=== PATIENT | female | born 1955 | race Caucasian/White ===

== ENCOUNTER → 2016-07-05 | Outpatient (CLI) | payer MEDICARE, OTHER ==
[2016-06-16 11:13] VITALS: BP 133/72
[~2016-07-05] MED LIST: AMOX1TAB11 PO; BUPR100T8 PO; CIPR7.5D RIGHT EAR; CRESTOR10 MG PO; CYCL10TA2 PO; DICY20TA3 PO; FLUC150T2 PO; FLUO10CA7 PO; FLUT16SP NS; FLUT1DIS5 IH; FURO40TA4 PO; GABA300C8 PO; HYDR-2672 PO; LEVALBUTER1.25 MG/0. IH; LEVO50TA5 PO; LORA10TA3 PO; LORA2TAB PO; MELO-150 PO; METO25TA9 PO; MOME17SP NS; OXYC10TA PO; OXYC30TA PO; PROAIR HFA8.5 GM IH; PROC10TA2 PO; TRAZ100T12 PO
--- NOTE | 2016-07-05 14:11 | RAD ---
PROCEDURE MRI right shoulder without contrast dated 07/05/2016. HISTORY Pain for 2 weeks. Limited range of motion. TECHNIQUE Routine multiplanar multisequence MR imaging right shoulder performed. COMPARISON None. FINDINGS Study is limited due to motion artifact and poor signal. There is intermediate T2 signal throughout the supraspinatus and infraspinous portions of the rotator cuff. Evaluation for tear is limited based on technique. No definite T2 fluid bright defect. No cuff retraction. Mild hypertrophic change of the acromioclavicular joint. Trace amount of subacromial/subdeltoid bursal fluid. Acromion type 3 morphology. Long head biceps tendon is not well evaluated proximally. Suspected mild increased signal in the tendon substance based on the axial images. The extra-articular biceps tendon extends within the bicipital groove. Glenoid labrum not well evaluated. No gross evidence of labral tear or paralabral cyst. Mild degenerative change of the glenohumeral joint. Node joint effusion or loose body. IMPRESSION - Limited exam due to motion artifact and poor signal. - Rotator cuff tendinopathy with no definite full-thickness tear. - Suspect mild proximal biceps tendinosis. - Mild degenerative change of the AC joint and glenohumeral joint. Electronically signed by: Dominic Steel (Jul 05, 2016 14:09:22)
== END | disposition home or self-care (01) ==
LOC: MRI 12:52
PROVIDERS: ATTEND Internal Medicine
DX: M75.21 Bicipital tendinitis, right shoulder (principal); M19.011 Primary osteoarthritis, right shoulder; M25.411 Effusion, right shoulder
CPT/HCPCS: 73221

== ENCOUNTER → 2016-10-06 | Outpatient (CLI) | payer MEDICARE, OTHER ==
[2016-06-16 11:13] VITALS: BP 133/72
--- NOTE | 2016-10-06 12:17 | RAD ---
Indication lymphoma. Follow-up. PET/CT was performed from the skull through the proximal thigh. CT was performed primarily for localization and attenuation purposes as opposed to primary diagnostic purposes. Note is made of a previous examination 04/09/2015. 13 mCi of FDG was administered. The blood sugar during the examination was monitored 5. On CT no definite abnormality is seen in the head or neck. No dominant soft tissue mass is seen in either lung. There are scattered areas of pleural-parenchymal scarring. The spleen is absent. No definite adrenal or renal pathology is seen and the pancreas appears unremarkable. Definite significant central or retroperitoneal adenopathy is not seen. Acute finding in the abdomen or pelvis is not apparent. Right hip prosthesis and degenerative changes in the visualized spinal column are noted. On PET increased activity is seen in the right masseter muscle. This was noted on the previous exam but is less conspicuous on today's study. Increased activity in the muscles of the lower neck and upper back is likely claim service representative of brown fat. Some increased activity is seen in the right shoulder likely degenerative. No FDG avid axillary or mediastinal lymph nodes are noted and a significant finding in the chest is not apparent. The FDG is physiologically distributed in the abdomen and pelvis. Note is made of increased FDG activity in a lower right rib at the site of a fracture which does not appear pathologic. IMPRESSION: No definite evidence of recurrent disease. Increased FDG activity in the right masseter muscle of uncertain clinical significance or etiology. The intensity of the uptake is less than on the previous exam Recent or acute benign-appearing fracture right lower rib
== END | disposition home or self-care (01) ==
LOC: PETSC 10:06
PROVIDERS: ATTEND Internal Medicine Hematology & Oncology
DX: C82.90 Follicular lymphoma, unspecified, unspecified site (principal)
CPT/HCPCS: 78815; A9552

== ENCOUNTER 2017-06-20 05:46 | Inpatient (IN) | payer MEDICARE, OTHER ==
[2017-06-20] MEDS ORDERED: NON FORMULARY ITEM (Albuterol Sulfate (Proair Hfa Inhaler) 2 PUFF) IH (08:00)
[2017-06-20] MEDS ORDERED: ALBUTEROL SULFATE 2.5 MG/3 ML NEBU. NEB (08:30)
[2017-06-20] MEDS: TERBINAFINE 250 MG TABLET. PO (08:37)
[2017-06-20] MEDS: LEVOTHYROXINE 50 MCG TABLET PO (08:38)
[2017-06-20] MEDS: DICYCLOMINE HCL 10 MG CAPSULE PO ×3 (08:38→21:15)
[2017-06-20] MEDS: buPROPion SR 100 MG TABLET.SA. PO ×2 (08:39→21:35)
[2017-06-20] MEDS: HYDROcodone/APAP 10/325 1 TAB TABLET PO ×4 (08:39→21:16)
[2017-06-20] MEDS: METOPROLOL SUCC 24HR ER 25 MG TAB.ER.24H. PO ×2 (08:39→21:16)
[2017-06-20] MEDS: GABAPENTIN 100 MG CAPSULE. PO ×3 (08:40→21:17)
[2017-06-20] MEDS: FLUoxetine HCL 20 MG CAPSULE PO (08:40)
[2017-06-20] MEDS: MELOXICAM 7.5 MG TABLET PO (08:40)
[2017-06-20] MEDS ORDERED: FLUCONAZOLE 150 MG PO (09:00)
[2017-06-20] MEDS ORDERED: CETIRIZINE HCL 10 MG TABLET. PO (09:00)
[2017-06-20] MEDS ORDERED: cefTRIAXone IV Push 1 GM VIAL. IVP (11:00)
[2017-06-20] MEDS: cefTRIAXone IV Push 1 GM VIAL. IVP ×2 (11:08→21:19)
[2017-06-20] MEDS: FLUTICASONE 50MCG/NASAL SPRAY 16GM BOTTLE. NS (14:57)
[2017-06-20] MEDS: ATORVASTATIN CALCIUM 40 MG TABLET. PO (21:15)
[2017-06-20] MEDS: LACTOBACILLUS RHAMNOSUS GG 1 CAPSULE. PO (21:17)
[2017-06-20] MEDS: traZODone 100 MG TABLET. PO (21:17)
[2017-06-21] MEDS: HYDROcodone/APAP 10/325 1 TAB TABLET PO ×3 (01:17→14:22)
[2017-06-21 04:19] LABS: ADD MAN DIFF? NO
[2017-06-21 05:00] LABS: BASO # 0.1 x10^3/uL (0.0-0.2); BASO % 1 % (0-3); EOS # 0.3 x10^3/uL (0.0-0.7); EOS % 3 % (0-3); HEMATOCRIT 35.4 % (36.0-47.0); HEMOGLOBIN 11.7 g/dL (12.0-15.5); LYMPH # 2.3 x10^3/uL (1.0-4.8); LYMPH % 23 % (24-48); MEAN CORPUSCULAR HEMOGLOBIN 32 pg (25-35); MEAN CORPUSCULAR HGB CONC 33 g/dL (31-37); MEAN CORPUSCULAR VOLUME 96 fL (79-100); MONO % 11 % (0-9); NEUT % 62 % (31-73); PLATELET COUNT 347 x10^3/uL (140-400); RED BLOOD COUNT 3.68 x10^6/uL (3.50-5.40); RED CELL DISTRIBUTION WIDTH 14.8 % (11.5-14.5); WHITE BLOOD COUNT 9.7 x10^3/uL (4.0-11.0)
[2017-06-21 05:18] LABS: ALBUMIN/GLOBULIN RATIO 1.3 (1.0-1.7); ALK PHOS 82 U/L (46-116); ALT (SGPT) 25 U/L (14-59); ANION GAP 8 (6-14); AST (SGOT) 21 U/L (15-37); BLOOD UREA NITROGEN 10 mg/dL (7-20); BUN/CREATININE RATIO 17 (6-20); CARBON DIOXIDE 31 mmol/L (21-32); CHLORIDE 104 mmol/L (98-107); CREATININE 0.6 mg/dL (0.6-1.0); GFR 101.6; GLUCOSE 118 mg/dL (70-99); POTASSIUM 3.6 mmol/L (3.5-5.1); SODIUM 143 mmol/L (136-145); TOTAL BILIRUBIN 0.4 mg/dL (0.2-1.0); TOTAL PROTEIN 5.4 g/dL (6.4-8.2)
[2017-06-21] MEDS: LEVOTHYROXINE 50 MCG TABLET PO (05:26)
[2017-06-21] MEDS: CYCLOBENZAPRINE 10 MG TABLET. PO ×2 (10:33→14:22)
[2017-06-21] MEDS: FLUTICASONE 50MCG/NASAL SPRAY 16GM BOTTLE. NS (10:33)
[2017-06-21] MEDS: buPROPion SR 100 MG TABLET.SA. PO (10:33)
[2017-06-21] MEDS: FLUoxetine HCL 20 MG CAPSULE PO (10:34)
[2017-06-21] MEDS: LACTOBACILLUS RHAMNOSUS GG 1 CAPSULE. PO (10:34)
[2017-06-21] MEDS: oxyCODONE ER 15 MG TAB.ER.12H PO (10:34)
[2017-06-21] MEDS: TERBINAFINE 250 MG TABLET. PO (10:34)
[2017-06-21] MEDS: GABAPENTIN 100 MG CAPSULE. PO ×2 (10:35→14:22)
[2017-06-21] MEDS: DICYCLOMINE HCL 10 MG CAPSULE PO ×2 (10:35→14:23)
[2017-06-21] MEDS: MELOXICAM 7.5 MG TABLET PO (10:35)
[2017-06-21] MEDS: METOPROLOL SUCC 24HR ER 25 MG TAB.ER.24H. PO (10:35)
[2017-06-21] MEDS: cefTRIAXone IV Push 1 GM VIAL. IVP (10:36)
== END 2017-06-21 14:42 | DRG 206 ==
LOC: 2 NORTH 05:46 → 6 SOUTH 17:05
DX: S22.31XA Fracture of one rib, right side, initial encounter for closed fracture (principal); G62.9 Polyneuropathy, unspecified; R62.7 Adult failure to thrive; F32.9 Major depressive disorder, single episode, unspecified; J44.9 Chronic obstructive pulmonary disease, unspecified; F41.9 Anxiety disorder, unspecified; G89.29 Other chronic pain; M19.90 Unspecified osteoarthritis, unspecified site; E03.9 Hypothyroidism, unspecified; E78.5 Hyperlipidemia, unspecified; F17.210 Nicotine dependence, cigarettes, uncomplicated; W19.XXXA Unspecified fall, initial encounter; Y93.89 Activity, other specified; Y99.8 Other external cause status; Y92.009 Unspecified place in unspecified non-institutional (private) residence as the place of occurrence of the external cause; Z82.49 Family history of ischemic heart disease and other diseases of the circulatory system; Z91.19 Patient's noncompliance with other medical treatment and regimen
CPT/HCPCS: 36415; 71045; 78582; 80053; 85025; 94760; 96374; 97161-GP; 97165-GO; A9540; A9558; J0696

== ENCOUNTER 2018-01-08 23:04 | Emergency (ER) | payer MEDICARE | END 2018-01-09 02:55 | disposition home or self-care (01) | LOC: ER 01-09 02:55 | DX: F41.9 Anxiety disorder, unspecified (principal); J44.9 Chronic obstructive pulmonary disease, unspecified; Z91.041 Radiographic dye allergy status; Z88.8 Allergy status to other drugs, medicaments and biological substances; Z91.018 Allergy to other foods | CPT/HCPCS: 96372; 99284-25; J2060 ==

== ENCOUNTER 2018-06-05 19:36 | Emergency (ER) | payer MEDICARE, OTHER ==
[~2018-06-05] VITALS: Ht 175.3 cm; Wt 66.7 kg
[~2018-06-05 19:36] MED LIST changes: +ATOR40TA59 PO; +BUSP10TA PO; +DICY10CA3 PO; +GABA300C18 PO; -GABA300C8 PO; -HYDR-2672 PO; +HYDR-2769 PO; +LORA-434 PO; -MELO-150 PO; +MELO15TA23 PO; +MELO7.5T29 PO; +METO-239 PO; -METO25TA9 PO; +MORP15TA3 PO; +OXYC10TA46 PO; -OXYC30TA PO; +OXYC30TA3 PO; +TERB250T11 PO; +TRAZ-86 PO; -TRAZ100T12 PO
[2018-06-05] MEDS ORDERED: ORPHENADRINE CITRATE 60 MG/2 ML VIAL. IM ONE (20:30)
[2018-06-05] MEDS ORDERED: HYDROcodone/APAP 10/325 1 TAB TABLET PO ONE (20:45)
[2018-06-05] MEDS ORDERED: DEXAMETHASONE 4 MG TABLET PO ONE (20:45)
--- NOTE | 2018-06-05 20:46 | PHYS DOC ---
Past Medical History Past Medical History: Cancer, COPD Additional Past Medical Histor: follicular lymphoma w chemo and radiation, Crohn Past Surgical History: Splenectomy Additional Past Surgical Histo: port o cath r ant chest,r hip Alcohol Use: None Drug Use: None Social History Father - Crohn, Alcoholism Sister - alcoholism Adult General Chief Complaint Chief Complaint: MECHANICAL FALL HPI HPI Patient is a 62 year old with hx of R hip replacement and chronic back pain who presents with mechanical fall. Pt reports having a fall from a 3-step ladder this morning (06/05/2018) and landed on her R. buttock as she was decorating her room in the intermediate. Pt experience sharp pain that radiates from her lower back down to her ankle on the right side. She rates her pain as 10/10 (10 = worst). Around 10 am today, She took some [place] and oxycodone which alleviates some of the pain. She denies hitting her head or shoulder nor LOC as she fell. Denies any dizziness that causes the fall. Review of Systems Review of Systems Constitutional: Denies fever or chills [] Eyes: Denies change in visual acuity, redness, or eye pain [] HENT: Denies nasal congestion or sore throat [] Respiratory: Denies cough or shortness of breath [] Cardiovascular: No additional information not addressed in HPI [] GI: Denies abdominal pain, nausea, vomiting, bloody stools or diarrhea [] : Denies dysuria or hematuria [] Musculoskeletal: Endorses back pain and muscle weakness [] Integument: Denies rash or skin lesions [] Neurologic: Denies headache, focal weakness or sensory changes [] Complete systems were reviewed and found to be within normal limits, except as documented in this note. Current Medications Current Medications Current Medications Medications (Trade) Dose Ordered Sig/Aysha Start Time Stop Time Status Last Admin Dose Admin Acetaminophen/ Hydrocodone Bitart (Lortab 10/325) 1 tab 1X ONCE 06/05/18 20:45 06/05/18 20:46 DC 06/05/18 20:51 1 TAB Dexamethasone (Decadron) 10 mg 1X ONCE 06/05/18 20:45 06/05/18 20:46 DC 06/05/18 20:51 10 MG Orphenadrine Citrate (Norflex) 60 mg 1X ONCE 06/05/18 20:30 06/05/18 20:31 DC 06/05/18 20:51 60 MG Allergies Allergies Allergies Coded Allergies Type Severity Reaction Last Updated Verified Iodinated Contrast- Oral and IV Dye Allergy Severe Anaphylaxis 07/17/14 Yes coconut oil Allergy Severe Anaphylaxis 07/17/14 Yes iron Allergy Severe Anaphylaxis 07/17/14 Yes Physical Exam Physical Exam Constitutional: Well developed, well nourished, no acute distress, non-toxic appearance. [] HENT: Normocephalic, atraumatic, bilateral external ears normal, oropharynx moist, no oral exudates, nose normal. [] Eyes: PERRL, EOMI, conjunctiva normal, no discharge. [] Neck: Normal range of motion, no tenderness, supple, no stridor. [] Cardiovascular:Heart rate regular rhythm, no murmur [] Lungs & Thorax: Bilateral breath sounds clear to auscultation [] Abdomen: Bowel sounds normal, soft, no tenderness[] Skin: Warm, dry, no erythema, no rash. [] Back: Paraspinal spasm and tenderness on the R. lower back, no midline focal tenderness, no CVA tenderness. Negative Straight leg test at 65 degree. [] Extremities: mild tenderness on the posterior R thigh, no cyanosis, no clubbing , ROM intact, no edema. [] Neurologic: Alert and oriented X 3, normal motor function, normal sensory function, no focal deficits noted. [] Psychologic: Affect normal, judgement normal, mood normal. [] Current Patient Data Vital Signs Vital Signs Date Time Temp Pulse Resp B/P (MAP) Pulse Ox O2 Delivery O2 Flow Rate FiO2 06/05/18 20:01 98.5 91 20 122/73 (89) 90 Room Air 98.5 EKG EKG [] Radiology/Procedures Radiology/Procedures XR right hip and pelvis: NO acute fracture/dislocation with R bipolar hip ( preliminary interpretation by ED physician) XR sacrum/coccyx: NO acute fracture, limited view on AP due to bowel gas ( preliminary interpretation by ED physician) Course & Med Decision Making Course & Med Decision Making Pertinent Labs and Imaging studies reviewed. (See chart for details) [] Dragon Disclaimer Dragon Disclaimer This electronic medical record was generated, in whole or in part, using a voice recognition dictation system. Departure Departure Impression: Primary Impression: Fall Additional Impressions: Low back pain Contusion of right hip, initial encounter Disposition: TRANSFER SNF (back to intermediate) Condition: STABLE Referrals: MILAN MCCRAY (PCP) Patient Instructions: Contusion, [id number], Fall Prevention in Hospitals, Low Back Strain with Rehab-Sports[facility] Additional Instructions: Continue previous prescribed muscle relaxer and chronic pain medications. Problem Qualifiers Primary Impression: Fall Encounter type: initial encounter Qualified Codes: W19.XXXA - Unspecified fall, initial encounter Additional Impressions: Low back pain Chronicity: acute Back pain laterality: right Sciatica presence: with sciatica Sciatica laterality: sciatica of right side Qualified Codes: M54.41 - Lumbago with sciatica, right side PRICILLA MAHMOOD DO Jun 05, 2018 20:46
--- NOTE | 2018-06-05 21:52 | RAD ---
Examination: SACRUM COCCYX 3V, HIP RIGHT 2V WITH PELVIS History: pain s/p fall Comparison/Correlation: None Findings: Frontal view of the pelvis, frog-leg lateral view of the right hip, lateral view of the sacrum and coccyx, and frontal views of the sacrum and coccyx were provided. Right hip joint prosthesis is intact with no evidence of loosening. Osteopenia is notable. No acute fracture or bony destructive finding. Mild L5 compression deformity is evident but may be chronic. Moderate quantity of stool in the colon is present. Impression: No sacral or coccygeal fracture identified. Osteopenia is notable however. Consider further evaluation if occult fracture is a persistent concern. L5 compression deformity is present but of indeterminate age. Electronically signed by: Ross Rob MD (06/05/2018 9:48 PM) [facility]
[2018-06-05 22:00] VITALS: BP 154/67
== END 2018-06-05 23:03 ==
LOC: ER 19:36
DX: S70.01XA Contusion of right hip, initial encounter (principal); M54.41 Lumbago with sciatica, right side; G89.29 Other chronic pain; J44.9 Chronic obstructive pulmonary disease, unspecified; Z91.041 Radiographic dye allergy status; Z88.8 Allergy status to other drugs, medicaments and biological substances; Z91.048 Other nonmedicinal substance allergy status; W10.8XXA Fall (on) (from) other stairs and steps, initial encounter; Y93.89 Activity, other specified; Y92.89 Other specified places as the place of occurrence of the external cause; Y99.8 Other external cause status
CPT/HCPCS: 72220; 73502; 96372; 99284; J2360; J8540

== ENCOUNTER 2019-04-17 13:10 | Inpatient (IN) | payer MEDICARE, MEDICAID ==
[~2019-04-17] VITALS: Ht 167.6 cm; Wt 70.3 kg
[~2019-04-17 13:10] MED LIST changes: +ALBU2.5V8 IH; +MORP-15 PO; -MORP15TA3 PO; -PROAIR HFA8.5 GM IH
[2019-04-17] MEDS ORDERED: ONDANSETRON PF 4 MG/2 ML VIAL. IVP ONE (13:45)
[2019-04-17] MEDS ORDERED: FAMOTIDINE 20 MG/2 ML VIAL IVP ONE (13:45)
[2019-04-17] MEDS ORDERED: fentaNYL PF VIAL 100 MCG/2 ML VIAL IVP ONE (13:45)
[2019-04-17 14:10] LABS: BASO # 0.1 x10^3/uL (0.0-0.2); BASO % 1 % (0-3); EOS % 0 % (0-3); HEMATOCRIT 49.1 % (36.0-47.0); HEMOGLOBIN 16.2 g/dL (12.0-15.5); LYMPH # 2.7 x10^3/uL (1.0-4.8); LYMPH % 22 % (24-48); MEAN CORPUSCULAR HEMOGLOBIN 31 pg (25-35); MEAN CORPUSCULAR HGB CONC 33 g/dL (31-37); MEAN CORPUSCULAR VOLUME 95 fL (79-100); MONO # 1.2 x10^3/uL (0.0-1.1); MONO % 10 % (0-9); NEUT # 8.2 x10^3/uL (1.8-7.7); NEUT % 67 % (31-73); PLATELET COUNT 311 x10^3/uL (140-400); WHITE BLOOD COUNT 12.2 x10^3/uL (4.0-11.0)
[2019-04-17 14:23] LABS: ALBUMIN 3.9 g/dL (3.4-5.0); CALCIUM 9.3 mg/dL (8.5-10.1); CREATININE 0.8 mg/dL (0.6-1.0); GFR 72.4; TOTAL BILIRUBIN 0.5 mg/dL (0.2-1.0); TOTAL PROTEIN 7.9 g/dL (6.4-8.2)
[2019-04-17 14:30] LABS: POTASSIUM 2.3 mmol/L (3.5-5.1)
[2019-04-17 14:38] LABS: ACANTHOCYTES FEW; PLT ESTIMATE ADEQUATE (ADEQUATE); SCHISTOCYTES OCC; SPHEROCYTES FEW
[2019-04-17] MEDS ORDERED: POTASSIUM CITRATE 10 MEQ TABLET.ER PO STA (14:38)
[2019-04-17] MEDS ORDERED: POTASSIUM CHLORIDE 20 MEQ TABLET.ER. PO ONE (15:00)
[2019-04-17] MEDS: POTASSIUM CHLORIDE 10MEQ 100 ML IV SCH ×2 (15:15→16:07)
--- NOTE | 2019-04-17 15:15 | PDOC1 ---
History and Physical Date of Admission Date of Admission DATE: 04/17/19 TIME: 15:14 Identification/Chief Complaint Chief Complaint seen in er , very hypokalemic 63 year old female with history of lymphoma, COPD, who presents to the ED today complaining of vomiting coffee ground emesis for one week. Patient is also complaining of 10 out of 10 sharp intermittent generalized abdominal pain one week. Denies any diarrhea. She states she had a normal bowel movement yesterday. Denies any chest pain, shortness of breath. Denies being on any chemotherapy drugs Past Medical History Past Medical History Past Medical History Cardiovascular: HTN, Hyperlipidemia Pulmonary: Asthma, COPD CENTRAL NERVOUS SYSTEM: Seizure GI: GERD, Irritable bowel disease, Other Heme/Onc: Anemia NOS, Cancer Hepatobiliary: No pertinent hx Psych: Anxiety, Bipolar, Depression Rheumatologic: Fibromyalgia Infectious disease: No pertinent hx Renal/: Urinary Incontinence, Other Endocrine: Hypothyroidism Past Surgical History Past Surgical History: Total hip replacement, Other Family History Family History: Coronary Artery Disease Social History ALCOHOL: none Drugs: None Cardiovascular: HTN, Hyperlipidemia Pulmonary: Asthma, COPD CENTRAL NERVOUS SYSTEM: Seizure GI: GERD, Irritable bowel disease, Other Heme/Onc: Anemia NOS, Cancer Hepatobiliary: No pertinent hx Psych: Anxiety, Bipolar, Depression Rheumatologic: Fibromyalgia Infectious disease: No pertinent hx Renal/: Urinary Incontinence, Other Endocrine: Hypothyroidism Past Surgical History Past Surgical History: Total hip replacement, Other Family History Family History: Coronary Artery Disease, Hypertension Social History Smoke: Quit ALCOHOL: none Drugs: None Current Medications Current Medications Current Medications Famotidine (Pepcid Vial) 20 mg 1X ONCE IVP Last administered on 04/17/19at 14:08; Start 04/17/19 at 13:45; Stop 04/17/19 at 13:46; Status DC Ondansetron HCl (Zofran) 4 mg 1X ONCE IVP Last administered on 04/17/19at 14:08; Start 04/17/19 at 13:45; Stop 04/17/19 at 13:46; Status DC Fentanyl Citrate (Fentanyl 2ml Vial) 50 mcg 1X ONCE IVP Last administered on 04/17/19at 14:09; Start 04/17/19 at 13:45; Stop 04/17/19 at 13:46; Status DC Potassium Citrate (Urocit-K) 40 meq 1X STAT PO ; Start 04/17/19 at 14:38; Stop 04/17/19 at 14:39; Status Cancel Potassium Chloride/Water 100 ml @ 100 mls/hr Q1H IV ; Start 04/17/19 at 15:00; Stop 04/17/19 at 16:59 Potassium Chloride (Klor-Con) 40 meq 1X ONCE PO Last administered on 04/17/19at 15:00; Start 04/17/19 at 15:00; Stop 04/17/19 at 15:01; Status DC Active Scripts Active Reported Metoprolol Succinate ( Xl ) (Metoprolol Succinate) 25 Mg Tab.er.24h 1 Tab PO DAILY Buspirone Hcl 10 Mg Tablet 10 Mg PO TID Loratadine 10 Mg Tablet 1 Tab PO PRN DAILY PRN Terbinafine Hcl 250 Mg Tablet 1 Tab PO DAILY Gabapentin 300 Mg Capsule 300 Mg PO TID Fluticasone Propionate Nasal [place] (Fluticasone Propionate) 16 Gm [place].susp 1 Spr NS DAILY Bupropion Hcl Sr (Bupropion Hcl) 100 Mg Tablet.er 100 Mg PO BID Fluoxetine Hcl 10 Mg Capsule 2 Cap PO DAILY Proair Hfa Inhaler (Albuterol Sulfate) 8.5 Gm Hfa.aer.ad 2 Puff IH PRN Q4-6HRS Dicyclomine Hcl 20 Mg Tablet 1 Tab PO TID Levothyroxine Sodium 50 Mcg Tablet 1 Tab PO DAILY Allergies Allergies: Coded Allergies: Iodinated Contrast Media (Verified Allergy, Severe, Anaphylaxis, 07/17/14) coconut oil (Verified Allergy, Severe, Anaphylaxis, 07/17/14) coconuts iron (Verified Allergy, Severe, Anaphylaxis, 07/17/14) ROS Review of System Review of Systems Review of Systems Constitutional: Denies fever or chills [] Eyes: Denies change in visual acuity, redness, or eye pain [] HENT: Denies nasal congestion or sore throat [] Respiratory: Denies cough or shortness of breath [] Cardiovascular: No additional information not addressed in HPI [] GI: Reports abdominal pain, coffee-ground emesis denies bloody stools or diarrhea [] : Denies dysuria or hematuria [] Musculoskeletal: Denies back pain or joint pain [] Integument: Denies rash or skin lesions [] Neurologic: Denies headache, focal weakness or sensory changes [] 14 pt systems were reviewed and found to be within normal limits, except as documented General: YES: Fatigue PSYCHOLOGICAL ROS: YES: Anxiety Gastrointestinal: Yes Nausea, Yes Vomiting Vitals Vitals Vital Signs Date Time Temp Pulse Resp B/P (MAP) Pulse Ox O2 Delivery O2 Flow Rate FiO2 04/17/19 14:09 16 95 Room Air 04/17/19 13:10 97.9 107 134/73 (93) 97.9 Labs Labs Laboratory Tests Test 04/17/19 13:55 White Blood Count 12.2 x10^3/uL (4.0-11.0) Red Blood Count 5.20 x10^6/uL (3.50-5.40) Hemoglobin 16.2 g/dL (12.0-15.5) Hematocrit 49.1 % (36.0-47.0) Mean Corpuscular Volume 95 fL (79-100) Mean Corpuscular Hemoglobin 31 pg (25-35) Mean Corpuscular Hemoglobin Concent 33 g/dL (31-37) Red Cell Distribution Width 14.0 % (11.5-14.5) Platelet Count 311 x10^3/uL (140-400) Neutrophils (%) (Auto) 67 % (31-73) Lymphocytes (%) (Auto) 22 % (24-48) Monocytes (%) (Auto) 10 % (0-9) Eosinophils (%) (Auto) 0 % (0-3) Basophils (%) (Auto) 1 % (0-3) Neutrophils # (Auto) 8.2 x10^3/uL (1.8-7.7) Lymphocytes # (Auto) 2.7 x10^3/uL (1.0-4.8) Monocytes # (Auto) 1.2 x10^3/uL (0.0-1.1) Eosinophils # (Auto) 0.0 x10^3/uL (0.0-0.7) Basophils # (Auto) 0.1 x10^3/uL (0.0-0.2) Platelet Estimate Adequate (ADEQUATE) Large Platelets Few Giant Platelets Occ Spherocytes Few Acanthocytes Few Schistocytes Occ Sodium Level 141 mmol/L (136-145) Potassium Level 2.3 mmol/L (3.5-5.1) Chloride Level 96 mmol/L (98-107) Carbon Dioxide Level 31 mmol/L (21-32) Anion Gap 14 (6-14) Blood Urea Nitrogen 21 mg/dL (7-20) Creatinine 0.8 mg/dL (0.6-1.0) Estimated GFR (Cockcroft-Gault) 72.4 BUN/Creatinine Ratio 26 (6-20) Glucose Level 127 mg/dL (70-99) Calcium Level 9.3 mg/dL (8.5-10.1) Total Bilirubin 0.5 mg/dL (0.2-1.0) Aspartate Amino Transf (AST/SGOT) 20 U/L (15-37) Alanine Aminotransferase (ALT/SGPT) 15 U/L (14-59) Alkaline Phosphatase 109 U/L (46-116) Total Protein 7.9 g/dL (6.4-8.2) Albumin 3.9 g/dL (3.4-5.0) Albumin/Globulin Ratio 1.0 (1.0-1.7) Lipase 82 U/L (73-393) Ethyl Alcohol Level < 10 mg/dL (0-10) Laboratory Tests Test 04/17/19 13:55 White Blood Count 12.2 x10^3/uL (4.0-11.0) Red Blood Count 5.20 x10^6/uL (3.50-5.40) Hemoglobin 16.2 g/dL (12.0-15.5) Hematocrit 49.1 % (36.0-47.0) Mean Corpuscular Volume 95 fL (79-100) Mean Corpuscular Hemoglobin 31 pg (25-35) Mean Corpuscular Hemoglobin Concent 33 g/dL (31-37) Red Cell Distribution Width 14.0 % (11.5-14.5) Platelet Count 311 x10^3/uL (140-400) Neutrophils (%) (Auto) 67 % (31-73) Lymphocytes (%) (Auto) 22 % (24-48) Monocytes (%) (Auto) 10 % (0-9) Eosinophils (%) (Auto) 0 % (0-3) Basophils (%) (Auto) 1 % (0-3) Neutrophils # (Auto) 8.2 x10^3/uL (1.8-7.7) Lymphocytes # (Auto) 2.7 x10^3/uL (1.0-4.8) Monocytes # (Auto) 1.2 x10^3/uL (0.0-1.1) Eosinophils # (Auto) 0.0 x10^3/uL (0.0-0.7) Basophils # (Auto) 0.1 x10^3/uL (0.0-0.2) Platelet Estimate Adequate (ADEQUATE) Large Platelets Few Giant Platelets Occ Spherocytes Few Acanthocytes Few Schistocytes Occ Sodium Level 141 mmol/L (136-145) Potassium Level 2.3 mmol/L (3.5-5.1) Chloride Level 96 mmol/L (98-107) Carbon Dioxide Level 31 mmol/L (21-32) Anion Gap 14 (6-14) Blood Urea Nitrogen 21 mg/dL (7-20) Creatinine 0.8 mg/dL (0.6-1.0) Estimated GFR (Cockcroft-Gault) 72.4 BUN/Creatinine Ratio 26 (6-20) Glucose Level 127 mg/dL (70-99) Calcium Level 9.3 mg/dL (8.5-10.1) Total Bilirubin 0.5 mg/dL (0.2-1.0) Aspartate Amino Transf (AST/SGOT) 20 U/L (15-37) Alanine Aminotransferase (ALT/SGPT) 15 U/L (14-59) Alkaline Phosphatase 109 U/L (46-116) Total Protein 7.9 g/dL (6.4-8.2) Albumin 3.9 g/dL (3.4-5.0) Albumin/Globulin Ratio 1.0 (1.0-1.7) Lipase 82 U/L (73-393) Ethyl Alcohol Level < 10 mg/dL (0-10) Images Images Exam: CT abdomen and pelvis without INDICATION: Abdominal pain TECHNIQUE: Sequential axial images through the abdomen and pelvis obtained without IV contrast. Sagittal and coronal reformatted images were reconstructed from the axial data and reviewed. Comparisons: None FINDINGS: Heart size is normal. No pericardial effusion Likely opacity noted at the left lung base. No pleural effusion. Evaluation of the solid organs is limited secondary to noncontrast technique. Liver, gallbladder, pancreas and adrenals are unremarkable. Spleen is absent. No perinephric inflammation or hydronephrosis. No renal or ureteral calculi. Evaluation pelvis is limited secondary to metallic streak artifact from hip arthroplasty. Bladder is distended without apparent wall thickening. Uterus is not enlarged. No abnormal adnexal mass. There is wall thickening at the sigmoid colon and rectum with adjacent inflammatory changes. Remainder of the large and small bowel are unremarkable. No obstruction. No free intra-abdominal air or fluid. Abdominal aorta has a normal course and caliber. No enlarged intra-abdominal lymph nodes are identified. Right hip arthroplasty is noted. There is diffuse osteopenia. There is mild compression deformity involving the L5 and T12 vertebral bodies without significant retropulsion. No suspicious osseous lesions. IMPRESSION: 1. Wall thickening of the sigmoid colon and rectum, favored represent focal colitis, may be infectious or inflammatory in etiology. 2. Compression deformities involving the L5 and T12 vertebral bodies with between 25 percent and 50 percent height loss. These are age indeterminant. Correlate with point tenderness. Exposure: One or more of the following in the visualized dose reduction techniques were utilized for this examination: 1. Automated exposure control 2. Adjustment of the MA and/or KV according to patient size 3. Use of iterative of reconstructive technique Electronically signed by: Yvonne Ghosh MD (04/17/2019 3:12 PM) [facility] VTE Prophylaxis Ordered VTE Prophylaxis Devices: No VTE Pharmacological Prophylaxi: Yes Assessment/Plan Assessment/Plan IMPRESSION: 1. Wall thickening of the sigmoid colon and rectum, favored represent focal colitis, may be infectious or inflammatory in etiology. 2. Compression deformities involving the L5 and T12 vertebral bodies with between 25 percent and 50 percent height loss. These are age indeterminant 3. intractable vomiting 4. UGI BLEED, Gastritis vs PUD, ON FREQ NSAIDS 5. SEVERE HYPOKALEMIA 6. HX ASTHMA plan admit gi consult npo iv fluid support iv zofran 4 mg q 4 hrs prn replete k IV PROTONIX SERIAL H/H NO NSAIDS [facility] HOME MEDS 73 MIN PT EXAM, CHART REVIEW, > 50% OF TIME SPENT WITH EXAM, CHART REVIEW, PT CARE COORDINATION APARNA ALDRICH MD Apr 17, 2019 15:15
--- NOTE | 2019-04-17 15:23 | EKG ---
[facility] [address] [place] [address] Test Date: 2019-04-17 Test Time: 15:14:02 Pat Name: JASWINDER NAVAS Department: Room: Gender: F Oncology Radiation Physician: : [id number] Requested By: RUBA MOON Order Number: [id number] Reading MD: Measurements Intervals [place] Rate: 105 P: 15 TN: 128 QRS: -19 QRSD: 94 T: 77 QT: 348 QTc: 464 Interpretive Statements SINUS TACHYCARDIA LEFTWARD AXIS LVH WITH REPOLARIZATION ABNORMALITY QRS(T) CONTOUR ABNORMALITY CONSIDER ANTEROSEPTAL MYOCARDIAL DAMAGE ABNORMAL ECG RI6.01 No previous ECG available for comparison
--- NOTE | 2019-04-17 16:20 | PHYS DOC ---
Past Medical History Past Medical History: Cancer, COPD Additional Past Medical Histor: follicular lymphoma w chemo and radiation, Crohn Past Surgical History: Splenectomy Additional Past Surgical Histo: port o cath r ant chest,r hip Alcohol Use: None Drug Use: Opiates Adult General Chief Complaint Chief Complaint: ABDOMINAL PAIN HPI HPI Patient is a 63 year old female with history of lymphoma, COPD, who presents to the ED today complaining of vomiting coffee ground emesis for one week. Patient is also complaining of 10 out of 10 sharp intermittent generalized abdominal pain one week. Denies any diarrhea. She states she had a normal bowel movement yesterday. Denies any chest pain, shortness of breath. Denies being on any chemotherapy drugs considering her lymphoma. Review of Systems Review of Systems Constitutional: Denies fever or chills [] Eyes: Denies change in visual acuity, redness, or eye pain [] HENT: Denies nasal congestion or sore throat [] Respiratory: Denies cough or shortness of breath [] Cardiovascular: No additional information not addressed in HPI [] GI: Reports abdominal pain, coffee-ground emesis denies bloody stools or diarrhea [] : Denies dysuria or hematuria [] Musculoskeletal: Denies back pain or joint pain [] Integument: Denies rash or skin lesions [] Neurologic: Denies headache, focal weakness or sensory changes [] All other systems were reviewed and found to be within normal limits, except as documented in this note. Current Medications Current Medications Current Medications Medications (Trade) Dose Ordered Sig/Aysha Start Time Stop Time Status Last Admin Dose Admin Famotidine (Pepcid Vial) 20 mg 1X ONCE 04/17/19 13:45 04/17/19 13:46 DC 04/17/19 14:08 20 MG Fentanyl Citrate (Fentanyl 2ml Vial) 50 mcg 1X ONCE 04/17/19 13:45 04/17/19 13:46 DC 04/17/19 14:09 50 MCG Ondansetron HCl (Zofran) 4 mg 1X ONCE 04/17/19 13:45 04/17/19 13:46 DC 04/17/19 14:08 4 MG Potassium Chloride/Water 100 ml @ 100 mls/hr Q1H 04/17/19 15:00 04/17/19 16:59 04/17/19 16:07 100 MLS/HR Potassium Chloride (Klor-Con) 40 meq 1X ONCE 04/17/19 15:00 04/17/19 15:01 DC 04/17/19 15:00 40 MEQ Potassium Citrate (Urocit-K) 40 meq 1X STAT 04/17/19 14:38 04/17/19 14:39 Cancel Allergies Allergies Allergies Coded Allergies Type Severity Reaction Last Updated Verified Iodinated Contrast- Oral and IV Dye Allergy Severe Anaphylaxis 07/17/14 Yes coconut oil Allergy Severe Anaphylaxis 07/17/14 Yes iron Allergy Severe Anaphylaxis 07/17/14 Yes Physical Exam Physical Exam Constitutional: Well developed, well nourished, no acute distress, non-toxic appearance. [] HENT: Normocephalic, atraumatic, bilateral external ears normal, oropharynx moist, no oral exudates, nose normal. [] Eyes: PERRLA, EOMI, conjunctiva normal, no discharge. [] Neck: Normal range of motion, no tenderness, supple, no stridor. [] Cardiovascular:Heart rate regular rhythm, no murmur [] Lungs & Thorax: Bilateral breath sounds clear to auscultation [] Abdomen: Rounded abdomen, old healed surgical incision noted midline abdomen. Bowel sounds normal, soft, diffuse tenderness throughout the abdomen, no masses, no pulsatile masses. [] Skin: Warm, dry, no erythema, no rash. [] Back: No tenderness, no CVA tenderness. [] Extremities: No tenderness, no cyanosis, no clubbing, ROM intact, no edema. [] Neurologic: Alert and oriented X 3, normal motor function, normal sensory function, no focal deficits noted. [] Psychologic: Affect normal, judgement normal, mood normal. [] Current Patient Data Vital Signs Vital Signs Date Time Temp Pulse Resp B/P (MAP) Pulse Ox O2 Delivery O2 Flow Rate FiO2 04/17/19 14:30 100 18 128/66 (86) 95 Room Air 04/17/19 13:10 97.9 97.9 Lab Values Laboratory Tests Test 04/17/19 13:55 White Blood Count 12.2 x10^3/uL (4.0-11.0) H Red Blood Count 5.20 x10^6/uL (3.50-5.40) Hemoglobin 16.2 g/dL (12.0-15.5) H Hematocrit 49.1 % (36.0-47.0) H Mean Corpuscular Volume 95 fL (79-100) Mean Corpuscular Hemoglobin 31 pg (25-35) Mean Corpuscular Hemoglobin Concent 33 g/dL (31-37) Red Cell Distribution Width 14.0 % (11.5-14.5) Platelet Count 311 x10^3/uL (140-400) Neutrophils (%) (Auto) 67 % (31-73) Lymphocytes (%) (Auto) 22 % (24-48) L Monocytes (%) (Auto) 10 % (0-9) H Eosinophils (%) (Auto) 0 % (0-3) Basophils (%) (Auto) 1 % (0-3) Neutrophils # (Auto) 8.2 x10^3/uL (1.8-7.7) H Lymphocytes # (Auto) 2.7 x10^3/uL (1.0-4.8) Monocytes # (Auto) 1.2 x10^3/uL (0.0-1.1) H Eosinophils # (Auto) 0.0 x10^3/uL (0.0-0.7) Basophils # (Auto) 0.1 x10^3/uL (0.0-0.2) Platelet Estimate Adequate (ADEQUATE) Large Platelets Few Giant Platelets Occ Spherocytes Few Acanthocytes (Spur Cells) Few Schistocytes Occ Sodium Level 141 mmol/L (136-145) Potassium Level 2.3 mmol/L (3.5-5.1) *L Chloride Level 96 mmol/L (98-107) L Carbon Dioxide Level 31 mmol/L (21-32) Anion Gap 14 (6-14) Blood Urea Nitrogen 21 mg/dL (7-20) H Creatinine 0.8 mg/dL (0.6-1.0) Estimated GFR (Cockcroft-Gault) 72.4 BUN/Creatinine Ratio 26 (6-20) H Glucose Level 127 mg/dL (70-99) H Calcium Level 9.3 mg/dL (8.5-10.1) Total Bilirubin 0.5 mg/dL (0.2-1.0) Aspartate Amino Transferase (AST) 20 U/L (15-37) Alanine Aminotransferase (ALT) 15 U/L (14-59) Alkaline Phosphatase 109 U/L (46-116) Total Protein 7.9 g/dL (6.4-8.2) Albumin 3.9 g/dL (3.4-5.0) Albumin/Globulin Ratio 1.0 (1.0-1.7) Lipase 82 U/L (73-393) Ethyl Alcohol Level < 10 mg/dL (0-10) Laboratory Tests 04/17/19 13:55 Laboratory Tests 04/17/19 13:55 EKG EKG [] Radiology/Procedures Radiology/Procedures []PROCEDURE: CT ABDOMEN PELVIS WO CONTRAST Exam: CT abdomen and pelvis without INDICATION: Abdominal pain TECHNIQUE: Sequential axial images through the abdomen and pelvis obtained without IV contrast. Sagittal and coronal reformatted images were reconstructed from the axial data and reviewed. Comparisons: None FINDINGS: Heart size is normal. No pericardial effusion Likely opacity noted at the left lung base. No pleural effusion. Evaluation of the solid organs is limited secondary to noncontrast technique. Liver, gallbladder, pancreas and adrenals are unremarkable. Spleen is absent. No perinephric inflammation or hydronephrosis. No renal or ureteral calculi. Evaluation pelvis is limited secondary to metallic streak artifact from hip arthroplasty. Bladder is distended without apparent wall thickening. Uterus is not enlarged. No abnormal adnexal mass. There is wall thickening at the sigmoid colon and rectum with adjacent inflammatory changes. Remainder of the large and small bowel are unremarkable. No obstruction. No free intra-abdominal air or fluid. Abdominal aorta has a normal course and caliber. No enlarged intra-abdominal lymph nodes are identified. Right hip arthroplasty is noted. There is diffuse osteopenia. There is mild compression deformity involving the L5 and T12 vertebral bodies without significant retropulsion. No suspicious osseous lesions. IMPRESSION: 1. Wall thickening of the sigmoid colon and rectum, favored represent focal colitis, may be infectious or inflammatory in etiology. 2. Compression deformities involving the L5 and T12 vertebral bodies with between 25 percent and 50 percent height loss. These are age indeterminant. Correlate with point tenderness. Exposure: One or more of the following in the visualized dose reduction techniques were utilized for this examination: 1. Automated exposure control 2. Adjustment of the MA and/or KV according to patient size 3. Use of iterative of reconstructive technique Electronically signed by: Yvonne Da Silva MD (04/17/2019 3:12 PM) [facility] DICTATED and SIGNED BY: YVONNE DA SILVA MD DATE: 04/17/19 1512 Course & Med Decision Making Course & Med Decision Making Pertinent Labs and Imaging studies reviewed. (See chart for details) This is a 63-year-old female patient who presents to the ED today complaining of coffee-ground emesis for one week as well as generalized abdominal pain. CBC with WBC of 12.2 hgb 16.2, HCT 49.1, CMP with K of 2.3, patient was given 40 meq of K PO and started on IV 10mg K. Spoke with Dr. Hernandez who accepted patient for admission. Routine consult placed for GI CT of the abdomen and pelvis-pending at admission Dragon Disclaimer Dragon Disclaimer This electronic medical record was generated, in whole or in part, using a voice recognition dictation system. Departure Departure Impression: Primary Impression: Hypokalemia Additional Impression: Abdominal pain Disposition: 09 ADMITTED INPATIENT Condition: STABLE Referrals: MILAN MCCRAY (PCP) Problem Qualifiers Additional Impression: Abdominal pain Abdominal location: generalized Qualified Codes: R10.84 - Generalized abdominal pain [facility] [employer] [facility] Apr 17, 2019 16:20
[2019-04-17] MEDS ORDERED: MORPHINE SULFATE 4 MG/ML VIAL. IV PRN (16:30)
[2019-04-17 17:58] VITALS: BP 129/74
[2019-04-17 19:25] VITALS: BP 134/63
[2019-04-17] MEDS ORDERED: LORazepam 0.5 MG TABLET PO PRN (20:30)
[2019-04-17] MEDS ORDERED: MAG HYDROX/ALUMINUM HYD/SIMETH 30 ML ORAL.SUSP PO PRN (20:30)
[2019-04-17] MEDS ORDERED: ACETAMINOPHEN 325 MG TABLET. PO PRN (20:30)
[2019-04-17] MEDS ORDERED: guaiFENesin ORAL 200 MG/10 ML LIQUID. PO PRN (20:30)
[2019-04-17] MEDS ORDERED: ALBUTEROL SULFATE 2.5 MG/3 ML NEBU. NEB PRN (20:30)
[2019-04-17] MEDS ORDERED: DOCUSATE SODIUM 100 MG CAPSULE. PO PRN (20:30)
[2019-04-17] MEDS ORDERED: 0.9 % SODIUM CHLORIDE 10 ML DISP.SYRIN. IV PRN (20:30)
[2019-04-17] MEDS ORDERED: ONDANSETRON PF 4 MG/2 ML VIAL. IV PRN (20:30)
[2019-04-17] MEDS ORDERED: cloNIDine HCL 0.1 MG TABLET PO PRN (20:30)
[2019-04-17] MEDS ORDERED: NYST15PO9 TP (20:59)
[2019-04-17] MEDS ORDERED: NITR100C62 PO (20:59)
[2019-04-17] MEDS ORDERED: FLUT9.9S NS (20:59)
[2019-04-17] MEDS ORDERED: FURO-68 PO (20:59)
[2019-04-17] MEDS ORDERED: METO25TA4 PO (20:59)
[2019-04-17] MEDS ORDERED: MELO15TA23 PO (20:59)
[2019-04-17] MEDS ORDERED: LORA0.5T96 PO (20:59)
[2019-04-17] MEDS ORDERED: HYDR-2769 PO (20:59)
[2019-04-17] MEDS ORDERED: CYCL10TA2 PO (20:59)
[2019-04-17] MEDS ORDERED: ALBU1.25 NEB ×2 (20:59)
[2019-04-17] MEDS ORDERED: CRESTOR10 MG PO (20:59)
[2019-04-17] MEDS ORDERED: ATOR20TA PO (20:59)
[2019-04-17] MEDS ORDERED: TRAZ-86 PO (20:59)
[2019-04-17] MEDS ORDERED: FLUT1DIS5 IH (20:59)
[2019-04-17] MEDS ORDERED: PROC5TAB14 PO (20:59)
[2019-04-17] MEDS: CYCLOBENZAPRINE 10 MG TABLET. PO SCH (21:00)
[2019-04-17] MEDS: LORazepam 0.5 MG TABLET PO SCH (21:00)
[2019-04-17] MEDS ORDERED: METOPROLOL TART IMMED RELEASE 25 MG TABLET. PO SCH (21:00)
[2019-04-17] MEDS ORDERED: NON FORMULARY ITEM (Albuterol Sulfate (Albuterol Sulfate Neb Soln) 1 VIAL) NEB SCH (21:00)
[2019-04-17] MEDS ORDERED: PROCHLORPERAZINE 5 MG TABLET. PO PRN (21:00)
[2019-04-17] MEDS ORDERED: ATORVASTATIN CALCIUM 20 MG TABLET PO SCH (21:00)
[2019-04-17] MEDS ORDERED: BUDE0.5A NEB (21:16)
[2019-04-17] MEDS ORDERED: DICYCLOMINE HCL 10 MG CAPSULE PO SCH (21:30)
[2019-04-17] MEDS ORDERED: ALBUTEROL SULFATE 2.5 MG/3 ML NEBU. NEB SCH (21:30)
[2019-04-17 22:28] VITALS: BP 135/72
[2019-04-17] MEDS: DICYCLOMINE HCL 10 MG CAPSULE PO SCH (22:32)
[2019-04-17] MEDS: ATORVASTATIN CALCIUM 40 MG TABLET. PO SCH (22:32)
[2019-04-17] MEDS: buPROPion SR 100 MG TABLET.SA. PO SCH (22:32)
[2019-04-17] MEDS: METOPROLOL TART IMMED RELEASE 25 MG TABLET. PO SCH (22:33)
[2019-04-17] MEDS: traZODone 100 MG TABLET. PO SCH (22:33)
[2019-04-17] MEDS: NYSTATIN TOPICAL POWDER 15GM BOTTLE. TP SCH (22:36)
[2019-04-17] MEDS: IV NORMAL SALINE 1000ML BAG 1,000 ML IV SCH (22:42)
[2019-04-17] MEDS: ONDANSETRON PF 4 MG/2 ML VIAL. IV PRN (22:42)
[2019-04-18 02:08] VITALS: BP 108/52
[2019-04-18] MEDS: LEVOTHYROXINE 50 MCG TABLET PO SCH (06:13)
[2019-04-18 07:00] VITALS: BP 110/59
[2019-04-18 07:09] LABS: BASO # 0.1 x10^3/uL (0.0-0.2); BASO % 1 % (0-3); EOS # 0.2 x10^3/uL (0.0-0.7); EOS % 2 % (0-3); HEMATOCRIT 41.5 % (36.0-47.0); HEMOGLOBIN 13.9 g/dL (12.0-15.5); LYMPH # 2.8 x10^3/uL (1.0-4.8); LYMPH % 26 % (24-48); MEAN CORPUSCULAR HEMOGLOBIN 31 pg (25-35); MEAN CORPUSCULAR HGB CONC 34 g/dL (31-37); MEAN CORPUSCULAR VOLUME 93 fL (79-100); MONO # 1.2 x10^3/uL (0.0-1.1); MONO % 11 % (0-9); NEUT # 6.5 x10^3/uL (1.8-7.7); NEUT % 60 % (31-73); PLATELET COUNT 278 x10^3/uL (140-400); RED BLOOD COUNT 4.45 x10^6/uL (3.50-5.40); RED CELL DISTRIBUTION WIDTH 13.6 % (11.5-14.5); WHITE BLOOD COUNT 10.9 x10^3/uL (4.0-11.0)
[2019-04-18 07:39] LABS: ALBUMIN 3.2 g/dL (3.4-5.0); ALBUMIN/GLOBULIN RATIO 0.9 (1.0-1.7); CALCIUM 8.8 mg/dL (8.5-10.1); CREATININE 0.8 mg/dL (0.6-1.0); GFR 72.4; TOTAL BILIRUBIN 0.5 mg/dL (0.2-1.0); TOTAL PROTEIN 6.7 g/dL (6.4-8.2)
[2019-04-18 07:42] LABS: POTASSIUM 2.8 mmol/L (3.5-5.1)
[2019-04-18] MEDS ORDERED: POTASSIUM CHLORIDE 20 MEQ TABLET.ER. PO ONE (07:45)
--- NOTE | 2019-04-18 07:54 | PDOC ---
PROGRESS NOTES Chief Complaint Chief Complaint Colitis, may be infectious or inflammatory in etiology. Likely with gastroenteritis Compression deformities involving the L5 and T12 vertebral bodies with between 25 percent and 50 percent height loss. These are age indeterminant Intractable vomiting UGI BLEED, Gastritis vs PUD, ON FREQ NSAIDS SEVERE HYPOKALEMIA HTN HLD COPD hypothyroidism Follicular lymphoma (s/p chemotherapy, radiation therapies, splenectomy) Seizures Anxiety with depression Bipolar disorder GERD Plan: Clear liquid diet Consult GI Replace K, check mag 34 minutes time History of Present Illness History of Present Illness 62yo F w/ PMHx depression with HTN, HLD, COPD, hypothyroidism, Follicular lymphoma (s/p chemotherapy, radiation therapies, splenectomy), Seizures, Anxiety with depression, bipolar disorder, GERD, hypothyroidism who presents to the ED complaining of vomiting coffee ground emesis for one week. Patient is also complaining of 10 out of 10 sharp intermittent generalized abdominal pain one week. Denies any diarrhea. She states she had a normal bowel movement yesterday. Denies any chest pain, shortness of breath. Denies being on any chemotherapy drugs CT abdomen shows concern for colitis of sigmoid colon and rectum and L5 and T12 vertebral height loss. K was 2.3, admitted for further treatment. She is feeling better, but K still 2.8, mag level pending. She is tolerating clear liquid diet ok. Vitals Vitals Vital Signs Date Time Temp Pulse Resp B/P (MAP) Pulse Ox O2 Delivery O2 Flow Rate FiO2 04/18/19 02:08 98.5 93 18 108/52 (70) 91 Room Air 98.5 Physical Exam General: Alert, Oriented X3, Cooperative Heart: Regular rate, Normal S1, Normal S2 Lungs: Clear, Other Abdomen: Normal bowel sounds, Soft Extremities: No clubbing, No cyanosis Skin: No rashes, No breakdown Labs LABS Laboratory Tests Test 04/17/19 13:55 04/18/19 06:25 White Blood Count 12.2 x10^3/uL (4.0-11.0) 10.9 x10^3/uL (4.0-11.0) Red Blood Count 5.20 x10^6/uL (3.50-5.40) 4.45 x10^6/uL (3.50-5.40) Hemoglobin 16.2 g/dL (12.0-15.5) 13.9 g/dL (12.0-15.5) Hematocrit 49.1 % (36.0-47.0) 41.5 % (36.0-47.0) Mean Corpuscular Volume 95 fL (79-100) 93 fL (79-100) Mean Corpuscular Hemoglobin 31 pg (25-35) 31 pg (25-35) Mean Corpuscular Hemoglobin Concent 33 g/dL (31-37) 34 g/dL (31-37) Red Cell Distribution Width 14.0 % (11.5-14.5) 13.6 % (11.5-14.5) Platelet Count 311 x10^3/uL (140-400) 278 x10^3/uL (140-400) Neutrophils (%) (Auto) 67 % (31-73) 60 % (31-73) Lymphocytes (%) (Auto) 22 % (24-48) 26 % (24-48) Monocytes (%) (Auto) 10 % (0-9) 11 % (0-9) Eosinophils (%) (Auto) 0 % (0-3) 2 % (0-3) Basophils (%) (Auto) 1 % (0-3) 1 % (0-3) Neutrophils # (Auto) 8.2 x10^3/uL (1.8-7.7) 6.5 x10^3/uL (1.8-7.7) Lymphocytes # (Auto) 2.7 x10^3/uL (1.0-4.8) 2.8 x10^3/uL (1.0-4.8) Monocytes # (Auto) 1.2 x10^3/uL (0.0-1.1) 1.2 x10^3/uL (0.0-1.1) Eosinophils # (Auto) 0.0 x10^3/uL (0.0-0.7) 0.2 x10^3/uL (0.0-0.7) Basophils # (Auto) 0.1 x10^3/uL (0.0-0.2) 0.1 x10^3/uL (0.0-0.2) Platelet Estimate Adequate (ADEQUATE) Large Platelets Few Giant Platelets Occ Spherocytes Few Acanthocytes Few Schistocytes Occ Sodium Level 141 mmol/L (136-145) 143 mmol/L (136-145) Potassium Level 2.3 mmol/L (3.5-5.1) 2.8 mmol/L (3.5-5.1) Chloride Level 96 mmol/L (98-107) 102 mmol/L (98-107) Carbon Dioxide Level 31 mmol/L (21-32) 31 mmol/L (21-32) Anion Gap 14 (6-14) 10 (6-14) Blood Urea Nitrogen 21 mg/dL (7-20) 22 mg/dL (7-20) Creatinine 0.8 mg/dL (0.6-1.0) 0.8 mg/dL (0.6-1.0) Estimated GFR (Cockcroft-Gault) 72.4 72.4 BUN/Creatinine Ratio 26 (6-20) 28 (6-20) Glucose Level 127 mg/dL (70-99) 108 mg/dL (70-99) Calcium Level 9.3 mg/dL (8.5-10.1) 8.8 mg/dL (8.5-10.1) Total Bilirubin 0.5 mg/dL (0.2-1.0) 0.5 mg/dL (0.2-1.0) Aspartate Amino Transf (AST/SGOT) 20 U/L (15-37) 17 U/L (15-37) Alanine Aminotransferase (ALT/SGPT) 15 U/L (14-59) 14 U/L (14-59) Alkaline Phosphatase 109 U/L (46-116) 89 U/L (46-116) Total Protein 7.9 g/dL (6.4-8.2) 6.7 g/dL (6.4-8.2) Albumin 3.9 g/dL (3.4-5.0) 3.2 g/dL (3.4-5.0) Albumin/Globulin Ratio 1.0 (1.0-1.7) 0.9 (1.0-1.7) Lipase 82 U/L (73-393) Ethyl Alcohol Level < 10 mg/dL (0-10) Assessment and Plan Assessmemt and Plan Problems Medical Problems: (1) Abdominal pain Status: Acute (2) Asthma Status: Chronic (3) Hypokalemia Status: Acute (4) UGI bleed Status: Chronic Comment Review of Relevant I have reviewed the following items lottie (where applicable) has been applied. Labs Laboratory Tests Test 04/17/19 13:55 04/18/19 06:25 White Blood Count 12.2 x10^3/uL (4.0-11.0) 10.9 x10^3/uL (4.0-11.0) Red Blood Count 5.20 x10^6/uL (3.50-5.40) 4.45 x10^6/uL (3.50-5.40) Hemoglobin 16.2 g/dL (12.0-15.5) 13.9 g/dL (12.0-15.5) Hematocrit 49.1 % (36.0-47.0) 41.5 % (36.0-47.0) Mean Corpuscular Volume 95 fL (79-100) 93 fL (79-100) Mean Corpuscular Hemoglobin 31 pg (25-35) 31 pg (25-35) Mean Corpuscular Hemoglobin Concent 33 g/dL (31-37) 34 g/dL (31-37) Red Cell Distribution Width 14.0 % (11.5-14.5) 13.6 % (11.5-14.5) Platelet Count 311 x10^3/uL (140-400) 278 x10^3/uL (140-400) Neutrophils (%) (Auto) 67 % (31-73) 60 % (31-73) Lymphocytes (%) (Auto) 22 % (24-48) 26 % (24-48) Monocytes (%) (Auto) 10 % (0-9) 11 % (0-9) Eosinophils (%) (Auto) 0 % (0-3) 2 % (0-3) Basophils (%) (Auto) 1 % (0-3) 1 % (0-3) Neutrophils # (Auto) 8.2 x10^3/uL (1.8-7.7) 6.5 x10^3/uL (1.8-7.7) Lymphocytes # (Auto) 2.7 x10^3/uL (1.0-4.8) 2.8 x10^3/uL (1.0-4.8) Monocytes # (Auto) 1.2 x10^3/uL (0.0-1.1) 1.2 x10^3/uL (0.0-1.1) Eosinophils # (Auto) 0.0 x10^3/uL (0.0-0.7) 0.2 x10^3/uL (0.0-0.7) Basophils # (Auto) 0.1 x10^3/uL (0.0-0.2) 0.1 x10^3/uL (0.0-0.2) Platelet Estimate Adequate (ADEQUATE) Large Platelets Few Giant Platelets Occ Spherocytes Few Acanthocytes Few Schistocytes Occ Sodium Level 141 mmol/L (136-145) 143 mmol/L (136-145) Potassium Level 2.3 mmol/L (3.5-5.1) 2.8 mmol/L (3.5-5.1) Chloride Level 96 mmol/L (98-107) 102 mmol/L (98-107) Carbon Dioxide Level 31 mmol/L (21-32) 31 mmol/L (21-32) Anion Gap 14 (6-14) 10 (6-14) Blood Urea Nitrogen 21 mg/dL (7-20) 22 mg/dL (7-20) Creatinine 0.8 mg/dL (0.6-1.0) 0.8 mg/dL (0.6-1.0) Estimated GFR (Cockcroft-Gault) 72.4 72.4 BUN/Creatinine Ratio 26 (6-20) 28 (6-20) Glucose Level 127 mg/dL (70-99) 108 mg/dL (70-99) Calcium Level 9.3 mg/dL (8.5-10.1) 8.8 mg/dL (8.5-10.1) Total Bilirubin 0.5 mg/dL (0.2-1.0) 0.5 mg/dL (0.2-1.0) Aspartate Amino Transf (AST/SGOT) 20 U/L (15-37) 17 U/L (15-37) Alanine Aminotransferase (ALT/SGPT) 15 U/L (14-59) 14 U/L (14-59) Alkaline Phosphatase 109 U/L (46-116) 89 U/L (46-116) Total Protein 7.9 g/dL (6.4-8.2) 6.7 g/dL (6.4-8.2) Albumin 3.9 g/dL (3.4-5.0) 3.2 g/dL (3.4-5.0) Albumin/Globulin Ratio 1.0 (1.0-1.7) 0.9 (1.0-1.7) Lipase 82 U/L (73-393) Ethyl Alcohol Level < 10 mg/dL (0-10) Laboratory Tests Test 04/17/19 13:55 04/18/19 06:25 White Blood Count 12.2 x10^3/uL (4.0-11.0) 10.9 x10^3/uL (4.0-11.0) Red Blood Count 5.20 x10^6/uL (3.50-5.40) 4.45 x10^6/uL (3.50-5.40) Hemoglobin 16.2 g/dL (12.0-15.5) 13.9 g/dL (12.0-15.5) Hematocrit 49.1 % (36.0-47.0) 41.5 % (36.0-47.0) Mean Corpuscular Volume 95 fL (79-100) 93 fL (79-100) Mean Corpuscular Hemoglobin 31 pg (25-35) 31 pg (25-35) Mean Corpuscular Hemoglobin Concent 33 g/dL (31-37) 34 g/dL (31-37) Red Cell Distribution Width 14.0 % (11.5-14.5) 13.6 % (11.5-14.5) Platelet Count 311 x10^3/uL (140-400) 278 x10^3/uL (140-400) Neutrophils (%) (Auto) 67 % (31-73) 60 % (31-73) Lymphocytes (%) (Auto) 22 % (24-48) 26 % (24-48) Monocytes (%) (Auto) 10 % (0-9) 11 % (0-9) Eosinophils (%) (Auto) 0 % (0-3) 2 % (0-3) Basophils (%) (Auto) 1 % (0-3) 1 % (0-3) Neutrophils # (Auto) 8.2 x10^3/uL (1.8-7.7) 6.5 x10^3/uL (1.8-7.7) Lymphocytes # (Auto) 2.7 x10^3/uL (1.0-4.8) 2.8 x10^3/uL (1.0-4.8) Monocytes # (Auto) 1.2 x10^3/uL (0.0-1.1) 1.2 x10^3/uL (0.0-1.1) Eosinophils # (Auto) 0.0 x10^3/uL (0.0-0.7) 0.2 x10^3/uL (0.0-0.7) Basophils # (Auto) 0.1 x10^3/uL (0.0-0.2) 0.1 x10^3/uL (0.0-0.2) Platelet Estimate Adequate (ADEQUATE) Large Platelets Few Giant Platelets Occ Spherocytes Few Acanthocytes Few Schistocytes Occ Sodium Level 141 mmol/L (136-145) 143 mmol/L (136-145) Potassium Level 2.3 mmol/L (3.5-5.1) 2.8 mmol/L (3.5-5.1) Chloride Level 96 mmol/L (98-107) 102 mmol/L (98-107) Carbon Dioxide Level 31 mmol/L (21-32) 31 mmol/L (21-32) Anion Gap 14 (6-14) 10 (6-14) Blood Urea Nitrogen 21 mg/dL (7-20) 22 mg/dL (7-20) Creatinine 0.8 mg/dL (0.6-1.0) 0.8 mg/dL (0.6-1.0) Estimated GFR (Cockcroft-Gault) 72.4 72.4 BUN/Creatinine Ratio 26 (6-20) 28 (6-20) Glucose Level 127 mg/dL (70-99) 108 mg/dL (70-99) Calcium Level 9.3 mg/dL (8.5-10.1) 8.8 mg/dL (8.5-10.1) Total Bilirubin 0.5 mg/dL (0.2-1.0) 0.5 mg/dL (0.2-1.0) Aspartate Amino Transf (AST/SGOT) 20 U/L (15-37) 17 U/L (15-37) Alanine Aminotransferase (ALT/SGPT) 15 U/L (14-59) 14 U/L (14-59) Alkaline Phosphatase 109 U/L (46-116) 89 U/L (46-116) Total Protein 7.9 g/dL (6.4-8.2) 6.7 g/dL (6.4-8.2) Albumin 3.9 g/dL (3.4-5.0) 3.2 g/dL (3.4-5.0) Albumin/Globulin Ratio 1.0 (1.0-1.7) 0.9 (1.0-1.7) Lipase 82 U/L (73-393) Ethyl Alcohol Level < 10 mg/dL (0-10) Medications Current Medications Famotidine (Pepcid Vial) 20 mg 1X ONCE IVP Last administered on 04/17/19at 14:08; Start 04/17/19 at 13:45; Stop 04/17/19 at 13:46; Status DC Ondansetron HCl (Zofran) 4 mg 1X ONCE IVP Last administered on 04/17/19at 14:08; Start 04/17/19 at 13:45; Stop 04/17/19 at 13:46; Status DC Fentanyl Citrate (Fentanyl 2ml Vial) 50 mcg 1X ONCE IVP Last administered on 04/17/19at 14:09; Start 04/17/19 at 13:45; Stop 04/17/19 at 13:46; Status DC Potassium Citrate (Urocit-K) 40 meq 1X STAT PO ; Start 04/17/19 at 14:38; Stop 04/17/19 at 14:39; Status Cancel Potassium Chloride/Water 100 ml @ 100 mls/hr Q1H IV Last administered on 04/17/19at 16:07; Start 04/17/19 at 15:00; Stop 04/17/19 at 16:59; Status DC Potassium Chloride (Klor-Con) 40 meq 1X ONCE PO Last administered on 04/17/19at 15:00; Start 04/17/19 at 15:00; Stop 04/17/19 at 15:01; Status DC Ondansetron HCl (Zofran) 4 mg PRN Q8HRS PRN IV NAUSEA/VOMITING Last administered on 10/30/19at 22:42; Start 04/17/19 at 16:30; Stop 04/18/19 at 16:29 Morphine Sulfate (Morphine Sulfate) 4 mg PRN Q2HR PRN IV PAIN; Start 04/17/19 at 16:30; Stop 04/18/19 at 16:29 Pantoprazole Sodium (PROTONIX VIAL for IV PUSH) 40 mg DAILYAC IVP ; Start 04/18 at 07:30 Sodium Chloride (Normal Saline Flush) 3 ml QSHIFT PRN IV AFTER MEDS AND BLOOD DRAWS; Start 04/17/19 at 20:30 Sodium Chloride 1,000 ml @ 100 mls/hr Q10H IV Last administered on 04/17/19at 22:42; Start 04/17/19 at 20:19 Ondansetron HCl (Zofran) 4 mg PRN Q4HRS PRN IV NAUSEA/VOMITING; Start 04/17/19 at 20:30 Acetaminophen (Tylenol) 650 mg PRN Q4HRS PRN PO TEMP OVER 100.4F OR MILD PAIN; Start 04/17/19 at 20:30 Al Hydroxide/Mg Hydroxide (Mylanta Plus Xs) 30 ml PRN DAILY PRN PO HEARTBURN / GAS; Start 04/17/19 at 20:30 Clonidine HCl (Catapres) 0.1 mg PRN Q6HRS PRN PO SBP>160 OR DBP>90; Start 04/17/19 at 20:30 Docusate Sodium (Colace) 100 mg PRN BID PRN PO CONSTIPATION; Start 04/17/19 at 20:30 Albuterol Sulfate (Ventolin Neb Soln) 2.5 mg PRN Q4HRS PRN NEB SHORTNESS OF BREATH; Start 04/17/19 at 20:30 Guaifenesin (Robitussin) 200 mg PRN Q4HRS PRN PO COUGH; Start 04/17/19 at 20:30 Lorazepam (Ativan) 0.5 mg PRN Q4HRS PRN PO ANXIETY / AGITATION; Start 04/17/19 at 20:30 Atorvastatin Calcium (Lipitor) 20 mg HS PO ; Start 04/17/19 at 21:00; Stop 04/17/19 at 21:17; Status DC Bupropion HCl (Wellbutrin Sr) 100 mg BID PO Last administered on 04/17/19at 22:32; Start 04/17/19 at 21:00 Cyclobenzaprine HCl (Flexeril) 10 mg TID PO ; Start 04/17/19 at 21:00 Fluoxetine HCl (PROzac) 20 mg DAILY PO ; Start 04/18/19 at 09:00 Fluticasone Propionate (Flonase) 1 spray DAILY NS ; Start 04/18/19 at 09:00 Furosemide (Lasix) 40 mg DAILY PO ; Start 04/18/19 at 09:00; Stop 04/18/19 at 03:09; Status DC Acetaminophen/ Hydrocodone Bitart (Lortab 10/325) 1 tab PRN Q6HRS PRN PO PAIN; Start 04/17/19 at 21:00 Levothyroxine Sodium (Synthroid) 50 mcg DAILY06 PO Last administered on 04/18/19at 06:13; Start 04/18/19 at 06:00 Lorazepam (Ativan) 0.5 mg TID PO ; Start 04/17/19 at 21:00 Metoprolol Tartrate (Lopressor) 25 mg BID PO ; Start 04/17/19 at 21:00; Stop 04/17/19 at 21:28; Status DC Nystatin (Nystop) 1 ludin BID TP Last administered on 04/17/19at 22:36; Start 04/17/19 at 21:00 Prochlorperazine Maleate (Compazine) 10 mg PRN Q4HRS PRN PO NAUSEA/VOMITING; Start 04/17/19 at 21:00 Trazodone HCl (Desyrel) 100 mg HS PO Last administered on 04/17/19at 22:33; Start 04/17/19 at 21:00 Albuterol Sulfate (Ventolin Neb Soln) 2.5 mg Q4HRS NEB ; Start 04/17/19 at 21:30; Stop 04/18/19 at 05:32; Status DC Non-Formulary Medication (Albuterol Sulfate (Albuterol Sulfate Neb Soln)) 1 vial TID NEB ; Start 04/17/19 at 21:00; Stop 04/17/19 at 21:20; Status DC Dicyclomine HCl (Bentyl) 10 mg TID PO ; Start 04/17/19 at 21:30; Stop 04/17/19 at 21:19; Status DC Non-Formulary Medication (Fluticasone Propionate (Flonase Allergy Relief)) 1 sprays DAILY NS ; Start 04/18/19 at 09:00; Stop 04/17/19 at 21:20; Status DC Budesonide (Pulmicort) 0.5 mg RTBID NEB ; Start 04/18/19 at 08:00 Atorvastatin Calcium (Lipitor) 40 mg QHS PO Last administered on 04/17/19at 22:32; Start 04/17/19 at 21:30 Dicyclomine HCl (Bentyl) 20 mg TID PO Last administered on 04/17/19at 22:32; Start 04/17/19 at 21:30 Metoprolol Tartrate (Lopressor) 12.5 mg BID PO Last administered on 04/17/19at 22:33; Start 04/17/19 at 21:30 Influenza Virus Vaccine Quadrival (Afluria Quad 2019-20 (3yr Up) Syringe) 0.5 ml ONCE ONCE VAX IM ; Start 04/18/19 at 09:00; Stop 04/18/19 at 09:01 Albuterol Sulfate (Ventolin Neb Soln) 2.5 mg RTQID NEB ; Start 04/18/19 at 08:00 Active Scripts Active Reported Budesonide 0.5 Mg/2 Ml Ampul.neb 1 Vial NEB BID Albuterol Sulfate Neb Soln (Albuterol Sulfate) 1.25 Mg/3 Ml Vial.neb 1 Vial NEB PRN Q4HRS PRN Albuterol Sulfate Neb Soln (Albuterol Sulfate) 1.25 Mg/3 Ml Vial.neb 1 Vial NEB QID Prochlorperazine Maleate 10 Mg Tablet 10 Mg PO PRN Q4HRS PRN Flonase Allergy Relief (Fluticasone Propionate) 9.9 Ml [place].susp 1 Sprays NS DAILY Crestor (Rosuvastatin Calcium) 10 Mg Tablet 10 Mg PO HS Ativan (Lorazepam) 0.5 Mg Tablet 0.5 Mg PO TID Metoprolol Tartrate 25 Mg Tablet 25 Mg PO BID 1/2 tab bid Hydrocodone-Apap 10-325 (Hydrocodone Bit/Acetaminophen) 1 Tab Tablet 1 Tab PO PRN Q6HRS PRN Nystatin 15 Gm Powder 1 Ludin TP BID 7 Days apply to affected area(s) Cyclobenzaprine Hcl 10 Mg Tablet 10 Mg PO TID Trazodone Hcl 100 Mg Tablet 100 Mg PO HS trazodone 100mg 2tabs at bedtime Advair 500-50 Diskus (Fluticasone/Salmeterol) 1 Each Disk.w.dev 1 Inh IH BID Lipitor (Atorvastatin Calcium) 20 Mg Tablet 20 Mg PO HS Bupropion Hcl Sr (Bupropion Hcl) 100 Mg Tablet.er 100 Mg PO BID Fluoxetine Hcl 10 Mg Capsule 2 Cap PO DAILY Proair Hfa Inhaler (Albuterol Sulfate) 8.5 Gm Hfa.aer.ad 2 Puff IH PRN Q4-6HRS Dicyclomine Hcl 20 Mg Tablet 1 Tab PO TID Levothyroxine Sodium 50 Mcg Tablet 1 Tab PO DAILY Vitals/I & O Vital Sign - Last 24 Hours 04/17/19 04/17/19 04/17/19 04/17/19 13:10 13:30 14:09 14:30 Temp 97.9 97.9 Pulse 107 104 100 Resp 18 18 16 18 B/P (MAP) 134/73 (93) 134/73 (93) 128/66 (86) Pulse Ox 94 96 95 95 O2 Delivery Room Air Room Air Room Air Room Air 04/17/19 04/17/19 04/17/19 04/17/19 15:30 16:30 17:30 17:58 Temp 98.6 98.6 Pulse 104 106 108 107 Resp 18 18 18 20 B/P (MAP) 149/83 (105) 139/72 (94) 136/73 (94) 129/74 (92) Pulse Ox 94 94 95 94 O2 Delivery Room Air Room Air Room Air Room Air 04/17/19 04/17/19 04/17/19 04/17/19 19:25 20:05 22:28 22:33 Temp 98.8 98.2 98.8 98.2 Pulse 113 115 115 Resp 16 18 B/P (MAP) 134/63 (86) 135/72 (93) 135/72 Pulse Ox 94 92 O2 Delivery Room Air Room Air Room Air 04/18/19 02:08 Temp 98.5 98.5 Pulse 93 Resp 18 B/P (MAP) 108/52 (70) Pulse Ox 91 O2 Delivery Room Air Intake and Output 04/17/19 04/17/19 04/18/19 15:00 23:00 07:00 Intake Total 230 ml 100 ml Balance 230 ml [address] abdomen - 1. Wall thickening of the sigmoid colon and rectum, favored represent focal colitis, may be infectious or inflammatory in etiology. 2. Compression deformities involving the L5 and T12 vertebral bodies with between 25 percent and 50 percent height loss. These are age indeterminant. Correlate with point tenderness. SANDRA ALLEN MD Apr 18, 2019 07:54
[2019-04-18] MEDS: ALBUTEROL SULFATE 2.5 MG/3 ML NEBU. NEB SCH ×4 (08:00→20:11)
[2019-04-18] MEDS: BUDESONIDE 0.5 MG/2 ML NEBU. NEB SCH ×2 (08:20→20:11)
[2019-04-18] MEDS ORDERED: FLU VAX QS 2019-20 (36MOS+)/PF 0.5 ML SYRINGE. VAX IM ONE (09:00)
[2019-04-18] MEDS ORDERED: FUROSEMIDE 40 MG TABLET. PO SCH (09:00)
[2019-04-18] MEDS ORDERED: [UNRECOGNIZED DRUG - REMARK] NS SCH (09:00)
[2019-04-18] MEDS: ONDANSETRON PF 4 MG/2 ML VIAL. IV PRN (09:13)
[2019-04-18] MEDS: FLUTICASONE 50MCG/NASAL SPRAY 16GM BOTTLE. NS SCH (09:14)
[2019-04-18] MEDS: PANTOPRAZOLE IV PUSH 40 MG VIAL. IVP SCH (09:14)
[2019-04-18] MEDS: POTASSIUM CHLORIDE 10MEQ 100 ML IV SCH ×4 (09:14→12:01)
[2019-04-18] MEDS: LORazepam 0.5 MG TABLET PO SCH ×3 (09:15→21:00)
[2019-04-18] MEDS: DICYCLOMINE HCL 10 MG CAPSULE PO SCH ×3 (09:15→20:48)
[2019-04-18] MEDS: METOPROLOL TART IMMED RELEASE 25 MG TABLET. PO SCH ×2 (09:16→20:53)
[2019-04-18] MEDS: CYCLOBENZAPRINE 10 MG TABLET. PO SCH ×3 (09:16→21:00)
[2019-04-18] MEDS: NYSTATIN TOPICAL POWDER 15GM BOTTLE. TP SCH ×2 (09:16→21:03)
[2019-04-18] MEDS: buPROPion SR 100 MG TABLET.SA. PO SCH ×2 (09:16→20:48)
[2019-04-18] MEDS: FLUoxetine HCL 20 MG CAPSULE PO SCH (09:16)
--- NOTE | 2019-04-18 09:32 | PDOC2 ---
GI CONSULT Reason For Consult: N/v HPI: HPI: 63 y/o female admitted through ER. Reports a lifelong h/o n/v ("since I was 7") - apparently worse x 3-4 weeks. Says hasn't been able to sleep well for a few weeks. Eats (mostly soft foods due to poor dentition and dentures "make me sick"), then vomits awhile later. Reports "coffee-ground emesis" multiple times daily for weeks w/ diffuse abdominal pain. Also reports hard stools "the size of a marie ball or bigger with black and red" and "my hemorrhoids are going crazy." H/o GERD on sucralfate TID, previously pantoprazole. No dysphagia. 80 pound weight loss in 5 months. No diarrhea. Chronic pain on Flexeril, hydrocodone, and two Aleve daily. Thinks had an EGD and colonoscopy @ [facility] years ago - describes that a "code blue" was called during EGD and "I had the beginni ngs of ulcers." Re: colonoscopy, she says "I have a contrast allergy" and "that stuff really plugs me up" - not sure that she actually did a prep and had a colonoscopy? but describes that "it was torn up," also thinks family members had IBD. Denies GB, liver, and pancreas history. Wants to know how long she'll be here. PMH: PMH: HTN, HLD, COPD, follicular lymphoma, anxiety, OA, seizures, bipolar right knee scope, port placement, splenectomy, right hips replacement, rad/chemo FH: Family History: Cancer (pancreatic - says multiple relatives), CVA, DM, Other (?IBD) Social History: Smoke: Quit ALCOHOL: none Drugs: None ROS: GEN: Denies fevers, chills, sweats HEENT: Denies blurred vision, sore throat CV: Denies chest pain RESP: Denies shortness of air, cough GI: Per HPI : Denies hematuria, dysuria ENDO: +weight loss NEURO: Denies confusion, dizziness MSK: Denies weakness, joint pain/swelling SKIN: Denies jaundice, pruritus Vitals: Vitals: Vital Signs Date Time Temp Pulse Resp B/P (MAP) Pulse Ox O2 Delivery O2 Flow Rate FiO2 04/18/19 09:16 92 110/59 04/18/19 08:24 92 Room Air 04/18/19 07:00 98.9 16 98.9 Labs: Labs: Laboratory Tests Test 04/17/19 13:55 04/18/19 06:25 White Blood Count 12.2 x10^3/uL (4.0-11.0) 10.9 x10^3/uL (4.0-11.0) Red Blood Count 5.20 x10^6/uL (3.50-5.40) 4.45 x10^6/uL (3.50-5.40) Hemoglobin 16.2 g/dL (12.0-15.5) 13.9 g/dL (12.0-15.5) Hematocrit 49.1 % (36.0-47.0) 41.5 % (36.0-47.0) Mean Corpuscular Volume 95 fL (79-100) 93 fL (79-100) Mean Corpuscular Hemoglobin 31 pg (25-35) 31 pg (25-35) Mean Corpuscular Hemoglobin Concent 33 g/dL (31-37) 34 g/dL (31-37) Red Cell Distribution Width 14.0 % (11.5-14.5) 13.6 % (11.5-14.5) Platelet Count 311 x10^3/uL (140-400) 278 x10^3/uL (140-400) Neutrophils (%) (Auto) 67 % (31-73) 60 % (31-73) Lymphocytes (%) (Auto) 22 % (24-48) 26 % (24-48) Monocytes (%) (Auto) 10 % (0-9) 11 % (0-9) Eosinophils (%) (Auto) 0 % (0-3) 2 % (0-3) Basophils (%) (Auto) 1 % (0-3) 1 % (0-3) Neutrophils # (Auto) 8.2 x10^3/uL (1.8-7.7) 6.5 x10^3/uL (1.8-7.7) Lymphocytes # (Auto) 2.7 x10^3/uL (1.0-4.8) 2.8 x10^3/uL (1.0-4.8) Monocytes # (Auto) 1.2 x10^3/uL (0.0-1.1) 1.2 x10^3/uL (0.0-1.1) Eosinophils # (Auto) 0.0 x10^3/uL (0.0-0.7) 0.2 x10^3/uL (0.0-0.7) Basophils # (Auto) 0.1 x10^3/uL (0.0-0.2) 0.1 x10^3/uL (0.0-0.2) Platelet Estimate Adequate (ADEQUATE) Large Platelets Few Giant Platelets Occ Spherocytes Few Acanthocytes Few Schistocytes Occ Sodium Level 141 mmol/L (136-145) 143 mmol/L (136-145) Potassium Level 2.3 mmol/L (3.5-5.1) 2.8 mmol/L (3.5-5.1) Chloride Level 96 mmol/L (98-107) 102 mmol/L (98-107) Carbon Dioxide Level 31 mmol/L (21-32) 31 mmol/L (21-32) Anion Gap 14 (6-14) 10 (6-14) Blood Urea Nitrogen 21 mg/dL (7-20) 22 mg/dL (7-20) Creatinine 0.8 mg/dL (0.6-1.0) 0.8 mg/dL (0.6-1.0) Estimated GFR (Cockcroft-Gault) 72.4 72.4 BUN/Creatinine Ratio 26 (6-20) 28 (6-20) Glucose Level 127 mg/dL (70-99) 108 mg/dL (70-99) Calcium Level 9.3 mg/dL (8.5-10.1) 8.8 mg/dL (8.5-10.1) Total Bilirubin 0.5 mg/dL (0.2-1.0) 0.5 mg/dL (0.2-1.0) Aspartate Amino Transf (AST/SGOT) 20 U/L (15-37) 17 U/L (15-37) Alanine Aminotransferase (ALT/SGPT) 15 U/L (14-59) 14 U/L (14-59) Alkaline Phosphatase 109 U/L (46-116) 89 U/L (46-116) Total Protein 7.9 g/dL (6.4-8.2) 6.7 g/dL (6.4-8.2) Albumin 3.9 g/dL (3.4-5.0) 3.2 g/dL (3.4-5.0) Albumin/Globulin Ratio 1.0 (1.0-1.7) 0.9 (1.0-1.7) Lipase 82 U/L (73-393) Ethyl Alcohol Level < 10 mg/dL (0-10) Magnesium Level 1.9 mg/dL (1.8-2.4) Allergies: Coded Allergies: Iodinated Contrast Media (Verified Allergy, Severe, Anaphylaxis, 07/17/14) coconut oil (Verified Allergy, Severe, Anaphylaxis, 07/17/14) coconuts iron (Verified Allergy, Severe, Anaphylaxis, 07/17/14) Medications: Current Medications Medications (Trade) Dose Ordered Sig/Aysha Route PRN Reason Start Time Stop Time Status Last Admin Dose Admin Famotidine (Pepcid Vial) 20 mg 1X ONCE IVP 04/17/19 13:45 04/17/19 13:46 DC 04/17/19 14:08 Ondansetron HCl (Zofran) 4 mg 1X ONCE IVP 04/17/19 13:45 04/17/19 13:46 DC 04/17/19 14:08 Fentanyl Citrate (Fentanyl 2ml Vial) 50 mcg 1X ONCE IVP 04/17/19 13:45 04/17/19 13:46 DC 04/17/19 14:09 Potassium Chloride/Water 100 ml @ 100 mls/hr Q1H IV 04/17/19 15:00 04/17/19 16:59 DC 04/17/19 16:07 Potassium Chloride (Klor-Con) 40 meq 1X ONCE PO 04/17/19 15:00 04/17/19 15:01 DC 04/17/19 15:00 Ondansetron HCl (Zofran) 4 mg PRN Q8HRS PRN IV NAUSEA/VOMITING 04/17/19 16:30 04/18/19 16:29 04/18/19 09:13 Pantoprazole Sodium (PROTONIX VIAL for IV PUSH) 40 mg DAILYAC IVP 04/18/19 07:30 04/18/19 09:14 Sodium Chloride 1,000 ml @ 100 mls/hr Q10H IV 04/17/19 20:19 04/17/19 22:42 Bupropion HCl (Wellbutrin Sr) 100 mg BID PO 04/17/19 21:00 04/18/19 09:16 Cyclobenzaprine HCl (Flexeril) 10 mg TID PO 04/17/19 21:00 04/18/19 09:16 Fluoxetine HCl (PROzac) 20 mg DAILY PO 04/18/19 09:00 04/18/19 09:16 Fluticasone Propionate (Flonase) 1 spray DAILY NS 04/18/19 09:00 04/18/19 09:14 Levothyroxine Sodium (Synthroid) 50 mcg DAILY06 PO 04/18/19 06:00 04/18/19 06:13 Lorazepam (Ativan) 0.5 mg TID PO 04/17/19 21:00 04/18/19 09:15 Nystatin (Nystop) 1 amck BID TP 04/17/19 21:00 04/18/19 09:16 Trazodone HCl (Desyrel) 100 mg HS PO 04/17/19 21:00 04/17/19 22:33 Budesonide (Pulmicort) 0.5 mg RTBID NEB 04/18/19 08:00 04/18/19 08:20 Atorvastatin Calcium (Lipitor) 40 mg QHS PO 04/17/19 21:30 04/17/19 22:32 Dicyclomine HCl (Bentyl) 20 mg TID PO 04/17/19 21:30 04/18/19 09:15 Metoprolol Tartrate (Lopressor) 12.5 mg BID PO 04/17/19 21:30 04/18/19 09:16 Potassium Chloride/Water 100 ml @ 100 mls/hr Q1H IV 04/18/19 08:00 04/18/19 11:59 04/18/19 09:14 Potassium Chloride (Klor-Con) 20 meq 1X ONCE PO 04/18/19 07:45 04/18/19 07:50 DC 04/18/19 09:14 Imaging: Imaging: CT A/P FINDINGS: Heart size is normal. No pericardial effusion Likely opacity noted at the left lung base. No pleural effusion. Evaluation of the solid organs is limited secondary to noncontrast technique. Liver, gallbladder, pancreas and adrenals are unremarkable. Spleen is absent. No perinephric inflammation or hydronephrosis. No renal or ureteral calculi. Evaluation pelvis is limited secondary to metallic streak artifact from hip arthroplasty. Bladder is distended without apparent wall thickening. Uterus is not enlarged. No abnormal adnexal mass. There is wall thickening at the sigmoid colon and rectum with adjacent inflammatory changes. Remainder of the large and small bowel are unremarkable. No obstruction. No free intra-abdominal air or fluid. Abdominal aorta has a normal course and caliber. No enlarged intra-abdominal lymph nodes are identified. Right hip arthroplasty is noted. There is diffuse osteopenia. There is mild compression deformity involving the L5 and T12 vertebral bodies without significant retropulsion. No suspicious osseous lesions. IMPRESSION: 1. Wall thickening of the sigmoid colon and rectum, favored represent focal colitis, may be infectious or inflammatory in etiology. 2. Compression deformities involving the L5 and T12 vertebral bodies with between 25 percent and 50 percent height loss. These are age indeterminant. Cor relate with point tenderness. PE: GEN: NAD HEENT: Atraumatic, PERRL LUNGS: room air HEART: mildly tachycardic ABD: NABS, S/ND, mildly tender mostly to right abdomen EXTREMITY: No edema SKIN: No rashes, no jaundice NEURO/PSYCH: A & O 3 A/P: A/P: N/v, abd pain, weight loss - "coffee-ground emesis" Hypokalemia Abnormal CT - wall thickening of sigmoid and rectum - GERD CRC screen - unclear S/p splenectomy ?FH IBD -- Somewhat challenging history. Discussed possibility of EGD - she declines saying she'll "never have scopes again" and "when you get to be 63, you get sick of all this." Normal Hgb w/ slightly elevated BUN. Re: CT findings, she actually describes constipation. D/w nurse - try clears. Continue PPI - can change to PO if tolerates diet. Other per Dr. Valero. ?ERVIN PENNINGTON-LILIBETH DAWSON Apr 18, 2019 09:32
[2019-04-18 11:14] VITALS: BP 123/70
--- NOTE | 2019-04-18 11:59 | NUR ---
SS following for discharge planning. SS reviewed pt chart. Pt is from home and is currently on room air. PT/OT ordered. SS will continue to follow for discharge planning.
[2019-04-18] MEDS: IV NORMAL SALINE 1000ML BAG 1,000 ML IV SCH ×2 (12:02→16:19)
[2019-04-18] MEDS ORDERED: MAGNESIUM SULFATE 1GM 100 ML IV ONE (14:45)
[2019-04-18 15:00] VITALS: BP 86/54
[2019-04-18 19:00] VITALS: BP 111/55
[2019-04-18] MEDS: ATORVASTATIN CALCIUM 40 MG TABLET. PO SCH (20:49)
[2019-04-18] MEDS: traZODone 100 MG TABLET. PO SCH (20:53)
[2019-04-18 23:00] VITALS: BP 100/53
--- NOTE | 2019-04-19 00:29 | CONS ---
DATE OF CONSULTATION: 04/18/2019 MEDICAL ONCOLOGY CONSULTATION REQUESTING PHYSICIAN: Dr. Venkat Simons. REASON FOR CONSULTATION: History of low-grade non-Hodgkin's lymphoma, now admitted with coffee-ground emesis. HISTORY OF PRESENT ILLNESS: The patient is a 63-year-old female who was diagnosed with marginal zone lymphoma when she had a left groin lymph node biopsy on 09/25/2012. She also had massive splenomegaly and she was recommended to have a splenectomy on 10/29/2012. Pathology revealed low-grade follicular lymphoma. She received 4 cycles of rituximab because of her debilitated condition. Dr. Joy was her oncologist at that time. She was then followed by Dr. Thompson since 02/25/2013. She had worsening lymphadenopathy and she received rituximab every week for 4 doses between 05/13/2013 and 06/03/2013. She was then placed on maintenance rituximab from 06/04/2014. She tolerated the infusions very well. She completed maintenance rituximab in 03/2016. Her last PET scan was performed on 10/05/2017, which did not show any evidence of recurrent lymphoma. She was last seen at my office on 04/03/2018 and she did not return for followup since then. She presented to [facility] with complaints of coffee-ground emesis of 1-week duration on 04/17/2019. She was evaluated by Gastroenterology. She does have a history of chronic nausea and vomiting. She reports 80-pound weight loss in [address] scan of the abdomen and pelvis on 04/17/2019 that revealed wall thickening of the sigmoid colon and rectum, likely focal colitis. Compression deformities involving L5 and T12 vertebral bodies. I was asked to see the patient for followup of lymphoma. PAST MEDICAL HISTORY: Hypertension, hyperlipidemia, COPD, marginal zone lymphoma, anxiety, osteoarthritis, seizures, bipolar disorder, splenectomy. FAMILY HISTORY: Positive for diabetes, cerebrovascular accident, and pancreatic cancer. SOCIAL HISTORY: She has quit smoking. REVIEW OF SYSTEMS: A 12-point review of system was performed. Pertinent positives are mentioned in the history of present illness. Rest of the system review is negative. PHYSICAL EXAMINATION: GENERAL APPEARANCE: The patient is a 63-year-old female who is in no acute cardiorespiratory distress. VITAL SIGNS: Blood pressure 123/70, temperature 98.1. HEAD: Atraumatic, normocephalic. EYES: No icterus. NECK: Supple. CHEST: Bilaterally symmetrical. HEART: S1, S2 normal. ABDOMEN: Soft, nontender. CENTRAL NERVOUS SYSTEM: No focal deficits. LYMPHATICS: No lymphadenopathy. SKIN: No rashes. PSYCHOLOGIC: Mood and affect are appropriate. LABORATORY DATA: WBC 10.9, hemoglobin 13.9, platelet count 278. Creatinine 0.8. IMPRESSION AND PLAN: 1. Marginal zone lymphoma diagnosed in 2012, status post splenectomy and rituximab treatments, which were all completed in 2015. No clinical evidence of recurrence. CT scan of the abdomen and pelvis performed on 04/17/2019 does not reveal any evidence of recurrent lymphoma. I would continue routine surveillance. 2. Nausea, vomiting, and coffee-ground emesis. Appreciate GI consultation and management. ILDA BRITO MD DR: YOLETTE/arpita JOB#: [id number] / [id number] ANGELA
--- NOTE | 2019-04-19 01:43 | NUR ---
pt scheduled ativan and flexeril held d/t pt oxygen saturation less than 90,s at times, prn oxygen 2l applied. will cont to monitor pt status and safety. pmrn
[2019-04-19 03:00] VITALS: BP 99/54
[2019-04-19 04:33] LABS: BASO # 0.1 x10^3/uL (0.0-0.2); BASO % 1 % (0-3); EOS # 0.5 x10^3/uL (0.0-0.7); EOS % 5 % (0-3); HEMATOCRIT 38.4 % (36.0-47.0); HEMOGLOBIN 12.5 g/dL (12.0-15.5); LYMPH # 2.2 x10^3/uL (1.0-4.8); LYMPH % 22 % (24-48); MEAN CORPUSCULAR HEMOGLOBIN 31 pg (25-35); MEAN CORPUSCULAR HGB CONC 33 g/dL (31-37); MEAN CORPUSCULAR VOLUME 95 fL (79-100); MONO # 1.1 x10^3/uL (0.0-1.1); MONO % 11 % (0-9); NEUT % 60 % (31-73); PLATELET COUNT 243 x10^3/uL (140-400); RED BLOOD COUNT 4.04 x10^6/uL (3.50-5.40); RED CELL DISTRIBUTION WIDTH 14.2 % (11.5-14.5); WHITE BLOOD COUNT 9.9 x10^3/uL (4.0-11.0)
[2019-04-19] MEDS: IV NORMAL SALINE 1000ML BAG 1,000 ML IV SCH ×3 (04:33→22:12)
[2019-04-19 04:47] LABS: CALCIUM 8.2 mg/dL (8.5-10.1); CREATININE 0.6 mg/dL (0.6-1.0); POTASSIUM 3.3 mmol/L (3.5-5.1)
[2019-04-19] MEDS: LEVOTHYROXINE 50 MCG TABLET PO SCH (06:17)
[2019-04-19] MEDS: PANTOPRAZOLE IV PUSH 40 MG VIAL. IVP SCH (06:18)
--- NOTE | 2019-04-19 06:23 | NUR ---
Pt bladder scanned this am d/t no void this shift, scan showed 225cc, no distention noted. pt verbalized no need to void as this time will inform MD and am RN. Will cont to monitor pt status and safety. pmrn
[2019-04-19] MEDS: ALBUTEROL SULFATE 2.5 MG/3 ML NEBU. NEB SCH ×6 (07:36→20:17)
[2019-04-19 07:37] VITALS: BP 111/58
[2019-04-19] MEDS: BUDESONIDE 0.5 MG/2 ML NEBU. NEB SCH ×2 (07:37→20:17)
[2019-04-19] MEDS: LORazepam 0.5 MG TABLET PO SCH ×3 (08:24→21:00)
[2019-04-19] MEDS: buPROPion SR 100 MG TABLET.SA. PO SCH ×2 (08:24→22:10)
[2019-04-19] MEDS: DICYCLOMINE HCL 10 MG CAPSULE PO SCH ×3 (08:24→22:13)
[2019-04-19] MEDS: CYCLOBENZAPRINE 10 MG TABLET. PO SCH ×3 (08:24→22:11)
[2019-04-19] MEDS: FLUoxetine HCL 20 MG CAPSULE PO SCH (08:24)
[2019-04-19] MEDS: METOPROLOL TART IMMED RELEASE 25 MG TABLET. PO SCH ×2 (08:24→22:16)
[2019-04-19] MEDS: NYSTATIN TOPICAL POWDER 15GM BOTTLE. TP SCH ×2 (08:25→22:11)
--- NOTE | 2019-04-19 08:26 | PDOC ---
PROGRESS NOTES Chief Complaint Chief Complaint Colitis, may be infectious or inflammatory in etiology. Likely with gastroenteritis. 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 These are age indeterminant Intractable vomiting UGI BLEED, Gastritis vs PUD, ON FREQ NSAIDS SEVERE HYPOKALEMIA HTN HLD COPD hypothyroidism Follicular lymphoma (s/p chemotherapy, radiation therapies, splenectomy) Seizures Anxiety with depression Bipolar disorder GERD Plan: Clear liquid diet Consult GI Replace K, check mag 34 minutes time History of Present Illness History of Present Illness Ms Kahn is a 62yo F w/ PMHx depression with HTN, HLD, COPD, hypothyroidism, Follicular lymphoma (s/p chemotherapy, radiation therapies, splenectomy), Seizures, Anxiety with depression, bipolar disorder, GERD, hypothyroidism who presents to the ED complaining of vomiting coffee ground emesis for one week. Patient is also complaining of 10 out of 10 sharp intermittent generalized abdominal pain one week. Denies any diarrhea. She states she had a normal bowel movement yesterday. Denies any chest pain, shortness of breath. Denies being on any chemotherapy drugs CT abdomen shows concern for colitis of sigmoid colon and rectum and L5 and T12 vertebral height loss. K was 2.3, admitted for further treatment. 04/17: She is feeling better, but K still 2.8, mag level pending. She is tolerating clear liquid diet ok. K is 3.3 today. Still having abdominal pain and jelly stools. Worried about h aving bowel surgery like her family members Vitals Vitals Vital Signs Date Time Temp Pulse Resp B/P (MAP) Pulse Ox O2 Delivery O2 Flow Rate FiO2 04/19/19 07:37 97.9 85 20 111/58 (75) 99 Room Air 97.9 04/19/19 07:37 2.0 Physical Exam General: Alert, Oriented X3, Cooperative Heart: Regular rate, Normal S1, Normal S2 Lungs: Clear, Other Abdomen: Normal bowel sounds, Soft Extremities: No clubbing, No cyanosis Skin: No rashes, No breakdown Labs LABS Laboratory Tests Test 04/19/19 04:15 White Blood Count 9.9 x10^3/uL (4.0-11.0) Red Blood Count 4.04 x10^6/uL (3.50-5.40) Hemoglobin 12.5 g/dL (12.0-15.5) Hematocrit 38.4 % (36.0-47.0) Mean Corpuscular Volume 95 fL (79-100) Mean Corpuscular Hemoglobin 31 pg (25-35) Mean Corpuscular Hemoglobin Concent 33 g/dL (31-37) Red Cell Distribution Width 14.2 % (11.5-14.5) Platelet Count 243 x10^3/uL (140-400) Neutrophils (%) (Auto) 60 % (31-73) Lymphocytes (%) (Auto) 22 % (24-48) Monocytes (%) (Auto) 11 % (0-9) Eosinophils (%) (Auto) 5 % (0-3) Basophils (%) (Auto) 1 % (0-3) Neutrophils # (Auto) 6.0 x10^3/uL (1.8-7.7) Lymphocytes # (Auto) 2.2 x10^3/uL (1.0-4.8) Monocytes # (Auto) 1.1 x10^3/uL (0.0-1.1) Eosinophils # (Auto) 0.5 x10^3/uL (0.0-0.7) Basophils # (Auto) 0.1 x10^3/uL (0.0-0.2) Sodium Level 144 mmol/L (136-145) Potassium Level 3.3 mmol/L (3.5-5.1) Chloride Level 109 mmol/L (98-107) Carbon Dioxide Level 26 mmol/L (21-32) Anion Gap 9 (6-14) Blood Urea Nitrogen 16 mg/dL (7-20) Creatinine 0.6 mg/dL (0.6-1.0) Estimated GFR (Cockcroft-Gault) 101.0 Glucose Level 90 mg/dL (70-99) Calcium Level 8.2 mg/dL (8.5-10.1) Assessment and Plan Assessmemt and Plan Problems Medical Problems: (1) Abdominal pain Status: Acute (2) Asthma Status: Chronic (3) Coffee ground emesis Status: Acute (4) Colon wall thickening Status: Chronic (5) Compression deformity of vertebra Status: Chronic (6) Hypokalemia Status: Acute (7) UGI bleed Status: Chronic (8) Vomiting Status: Acute Comment Review of Relevant I have reviewed the following items lottie (where applicable) has been applied. Labs Laboratory Tests Test 04/17/19 13:55 04/18/19 06:25 04/19/19 04:15 White Blood Count 12.2 x10^3/uL (4.0-11.0) 10.9 x10^3/uL (4.0-11.0) 9.9 x10^3/uL (4.0-11.0) Red Blood Count 5.20 x10^6/uL (3.50-5.40) 4.45 x10^6/uL (3.50-5.40) 4.04 x10^6/uL (3.50-5.40) Hemoglobin 16.2 g/dL (12.0-15.5) 13.9 g/dL (12.0-15.5) 12.5 g/dL (12.0-15.5) Hematocrit 49.1 % (36.0-47.0) 41.5 % (36.0-47.0) 38.4 % (36.0-47.0) Mean Corpuscular Volume 95 fL (79-100) 93 fL (79-100) 95 fL (79-100) Mean Corpuscular Hemoglobin 31 pg (25-35) 31 pg (25-35) 31 pg (25-35) Mean Corpuscular Hemoglobin Concent 33 g/dL (31-37) 34 g/dL (31-37) 33 g/dL (31-37) Red Cell Distribution Width 14.0 % (11.5-14.5) 13.6 % (11.5-14.5) 14.2 % (11.5-14.5) Platelet Count 311 x10^3/uL (140-400) 278 x10^3/uL (140-400) 243 x10^3/uL (140-400) Neutrophils (%) (Auto) 67 % (31-73) 60 % (31-73) 60 % (31-73) Lymphocytes (%) (Auto) 22 % (24-48) 26 % (24-48) 22 % (24-48) Monocytes (%) (Auto) 10 % (0-9) 11 % (0-9) 11 % (0-9) Eosinophils (%) (Auto) 0 % (0-3) 2 % (0-3) 5 % (0-3) Basophils (%) (Auto) 1 % (0-3) 1 % (0-3) 1 % (0-3) Neutrophils # (Auto) 8.2 x10^3/uL (1.8-7.7) 6.5 x10^3/uL (1.8-7.7) 6.0 x10^3/uL (1.8-7.7) Lymphocytes # (Auto) 2.7 x10^3/uL (1.0-4.8) 2.8 x10^3/uL (1.0-4.8) 2.2 x10^3/uL (1.0-4.8) Monocytes # (Auto) 1.2 x10^3/uL (0.0-1.1) 1.2 x10^3/uL (0.0-1.1) 1.1 x10^3/uL (0.0-1.1) Eosinophils # (Auto) 0.0 x10^3/uL (0.0-0.7) 0.2 x10^3/uL (0.0-0.7) 0.5 x10^3/uL (0.0-0.7) Basophils # (Auto) 0.1 x10^3/uL (0.0-0.2) 0.1 x10^3/uL (0.0-0.2) 0.1 x10^3/uL (0.0-0.2) Platelet Estimate Adequate (ADEQUATE) Large Platelets Few Giant Platelets Occ Spherocytes Few Acanthocytes Few Schistocytes Occ Sodium Level 141 mmol/L (136-145) 143 mmol/L (136-145) 144 mmol/L (136-145) Potassium Level 2.3 mmol/L (3.5-5.1) 2.8 mmol/L (3.5-5.1) 3.3 mmol/L (3.5-5.1) Chloride Level 96 mmol/L (98-107) 102 mmol/L (98-107) 109 mmol/L (98-107) Carbon Dioxide Level 31 mmol/L (21-32) 31 mmol/L (21-32) 26 mmol/L (21-32) Anion Gap 14 (6-14) 10 (6-14) 9 (6-14) Blood Urea Nitrogen 21 mg/dL (7-20) 22 mg/dL (7-20) 16 mg/dL (7-20) Creatinine 0.8 mg/dL (0.6-1.0) 0.8 mg/dL (0.6-1.0) 0.6 mg/dL (0.6-1.0) Estimated GFR (Cockcroft-Gault) 72.4 72.4 101.0 BUN/Creatinine Ratio 26 (6-20) 28 (6-20) Glucose Level 127 mg/dL (70-99) 108 mg/dL (70-99) 90 mg/dL (70-99) Calcium Level 9.3 mg/dL (8.5-10.1) 8.8 mg/dL (8.5-10.1) 8.2 mg/dL (8.5-10.1) Total Bilirubin 0.5 mg/dL (0.2-1.0) 0.5 mg/dL (0.2-1.0) Aspartate Amino Transf (AST/SGOT) 20 U/L (15-37) 17 U/L (15-37) Alanine Aminotransferase (ALT/SGPT) 15 U/L (14-59) 14 U/L (14-59) Alkaline Phosphatase 109 U/L (46-116) 89 U/L (46-116) Total Protein 7.9 g/dL (6.4-8.2) 6.7 g/dL (6.4-8.2) Albumin 3.9 g/dL (3.4-5.0) 3.2 g/dL (3.4-5.0) Albumin/Globulin Ratio 1.0 (1.0-1.7) 0.9 (1.0-1.7) Lipase 82 U/L (73-393) Ethyl Alcohol Level < 10 mg/dL (0-10) Magnesium Level 1.9 mg/dL (1.8-2.4) Laboratory Tests Test 04/19/19 04:15 White Blood Count 9.9 x10^3/uL (4.0-11.0) Red Blood Count 4.04 x10^6/uL (3.50-5.40) Hemoglobin 12.5 g/dL (12.0-15.5) Hematocrit 38.4 % (36.0-47.0) Mean Corpuscular Volume 95 fL (79-100) Mean Corpuscular Hemoglobin 31 pg (25-35) Mean Corpuscular Hemoglobin Concent 33 g/dL (31-37) Red Cell Distribution Width 14.2 % (11.5-14.5) Platelet Count 243 x10^3/uL (140-400) Neutrophils (%) (Auto) 60 % (31-73) Lymphocytes (%) (Auto) 22 % (24-48) Monocytes (%) (Auto) 11 % (0-9) Eosinophils (%) (Auto) 5 % (0-3) Basophils (%) (Auto) 1 % (0-3) Neutrophils # (Auto) 6.0 x10^3/uL (1.8-7.7) Lymphocytes # (Auto) 2.2 x10^3/uL (1.0-4.8) Monocytes # (Auto) 1.1 x10^3/uL (0.0-1.1) Eosinophils # (Auto) 0.5 x10^3/uL (0.0-0.7) Basophils # (Auto) 0.1 x10^3/uL (0.0-0.2) Sodium Level 144 mmol/L (136-145) Potassium Level 3.3 mmol/L (3.5-5.1) Chloride Level 109 mmol/L (98-107) Carbon Dioxide Level 26 mmol/L (21-32) Anion Gap 9 (6-14) Blood Urea Nitrogen 16 mg/dL (7-20) Creatinine 0.6 mg/dL (0.6-1.0) Estimated GFR (Cockcroft-Gault) 101.0 Glucose Level 90 mg/dL (70-99) Calcium Level 8.2 mg/dL (8.5-10.1) Medications Current Medications Famotidine (Pepcid Vial) 20 mg 1X ONCE IVP Last administered on 04/17/19at 14:08; Start 04/17/19 at 13:45; Stop 04/17/19 at 13:46; Status DC Ondansetron HCl (Zofran) 4 mg 1X ONCE IVP Last administered on 04/17/19at 14:08; Start 10/30/19 at 13:45; Stop 04/17/19 at 13:46; Status DC Fentanyl Citrate (Fentanyl 2ml Vial) 50 mcg 1X ONCE IVP Last administered on 04/17/19at 14:09; Start 04/17/19 at 13:45; Stop 04/17/19 at 13:46; Status DC Potassium Citrate (Urocit-K) 40 meq 1X STAT PO ; Start 04/17/19 at 14:38; Stop 04/17/19 at 14:39; Status Cancel Potassium Chloride/Water 100 ml @ 100 mls/hr Q1H IV Last administered on 04/17/19at 16:07; Start 04/17/19 at 15:00; Stop 04/17/19 at 16:59; Status DC Potassium Chloride (Klor-Con) 40 meq 1X ONCE PO Last administered on 04/17/19at 15:00; Start 04/17/19 at 15:00; Stop 04/17/19 at 15:01; Status DC Ondansetron HCl (Zofran) 4 mg PRN Q8HRS PRN IV NAUSEA/VOMITING Last administered on 04/18/19at 09:13; Start 04/17/19 at 16:30; Stop 04/18/19 at 16:29; Status DC Morphine Sulfate (Morphine Sulfate) 4 mg PRN Q2HR PRN IV PAIN; Start 04/17/19 at 16:30; Stop 04/18/19 at 16:29; Status DC Pantoprazole Sodium (PROTONIX VIAL for IV PUSH) 40 mg DAILYAC IVP Last administered on 04/19/19at 06:18; Start 04/18/19 at 07:30 Sodium Chloride (Normal Saline Flush) 3 ml QSHIFT PRN IV AFTER MEDS AND BLOOD DRAWS; Start 04/17/19 at 20:30 Sodium Chloride 1,000 ml @ 100 mls/hr Q10H IV Last administered on 04/19/19at 04:33; Start 04/17/19 at 20:19 Ondansetron HCl (Zofran) 4 mg PRN Q4HRS PRN IV NAUSEA/VOMITING Last administered on 04/18/19at 21:00; Start 04/17/19 at 20:30 Acetaminophen (Tylenol) 650 mg PRN Q4HRS PRN PO TEMP OVER 100.4F OR MILD PAIN; Start 04/17/19 at 20:30 Al Hydroxide/Mg Hydroxide (Mylanta Plus Xs) 30 ml PRN DAILY PRN PO HEARTBURN / GAS; Start 04/17/19 at 20:30 Clonidine HCl (Catapres) 0.1 mg PRN Q6HRS PRN PO SBP>160 OR DBP>90; Start 04/17/19 at 20:30 Docusate Sodium (Colace) 100 mg PRN BID PRN PO CONSTIPATION; Start 04/17/19 at 20:30 Albuterol Sulfate (Ventolin Neb Soln) 2.5 mg PRN Q4HRS PRN NEB SHORTNESS OF BREATH; Start 04/17/19 at 20:30 Guaifenesin (Robitussin) 200 mg PRN Q4HRS PRN PO COUGH; Start 04/17/19 at 20:30 Lorazepam (Ativan) 0.5 mg PRN Q4HRS PRN PO ANXIETY / AGITATION; Start 04/17/19 at 20:30 Atorvastatin Calcium (Lipitor) 20 mg HS PO ; Start 04/17/19 at 21:00; Stop 04/17/19 at 21:17; Status DC Bupropion HCl (Wellbutrin Sr) 100 mg BID PO Last administered on 04/18/19at 20:48; Start 04/17/19 at 21:00 Cyclobenzaprine HCl (Flexeril) 10 mg TID PO Last administered on 04/18/19at 14:09; Start 04/17/19 at 21:00 Fluoxetine HCl (PROzac) 20 mg DAILY PO Last administered on 04/18/19at 09:16; Start 04/18/19 at 09:00 Fluticasone Propionate (Flonase) 1 spray DAILY NS Last administered on 04/18/19at 09:14; Start 04/18/19 at 09:00 Furosemide (Lasix) 40 mg DAILY PO ; Start 04/18/19 at 09:00; Stop 04/18/19 at 03:09; Status DC Acetaminophen/ Hydrocodone Bitart (Lortab 10/325) 1 tab PRN Q6HRS PRN PO PAIN; Start 04/17/19 at 21:00 Levothyroxine Sodium (Synthroid) 50 mcg DAILY06 PO Last administered on 04/19/19at 06:17; Start 04/18/19 at 06:00 Lorazepam (Ativan) 0.5 mg TID PO Last administered on 04/18/19at 14:09; Start 04/17/19 at 21:00 Metoprolol Tartrate (Lopressor) 25 mg BID PO ; Start 04/17/19 at 21:00; Stop 04/17/19 at 21:28; Status DC Nystatin (Nystop) 1 ludin BID TP Last administered on 04/18/19at 21:03; Start 04/17/19 at 21:00 Prochlorperazine Maleate (Compazine) 10 mg PRN Q4HRS PRN PO NAUSEA/VOMITING; Start 04/17/19 at 21:00 Trazodone HCl (Desyrel) 100 mg HS PO Last administered on 04/18/19at 20:53; Start 04/17/19 at 21:00 Albuterol Sulfate (Ventolin Neb Soln) 2.5 mg Q4HRS NEB ; Start 04/17/19 at 21:30; Stop 04/18/19 at 05:32; Status DC Non-Formulary Medication (Albuterol Sulfate (Albuterol Sulfate Neb Soln)) 1 vial TID NEB ; Start 04/17/19 at 21:00; Stop 04/17/19 at 21:20; Status DC Dicyclomine HCl (Bentyl) 10 mg TID PO ; Start 04/17/19 at 21:30; Stop 04/17/19 at 21:19; Status DC Non-Formulary Medication (Fluticasone Propionate (Flonase Allergy Relief)) 1 sprays DAILY NS ; Start 04/18/19 at 09:00; Stop 04/17/19 at 21:20; Status DC Budesonide (Pulmicort) 0.5 mg RTBID NEB Last administered on 04/19/19at 07:37; Start 04/18/19 at 08:00 Atorvastatin Calcium (Lipitor) 40 mg QHS PO Last administered on 04/18/19at 20:49; Start 04/17/19 at 21:30 Dicyclomine HCl (Bentyl) 20 mg TID PO Last administered on 04/18/19at 20:48; Start 04/17/19 at 21:30 Metoprolol Tartrate (Lopressor) 12.5 mg BID PO Last administered on 04/18/19at 20:53; Start 04/17/19 at 21:30 Influenza Virus Vaccine Quadrival (Afluria Quad 2019-20 (3yr Up) Syringe) 0.5 ml ONCE ONCE VAX IM Last administered on 04/18/19at 10:33; Start 04/18/19 at 09:00; Stop 04/18/19 at 09:01; Status DC Albuterol Sulfate (Ventolin Neb Soln) 2.5 mg RTQID NEB Last administered on 04/19/19at 07:36; Start 04/18/19 at 08:00 Potassium Chloride/Water 100 ml @ 100 mls/hr Q1H IV Last administered on 04/18/19at 12:01; Start 04/18/19 at 08:00; Stop 04/18/19 at 11:59; Status DC Potassium Chloride (Klor-Con) 20 meq 1X ONCE PO Last administered on 04/18/19at 09:14; Start 04/18/19 at 07:45; Stop 04/18/19 at 07:50; Status DC Magnesium Sulfate/ Dextrose 100 ml @ 100 mls/hr 1X ONCE IV Last administered on 04/18/19at 17:16; Start 04/18/19 at 14:45; Stop 04/18/19 at 15:44; Status DC Active Scripts Active Reported Budesonide 0.5 Mg/2 Ml Ampul.neb 1 Vial NEB BID Albuterol Sulfate Neb Soln (Albuterol Sulfate) 1.25 Mg/3 Ml Vial.neb 1 Vial NEB PRN Q4HRS PRN Albuterol Sulfate Neb Soln (Albuterol Sulfate) 1.25 Mg/3 Ml Vial.neb 1 Vial NEB QID Prochlorperazine Maleate 10 Mg Tablet 10 Mg PO PRN Q4HRS PRN Flonase Allergy Relief (Fluticasone Propionate) 9.9 Ml [place].susp 1 Sprays NS DAILY Crestor (Rosuvastatin Calcium) 10 Mg Tablet 10 Mg PO HS Ativan (Lorazepam) 0.5 Mg Tablet 0.5 Mg PO TID Metoprolol Tartrate 25 Mg Tablet 25 Mg PO BID 1/2 tab bid Hydrocodone-Apap 10-325 (Hydrocodone Bit/Acetaminophen) 1 Tab Tablet 1 Tab PO PRN Q6HRS PRN Nystatin 15 Gm Powder 1 Lud[place] TP BID 7 Days apply to affected area(s) Cyclobenzaprine Hcl 10 Mg Tablet 10 Mg PO TID Trazodone Hcl 100 Mg Tablet 100 Mg PO HS trazodone 100mg 2tabs at bedtime Advair 500-50 Diskus (Fluticasone/Salmeterol) 1 Each Disk.w.dev 1 Inh IH BID Lipitor (Atorvastatin Calcium) 20 Mg Tablet 20 Mg PO HS Bupropion Hcl Sr (Bupropion Hcl) 100 Mg Tablet.er 100 Mg PO BID Fluoxetine Hcl 10 Mg Capsule 2 Cap PO DAILY Proair Hfa Inhaler (Albuterol Sulfate) 8.5 Gm Hfa.aer.ad 2 Puff IH PRN Q4-6HRS Dicyclomine Hcl 20 Mg Tablet 1 Tab PO TID Levothyroxine Sodium 50 Mcg Tablet 1 Tab PO DAILY Vitals/I & O Vital Sign - Last 24 Hours 04/18/19 04/18/19 04/18/19 04/18/19 09:16 11:14 12:19 15:00 Temp 98.1 98.9 98.1 98.9 Pulse 92 76 81 Resp 18 18 B/P (MAP) 110/59 123/70 (87) 86/54 (65) Pulse Ox 91 92 O2 Delivery Room Air Room Air Room Air 04/18/19 04/18/19 04/18/19 04/18/19 16:11 19:00 20:12 20:26 Temp 98.7 98.7 Pulse 87 Resp 12 B/P (MAP) 111/55 (73) Pulse Ox 96 94 O2 Delivery Room Air Room Air Room Air Room Air 04/18/19 04/18/19 04/19/19 04/19/19 20:53 23:00 03:00 07:37 Temp 98.5 99.0 98.5 99.0 Pulse 84 77 80 Resp 20 20 B/P (MAP) 111/55 100/53 (69) 99/54 (69) Pulse Ox 77 93 99 O2 Delivery Room Air Room Air Nasal Cannula O2 Flow Rate 2.0 04/19/19 07:37 Temp 97.9 97.9 Pulse 85 Resp 20 B/P (MAP) 111/58 (75) Pulse Ox 99 O2 Delivery Room Air Intake and Output 04/18/19 04/18/19 04/19/19 15:00 23:00 07:00 Intake Total 410 ml 420 ml 0 ml Output Total 0 ml Balance 410 ml 420 ml 0 ml SANDRA ALLEN MD Apr 19, 2019 08:26
[2019-04-19] MEDS ORDERED: POTASSIUM CHLORIDE 20 MEQ TABLET.ER. PO ONE (09:00)
[2019-04-19] MEDS: FLUTICASONE 50MCG/NASAL SPRAY 16GM BOTTLE. NS SCH (09:00)
[2019-04-19] MEDS: POTASSIUM CHLORIDE 10MEQ 100 ML IV SCH ×2 (09:13→10:00)
[2019-04-19 10:18] VITALS: BP 98/57
[2019-04-19] MEDS ORDERED: MESALAMINE 400 MG CAP.DRTAB. PO SCH (11:00)
[2019-04-19] MEDS ORDERED: methylPREDNISolone SOD SUCC PF 125 MG/2 ML VIAL. IV ONE (11:15)
--- NOTE | 2019-04-19 11:56 | PDOC ---
G I PROGRESS NOTE Reason for Follow-up Diarrhea/Crohns disease Subjective Feeling better Physical Exam Lungs decreased BS CV S1 S2 ABD +BS, soft, mild tenderness throughout Review of Relevant I have reviewed the following items lottie (where applicable) has been applied. Labs Laboratory Tests Test 04/17/19 13:55 04/18/19 06:25 04/19/19 04:15 White Blood Count 12.2 x10^3/uL (4.0-11.0) 10.9 x10^3/uL (4.0-11.0) 9.9 x10^3/uL (4.0-11.0) Red Blood Count 5.20 x10^6/uL (3.50-5.40) 4.45 x10^6/uL (3.50-5.40) 4.04 x10^6/uL (3.50-5.40) Hemoglobin 16.2 g/dL (12.0-15.5) 13.9 g/dL (12.0-15.5) 12.5 g/dL (12.0-15.5) Hematocrit 49.1 % (36.0-47.0) 41.5 % (36.0-47.0) 38.4 % (36.0-47.0) Mean Corpuscular Volume 95 fL (79-100) 93 fL (79-100) 95 fL (79-100) Mean Corpuscular Hemoglobin 31 pg (25-35) 31 pg (25-35) 31 pg (25-35) Mean Corpuscular Hemoglobin Concent 33 g/dL (31-37) 34 g/dL (31-37) 33 g/dL (31-37) Red Cell Distribution Width 14.0 % (11.5-14.5) 13.6 % (11.5-14.5) 14.2 % (11.5-14.5) Platelet Count 311 x10^3/uL (140-400) 278 x10^3/uL (140-400) 243 x10^3/uL (140-400) Neutrophils (%) (Auto) 67 % (31-73) 60 % (31-73) 60 % (31-73) Lymphocytes (%) (Auto) 22 % (24-48) 26 % (24-48) 22 % (24-48) Monocytes (%) (Auto) 10 % (0-9) 11 % (0-9) 11 % (0-9) Eosinophils (%) (Auto) 0 % (0-3) 2 % (0-3) 5 % (0-3) Basophils (%) (Auto) 1 % (0-3) 1 % (0-3) 1 % (0-3) Neutrophils # (Auto) 8.2 x10^3/uL (1.8-7.7) 6.5 x10^3/uL (1.8-7.7) 6.0 x10^3/uL (1.8-7.7) Lymphocytes # (Auto) 2.7 x10^3/uL (1.0-4.8) 2.8 x10^3/uL (1.0-4.8) 2.2 x10^3/uL (1.0-4.8) Monocytes # (Auto) 1.2 x10^3/uL (0.0-1.1) 1.2 x10^3/uL (0.0-1.1) 1.1 x10^3/uL (0.0-1.1) Eosinophils # (Auto) 0.0 x10^3/uL (0.0-0.7) 0.2 x10^3/uL (0.0-0.7) 0.5 x10^3/uL (0.0-0.7) Basophils # (Auto) 0.1 x10^3/uL (0.0-0.2) 0.1 x10^3/uL (0.0-0.2) 0.1 x10^3/uL (0.0-0.2) Platelet Estimate Adequate (ADEQUATE) Large Platelets Few Giant Platelets Occ Spherocytes Few Acanthocytes Few Schistocytes Occ Sodium Level 141 mmol/L (136-145) 143 mmol/L (136-145) 144 mmol/L (136-145) Potassium Level 2.3 mmol/L (3.5-5.1) 2.8 mmol/L (3.5-5.1) 3.3 mmol/L (3.5-5.1) Chloride Level 96 mmol/L (98-107) 102 mmol/L (98-107) 109 mmol/L (98-107) Carbon Dioxide Level 31 mmol/L (21-32) 31 mmol/L (21-32) 26 mmol/L (21-32) Anion Gap 14 (6-14) 10 (6-14) 9 (6-14) Blood Urea Nitrogen 21 mg/dL (7-20) 22 mg/dL (7-20) 16 mg/dL (7-20) Creatinine 0.8 mg/dL (0.6-1.0) 0.8 mg/dL (0.6-1.0) 0.6 mg/dL (0.6-1.0) Estimated GFR (Cockcroft-Gault) 72.4 72.4 101.0 BUN/Creatinine Ratio 26 (6-20) 28 (6-20) Glucose Level 127 mg/dL (70-99) 108 mg/dL (70-99) 90 mg/dL (70-99) Calcium Level 9.3 mg/dL (8.5-10.1) 8.8 mg/dL (8.5-10.1) 8.2 mg/dL (8.5-10.1) Total Bilirubin 0.5 mg/dL (0.2-1.0) 0.5 mg/dL (0.2-1.0) Aspartate Amino Transf (AST/SGOT) 20 U/L (15-37) 17 U/L (15-37) Alanine Aminotransferase (ALT/SGPT) 15 U/L (14-59) 14 U/L (14-59) Alkaline Phosphatase 109 U/L (46-116) 89 U/L (46-116) Total Protein 7.9 g/dL (6.4-8.2) 6.7 g/dL (6.4-8.2) Albumin 3.9 g/dL (3.4-5.0) 3.2 g/dL (3.4-5.0) Albumin/Globulin Ratio 1.0 (1.0-1.7) 0.9 (1.0-1.7) Lipase 82 U/L (73-393) Ethyl Alcohol Level < 10 mg/dL (0-10) Magnesium Level 1.9 mg/dL (1.8-2.4) Laboratory Tests Test 04/19/19 04:15 White Blood Count 9.9 x10^3/uL (4.0-11.0) Red Blood Count 4.04 x10^6/uL (3.50-5.40) Hemoglobin 12.5 g/dL (12.0-15.5) Hematocrit 38.4 % (36.0-47.0) Mean Corpuscular Volume 95 fL (79-100) Mean Corpuscular Hemoglobin 31 pg (25-35) Mean Corpuscular Hemoglobin Concent 33 g/dL (31-37) Red Cell Distribution Width 14.2 % (11.5-14.5) Platelet Count 243 x10^3/uL (140-400) Neutrophils (%) (Auto) 60 % (31-73) Lymphocytes (%) (Auto) 22 % (24-48) Monocytes (%) (Auto) 11 % (0-9) Eosinophils (%) (Auto) 5 % (0-3) Basophils (%) (Auto) 1 % (0-3) Neutrophils # (Auto) 6.0 x10^3/uL (1.8-7.7) Lymphocytes # (Auto) 2.2 x10^3/uL (1.0-4.8) Monocytes # (Auto) 1.1 x10^3/uL (0.0-1.1) Eosinophils # (Auto) 0.5 x10^3/uL (0.0-0.7) Basophils # (Auto) 0.1 x10^3/uL (0.0-0.2) Sodium Level 144 mmol/L (136-145) Potassium Level 3.3 mmol/L (3.5-5.1) Chloride Level 109 mmol/L (98-107) Carbon Dioxide Level 26 mmol/L (21-32) Anion Gap 9 (6-14) Blood Urea Nitrogen 16 mg/dL (7-20) Creatinine 0.6 mg/dL (0.6-1.0) Estimated GFR (Cockcroft-Gault) 101.0 Glucose Level 90 mg/dL (70-99) Calcium Level 8.2 mg/dL (8.5-10.1) Medications Current Medications Famotidine (Pepcid Vial) 20 mg 1X ONCE IVP Last administered on 04/17/19at 14:08; Start 04/17/19 at 13:45; Stop 04/17/19 at 13:46; Status DC Ondansetron HCl (Zofran) 4 mg 1X ONCE IVP Last administered on 04/17/19at 14:08; Start 04/17/19 at 13:45; Stop 04/17/19 at 13:46; Status DC Fentanyl Citrate (Fentanyl 2ml Vial) 50 mcg 1X ONCE IVP Last administered on 04/17/19at 14:09; Start 04/17/19 at 13:45; Stop 04/17/19 at 13:46; Status DC Potassium Citrate (Urocit-K) 40 meq 1X STAT PO ; Start 04/17/19 at 14:38; Stop 04/17/19 at 14:39; Status Cancel Potassium Chloride/Water 100 ml @ 100 mls/hr Q1H IV Last administered on 04/17/19at 16:07; Start 04/17/19 at 15:00; Stop 04/17/19 at 16:59; Status DC Potassium Chloride (Klor-Con) 40 meq 1X ONCE PO Last administered on 04/17/19at 15:00; Start 04/17/19 at 15:00; Stop 04/17/19 at 15:01; Status DC Ondansetron HCl (Zofran) 4 mg PRN Q8HRS PRN IV NAUSEA/VOMITING Last administered on 04/18/19at 09:13; Start 04/17/19 at 16:30; Stop 04/18/19 at 16:29; Status DC Morphine Sulfate (Morphine Sulfate) 4 mg PRN Q2HR PRN IV PAIN; Start 04/17/19 at 16:30; Stop 04/18/19 at 16:29; Status DC Pantoprazole Sodium (PROTONIX VIAL for IV PUSH) 40 mg DAILYAC IVP Last administered on 04/19/19at 06:18; Start 04/18/19 at 07:30 Sodium Chloride (Normal Saline Flush) 3 ml QSHIFT PRN IV AFTER MEDS AND BLOOD DRAWS; Start 04/17/19 at 20:30 Sodium Chloride 1,000 ml @ 100 mls/hr Q10H IV Last administered on 04/19/19at 04:33; Start 04/17/19 at 20:19 Ondansetron HCl (Zofran) 4 mg PRN Q4HRS PRN IV NAUSEA/VOMITING Last administered on 04/18/19at 21:00; Start 04/17/19 at 20:30 Acetaminophen (Tylenol) 650 mg PRN Q4HRS PRN PO TEMP OVER 100.4F OR MILD PAIN; Start 04/17/19 at 20:30 Al Hydroxide/Mg Hydroxide (Mylanta Plus Xs) 30 ml PRN DAILY PRN PO HEARTBURN / GAS; Start 04/17/19 at 20:30 Clonidine HCl (Catapres) 0.1 mg PRN Q6HRS PRN PO SBP>160 OR DBP>90; Start 04/17/19 at 20:30 Docusate Sodium (Colace) 100 mg PRN BID PRN PO CONSTIPATION; Start 04/17/19 at 20:30 Albuterol Sulfate (Ventolin Neb Soln) 2.5 mg PRN Q4HRS PRN NEB SHORTNESS OF BREATH; Start 04/17/19 at 20:30 Guaifenesin (Robitussin) 200 mg PRN Q4HRS PRN PO COUGH; Start 04/17/19 at 20:30 Lorazepam (Ativan) 0.5 mg PRN Q4HRS PRN PO ANXIETY / AGITATION; Start 04/17/19 at 20:30 Atorvastatin Calcium (Lipitor) 20 mg HS PO ; Start 04/17/19 at 21:00; Stop 04/17/19 at 21:17; Status DC Bupropion HCl (Wellbutrin Sr) 100 mg BID PO Last administered on 04/19/19at 08:24; Start 04/17/19 at 21:00 Cyclobenzaprine HCl (Flexeril) 10 mg TID PO Last administered on 04/19/19at 08:24; Start 04/17/19 at 21:00 Fluoxetine HCl (PROzac) 20 mg DAILY PO Last administered on 04/19/19at 08:24; Start 04/18/19 at 09:00 Fluticasone Propionate (Flonase) 1 spray DAILY NS Last administered on 04/19/19at 09:00; Start 04/18/19 at 09:00 Furosemide (Lasix) 40 mg DAILY PO ; Start 04/18/19 at 09:00; Stop 04/18/19 at 03:09; Status DC Acetaminophen/ Hydrocodone Bitart (Lortab 10/325) 1 tab PRN Q6HRS PRN PO PAIN; Start 04/17/19 at 21:00 Levothyroxine Sodium (Synthroid) 50 mcg DAILY06 PO Last administered on 04/19/19at 06:17; Start 04/18/19 at 06:00 Lorazepam (Ativan) 0.5 mg TID PO Last administered on 04/19/19at 08:24; Start 04/17/19 at 21:00 Metoprolol Tartrate (Lopressor) 25 mg BID PO ; Start 04/17/19 at 21:00; Stop 04/17/19 at 21:28; Status DC Nystatin (Nystop) 1 ludin BID TP Last administered on 04/19/19at 08:25; Start 04/17/19 at 21:00 Prochlorperazine Maleate (Compazine) 10 mg PRN Q4HRS PRN PO NAUSEA/VOMITING; Start 04/17/19 at 21:00 Trazodone HCl (Desyrel) 100 mg HS PO Last administered on 04/18/19at 20:53; Start 04/17/19 at 21:00 Albuterol Sulfate (Ventolin Neb Soln) 2.5 mg Q4HRS NEB ; Start 04/17/19 at 21:30; Stop 04/18/19 at 05:32; Status DC Non-Formulary Medication (Albuterol Sulfate (Albuterol Sulfate Neb Soln)) 1 vial TID NEB ; Start 04/17/19 at 21:00; Stop 04/17/19 at 21:20; Status DC Dicyclomine HCl (Bentyl) 10 mg TID PO ; Start 04/17/19 at 21:30; Stop 04/17/19 at 21:19; Status DC Non-Formulary Medication (Fluticasone Propionate (Flonase Allergy Relief)) 1 sprays DAILY NS ; Start 04/18/19 at 09:00; Stop 04/17/19 at 21:20; Status DC Budesonide (Pulmicort) 0.5 mg RTBID NEB Last administered on 04/19/19at 07:37; Start 04/18/19 at 08:00 Atorvastatin Calcium (Lipitor) 40 mg QHS PO Last administered on 04/18/19at 20:49; Start 04/17/19 at 21:30 Dicyclomine HCl (Bentyl) 20 mg TID PO Last administered on 04/19/19at 08:24; Start 04/17/19 at 21:30 Metoprolol Tartrate (Lopressor) 12.5 mg BID PO Last administered on 04/19/19at 08:24; Start 04/17/19 at 21:30 Influenza Virus Vaccine Quadrival (Afluria Quad 2019-20 (3yr Up) Syringe) 0.5 ml ONCE ONCE VAX IM Last administered on 04/18/19at 10:33; Start 04/18/19 at 09:00; Stop 04/18/19 at 09:01; Status DC Albuterol Sulfate (Ventolin Neb Soln) 2.5 mg RTQID NEB Last administered on 04/19/19at 07:36; Start 04/18/19 at 08:00 Potassium Chloride/Water 100 ml @ 100 mls/hr Q1H IV Last administered on 04/18/19at 12:01; Start 04/18/19 at 08:00; Stop 04/18/19 at 11:59; Status DC Potassium Chloride (Klor-Con) 20 meq 1X ONCE PO Last administered on 04/18/19at 09:14; Start 04/18/19 at 07:45; Stop 04/18/19 at 07:50; Status DC Magnesium Sulfate/ Dextrose 100 ml @ 100 mls/hr 1X ONCE IV Last administered on 04/18/19at 17:16; Start 04/18/19 at 14:45; Stop 04/18/19 at 15:44; Status DC Potassium Chloride/Water 100 ml @ 100 mls/hr Q1H IV Last administered on 04/19/19at 10:00; Start 04/19/19 at 09:00; Stop 04/19/19 at 10:59; Status DC Potassium Chloride (Klor-Con) 40 meq 1X ONCE PO Last administered on 04/19/19at 09:12; Start 04/19/19 at 09:00; Stop 04/19/19 at 09:01; Status DC Mesalamine (Delzicol) 400 mg [id number] PO Last administered on 04/19/19at 11:13; Start 04/19/19 at 11:00 Methylprednisolone Sodium Succinate (SOLU-Medrol 125MG VIAL) 125 mg 1X ONCE IV Last administered on 04/19/19at 11:13; Start 04/19/19 at 11:15; Stop 04/19/19 at 11:16; Status DC Active Scripts Active Reported Budesonide 0.5 Mg/2 Ml Ampul.neb 1 Vial NEB BID Albuterol Sulfate Neb Soln (Albuterol Sulfate) 1.25 Mg/3 Ml Vial.neb 1 Vial NEB PRN Q4HRS PRN Albuterol Sulfate Neb Soln (Albuterol Sulfate) 1.25 Mg/3 Ml Vial.neb 1 Vial NEB QID Prochlorperazine Maleate 10 Mg Tablet 10 Mg PO PRN Q4HRS PRN Flonase Allergy Relief (Fluticasone Propionate) 9.9 Ml [place].susp 1 Sprays NS DAILY Crestor (Rosuvastatin Calcium) 10 Mg Tablet 10 Mg PO HS Ativan (Lorazepam) 0.5 Mg Tablet 0.5 Mg PO TID Metoprolol Tartrate 25 Mg Tablet 25 Mg PO BID 1/2 tab bid Hydrocodone-Apap 10-325 (Hydrocodone Bit/Acetaminophen) 1 Tab Tablet 1 Tab PO PRN Q6HRS PRN Nystatin 15 Gm Powder 1 Ludin TP BID 7 Days apply to affected area(s) Cyclobenzaprine Hcl 10 Mg Tablet 10 Mg PO TID Trazodone Hcl 100 Mg Tablet 100 Mg PO HS trazodone 100mg 2tabs at bedtime Advair 500-50 Diskus (Fluticasone/Salmeterol) 1 Each Disk.w.dev 1 Inh IH BID Lipitor (Atorvastatin Calcium) 20 Mg Tablet 20 Mg PO HS Bupropion Hcl Sr (Bupropion Hcl) 100 Mg Tablet.er 100 Mg PO BID Fluoxetine Hcl 10 Mg Capsule 2 Cap PO DAILY Proair Hfa Inhaler (Albuterol Sulfate) 8.5 Gm Hfa.aer.ad 2 Puff IH PRN Q4-6HRS Dicyclomine Hcl 20 Mg Tablet 1 Tab PO TID Levothyroxine Sodium 50 Mcg Tablet 1 Tab PO DAILY Vitals/I & O Vital Sign - Last 24 Hours 04/18/19 04/18/19 04/18/19 04/18/19 12:19 15:00 16:11 19:00 Temp 98.9 98.7 98.9 98.7 Pulse 81 87 Resp 18 12 B/P (MAP) 86/54 (65) 111/55 (73) Pulse Ox 92 96 O2 Delivery Room Air Room Air Room Air Room Air 04/18/19 04/18/19 04/18/19 04/18/19 20:12 20:26 20:53 23:00 Temp 98.5 98.5 Pulse 84 77 Resp 20 B/P (MAP) 111/55 100/53 (69) Pulse Ox 94 77 O2 Delivery Room Air Room Air Room Air 04/19/19 04/19/19 04/19/19 04/19/19 03:00 07:37 07:37 08:00 Temp 99.0 97.9 99.0 97.9 Pulse 80 85 Resp 20 20 B/P (MAP) 99/54 (69) 111/58 (75) Pulse Ox 93 99 99 O2 Delivery Room Air Nasal Cannula Room Air Nasal Cannula O2 Flow Rate 2.0 2.0 04/19/19 04/19/19 08:24 10:18 Temp 98.2 98.2 Pulse 85 82 Resp 20 B/P (MAP) 111/58 98/57 (71) Pulse Ox 96 O2 Delivery Room Air Intake and Output 04/18/19 04/18/19 04/19/19 14:59 22:59 06:59 Intake Total 410 ml 420 ml 0 ml Output Total 0 ml Balance 410 ml 420 ml 0 ml Problem List Problems Medical Problems: (1) Abdominal pain Status: Acute (2) Asthma Status: Chronic (3) Coffee ground emesis Status: Acute (4) Colon wall thickening Status: Chronic (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 Sb series patient to consider JAELYN WALTER MD Apr 19, 2019 11:56
[2019-04-19] MEDS: MESALAMINE ER 250 MG CAPSULE.ER PO SCH ×3 (13:25→22:11)
--- NOTE | 2019-04-19 13:55 | NUR ---
SS following up with discharge planning. Pt has 24 hour caregiver at home. Pt's RN reported that caregivers came by and are requesting home healthcare at discharge. Pt's RN reported that she gave pt's caregiver SS contact information. SS will continue to follow for discharge planning.
--- NOTE | 2019-04-19 14:15 | PDOC ---
PROGRESS NOTES Subjective Subjective HPI - f/u of Marginal zone lymphoma ROS - no abd pain Objective Objective Vital Signs Date Time Temp Pulse Resp B/P (MAP) Pulse Ox O2 Delivery O2 Flow Rate FiO2 04/19/19 12:00 99 Nasal Cannula 2.0 04/19/19 10:18 98.2 82 20 98/57 (71) 98.2 Intake and Output 04/19/19 07:00 Intake Total 830 ml Output Total 0 ml Balance 830 ml Intake Oral 830 ml Output Urine Total 0 ml # Voids 1 # Bowel Movements 2 Physical Exam Heart: Normal S1, Normal S2 General: Alert, Oriented X3 Lungs: Clear to auscultation Neuro: Normal speech Psych/Mental Status: Mental status NL Assessment Assessment Problems Medical Problems: (1) Abdominal pain Status: Acute (2) Asthma Status: Chronic (3) Coffee ground emesis Status: Acute (4) Colon wall thickening Status: Chronic (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 Marginal zone lymphoma diagnosed in 2012, status post splenectomy and rituximab treatments, which were all completed in 2015. No clinical evidence of recurrence. CT scan of the abdomen and pelvis performed on 04/17/2019 does not reveal any evidence of recurrent lymphoma. I would continue routine surveillance. 2. Nausea, vomiting, and coffee-ground emesis. Appreciate GI consultation and management. 3. Crohns disease - management per Dr Valero. Comment Review of Relevant I have reviewed the following items lottie (where applicable) has been applied. Labs Laboratory Tests Test 04/18/19 06:25 04/19/19 04:15 White Blood Count 10.9 x10^3/uL (4.0-11.0) 9.9 x10^3/uL (4.0-11.0) Red Blood Count 4.45 x10^6/uL (3.50-5.40) 4.04 x10^6/uL (3.50-5.40) Hemoglobin 13.9 g/dL (12.0-15.5) 12.5 g/dL (12.0-15.5) Hematocrit 41.5 % (36.0-47.0) 38.4 % (36.0-47.0) Mean Corpuscular Volume 93 fL (79-100) 95 fL (79-100) Mean Corpuscular Hemoglobin 31 pg (25-35) 31 pg (25-35) Mean Corpuscular Hemoglobin Concent 34 g/dL (31-37) 33 g/dL (31-37) Red Cell Distribution Width 13.6 % (11.5-14.5) 14.2 % (11.5-14.5) Platelet Count 278 x10^3/uL (140-400) 243 x10^3/uL (140-400) Neutrophils (%) (Auto) 60 % (31-73) 60 % (31-73) Lymphocytes (%) (Auto) 26 % (24-48) 22 % (24-48) Monocytes (%) (Auto) 11 % (0-9) 11 % (0-9) Eosinophils (%) (Auto) 2 % (0-3) 5 % (0-3) Basophils (%) (Auto) 1 % (0-3) 1 % (0-3) Neutrophils # (Auto) 6.5 x10^3/uL (1.8-7.7) 6.0 x10^3/uL (1.8-7.7) Lymphocytes # (Auto) 2.8 x10^3/uL (1.0-4.8) 2.2 x10^3/uL (1.0-4.8) Monocytes # (Auto) 1.2 x10^3/uL (0.0-1.1) 1.1 x10^3/uL (0.0-1.1) Eosinophils # (Auto) 0.2 x10^3/uL (0.0-0.7) 0.5 x10^3/uL (0.0-0.7) Basophils # (Auto) 0.1 x10^3/uL (0.0-0.2) 0.1 x10^3/uL (0.0-0.2) Sodium Level 143 mmol/L (136-145) 144 mmol/L (136-145) Potassium Level 2.8 mmol/L (3.5-5.1) 3.3 mmol/L (3.5-5.1) Chloride Level 102 mmol/L (98-107) 109 mmol/L (98-107) Carbon Dioxide Level 31 mmol/L (21-32) 26 mmol/L (21-32) Anion Gap 10 (6-14) 9 (6-14) Blood Urea Nitrogen 22 mg/dL (7-20) 16 mg/dL (7-20) Creatinine 0.8 mg/dL (0.6-1.0) 0.6 mg/dL (0.6-1.0) Estimated GFR (Cockcroft-Gault) 72.4 101.0 BUN/Creatinine Ratio 28 (6-20) Glucose Level 108 mg/dL (70-99) 90 mg/dL (70-99) Calcium Level 8.8 mg/dL (8.5-10.1) 8.2 mg/dL (8.5-10.1) Magnesium Level 1.9 mg/dL (1.8-2.4) Total Bilirubin 0.5 mg/dL (0.2-1.0) Aspartate Amino Transf (AST/SGOT) 17 U/L (15-37) Alanine Aminotransferase (ALT/SGPT) 14 U/L (14-59) Alkaline Phosphatase 89 U/L (46-116) Total Protein 6.7 g/dL (6.4-8.2) Albumin 3.2 g/dL (3.4-5.0) Albumin/Globulin Ratio 0.9 (1.0-1.7) Laboratory Tests Test 04/19/19 04:15 White Blood Count 9.9 x10^3/uL (4.0-11.0) Red Blood Count 4.04 x10^6/uL (3.50-5.40) Hemoglobin 12.5 g/dL (12.0-15.5) Hematocrit 38.4 % (36.0-47.0) Mean Corpuscular Volume 95 fL (79-100) Mean Corpuscular Hemoglobin 31 pg (25-35) Mean Corpuscular Hemoglobin Concent 33 g/dL (31-37) Red Cell Distribution Width 14.2 % (11.5-14.5) Platelet Count 243 x10^3/uL (140-400) Neutrophils (%) (Auto) 60 % (31-73) Lymphocytes (%) (Auto) 22 % (24-48) Monocytes (%) (Auto) 11 % (0-9) Eosinophils (%) (Auto) 5 % (0-3) Basophils (%) (Auto) 1 % (0-3) Neutrophils # (Auto) 6.0 x10^3/uL (1.8-7.7) Lymphocytes # (Auto) 2.2 x10^3/uL (1.0-4.8) Monocytes # (Auto) 1.1 x10^3/uL (0.0-1.1) Eosinophils # (Auto) 0.5 x10^3/uL (0.0-0.7) Basophils # (Auto) 0.1 x10^3/uL (0.0-0.2) Sodium Level 144 mmol/L (136-145) Potassium Level 3.3 mmol/L (3.5-5.1) Chloride Level 109 mmol/L (98-107) Carbon Dioxide Level 26 mmol/L (21-32) Anion Gap 9 (6-14) Blood Urea Nitrogen 16 mg/dL (7-20) Creatinine 0.6 mg/dL (0.6-1.0) Estimated GFR (Cockcroft-Gault) 101.0 Glucose Level 90 mg/dL (70-99) Calcium Level 8.2 mg/dL (8.5-10.1) Medications Current Medications Famotidine (Pepcid Vial) 20 mg 1X ONCE IVP Last administered on 04/17/19at 14:08; Start 04/17/19 at 13:45; Stop 04/17/19 at 13:46; Status DC Ondansetron HCl (Zofran) 4 mg 1X ONCE IVP Last administered on 04/17/19at 14:08; Start 04/17/19 at 13:45; Stop 04/17/19 at 13:46; Status DC Fentanyl Citrate (Fentanyl 2ml Vial) 50 mcg 1X ONCE IVP Last administered on 04/17/19at 14:09; Start 04/17/19 at 13:45; Stop 04/17/19 at 13:46; Status DC Potassium Citrate (Urocit-K) 40 meq 1X STAT PO ; Start 04/17/19 at 14:38; Stop 04/17/19 at 14:39; Status Cancel Potassium Chloride/Water 100 ml @ 100 mls/hr Q1H IV Last administered on 04/17/19at 16:07; Start 04/17/19 at 15:00; Stop 04/17/19 at 16:59; Status DC Potassium Chloride (Klor-Con) 40 meq 1X ONCE PO Last administered on 04/17/19at 15:00; Start 04/17/19 at 15:00; Stop 04/17/19 at 15:01; Status DC Ondansetron HCl (Zofran) 4 mg PRN Q8HRS PRN IV NAUSEA/VOMITING Last adm inistered on 04/18/19at 09:13; Start 04/17/19 at 16:30; Stop 04/18/19 at 16:29; Status DC Morphine Sulfate (Morphine Sulfate) 4 mg PRN Q2HR PRN IV PAIN; Start 04/17/19 at 16:30; Stop 04/18/19 at 16:29; Status DC Pantoprazole Sodium (PROTONIX VIAL for IV PUSH) 40 mg DAILYAC IVP Last administered on 04/19/19at 06:18; Start 04/18/19 at 07:30 Sodium Chloride (Normal Saline Flush) 3 ml QSHIFT PRN IV AFTER MEDS AND BLOOD DRAWS; Start 04/17/19 at 20:30 Sodium Chloride 1,000 ml @ 100 mls/hr Q10H IV Last administered on 04/19/19at 12:19; Start 04/17/19 at 20:19 Ondansetron HCl (Zofran) 4 mg PRN Q4HRS PRN IV NAUSEA/VOMITING Last administered on 04/18/19at 21:00; Start 04/17/19 at 20:30 Acetaminophen (Tylenol) 650 mg PRN Q4HRS PRN PO TEMP OVER 100.4F OR MILD PAIN; Start 04/17/19 at 20:30 Al Hydroxide/Mg Hydroxide (Mylanta Plus Xs) 30 ml PRN DAILY PRN PO HEARTBURN / GAS; Start 04/17/19 at 20:30 Clonidine HCl (Catapres) 0.1 mg PRN Q6HRS PRN PO SBP>160 OR DBP>90; Start 04/17/19 at 20:30 Docusate Sodium (Colace) 100 mg PRN BID PRN PO CONSTIPATION; Start 04/17/19 at 20:30 Albuterol Sulfate (Ventolin Neb Soln) 2.5 mg PRN Q4HRS PRN NEB SHORTNESS OF BREATH; Start 04/17/19 at 20:30 Guaifenesin (Robitussin) 200 mg PRN Q4HRS PRN PO COUGH; Start 04/17/19 at 20:30 Lorazepam (Ativan) 0.5 mg PRN Q4HRS PRN PO ANXIETY / AGITATION; Start 04/17/19 at 20:30 Atorvastatin Calcium (Lipitor) 20 mg HS PO ; Start 04/17/19 at 21:00; Stop 04/17/19 at 21:17; Status DC Bupropion HCl (Wellbutrin Sr) 100 mg BID PO Last administered on 04/19/19 08:24; Start 04/17/19 at 21:00 Cyclobenzaprine HCl (Flexeril) 10 mg TID PO Last administered on 04/19/19 13:25; Start 04/17/19 at 21:00 Fluoxetine HCl (PROzac) 20 mg DAILY PO Last administered on 04/19/19at 08:24; Start 04/18/19 at 09:00 Fluticasone Propionate (Flonase) 1 spray DAILY NS Last administered on 04/19/19at 09:00; Start 04/18/19 at 09:00 Furosemide (Lasix) 40 mg DAILY PO ; Start 04/18/19 at 09:00; Stop 04/18/19 at 03:09; Status DC Acetaminophen/ Hydrocodone Bitart (Lortab 10/325) 1 tab PRN Q6HRS PRN PO PAIN; Start 04/17/19 at 21:00 Levothyroxine Sodium (Synthroid) 50 mcg DAILY06 PO Last administered on 04/19/19at 06:17; Start 04/18/19 at 06:00 Lorazepam (Ativan) 0.5 mg TID PO Last administered on 04/19/19at 08:24; Start 04/17/19 at 21:00 Metoprolol Tartrate (Lopressor) 25 mg BID PO ; Start 04/17/19 at 21:00; Stop 04/17/19 at 21:28; Status DC Nystatin (Nystop) 1 ludin BID TP Last administered on 04/19/19at 08:25; Start 04/17/19 at 21:00 Prochlorperazine Maleate (Compazine) 10 mg PRN Q4HRS PRN PO NAUSEA/VOMITING; Start 04/17/19 at 21:00 Trazodone HCl (Desyrel) 100 mg HS PO Last administered on 04/18/19at 20:53; Start 04/17/19 at 21:00 Albuterol Sulfate (Ventolin Neb Soln) 2.5 mg Q4HRS NEB ; Start 04/17/19 at 21:30; Stop 04/18/19 at 05:32; Status DC Non-Formulary Medication (Albuterol Sulfate (Albuterol Sulfate Neb Soln)) 1 vial TID NEB ; Start 04/17/19 at 21:00; Stop 04/17/19 at 21:20; Status DC Dicyclomine HCl (Bentyl) 10 mg TID PO ; Start 04/17/19 at 21:30; Stop 04/17/19 at 21:19; Status DC Non-Formulary Medication (Fluticasone Propionate (Flonase Allergy Relief)) 1 sprays DAILY NS ; Start 04/18/19 at 09:00; Stop 04/17/19 at 21:20; Status DC Budesonide (Pulmicort) 0.5 mg RTBID NEB Last administered on 04/19/19at 07:37; Start 04/18/19 at 08:00 Atorvastatin Calcium (Lipitor) 40 mg QHS PO Last administered on 04/18/19at 20: 49; Start 04/17/19 at 21:30 Dicyclomine HCl (Bentyl) 20 mg TID PO Last administered on 04/19/19at 13:25; Start 04/17/19 at 21:30 Metoprolol Tartrate (Lopressor) 12.5 mg BID PO Last administered on 04/19/19at 08:24; Start 04/17/19 at 21:30 Influenza Virus Vaccine Quadrival (Afluria Quad 2019-20 (3yr Up) Syringe) 0.5 ml ONCE ONCE VAX IM Last administered on 04/18/19at 10:33; Start 04/18/19 at 09:00; Stop 04/18/19 at 09:01; Status DC Albuterol Sulfate (Ventolin Neb Soln) 2.5 mg RTQID NEB Last administered on 04/19/19at 12:00; Start 04/18/19 at 08:00 Potassium Chloride/Water 100 ml @ 100 mls/hr Q1H IV Last administered on 10/3 1/19at 12:01; Start 04/18/19 at 08:00; Stop 04/18/19 at 11:59; Status DC Potassium Chloride (Klor-Con) 20 meq 1X ONCE PO Last administered on 04/18/19at 09:14; Start 04/18/19 at 07:45; Stop 04/18/19 at 07:50; Status DC Magnesium Sulfate/ Dextrose 100 ml @ 100 mls/hr 1X ONCE IV Last administered on 04/18/19at 17:16; Start 04/18/19 at 14:45; Stop 04/18/19 at 15:44; Status DC Potassium Chloride/Water 100 ml @ 100 mls/hr Q1H IV Last administered on 04/19/19at 10:00; Start 04/19/19 at 09:00; Stop 04/19/19 at 10:59; Status DC Potassium Chloride (Klor-Con) 40 meq 1X ONCE PO Last administered on 04/19/19at 09:12; Start 04/19/19 at 09:00; Stop 04/19/19 at 09:01; Status DC Mesalamine (Delzicol) 400 mg [id number] PO Last administered on 04/19/19at 11:13; Start 04/19/19 at 11:00; Stop 04/19/19 at 12:01; Status DC Methylprednisolone Sodium Succinate (SOLU-Medrol 125MG VIAL) 125 mg 1X ONCE IV Last administered on 04/19/19at 11:13; Start 04/19/19 at 11:15; Stop 04/19/19 at 11:16; Status DC Mesalamine (Pentasa) 500 mg [id number] PO Last administered on 04/19/19at 13:25; Start 04/19/19 at 13:00 Active Scripts Active Reported Budesonide 0.5 Mg/2 Ml Ampul.neb 1 Vial NEB BID Albuterol Sulfate Neb Soln (Albuterol Sulfate) 1.25 Mg/3 Ml Vial.neb 1 Vial NEB PRN Q4HRS PRN Albuterol Sulfate Neb Soln (Albuterol Sulfate) 1.25 Mg/3 Ml Vial.neb 1 Vial NEB QID Prochlorperazine Maleate 10 Mg Tablet 10 Mg PO PRN Q4HRS PRN Flonase Allergy Relief (Fluticasone Propionate) 9.9 Ml Clark.susp 1 Sprays NS DAILY Crestor (Rosuvastatin Calcium) 10 Mg Tablet 10 Mg PO HS Ativan (Lorazepam) 0.5 Mg Tablet 0.5 Mg PO TID Metoprolol Tartrate 25 Mg Tablet 25 Mg PO BID 1/2 tab bid Hydrocodone-Apap 10-325 (Hydrocodone Bit/Acetaminophen) 1 Tab Tablet 1 Tab P O PRN Q6HRS PRN Nystatin 15 Gm Powder 1 Ludin TP BID 7 Days apply to affected area(s) Cyclobenzaprine Hcl 10 Mg Tablet 10 Mg PO TID Trazodone Hcl 100 Mg Tablet 100 Mg PO HS trazodone 100mg 2tabs at bedtime Advair 500-50 Diskus (Fluticasone/Salmeterol) 1 Each Disk.w.dev 1 Inh IH BID Lipitor (Atorvastatin Calcium) 20 Mg Tablet 20 Mg PO HS Bupropion Hcl Sr (Bupropion Hcl) 100 Mg Tablet.er 100 Mg PO BID Fluoxetine Hcl 10 Mg Capsule 2 Cap PO DAILY Proair Hfa Inhaler (Albuterol Sulfate) 8.5 Gm Hfa.aer.ad 2 Puff IH PRN Q4-6HRS Dicyclomine Hcl 20 Mg Tablet 1 Tab PO TID Levothyroxine Sodium 50 Mcg Tablet 1 Tab PO DAILY Vitals/I & O Vital Sign - Last 24 Hours 04/18/19 04/18/19 04/18/19 04/18/19 15:00 16:11 19:00 20:12 Temp 98.9 98.7 98.9 98.7 Pulse 81 87 Resp 18 12 B/P (MAP) 86/54 (65) 111/55 (73) Pulse Ox 92 96 94 O2 Delivery Room Air Room Air Room Air Room Air 04/18/19 04/18/19 04/18/19 04/19/19 20:26 20:53 23:00 03:00 Temp 98.5 99.0 98.5 99.0 Pulse 84 77 80 Resp 20 20 B/P (MAP) 111/55 100/53 (69) 99/54 (69) Pulse Ox 77 93 O2 Delivery Room Air Room Air Room Air 04/19/19 04/19/19 04/19/19 04/19/19 07:37 07:37 08:00 08:24 Temp 97.9 97.9 Pulse 85 85 Resp 20 B/P (MAP) 111/58 (75) 111/58 Pulse Ox 99 99 O2 Delivery Nasal Cannula Room Air Nasal Cannula O2 Flow Rate 2.0 2.0 04/19/19 04/19/19 10:18 12:00 Temp 98.2 98.2 Pulse 82 Resp 20 B/P (MAP) 98/57 (71) Pulse Ox 96 99 O2 Delivery Room Air Nasal Cannula O2 Flow Rate 2.0 Intake and Output 04/18/19 04/18/19 04/19/19 15:00 23:00 07:00 Intake Total 410 ml 420 ml 0 ml Output Total 0 ml Balance 410 ml 420 ml 0 ml ILDA BRITO MD Apr 19, 2019 14:15
[2019-04-19 14:32] VITALS: BP 106/58
[2019-04-19 19:00] VITALS: BP 121/58
[2019-04-19] MEDS: traZODone 100 MG TABLET. PO SCH (21:00)
[2019-04-19] MEDS: ATORVASTATIN CALCIUM 40 MG TABLET. PO SCH (22:11)
[2019-04-19 23:00] VITALS: BP 124/61
[2019-04-20 03:00] VITALS: BP 116/63
[2019-04-20] MEDS: PANTOPRAZOLE IV PUSH 40 MG VIAL. IVP SCH ×2 (06:12→08:45)
[2019-04-20] MEDS: LEVOTHYROXINE 50 MCG TABLET PO SCH (06:12)
[2019-04-20 07:23] VITALS: BP 112/57
[2019-04-20] MEDS: IV NORMAL SALINE 1000ML BAG 1,000 ML IV SCH (07:53)
[2019-04-20] MEDS: ALBUTEROL SULFATE 2.5 MG/3 ML NEBU. NEB SCH ×4 (08:00→19:26)
[2019-04-20] MEDS: BUDESONIDE 0.5 MG/2 ML NEBU. NEB SCH ×2 (08:00→19:26)
[2019-04-20] MEDS: MESALAMINE ER 250 MG CAPSULE.ER PO SCH ×4 (08:44→20:09)
[2019-04-20] MEDS: FLUTICASONE 50MCG/NASAL SPRAY 16GM BOTTLE. NS SCH (08:44)
[2019-04-20] MEDS: CYCLOBENZAPRINE 10 MG TABLET. PO SCH ×3 (08:45→20:08)
[2019-04-20] MEDS: DICYCLOMINE HCL 10 MG CAPSULE PO SCH ×3 (08:45→20:09)
[2019-04-20] MEDS: FLUoxetine HCL 20 MG CAPSULE PO SCH (08:45)
[2019-04-20] MEDS: LORazepam 0.5 MG TABLET PO SCH ×3 (08:45→20:08)
[2019-04-20] MEDS: buPROPion SR 100 MG TABLET.SA. PO SCH ×2 (08:45→20:08)
[2019-04-20] MEDS: NYSTATIN TOPICAL POWDER 15GM BOTTLE. TP SCH ×2 (08:46→20:08)
[2019-04-20] MEDS: METOPROLOL TART IMMED RELEASE 25 MG TABLET. PO SCH ×2 (08:46→20:09)
--- NOTE | 2019-04-20 10:01 | PDOC ---
PROGRESS NOTES Subjective Subjective HPI- f/u of Marginal zone lymphoma ROS - no n/v Objective Objective Vital Signs Date Time Temp Pulse Resp B/P (MAP) Pulse Ox O2 Delivery O2 Flow Rate FiO2 04/20/19 08:46 63 112/57 04/20/19 07:23 98.3 12 94 Room Air 98.3 04/19/19 12:00 2.0 Intake and Output 04/20/19 07:00 Intake Total 980 ml Output Total 150 ml Balance 830 ml Intake Oral 980 ml Output Urine Total 150 ml # Voids 4 # Bowel Movements 2 Physical Exam Heart: Normal S1, Normal S2 General: Alert, Oriented X3 Lungs: Clear to auscultation Neuro: Normal speech Psych/Mental Status: Mental status NL Assessment Assessment Problems Medical Problems: (1) Abdominal pain Status: Acute (2) Asthma Status: Chronic (3) Coffee ground emesis Status: Acute (4) Colon wall thickening Status: Chronic (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 Marginal zone lymphoma diagnosed in 2012, status post splenectomy and rituximab treatments, which were all completed in 2015. No clinical evidence of recurrence. CT scan of the abdomen and pelvis performed on 04/17/2019 does not reveal any evidence of recurrent lymphoma. I would continue routine surveillance. 2. Nausea, vomiting, and coffee-ground emesis. Appreciate GI consultation and management. 3. Crohns disease - management per Dr Valero. She feels better. Comment Review of Relevant I have reviewed the following items lottie (where applicable) has been applied. Labs Laboratory Tests Test 04/19/19 04:15 White Blood Count 9.9 x10^3/uL (4.0-11.0) Red Blood Count 4.04 x10^6/uL (3.50-5.40) Hemoglobin 12.5 g/dL (12.0-15.5) Hematocrit 38.4 % (36.0-47.0) Mean Corpuscular Volume 95 fL (79-100) Mean Corpuscular Hemoglobin 31 pg (25-35) Mean Corpuscular Hemoglobin Concent 33 g/dL (31-37) Red Cell Distribution Width 14.2 % (11.5-14.5) Platelet Count 243 x10^3/uL (140-400) Neutrophils (%) (Auto) 60 % (31-73) Lymphocytes (%) (Auto) 22 % (24-48) Monocytes (%) (Auto) 11 % (0-9) Eosinophils (%) (Auto) 5 % (0-3) Basophils (%) (Auto) 1 % (0-3) Neutrophils # (Auto) 6.0 x10^3/uL (1.8-7.7) Lymphocytes # (Auto) 2.2 x10^3/uL (1.0-4.8) Monocytes # (Auto) 1.1 x10^3/uL (0.0-1.1) Eosinophils # (Auto) 0.5 x10^3/uL (0.0-0.7) Basophils # (Auto) 0.1 x10^3/uL (0.0-0.2) Sodium Level 144 mmol/L (136-145) Potassium Level 3.3 mmol/L (3.5-5.1) Chloride Level 109 mmol/L (98-107) Carbon Dioxide Level 26 mmol/L (21-32) Anion Gap 9 (6-14) Blood Urea Nitrogen 16 mg/dL (7-20) Creatinine 0.6 mg/dL (0.6-1.0) Estimated GFR (Cockcroft-Gault) 101.0 Glucose Level 90 mg/dL (70-99) Calcium Level 8.2 mg/dL (8.5-10.1) Medications Current Medications Famotidine (Pepcid Vial) 20 mg 1X ONCE IVP Last administered on 04/17/19at 14:08; Start 04/17/19 at 13:45; Stop 04/17/19 at 13:46; Status DC Ondansetron HCl (Zofran) 4 mg 1X ONCE IVP Last administered on 04/17/19at 14:08; Start 04/17/19 at 13:45; Stop 04/17/19 at 13:46; Status DC Fentanyl Citrate (Fentanyl 2ml Vial) 50 mcg 1X ONCE IVP Last administered on 04/17/19at 14:09; Start 04/17/19 at 13:45; Stop 04/17/19 at 13:46; Status DC Potassium Citrate (Urocit-K) 40 meq 1X STAT PO ; Start 04/17/19 at 14:38; Stop 04/17/19 at 14:39; Status Cancel Potassium Chloride/Water 100 ml @ 100 mls/hr Q1H IV Last administered on 04/17/19at 16:07; Start 04/17/19 at 15:00; Stop 04/17/19 at 16:59; Status DC Potassium Chloride (Klor-Con) 40 meq 1X ONCE PO Last administered on 04/17/19at 15:00; Start 04/17/19 at 15:00; Stop 04/17/19 at 15:01; Status DC Ondansetron HCl (Zofran) 4 mg PRN Q8HRS PRN IV NAUSEA/VOMITING Last administered on 04/18/19at 09:13; Start 04/17/19 at 16:30; Stop 04/18/19 at 16:29; Status DC Morphine Sulfate (Morphine Sulfate) 4 mg PRN Q2HR PRN IV PAIN; Start 04/17/19 at 16:30; Stop 04/18/19 at 16:29; Status DC Pantoprazole Sodium (PROTONIX VIAL for IV PUSH) 40 mg DAILYAC IVP Last administered on 04/20/19at 08:45; Start 04/18/19 at 07:30 Sodium Chloride (Normal Saline Flush) 3 ml QSHIFT PRN IV AFTER MEDS AND BLOOD DRAWS; Start 04/17/19 at 20:30 Sodium Chloride 1,000 ml @ 100 mls/hr Q10H IV Last administered on 04/20/19at 07:53; Start 04/17/19 at 20:19 Ondansetron HCl (Zofran) 4 mg PRN Q4HRS PRN IV NAUSEA/VOMITING Last administered on 04/18/19at 21:00; Start 04/17/19 at 20:30 Acetaminophen (Tylenol) 650 mg PRN Q4HRS PRN PO TEMP OVER 100.4F OR MILD PAIN; Start 04/17/19 at 20:30 Al Hydroxide/Mg Hydroxide (Mylanta Plus Xs) 30 ml PRN DAILY PRN PO HEARTBURN / GAS; Start 04/17/19 at 20:30 Clonidine HCl (Catapres) 0.1 mg PRN Q6HRS PRN PO SBP>160 OR DBP>90; Start 04/17/19 at 20:30 Docusate Sodium (Colace) 100 mg PRN BID PRN PO CONSTIPATION; Start 04/17/19 at 20:30 Albuterol Sulfate (Ventolin Neb Soln) 2.5 mg PRN Q4HRS PRN NEB SHORTNESS OF BREATH; Start 04/17/19 at 20:30 Guaifenesin (Robitussin) 200 mg PRN Q4HRS PRN PO COUGH; Start 04/17/19 at 20:30 Lorazepam (Ativan) 0.5 mg PRN Q4HRS PRN PO ANXIETY / AGITATION Last administered on 04/20/19at 03:46; Start 04/17/19 at 20:30 Atorvastatin Calcium (Lipitor) 20 mg HS PO ; Start 04/17/19 at 21:00; Stop 04/17/19 at 21:17; Status DC Bupropion HCl (Wellbutrin Sr) 100 mg BID PO Last administered on 04/20/19at 0 8:45; Start 04/17/19 at 21:00 Cyclobenzaprine HCl (Flexeril) 10 mg TID PO Last administered on 04/20/19at 08:45; Start 04/17/19 at 21:00 Fluoxetine HCl (PROzac) 20 mg DAILY PO Last administered on 04/20/19at 08:45; Start 04/18/19 at 09:00 Fluticasone Propionate (Flonase) 1 spray DAILY NS Last administered on 04/20/19at 08:44; Start 04/18/19 at 09:00 Furosemide (Lasix) 40 mg DAILY PO ; Start 04/18/19 at 09:00; Stop 04/18/19 at 03:09; Status DC Acetaminophen/ Hydrocodone Bitart (Lortab 10/325) 1 tab PRN Q6HRS PRN PO PAIN; Start 04/17/19 at 21:00 Levothyroxine Sodium (Synthroid) 50 mcg DAILY06 PO Last administered on 04/20/19at 06:12; Start 04/18/19 at 06:00 Lorazepam (Ativan) 0.5 mg TID PO Last administered on 04/20/19at 08:45; Start 04/17/19 at 21:00 Metoprolol Tartrate (Lopressor) 25 mg BID PO ; Start 04/17/19 at 21:00; Stop 04/17/19 at 21:28; Status DC Nystatin (Nystop) 1 ludin BID TP Last administered on 04/20/19 08:46; Start 04/17/19 at 21:00 Prochlorperazine Maleate (Compazine) 10 mg PRN Q4HRS PRN PO NAUSEA/VOMITING; Start 04/17/19 at 21:00 Trazodone HCl (Desyrel) 100 mg HS PO Last administered on 04/18/19at 20:53; Start 04/17/19 at 21:00 Albuterol Sulfate (Ventolin Neb Soln) 2.5 mg Q4HRS NEB ; Start 04/17/19 at 21:30; Stop 04/18/19 at 05:32; Status DC Non-Formulary Medication (Albuterol Sulfate (Albuterol Sulfate Neb Soln)) 1 vial TID NEB ; Start 04/17/19 at 21:00; Stop 04/17/19 at 21:20; Status DC Dicyclomine HCl (Bentyl) 10 mg TID PO ; Start 04/17/19 at 21:30; Stop 04/17/19 at 21:19; Status DC Non-Formulary Medication (Fluticasone Propionate (Flonase Allergy Relief)) 1 sprays DAILY NS ; Start 04/18/19 at 09:00; Stop 04/17/19 at 21:20; Status DC Budesonide (Pulmicort) 0.5 mg RTBID NEB Last administered on 04/19/19at 20:17; Start 04/18/19 at 08:00 Atorvastatin Calcium (Lipitor) 40 mg QHS PO Last administered on 04/19/19at 22:11; Start 04/17/19 at 21:30 Dicyclomine HCl (Bentyl) 20 mg TID PO Last administered on 04/20/19at 08:45; Start 04/17/19 at 21:30 Metoprolol Tartrate (Lopressor) 12.5 mg BID PO Last administered on 04/20/19at 08:46; Start 04/17/19 at 21:30 Influenza Virus Vaccine Quadrival (Afluria Quad 2019-20 (3yr Up) Syringe) 0.5 ml ONCE ONCE VAX IM Last administered on 04/18/19at 10:33; Start 04/18/19 at 09:00; Stop 04/18/19 at 09:01; Status DC Albuterol Sulfate (Ventolin Neb Soln) 2.5 mg RTQID NEB Last administered on 04/19/19at 20:17; Start 04/18/19 at 08:00 Potassium Chloride/Water 100 ml @ 100 mls/hr Q1H IV Last administered on 04/18/19at 12:01; Start 04/18/19 at 08:00; Stop 04/18/19 at 11:59; Status DC Potassium Chloride (Klor-Con) 20 meq 1X ONCE PO Last administered on 9at 09:14; Start 04/18/19 at 07:45; Stop 04/18/19 at 07:50; Status DC Magnesium Sulfate/ Dextrose 100 ml @ 100 mls/hr 1X ONCE IV Last administered on 04/18/19at 17:16; Start 04/18/19 at 14:45; Stop 04/18/19 at 15:44; Status DC Potassium Chloride/Water 100 ml @ 100 mls/hr Q1H IV Last administered on 04/19/19at 10:00; Start 04/19/19 at 09:00; Stop 04/19/19 at 10:59; Status DC Potassium Chloride (Klor-Con) 40 meq 1X ONCE PO Last administered on 04/19/19at 09:12; Start 04/19/19 at 09:00; Stop 04/19/19 at 09:01; Status DC Mesalamine (Delzicol) 400 mg [id number] PO Last administered on 04/19/19at 11:13; Start 04/19/19 at 11:00; Stop 04/19/19 at 12:01; Status DC Methylprednisolone Sodium Succinate (SOLU-Medrol 125MG VIAL) 125 mg 1X ONCE IV Last administered on 04/19/19at 11:13; Start 04/19/19 at 11:15; Stop 04/19/19 at 11:16; Status DC Mesalamine (Pentasa) 500 mg [id number] PO Last administered on 04/20/19at 08:44; Start 04/19/19 at 13:00 Active Scripts Active Reported Budesonide 0.5 Mg/2 Ml Ampul.neb 1 Vial NEB BID Albuterol Sulfate Neb Soln (Albuterol Sulfate) 1.25 Mg/3 Ml Vial.neb 1 Vial NEB PRN Q4HRS PRN Albuterol Sulfate Neb Soln (Albuterol Sulfate) 1.25 Mg/3 Ml Vial.neb 1 Vial NEB QID Prochlorperazine Maleate 10 Mg Tablet 10 Mg PO PRN Q4HRS PRN Flonase Allergy Relief (Fluticasone Propionate) 9.9 Ml [place].susp 1 Sprays NS DAILY Crestor (Rosuvastatin Calcium) 10 Mg Tablet 10 Mg PO HS Ativan (Lorazepam) 0.5 Mg Tablet 0.5 Mg PO TID Metoprolol Tartrate 25 Mg Tablet 25 Mg PO BID 1/2 tab bid Hydrocodone-Apap 10-325 (Hydrocodone Bit/Acetaminophen) 1 Tab Tablet 1 Tab PO PRN Q6HRS PRN Nystatin 15 Gm Powder 1 [place] TP BID 7 Days apply to affected area(s) Cyclobenzaprine Hcl 10 Mg Tablet 10 Mg PO TID Trazodone Hcl 100 Mg Tablet 100 Mg PO HS trazodone 100mg 2tabs at bedtime Advair 500-50 Diskus (Fluticasone/Salmeterol) 1 Each Disk.w.dev 1 Inh IH BID Lipitor (Atorvastatin Calcium) 20 Mg Tablet 20 Mg PO HS Bupropion Hcl Sr (Bupropion Hcl) 100 Mg Tablet.er 100 Mg PO BID Fluoxetine Hcl 10 Mg Capsule 2 Cap PO DAILY Proair Hfa Inhaler (Albuterol Sulfate) 8.5 Gm Hfa.aer.ad 2 Puff IH PRN Q4-6HRS Dicyclomine Hcl 20 Mg Tablet 1 Tab PO TID Levothyroxine Sodium 50 Mcg Tablet 1 Tab PO DAILY Vitals/I & O Vital Sign - Last 24 Hours 04/19/19 04/19/19 04/19/19 04/19/19 10:18 12:00 14:32 16:38 Temp 98.2 98.3 98.2 98.3 Pulse 82 89 Resp 20 20 B/P (MAP) 98/57 (71) 106/58 (74) Pulse Ox 96 99 94 O2 Delivery Room Air Nasal Cannula Room Air Room Air O2 Flow Rate 2.0 04/19/19 04/19/19 04/19/19 04/19/19 19:00 20:19 22:16 23:00 Temp 97.8 98.0 97.8 98.0 Pulse 73 81 66 Resp 16 12 B/P (MAP) 121/58 (79) 119/71 124/61 (82) Pulse Ox 95 96 96 O2 Delivery Room Air Room Air Room Air 04/20/19 04/20/19 04/20/19 03:00 07:23 08:46 Temp 98.0 98.3 98.0 98.3 Pulse 65 63 63 Resp 12 12 B/P (MAP) 116/63 (80) 112/57 (75) 112/57 Pulse Ox 96 94 O2 Delivery Room Air Room Air Intake and Output 04/19/19 04/19/19 04/20/19 15:00 23:00 07:00 Intake Total 980 ml 0 ml Output Total 150 ml Balance 830 ml 0 ml Nutrition Consultation Dietary Evaluation: Recommendations by RD: Dietary education by RD, Increase Calorie Intake, Protein supplementation Comments: Increase diet as tolerated, goal diet regular/soft foods REC Ensure clear lunch and dinner REC Ensure (strawberry) w/lunch and dinner when diet advanced past clear liquids Expected Outcomes/Goals: diet advancement Interpretation of weight loss: >10% in 6 months Malnutrition Findings: Food and Nutrition Intake (Sev: <50% est energy req 5days Weight Status: Appropriate ILDA BRITO MD Apr 20, 2019 10:01
[2019-04-20 10:45] VITALS: BP 98/57
[2019-04-20] MEDS: POTASSIUM CHLORIDE 10MEQ 100 ML IV SCH ×4 (11:48→14:34)
[2019-04-20 14:34] VITALS: BP 115/69
--- NOTE | 2019-04-20 14:36 | PDOC ---
PROGRESS NOTES Chief Complaint Chief Complaint A/P: Colitis, may be infectious or inflammatory in etiology. Likely with gastroenteritis. 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 These are age indeterminant Intractable vomiting UGI BLEED, Gastritis vs PUD, ON FREQ NSAIDS SEVERE HYPOKALEMIA HTN HLD COPD hypothyroidism Follicular lymphoma (s/p chemotherapy, radiation therapies, splenectomy) Seizures Anxiety with depression Bipolar disorder GERD Plan: Clear liquid diet Consult GI Replace K, check mag 34 minutes time History of Present Illness History of Present Illness Ms Kahn is a 62yo F w/ PMHx depression with HTN, HLD, COPD, hypothyroidism, Follicular lymphoma (s/p chemotherapy, radiation therapies, splenectomy), Seizures, Anxiety with depression, bipolar disorder, GERD, hypothyroidism who presents to the ED complaining of vomiting coffee ground emesis for one week. Patient is also complaining of 10 out of 10 sharp intermittent generalized abdominal pain one week. Denies any diarrhea. She states she had a normal bowel movement yesterday. Denies any chest pain, shortness of breath. Denies being on any chemotherapy drugs CT abdomen shows concern for colitis of sigmoid colon and rectum and L5 and T12 vertebral height loss. K was 2.3, admitted for further treatment. 04/17: She is feeling better, but K still 2.8, mag level pending. She is tolerating clear liquid diet ok. K is 3.3 today. Still having abdominal pain and jelly stools. Worried about having bowel surgery like her family members. She is feeling a bit stronger after starting treatment for crohns. Vitals Vitals Vital Signs Date Time Temp Pulse Resp B/P (MAP) Pulse Ox O2 Delivery O2 Flow Rate FiO2 04/20/19 10:45 98.0 69 12 98/57 (71) 94 Room Air 98.0 04/20/19 08:00 2.0 Physical Exam General: Alert, Oriented X3 Heart: Normal S1, Normal S2 Lungs: Clear, Other Abdomen: Normal bowel sounds, Soft Extremities: No clubbing, No cyanosis Skin: No rashes, No breakdown Assessment and Plan Assessmemt and Plan Problems Medical Problems: (1) Abdominal pain Status: Acute (2) Asthma Status: Chronic (3) Coffee ground emesis Status: Acute (4) Colon wall thickening Status: Chronic (5) Compression deformity of vertebra Status: Chronic (6) Hypokalemia Status: Acute (7) UGI bleed Status: Chronic (8) Vomiting Status: Acute Comment Review of Relevant I have reviewed the following items lottie (where applicable) has been applied. Labs Laboratory Tests Test 04/19/19 04:15 White Blood Count 9.9 x10^3/uL (4.0-11.0) Red Blood Count 4.04 x10^6/uL (3.50-5.40) Hemoglobin 12.5 g/dL (12.0-15.5) Hematocrit 38.4 % (36.0-47.0) Mean Corpuscular Volume 95 fL (79-100) Mean Corpuscular Hemoglobin 31 pg (25-35) Mean Corpuscular Hemoglobin Concent 33 g/dL (31-37) Red Cell Distribution Width 14.2 % (11.5-14.5) Platelet Count 243 x10^3/uL (140-400) Neutrophils (%) (Auto) 60 % (31-73) Lymphocytes (%) (Auto) 22 % (24-48) Monocytes (%) (Auto) 11 % (0-9) Eosinophils (%) (Auto) 5 % (0-3) Basophils (%) (Auto) 1 % (0-3) Neutrophils # (Auto) 6.0 x10^3/uL (1.8-7.7) Lymphocytes # (Auto) 2.2 x10^3/uL (1.0-4.8) Monocytes # (Auto) 1.1 x10^3/uL (0.0-1.1) Eosinophils # (Auto) 0.5 x10^3/uL (0.0-0.7) Basophils # (Auto) 0.1 x10^3/uL (0.0-0.2) Sodium Level 144 mmol/L (136-145) Potassium Level 3.3 mmol/L (3.5-5.1) Chloride Level 109 mmol/L (98-107) Carbon Dioxide Level 26 mmol/L (21-32) Anion Gap 9 (6-14) Blood Urea Nitrogen 16 mg/dL (7-20) Creatinine 0.6 mg/dL (0.6-1.0) Estimated GFR (Cockcroft-Gault) 101.0 Glucose Level 90 mg/dL (70-99) Calcium Level 8.2 mg/dL (8.5-10.1) Medications Current Medications Famotidine (Pepcid Vial) 20 mg 1X ONCE IVP Last administered on 04/17/19at 14:08; Start 04/17/19 at 13:45; Stop 04/17/19 at 13:46; Status DC Ondansetron HCl (Zofran) 4 mg 1X ONCE IVP Last administered on 04/17/19at 14:08; Start 04/17/19 at 13:45; Stop 04/17/19 at 13:46; Status DC Fentanyl Citrate (Fentanyl 2ml Vial) 50 mcg 1X ONCE IVP Last administered on 04/17/19at 14:09; Start 04/17/19 at 13:45; Stop 04/17/19 at 13:46; Status DC Potassium Citrate (Urocit-K) 40 meq 1X STAT PO ; Start 04/17/19 at 14:38; S top 04/17/19 at 14:39; Status Cancel Potassium Chloride/Water 100 ml @ 100 mls/hr Q1H IV Last administered on 04/17/19at 16:07; Start 04/17/19 at 15:00; Stop 04/17/19 at 16:59; Status DC Potassium Chloride (Klor-Con) 40 meq 1X ONCE PO Last administered on 04/17/19at 15:00; Start 04/17/19 at 15:00; Stop 04/17/19 at 15:01; Status DC Ondansetron HCl (Zofran) 4 mg PRN Q8HRS PRN IV NAUSEA/VOMITING Last administered on 04/18/19at 09:13; Start 04/17/19 at 16:30; Stop 04/18/19 at 16:29; Status DC Morphine Sulfate (Morphine Sulfate) 4 mg PRN Q2HR PRN IV PAIN; Start 04/17/19 at 16:30; Stop 04/18/19 at 16:29; Status DC Pantoprazole Sodium (PROTONIX VIAL for IV PUSH) 40 mg DAILYAC IVP Last administered on 04/20/19at 08:45; Start 04/18/19 at 07:30 Sodium Chloride (Normal Saline Flush) 3 ml QSHIFT PRN IV AFTER MEDS AND BLOOD DRAWS; Start 04/17/19 at 20:30 Sodium Chloride 1,000 ml @ 100 mls/hr Q10H IV Last administered on 04/20/19 07:53; Start 04/17/19 at 20:19 Ondansetron HCl (Zofran) 4 mg PRN Q4HRS PRN IV NAUSEA/VOMITING Last administered on 04/18/19at 21:00; Start 04/17/19 at 20:30 Acetaminophen (Tylenol) 650 mg PRN Q4HRS PRN PO TEMP OVER 100.4F OR MILD PAIN; Start 04/17/19 at 20:30 Al Hydroxide/Mg Hydroxide (Mylanta Plus Xs) 30 ml PRN DAILY PRN PO HEARTBURN / GAS; Start 04/17/19 at 20:30 Clonidine HCl (Catapres) 0.1 mg PRN Q6HRS PRN PO SBP>160 OR DBP>90; Start at 20:30 Docusate Sodium (Colace) 100 mg PRN BID PRN PO CONSTIPATION Last administered on 04/20/19at 13:54; Start 04/17/19 at 20:30 Albuterol Sulfate (Ventolin Neb Soln) 2.5 mg PRN Q4HRS PRN NEB SHORTNESS OF BREATH; Start 04/17/19 at 20:30 Guaifenesin (Robitussin) 200 mg PRN Q4HRS PRN PO COUGH; Start 04/17/19 at 20:30 Lorazepam (Ativan) 0.5 mg PRN Q4HRS PRN PO ANXIETY / AGITATION Last administered on 04/20/19at 03:46; Start 04/17/19 at 20:30 Atorvastatin Calcium (Lipitor) 20 mg HS PO ; Start 04/17/19 at 21:00; Stop 04/17/19 at 21:17; Status DC Bupropion HCl (Wellbutrin Sr) 100 mg BID PO Last administered on 04/20/19at 08:45; Start 04/17/19 at 21:00 Cyclobenzaprine HCl (Flexeril) 10 mg TID PO Last administered on 04/20/19 13:54; Start 04/17/19 at 21:00 Fluoxetine HCl (PROzac) 20 mg DAILY PO Last administered on 04/20/19at 08:45; Start 04/18/19 at 09:00 Fluticasone Propionate (Flonase) 1 spray DAILY NS Last administered on 04/20/19at 08:44; Start 04/18/19 at 09:00 Furosemide (Lasix) 40 mg DAILY PO ; Start 04/18/19 at 09:00; Stop 04/18/19 at 03:09; Status DC Acetaminophen/ Hydrocodone Bitart (Lortab 10/325) 1 tab PRN Q6HRS PRN PO PAIN; Start 04/17/19 at 21:00 Levothyroxine Sodium (Synthroid) 50 mcg DAILY06 PO Last administered on at 06:12; Start 04/18/19 at 06:00 Lorazepam (Ativan) 0.5 mg TID PO Last administered on 04/20/19at 13:54; Start 04/17/19 at 21:00 Metoprolol Tartrate (Lopressor) 25 mg BID PO ; Start 04/17/19 at 21:00; Stop 04/17/19 at 21:28; Status DC Nystatin (Nystop) 1 ludin BID TP Last administered on 04/20/19at 08:46; Start 04/17/19 at 21:00 Prochlorperazine Maleate (Compazine) 10 mg PRN Q4HRS PRN PO NAUSEA/VOMITING; Start 04/17/19 at 21:00 Trazodone HCl (Desyrel) 100 mg HS PO Last administered on 04/18/19at 20:53; Start 04/17/19 at 21:00 Albuterol Sulfate (Ventolin Neb Soln) 2.5 mg Q4HRS NEB ; Start 04/17/19 at 21:30; Stop 04/18/19 at 05:32; Status DC Non-Formulary Medication (Albuterol Sulfate (Albuterol Sulfate Neb Soln)) 1 vial TID NEB ; Start 04/17/19 at 21:00; Stop 04/17/19 at 21:20; Status DC Dicyclomine HCl (Bentyl) 10 mg TID PO ; Start 04/17/19 at 21:30; Stop 04/17/19 at 21:19; Status DC Non-Formulary Medication (Fluticasone Propionate (Flonase Allergy Relief)) 1 sprays DAILY NS ; Start 04/18/19 at 09:00; Stop 04/17/19 at 21:20; Status DC Budesonide (Pulmicort) 0.5 mg RTBID NEB Last administered on 04/19/19at 20:17; Start 04/18/19 at 08:00 Atorvastatin Calcium (Lipitor) 40 mg QHS PO Last administered on 04/19/19at 22:11; Start 04/17/19 at 21:30 Dicyclomine HCl (Bentyl) 20 mg TID PO Last administered on 04/20/19at 13:54; Start 04/17/19 at 21:30 Metoprolol Tartrate (Lopressor) 12.5 mg BID PO Last administered on 04/20/19 08:46; Start 04/17/19 at 21:30 Influenza Virus Vaccine Quadrival (Afluria Quad 2019-20 (3yr Up) Syringe) 0.5 ml ONCE ONCE VAX IM Last administered on 04/18/19at 10:33; Start 04/18/19 at 09:00; Stop 04/18/19 at 09:01; Status DC Albuterol Sulfate (Ventolin Neb Soln) 2.5 mg RTQID NEB Last administered on 04/19/19at 20:17; Start 04/18/19 at 08:00 Potassium Chloride/Water 100 ml @ 100 mls/hr Q1H IV Last administered on 04/18/19at 12:01; Start 04/18/19 at 08:00; Stop 04/18/19 at 11:59; Status DC Potassium Chloride (Klor-Con) 20 meq 1X ONCE PO Last administered on 03/21 07/07at 09:14; Start 04/18/19 at 07:45; Stop 04/18/19 at 07:50; Status DC Magnesium Sulfate/ Dextrose 100 ml @ 100 mls/hr 1X ONCE IV Last administered on 04/18/19at 17:16; Start 04/18/19 at 14:45; Stop 04/18/19 at 15:44; Status DC Potassium Chloride/Water 100 ml @ 100 mls/hr Q1H IV Last administered on 04/19/19at 10:00; Start 04/19/19 at 09:00; Stop 04/19/19 at 10:59; Status DC Potassium Chloride (Klor-Con) 40 meq 1X ONCE PO Last administered on 04/19/19at 09:12; Start 04/19/19 at 09:00; Stop 04/19/19 at 09:01; Status DC Mesalamine (Delzicol) 400 mg [id number] PO Last administered on 04/19/19at 11:13; Start 04/19/19 at 11:00; Stop 04/19/19 at 12:01; Status DC Methylprednisolone Sodium Succinate (SOLU-Medrol 125MG VIAL) 125 mg 1X ONCE IV Last administered on 04/19/19at 11:13; Start 04/19/19 at 11:15; Stop 04/19/19 at 11:16; Status DC Mesalamine (Pentasa) 500 mg [id number] PO Last administered on 04/20/19at 13:54; Start 04/19/19 at 13:00 Potassium Chloride/Water 100 ml @ 100 mls/hr Q1H IV Last administered on 04/20/19at 13:54; Start 04/20/19 at 12:00; Stop 04/20/19 at 15:59 Active Scripts Active Reported Budesonide 0.5 Mg/2 Ml Ampul.neb 1 Vial NEB BID Albuterol Sulfate Neb Soln (Albuterol Sulfate) 1.25 Mg/3 Ml Vial.neb 1 Vial NEB PRN Q4HRS PRN Albuterol Sulfate Neb Soln (Albuterol Sulfate) 1.25 Mg/3 Ml Vial.neb 1 Vial NEB QID Prochlorperazine Maleate 10 Mg Tablet 10 Mg PO PRN Q4HRS PRN Flonase Allergy Relief (Fluticasone Propionate) 9.9 Ml [place].susp 1 Sprays NS DAILY Crestor (Rosuvastatin Calcium) 10 Mg Tablet 10 Mg PO HS Ativan (Lorazepam) 0.5 Mg Tablet 0.5 Mg PO TID Metoprolol Tartrate 25 Mg Tablet 25 Mg PO BID 1/2 tab bid Hydrocodone-Apap 10-325 (Hydrocodone Bit/Acetaminophen) 1 Tab Tablet 1 Tab PO PRN Q6HRS PRN Nystatin 15 Gm Powder 1 [place] TP BID 7 Days apply to affected area(s) Cyclobenzaprine Hcl 10 Mg Tablet 10 Mg PO TID Trazodone Hcl 100 Mg Tablet 100 Mg PO HS trazodone 100mg 2tabs at bedtime Advair 500-50 Diskus (Fluticasone/Salmeterol) 1 Each Disk.w.dev 1 Inh IH BID Lipitor (Atorvastatin Calcium) 20 Mg Tablet 20 Mg PO HS Bupropion Hcl Sr (Bupropion Hcl) 100 Mg Tablet.er 100 Mg PO BID Fluoxetine Hcl 10 Mg Capsule 2 Cap PO DAILY Proair Hfa Inhaler (Albuterol Sulfate) 8.5 Gm Hfa.aer.ad 2 Puff IH PRN Q4-6HRS Dicyclomine Hcl 20 Mg Tablet 1 Tab PO TID Levothyroxine Sodium 50 Mcg Tablet 1 Tab PO DAILY Vitals/I & O Vital Sign - Last 24 Hours 04/19/19 04/19/19 04/19/19 04/19/19 16:38 19:00 20:19 22:16 Temp 97.8 97.8 Pulse 73 81 Resp 16 B/P (MAP) 121/58 (79) 119/71 Pulse Ox 95 96 O2 Delivery Room Air Room Air Room Air 04/19/19 04/20/19 04/20/19 04/20/19 23:00 03:00 07:23 08:00 Temp 98.0 98.0 98.3 98.0 98.0 98.3 Pulse 66 65 63 Resp 12 12 12 B/P (MAP) 124/61 (82) 116/63 (80) 112/57 (75) Pulse Ox 96 96 94 O2 Delivery Room Air Room Air Room Air Nasal Cannula O2 Flow Rate 2.0 04/20/19 04/20/19 08:46 10:45 Temp 98.0 98.0 Pulse 63 69 Resp 12 B/P (MAP) 112/57 98/57 (71) Pulse Ox 94 O2 Delivery Room Air Intake and Output 04/19/19 04/19/19 04/20/19 15:00 23:00 07:00 Intake Total 980 ml 0 ml Output Total 150 ml Balance 830 ml 0 ml Nutrition Consultation Dietary Evaluation: Recommendations by RD: Dietary education by RD, Increase Calorie Intake, Protein supplementation Comments: Increase diet as tolerated, goal diet regular/soft foods REC Ensure clear lunch and dinner REC Ensure (strawberry) w/lunch and dinner when diet advanced past clear liquids Expected Outcomes/Goals: diet advancement Interpretation of weight loss: >10% in 6 months Malnutrition Findings: Food and Nutrition Intake (Sev: <50% est energy req 5days Weight Status: Appropriate SANDRA ALLEN MD Apr 20, 2019 14:36
[2019-04-20] MEDS: HYDROcodone/APAP 10/325 1 TAB TABLET PO PRN (16:49)
[2019-04-20 19:32] VITALS: BP 104/53
[2019-04-20] MEDS: PSYLLIUM HUSK (SUGAR FREE) 1 PKT PACKET PO SCH (20:08)
[2019-04-20] MEDS: ATORVASTATIN CALCIUM 40 MG TABLET. PO SCH (20:08)
[2019-04-20] MEDS: traZODone 100 MG TABLET. PO SCH (20:09)
[2019-04-20 23:50] VITALS: BP 101/61
[2019-04-21 03:11] VITALS: BP 111/52
[2019-04-21 06:05] LABS: CALCIUM 7.8 mg/dL (8.5-10.1); CREATININE 0.6 mg/dL (0.6-1.0); MAGNESIUM 1.4 mg/dL (1.8-2.4); POTASSIUM 3.1 mmol/L (3.5-5.1)
[2019-04-21] MEDS: LEVOTHYROXINE 50 MCG TABLET PO SCH (06:08)
[2019-04-21 07:03] VITALS: BP 113/53
[2019-04-21] MEDS: BUDESONIDE 0.5 MG/2 ML NEBU. NEB SCH ×2 (08:00→20:00)
[2019-04-21] MEDS: ALBUTEROL SULFATE 2.5 MG/3 ML NEBU. NEB SCH ×4 (08:00→20:00)
[2019-04-21] MEDS: FLUTICASONE 50MCG/NASAL SPRAY 16GM BOTTLE. NS SCH (08:37)
[2019-04-21] MEDS: MESALAMINE ER 250 MG CAPSULE.ER PO SCH ×4 (08:38→21:15)
[2019-04-21] MEDS: CYCLOBENZAPRINE 10 MG TABLET. PO SCH ×3 (08:38→21:15)
[2019-04-21] MEDS: PANTOPRAZOLE IV PUSH 40 MG VIAL. IVP SCH (08:38)
[2019-04-21] MEDS: buPROPion SR 100 MG TABLET.SA. PO SCH ×2 (08:38→21:15)
[2019-04-21] MEDS: LORazepam 0.5 MG TABLET PO SCH ×3 (08:38→21:15)
[2019-04-21] MEDS: METOPROLOL TART IMMED RELEASE 25 MG TABLET. PO SCH ×2 (08:38→21:17)
[2019-04-21] MEDS: DICYCLOMINE HCL 10 MG CAPSULE PO SCH ×3 (08:38→21:15)
[2019-04-21] MEDS: FLUoxetine HCL 20 MG CAPSULE PO SCH (08:38)
[2019-04-21] MEDS: NYSTATIN TOPICAL POWDER 15GM BOTTLE. TP SCH ×2 (08:39→21:17)
[2019-04-21 10:16] VITALS: BP 112/55
--- NOTE | 2019-04-21 10:40 | PDOC ---
PROGRESS NOTES Chief Complaint Chief Complaint A/P: Colitis, may be infectious or inflammatory in etiology. Likely with gastroenteritis. 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 These are age indeterminant Intractable vomiting UGI BLEED, Gastritis vs PUD, ON FREQ NSAIDS SEVERE HYPOKALEMIA HTN HLD COPD hypothyroidism Follicular lymphoma (s/p chemotherapy, radiation therapies, splenectomy) Seizures Anxiety with depression Bipolar disorder GERD Plan: Clear liquid diet Consult GI Replace K, check mag 34 minutes time History of Present Illness History of Present Illness Ms Kahn is a 62yo F w/ PMHx depression with HTN, HLD, COPD, hypothyroidism, Follicular lymphoma (s/p chemotherapy, radiation therapies, splenectomy), Seizures, Anxiety with depression, bipolar disorder, GERD, hypothyroidism who presents to the ED complaining of vomiting coffee ground emesis for one week. Patient is also complaining of 10 out of 10 sharp intermittent generalized abdominal pain one week. Denies any diarrhea. She states she had a normal bowel movement yesterday. Denies any chest pain, shortness of breath. Denies being on any chemotherapy drugs CT abdomen shows concern for colitis of sigmoid colon and rectum and L5 and T12 vertebral height loss. K was 2.3, admitted for further treatment. 04/17: She is feeling better, but K still 2.8, mag level pending. She is tolerating clear liquid diet ok. 04/20: K is 3.3 today. Still having abdominal pain and jelly stools. Worried about having bowel surgery like her family members. She is feeling a bit stronger after starting treatment for crohns. K is 3.1 today despite replacement. Mag low at 1.4. She is requesting port access as it has not been accessed or flushed in 8 months. Bowel movements still hard Vitals Vitals Vital Signs Date Time Temp Pulse Resp B/P (MAP) Pulse Ox O2 Delivery O2 Flow Rate FiO2 04/21/19 10:16 98.5 84 14 112/55 (74) 95 Room Air 98.5 04/20/19 20:00 2.0 Physical Exam General: Alert, Oriented X3 Heart: Normal S1, Normal S2 Lungs: Clear, Other Abdomen: Normal bowel sounds, Soft Extremities: No clubbing, No cyanosis Skin: No rashes, No breakdown Labs LABS Laboratory Tests Test 04/21/19 04:45 Sodium Level 145 mmol/L (136-145) Potassium Level 3.1 mmol/L (3.5-5.1) Chloride Level 111 mmol/L (98-107) Carbon Dioxide Level 24 mmol/L (21-32) Anion Gap 10 (6-14) Blood Urea Nitrogen 3 mg/dL (7-20) Creatinine 0.6 mg/dL (0.6-1.0) Estimated GFR (Cockcroft-Gault) 101.0 Glucose Level 79 mg/dL (70-99) Calcium Level 7.8 mg/dL (8.5-10.1) Magnesium Level 1.4 mg/dL (1.8-2.4) Assessment and Plan Assessmemt and Plan Problems Medical Problems: (1) Abdominal pain Status: Acute (2) Asthma Status: Chronic (3) Coffee ground emesis Status: Acute (4) Colon wall thickening Status: Chronic (5) Compression deformity of vertebra Status: Chronic (6) Hypokalemia Status: Acute (7) UGI bleed Status: Chronic (8) Vomiting Status: Acute Comment Review of Relevant I have reviewed the following items lottie (where applicable) has been applied. Labs Laboratory Tests Test 04/21/19 04:45 Sodium Level 145 mmol/L (136-145) Potassium Level 3.1 mmol/L (3.5-5.1) Chloride Level 111 mmol/L (98-107) Carbon Dioxide Level 24 mmol/L (21-32) Anion Gap 10 (6-14) Blood Urea Nitrogen 3 mg/dL (7-20) Creatinine 0.6 mg/dL (0.6-1.0) Estimated GFR (Cockcroft-Gault) 101.0 Glucose Level 79 mg/dL (70-99) Calcium Level 7.8 mg/dL (8.5-10.1) Magnesium Level 1.4 mg/dL (1.8-2.4) Laboratory Tests Test 04/21/19 04:45 Sodium Level 145 mmol/L (136-145) Potassium Level 3.1 mmol/L (3.5-5.1) Chloride Level 111 mmol/L (98-107) Carbon Dioxide Level 24 mmol/L (21-32) Anion Gap 10 (6-14) Blood Urea Nitrogen 3 mg/dL (7-20) Creatinine 0.6 mg/dL (0.6-1.0) Estimated GFR (Cockcroft-Gault) 101.0 Glucose Level 79 mg/dL (70-99) Calcium Level 7.8 mg/dL (8.5-10.1) Magnesium Level 1.4 mg/dL (1.8-2.4) Medications Current Medications Famotidine (Pepcid Vial) 20 mg 1X ONCE IVP Last administered on 04/17/19at 14:08; Start 04/17/19 at 13:45; Stop 04/17/19 at 13:46; Status DC Ondansetron HCl (Zofran) 4 mg 1X ONCE IVP Last administered on 04/17/19at 14:08; Start 04/17/19 at 13:45; Stop 04/17/19 at 13:46; Status DC Fentanyl Citrate (Fentanyl 2ml Vial) 50 mcg 1X ONCE IVP Last administered on 04/17/19at 14:09; Start 04/17/19 at 13:45; Stop 04/17/19 at 13:46; Status DC Potassium Citrate (Urocit-K) 40 meq 1X STAT PO ; Start 04/17/19 at 14:38; Stop 04/17/19 at 14:39; Status Cancel Potassium Chloride/Water 100 ml @ 100 mls/hr Q1H IV Last administered on 04/17/19at 16:07; Start 04/17/19 at 15:00; Stop 04/17/19 at 16:59; Status DC Potassium Chloride (Klor-Con) 40 meq 1X ONCE PO Last administered on 04/17/19at 15:00; Start 04/17/19 at 15:00; Stop 04/17/19 at 15:01; Status DC Ondansetron HCl (Zofran) 4 mg PRN Q8HRS PRN IV NAUSEA/VOMITING Last administered on 04/18/19at 09:13; Start 04/17/19 at 16:30; Stop 04/18/19 at 16:29; Status DC Morphine Sulfate (Morphine Sulfate) 4 mg PRN Q2HR PRN IV PAIN; Start 04/17/19 at 16:30; Stop 04/18/19 at 16:29; Status DC Pantoprazole Sodium (PROTONIX VIAL for IV PUSH) 40 mg DAILYAC IVP Last administered on 04/21/19at 08:38; Start 04/18/19 at 07:30 Sodium Chloride (Normal Saline Flush) 3 ml QSHIFT PRN IV AFTER MEDS AND BLOOD DRAWS; Start 04/17/19 at 20:30 Sodium Chloride 1,000 ml @ 100 mls/hr Q10H IV Last administered on 04/20/19at 07:53; Start 04/17/19 at 20:19; Stop 04/20/19 at 15:53; Status DC Ondansetron HCl (Zofran) 4 mg PRN Q4HRS PRN IV NAUSEA/VOMITING Last administered on 04/18/19at 21:00; Start 04/17/19 at 20:30 Acetaminophen (Tylenol) 650 mg PRN Q4HRS PRN PO TEMP OVER 100.4F OR MILD PAIN; Start 04/17/19 at 20:30 Al Hydroxide/Mg Hydroxide (Mylanta Plus Xs) 30 ml PRN DAILY PRN PO HEARTBURN / GAS; Start 04/17/19 at 20:30 Clonidine HCl (Catapres) 0.1 mg PRN Q6HRS PRN PO SBP>160 OR DBP>90; Start 04/17/19 at 20:30 Docusate Sodium (Colace) 100 mg PRN BID PRN PO CONSTIPATION Last administered on 04/20/19at 13:54; Start 04/17/19 at 20:30 Albuterol Sulfate (Ventolin Neb Soln) 2.5 mg PRN Q4HRS PRN NEB SHORTNESS OF BREATH; Start 04/17/19 at 20:30 Guaifenesin (Robitussin) 200 mg PRN Q4HRS PRN PO COUGH; Start 04/17/19 at 20:30 Lorazepam (Ativan) 0.5 mg PRN Q4HRS PRN PO ANXIETY / AGITATION Last administered on 04/20/19at 03:46; Start 04/17/19 at 20:30 Atorvastatin Calcium (Lipitor) 20 mg HS PO ; Start 04/17/19 at 21:00; Stop 04/17/19 at 21:17; Status DC Bupropion HCl (Wellbutrin Sr) 100 mg BID PO Last administered on 04/21/19at 08:38; Start 04/17/19 at 21:00 Cyclobenzaprine HCl (Flexeril) 10 mg TID PO Last administered on 04/21/19 08:38; Start 04/17/19 at 21:00 Fluoxetine HCl (PROzac) 20 mg DAILY PO Last administered on 04/21/19 08:38; Start 04/18/19 at 09:00 Fluticasone Propionate (Flonase) 1 spray DAILY NS Last administered on 04/21/19 08:37; Start 04/18/19 at 09:00 Furosemide (Lasix) 40 mg DAILY PO ; Start 04/18/19 at 09:00; Stop 04/18/19 at 03:09; Status DC Acetaminophen/ Hydrocodone Bitart (Lortab 10/325) 1 tab PRN Q6HRS PRN PO MODERATE PAIN Last administered on 04/20/19 16:49; Start 04/17/19 at 21:00 Levothyroxine Sodium (Synthroid) 50 mcg DAILY06 PO Last administered on 04/21/19 06:08; Start 04/18/19 at 06:00 Lorazepam (Ativan) 0.5 mg TID PO Last administered on 04/21/19 08:38; Start 04/17/19 at 21:00 Metoprolol Tartrate (Lopressor) 25 mg BID PO ; Start 04/17/19 at 21:00; Stop 04/17/19 at 21:28; Status DC Nystatin (Nystop) 1 ludin BID TP Last administered on 04/21/19 08:39; Start 04/17/19 at 21:00 Prochlorperazine Maleate (Compazine) 10 mg PRN Q4HRS PRN PO NAUSEA/VOMITING; Start 04/17/19 at 21:00 Trazodone HCl (Desyrel) 100 mg HS PO Last administered on 04/20/19 20:09; Start 04/17/19 at 21:00 Albuterol Sulfate (Ventolin Neb Soln) 2.5 mg Q4HRS NEB ; Start 04/17/19 at 21:30; Stop 04/18/19 at 05:32; Status DC Non-Formulary Medication (Albuterol Sulfate (Albuterol Sulfate Neb Soln)) 1 vial TID NEB ; Start 04/17/19 at 21:00; Stop 04/17/19 at 21:20; Status DC Dicyclomine HCl (Bentyl) 10 mg TID PO ; Start 04/17/19 at 21:30; Stop 04/17/19 at 21:19; Status DC Non-Formulary Medication (Fluticasone Propionate (Flonase Allergy Relief)) 1 sprays DAILY NS ; Start 04/18/19 at 09:00; Stop 04/17/19 at 21:20; Status DC Budesonide (Pulmicort) 0.5 mg RTBID NEB Last administered on 04/21/19 08:00; Start 04/18/19 at 08:00 Atorvastatin Calcium (Lipitor) 40 mg QHS PO Last administered on 04/20/19 20:08; Start 04/17/19 at 21:30 Dicyclomine HCl (Bentyl) 20 mg TID PO Last administered on 04/21/19 08:38; Start 04/17/19 at 21:30 Metoprolol Tartrate (Lopressor) 12.5 mg BID PO Last administered on 04/21/19 08:38; Start 04/17/19 at 21:30 Influenza Virus Vaccine Quadrival (Afluria Quad 2019-20 (3yr Up) Syringe) 0.5 ml ONCE ONCE VAX IM Last administered on 04/18/19at 10:33; Start 04/18/19 at 09:00; Stop 04/18/19 at 09:01; Status DC Albuterol Sulfate (Ventolin Neb Soln) 2.5 mg RTQID NEB Last administered on 04/21/19at 08:00; Start 04/18/19 at 08:00 Potassium Chloride/Water 100 ml @ 100 mls/hr Q1H IV Last administered on 04/18/19at 12:01; Start 04/18/19 at 08:00; Stop 04/18/19 at 11:59; Status DC Potassium Chloride (Klor-Con) 20 meq 1X ONCE PO Last administered on 04/18/19at 09:14; Start 04/18/19 at 07:45; Stop 04/18/19 at 07:50; Status DC Magnesium Sulfate/ Dextrose 100 ml @ 100 mls/hr 1X ONCE IV Last administered on 04/18/19at 17:16; Start 04/18/19 at 14:45; Stop 04/18/19 at 15:44; Status DC Potassium Chloride/Water 100 ml @ 100 mls/hr Q1H IV Last administered on 04/19/19at 10:00; Start 04/19/19 at 09:00; Stop 04/19/19 at 10:59; Status DC Potassium Chloride (Klor-Con) 40 meq 1X ONCE PO Last administered on 04/19/19at 09:12; Start 04/19/19 at 09:00; Stop 04/19/19 at 09:01; Status DC Mesalamine (Delzicol) 400 mg [id number] PO Last administered on 04/19/19at 11:13; Start 04/19/19 at 11:00; Stop 04/19/19 at 12:01; Status DC Methylprednisolone Sodium Succinate (SOLU-Medrol 125MG VIAL) 125 mg 1X ONCE IV Last administered on 04/19/19at 11:13; Start 04/19/19 at 11:15; Stop 04/19/19 at 11:16; Status DC Mesalamine (Pentasa) 500 mg [id number] PO Last administered on 04/21/19at 08:38; Start 04/19/19 at 13:00 Potassium Chloride/Water 100 ml @ 100 mls/hr Q1H IV Last administered on 04/20/19at 14:34; Start 04/20/19 at 12:00; Stop 04/20/19 at 15:59; Status DC Psyllium Hydrophilic Mucilloid (Metamucil Fiber Packet) 1 pkt QHS PO Last administered on 04/20/19at 20:08; Start 04/20/19 at 21:00 Magnesium Sulfate 100 ml @ 25 mls/hr 1X ONCE IV ; Start 04/21/19 at 11:00; Stop 04/21/19 at 14:59 Alteplase, Recombinant (Cathflo For Central Catheter Clearance) 1 mg 1X ONCE INT CAT ; Start 04/21/19 at 10:45; Stop 04/21/19 at 10:46; Status UNV Active Scripts Active Reported Budesonide 0.5 Mg/2 Ml Ampul.neb 1 Vial NEB BID Albuterol Sulfate Neb Soln (Albuterol Sulfate) 1.25 Mg/3 Ml Vial.neb 1 Vial NEB PRN Q4HRS PRN Albuterol Sulfate Neb Soln (Albuterol Sulfate) 1.25 Mg/3 Ml Vial.neb 1 Vial NEB QID Prochlorperazine Maleate 10 Mg Tablet 10 Mg PO PRN Q4HRS PRN Flonase Allergy Relief (Fluticasone Propionate) 9.9 Ml [place].susp 1 Sprays NS DAILY Crestor (Rosuvastatin Calcium) 10 Mg Tablet 10 Mg PO HS Ativan (Lorazepam) 0.5 Mg Tablet 0.5 Mg PO TID Metoprolol Tartrate 25 Mg Tablet 25 Mg PO BID 1/2 tab bid Hydrocodone-Apap 10-325 (Hydrocodone Bit/Acetaminophen) 1 Tab Tablet 1 Tab PO PRN Q6HRS PRN Nystatin 15 Gm Powder 1 Ludin TP BID 7 Days apply to affected area(s) Cyclobenzaprine Hcl 10 Mg Tablet 10 Mg PO TID Trazodone Hcl 100 Mg Tablet 100 Mg PO HS trazodone 100mg 2tabs at bedtime Advair 500-50 Diskus (Fluticasone/Salmeterol) 1 Each Disk.w.dev 1 Inh IH BID Lipitor (Atorvastatin Calcium) 20 Mg Tablet 20 Mg PO HS Bupropion Hcl Sr (Bupropion Hcl) 100 Mg Tablet.er 100 Mg PO BID Fluoxetine Hcl 10 Mg Capsule 2 Cap PO DAILY Proair Hfa Inhaler (Albuterol Sulfate) 8.5 Gm Hfa.aer.ad 2 Puff IH PRN Q4-6HRS Dicyclomine Hcl 20 Mg Tablet 1 Tab PO TID Levothyroxine Sodium 50 Mcg Tablet 1 Tab PO DAILY Vitals/I & O Vital Sign - Last 24 Hours 04/20/19 04/20/19 04/20/19 04/20/19 10:45 14:34 19:32 20:00 Temp 98.0 98.1 98.2 98.0 98.1 98.2 Pulse 69 85 84 Resp 12 12 14 B/P (MAP) 98/57 (71) 115/69 (84) 104/53 (70) Pulse Ox 94 92 93 O2 Delivery Room Air Room Air Room Air Nasal Cannula O2 Flow Rate 2.0 04/20/19 04/20/19 04/21/19 04/21/19 20:09 23:50 03:11 07:03 Temp 98.0 97.7 98.4 98.0 97.7 98.4 Pulse 84 73 74 Resp 14 14 14 B/P (MAP) 104/53 101/61 (74) 111/52 (71) 113/53 (73) Pulse Ox 92 93 93 O2 Delivery Room Air Room Air Room Air 04/21/19 04/21/19 04/21/19 08:14 08:38 10:16 Temp 98.5 98.5 Pulse 74 84 Resp 14 B/P (MAP) 113/53 112/55 (74) Pulse Ox 96 95 O2 Delivery Room Air Room Air Intake and Output 04/20/19 04/20/19 04/21/19 15:00 23:00 07:00 Intake Total 500 ml Balance 500 ml Nutrition Consultation Dietary Evaluation: Recommendations by RD: Dietary education by RD, Increase Calorie Intake, Protein supplementation Comments: Increase diet as tolerated, goal diet regular/soft foods REC Ensure clear lunch and dinner REC Ensure (strawberry) w/lunch and dinner when diet advanced past clear liquids Expected Outcomes/Goals: diet advancement Interpretation of weight loss: >10% in 6 months Malnutrition Findings: Food and Nutrition Intake (Sev: <50% est energy req 5days Weight Status: Appropriate SANDRA ALLEN MD Apr 21, 2019 10:40
[2019-04-21] MEDS ORDERED: ALTEPLASE 1MG SYRINGE. INT CAT ONE (11:00)
[2019-04-21] MEDS ORDERED: MAGNESIUM SULFATE 4GM 100 ML IV ONE (11:00)
[2019-04-21] MEDS: HYDROcodone/APAP 10/325 1 TAB TABLET PO PRN (11:49)
[2019-04-21] MEDS ORDERED: POTASSIUM CHL 20MEQ PREMIX 50 ML IV SCH (13:00)
[2019-04-21] MEDS: POTASSIUM CHLORIDE 10MEQ 100 ML IV SCH ×4 (13:59→16:35)
[2019-04-21 14:23] VITALS: BP 88/61
--- NOTE | 2019-04-21 14:58 | RAD ---
AP chest x-ray COMPARISON: Chest x-ray May 13, 2018. HISTORY: Shortness of breath. FINDINGS: Right jugular portacatheter tip proximal right atrium. Heart size normal. Aortic arch calcified plaque. There is a probable small right pleural effusion along lateral diaphragm blunting the angle. There are mild reticulonodular densities at the lower lobes new from older x-rays represent mild edema. Bones unremarkable. IMPRESSION: Small right pleural effusion is new. Mild lower lobe reticulonodular densities may represent pulmonary edema is also new. Electronically signed by: Ld Reyes MD (04/21/2019 2:55 PM) [facility]
--- NOTE | 2019-04-21 15:26 | PDOC ---
PROGRESS NOTES Subjective Subjective HPI -f/u of Marginal zone lymphoma ROS -no n/v Objective Objective Vital Signs Date Time Temp Pulse Resp B/P (MAP) Pulse Ox O2 Delivery O2 Flow Rate FiO2 04/21/19 14:23 98.1 80 14 88/61 (70) 91 Room Air 98.1 04/20/19 20:00 2.0 Intake and Output 04/21/19 07:00 Intake Total 500 ml Balance 500 ml Intake Oral 500 ml # Voids 8 # Bowel Movements 1 Physical Exam Heart: Normal S1, Normal S2 General: Alert, Oriented X3 Lungs: Clear to auscultation Neuro: Normal speech Psych/Mental Status: Mental status NL Assessment Assessment Problems Medical Problems: (1) Abdominal pain Status: Acute (2) Asthma Status: Chronic (3) Coffee ground emesis Status: Acute (4) Colon wall thickening Status: Chronic (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 Marginal zone lymphoma diagnosed in 2012, status post splenectomy and rituximab treatments, which were all completed in 2015. No clinical evidence of recurrence. CT scan of the abdomen and pelvis performed on 04/17/2019 does not reveal any evidence of recurrent lymphoma. I would continue routine surveillance. 2. Nausea, vomiting, and coffee-ground emesis. Appreciate GI consultation and management. Feels much better now. 3. Crohns disease - management per Dr Valero. She feels better. Comment Review of Relevant I have reviewed the following items lottie (where applicable) has been applied. Labs Laboratory Tests Test 04/21/19 04:45 04/21/19 05:00 Sodium Level 145 mmol/L (136-145) Potassium Level 3.1 mmol/L (3.5-5.1) Chloride Level 111 mmol/L (98-107) Carbon Dioxide Level 24 mmol/L (21-32) Anion Gap 10 (6-14) Blood Urea Nitrogen 3 mg/dL (7-20) Creatinine 0.6 mg/dL (0.6-1.0) Estimated GFR (Cockcroft-Gault) 101.0 Glucose Level 79 mg/dL (70-99) Calcium Level 7.8 mg/dL (8.5-10.1) Magnesium Level 1.4 mg/dL (1.8-2.4) Phosphorus Level 2.9 mg/dL (2.6-4.7) Laboratory Tests Test 04/21/19 04:45 04/21/19 05:00 Sodium Level 145 mmol/L (136-145) Potassium Level 3.1 mmol/L (3.5-5.1) Chloride Level 111 mmol/L (98-107) Carbon Dioxide Level 24 mmol/L (21-32) Anion Gap 10 (6-14) Blood Urea Nitrogen 3 mg/dL (7-20) Creatinine 0.6 mg/dL (0.6-1.0) Estimated GFR (Cockcroft-Gault) 101.0 Glucose Level 79 mg/dL (70-99) Calcium Level 7.8 mg/dL (8.5-10.1) Magnesium Level 1.4 mg/dL (1.8-2.4) Phosphorus Level 2.9 mg/dL (2.6-4.7) Medications Current Medications Famotidine (Pepcid Vial) 20 mg 1X ONCE IVP Last administered on 04/17/19at 14:08; Start 04/17/19 at 13:45; Stop 04/17/19 at 13:46; Status DC Ondansetron HCl (Zofran) 4 mg 1X ONCE IVP Last administered on 04/17/19at 14:08; Start 04/17/19 at 13:45; Stop 04/17/19 at 13:46; Status DC Fentanyl Citrate (Fentanyl 2ml Vial) 50 mcg 1X ONCE IVP Last administered on 04/17/19at 14:09; Start 04/17/19 at 13:45; Stop 04/17/19 at 13:46; Status DC Potassium Citrate (Urocit-K) 40 meq 1X STAT PO ; Start 04/17/19 at 14:38; Stop 04/17/19 at 14:39; Status Cancel Potassium Chloride/Water 100 ml @ 100 mls/hr Q1H IV Last administered on 04/17/19at 16:07; Start 04/17/19 at 15:00; Stop 04/17/19 at 16:59; Status DC Potassium Chloride (Klor-Con) 40 meq 1X ONCE PO Last administered on 04/17/19at 15:00; Start 04/17/19 at 15:00; Stop 04/17/19 at 15:01; Status DC Ondansetron HCl (Zofran) 4 mg PRN Q8HRS PRN IV NAUSEA/VOMITING Last administered on 04/18/19at 09:13; Start 04/17/19 at 16:30; Stop 04/18/19 at 16:29; Status DC Morphine Sulfate (Morphine Sulfate) 4 mg PRN Q2HR PRN IV PAIN; Start 04/17/19 at 16:30; Stop 04/18/19 at 16:29; Status DC Pantoprazole Sodium (PROTONIX VIAL for IV PUSH) 40 mg DAILYAC IVP Last administered on 04/21/19at 08:38; Start 04/18/19 at 07:30 Sodium Chloride (Normal Saline Flush) 3 ml QSHIFT PRN IV AFTER MEDS AND BLOOD DRAWS; Start 04/17/19 at 20:30 Sodium Chloride 1,000 ml @ 100 mls/hr Q10H IV Last administered on 04/20/19at 07:53; Start 04/17/19 at 20:19; Stop 04/20/19 at 15:53; Status DC Ondansetron HCl (Zofran) 4 mg PRN Q4HRS PRN IV NAUSEA/VOMITING Last administered on 04/18/19at 21:00; Start 04/17/19 at 20:30 Acetaminophen (Tylenol) 650 mg PRN Q4HRS PRN PO TEMP OVER 100.4F OR MILD PAIN; Start 04/17/19 at 20:30 Al Hydroxide/Mg Hydroxide (Mylanta Plus Xs) 30 ml PRN DAILY PRN PO HEARTBURN / GAS; Start 04/17/19 at 20:30 Clonidine HCl (Catapres) 0.1 mg PRN Q6HRS PRN PO SBP>160 OR DBP>90; Start 04/17/19 at 20:30 Docusate Sodium (Colace) 100 mg PRN BID PRN PO CONSTIPATION Last administered on 04/20/19at 13:54; Start 04/17/19 at 20:30 Albuterol Sulfate (Ventolin Neb Soln) 2.5 mg PRN Q4HRS PRN NEB SHORTNESS OF BREATH; Start 04/17/19 at 20:30 Guaifenesin (Robitussin) 200 mg PRN Q4HRS PRN PO COUGH; Start 04/17/19 at 20:30 Lorazepam (Ativan) 0.5 mg PRN Q4HRS PRN PO ANXIETY / AGITATION Last a dministered on 04/20/19 03:46; Start 04/17/19 at 20:30 Atorvastatin Calcium (Lipitor) 20 mg HS PO ; Start 04/17/19 at 21:00; Stop 04/17/19 at 21:17; Status DC Bupropion HCl (Wellbutrin Sr) 100 mg BID PO Last administered on 04/21/19 08:38; Start 04/17/19 at 21:00 Cyclobenzaprine HCl (Flexeril) 10 mg TID PO Last administered on 04/21/19 13:31; Start 04/17/19 at 21:00 Fluoxetine HCl (PROzac) 20 mg DAILY PO Last administered on 04/21/19 08:38; Start 04/18/19 at 09:00 Fluticasone Propionate (Flonase) 1 spray DAILY NS Last administered on 04/21/19 08:37; Start 04/18/19 at 09:00 Furosemide (Lasix) 40 mg DAILY PO ; Start 04/18/19 at 09:00; Stop 04/18/19 at 03:09; Status DC Acetaminophen/ Hydrocodone Bitart (Lortab 10/325) 1 tab PRN Q6HRS PRN PO MODERATE PAIN Last administered on 04/21/19 11:49; Start 04/17/19 at 21:00 Levothyroxine Sodium (Synthroid) 50 mcg DAILY06 PO Last administered on 04/21/19 06:08; Start 04/18/19 at 06:00 Lorazepam (Ativan) 0.5 mg TID PO Last administered on 04/21/19 13:31; Start 04/17/19 at 21:00 Metoprolol Tartrate (Lopressor) 25 mg BID PO ; Start 04/17/19 at 21:00; Stop 04/17/19 at 21:28; Status DC Nystatin (Nystop) 1 ludin BID TP Last administered on 04/21/19 08:39; Start 04/17/19 at 21:00 Prochlorperazine Maleate (Compazine) 10 mg PRN Q4HRS PRN PO NAUSEA/VOMITING; Start 04/17/19 at 21:00 Trazodone HCl (Desyrel) 100 mg HS PO Last administered on 04/20/19 20:09; Start 04/17/19 at 21:00 Albuterol Sulfate (Ventolin Neb Soln) 2.5 mg Q4HRS NEB ; Start 04/17/19 at 21:30; Stop 04/18/19 at 05:32; Status DC Non-Formulary Medication (Albuterol Sulfate (Albuterol Sulfate Neb Soln)) 1 vial TID NEB ; Start 04/17/19 at 21:00; Stop 04/17/19 at 21:20; Status DC Dicyclomine HCl (Bentyl) 10 mg TID PO ; Start 04/17/19 at 21:30; Stop 04/17/19 at 21:19; Status DC Non-Formulary Medication (Fluticasone Propionate (Flonase Allergy Relief)) 1 spr ays DAILY NS ; Start 04/18/19 at 09:00; Stop 04/17/19 at 21:20; Status DC Budesonide (Pulmicort) 0.5 mg RTBID NEB Last administered on 04/21/19at 08:00; Start 04/18/19 at 08:00 Atorvastatin Calcium (Lipitor) 40 mg QHS PO Last administered on 04/20/19 20:08; Start 04/17/19 at 21:30 Dicyclomine HCl (Bentyl) 20 mg TID PO Last administered on 04/21/19at 13:31; Start 04/17/19 at 21:30 Metoprolol Tartrate (Lopressor) 12.5 mg BID PO Last administered on 04/21/19at 08:38; Start 04/17/19 at 21:30 Influenza Virus Vaccine Quadrival (Afluria Quad 2019-20 (3yr Up) Syringe) 0.5 ml ONCE ONCE VAX IM Last administered on 04/18/19at 10:33; Start 04/18/19 at 09:00; Stop 04/18/19 at 09:01; Status DC Albuterol Sulfate (Ventolin Neb Soln) 2.5 mg RTQID NEB Last administered on 04/21/19at 08:00; Start 04/18/19 at 08:00 Potassium Chloride/Water 100 ml @ 100 mls/hr Q1H IV Last administered on 04/18/19at 12:01; Start 04/18/19 at 08:00; Stop 04/18/19 at 11:59; Status DC Potassium Chloride (Klor-Con) 20 meq 1X ONCE PO Last administered on 04/18/19at 09:14; Start 04/18/19 at 07:45; Stop 04/18/19 at 07:50; Status DC Magnesium Sulfate/ Dextrose 100 ml @ 100 mls/hr 1X ONCE IV Last administered on 04/18/19at 17:16; Start 04/18/19 at 14:45; Stop 04/18/19 at 15:44; Status DC Potassium Chloride/Water 100 ml @ 100 mls/hr Q1H IV Last administered on 04/19/19at 10:00; Start 04/19/19 at 09:00; Stop 04/19/19 at 10:59; Status DC Potassium Chloride (Klor-Con) 40 meq 1X ONCE PO Last administered on 04/19/19at 09:12; Start 04/19/19 at 09:00; Stop 04/19/19 at 09:01; Status DC Mesalamine (Delzicol) 400 mg [id number] PO Last administered on 04/19/19at 11:13; Start 04/19/19 at 11:00; Stop 04/19/19 at 12:01; Status DC Methylprednisolone Sodium Succinate (SOLU-Medrol 125MG VIAL) 125 mg 1X ONCE IV Last administered on 04/19/19at 11:13; Start 04/19/19 at 11:15; Stop 04/19/19 at 11:16; Status DC Mesalamine (Pentasa) 500 mg [id number] PO Last administered on 04/21/19at 12:31; Start 04/19/19 at 13:00 Potassium Chloride/Water 100 ml @ 100 mls/hr Q1H IV Last administered on 04/20/19at 14:34; Start 04/20/19 at 12:00; Stop 04/20/19 at 15:59; Status DC Psyllium Hydrophilic Mucilloid (Metamucil Fiber Packet) 1 pkt QHS PO Last administered on 04/20/19at 20:08; Start 04/20/19 at 21:00 Magnesium Sulfate 100 ml @ 25 mls/hr 1X ONCE IV Last administered on 04/21/19at 12:31; Start 04/21/19 at 11:00; Stop 04/21/19 at 14:59; Status DC Alteplase, Recombinant (Cathflo For Central Catheter Clearance) 1 mg 1X ONCE INT CAT Last administered on 04/21/19at 11:49; Start 04/21/19 at 11:00; Stop 04/21/19 at 11:01; Status DC Potassium Chloride/Water 50 ml @ 50 mls/hr Q1H IV ; Start 04/21/19 at 13:00; Stop 04/21/19 at 14:59; Status UNV Potassium Chloride/Water 100 ml @ 100 mls/hr Q1H IV Last administered on 04/21/19at 14:32; Start 04/21/19 at 14:00; Stop 04/21/19 at 17:59 Active Scripts Active Reported Budesonide 0.5 Mg/2 Ml Ampul.neb 1 Vial NEB BID Albuterol Sulfate Neb Soln (Albuterol Sulfate) 1.25 Mg/3 Ml Vial.neb 1 Vial NEB PRN Q4HRS PRN Albuterol Sulfate Neb Soln (Albuterol Sulfate) 1.25 Mg/3 Ml Vial.neb 1 Vial NEB QID Prochlorperazine Maleate 10 Mg Tablet 10 Mg PO PRN Q4HRS PRN Flonase Allergy Relief (Fluticasone Propionate) 9.9 Ml Sagle.susp 1 Sprays NS DAILY Crestor (Rosuvastatin Calcium) 10 Mg Tablet 10 Mg PO HS Ativan (Lorazepam) 0.5 Mg Tablet 0.5 Mg PO TID Metoprolol Tartrate 25 Mg Tablet 25 Mg PO BID 1/2 tab bid Hydrocodone-Apap 10-325 (Hydrocodone Bit/Acetaminophen) 1 Tab Tablet 1 Tab PO PRN Q6HRS PRN Nystatin 15 Gm Powder 1 Ludin TP BID 7 Days apply to affected area(s) Cyclobenzaprine Hcl 10 Mg Tablet 10 Mg PO TID Trazodone Hcl 100 Mg Tablet 100 Mg PO HS trazodone 100mg 2tabs at bedtime Advair 500-50 Diskus (Fluticasone/Salmeterol) 1 Each Disk.w.dev 1 Inh IH BID Lipitor (Atorvastatin Calcium) 20 Mg Tablet 20 Mg PO HS Bupropion Hcl Sr (Bupropion Hcl) 100 Mg Tablet.er 100 Mg PO BID Fluoxetine Hcl 10 Mg Capsule 2 Cap PO DAILY Proair Hfa Inhaler (Albuterol Sulfate) 8.5 Gm Hfa.aer.ad 2 Puff IH PRN Q4-6HRS Dicyclomine Hcl 20 Mg Tablet 1 Tab PO TID Levothyroxine Sodium 50 Mcg Tablet 1 Tab PO DAILY Vitals/I & O Vital Sign - Last 24 Hours 04/20/19 04/20/19 04/20/19 04/20/19 19:32 20:00 20:09 23:50 Temp 98.2 98.0 98.2 98.0 Pulse 84 84 Resp 14 14 B/P (MAP) 104/53 (70) 104/53 101/61 (74) Pulse Ox 93 92 O2 Delivery Room Air Nasal Cannula Room Air O2 Flow Rate 2.0 04/21/19 04/21/19 04/21/19 04/21/19 03:11 07:03 08:00 08:14 Temp 97.7 98.4 97.7 98.4 Pulse 73 74 Resp 14 14 B/P (MAP) 111/52 (71) 113/53 (73) Pulse Ox 93 93 96 O2 Delivery Room Air Room Air Room Air Room Air 04/21/19 04/21/19 04/21/19 08:38 10:16 14:23 Temp 98.5 98.1 98.5 98.1 Pulse 74 84 80 Resp 14 14 B/P (MAP) 113/53 112/55 (74) 88/61 (70) Pulse Ox 95 91 O2 Delivery Room Air Room Air Intake and Output 04/20/19 04/20/19 04/21/19 15:00 23:00 07:00 Intake Total 500 ml Balance 500 ml Nutrition Consultation Dietary Evaluation: Recommendations by RD: Dietary education by RD, Increase Calorie Intake, Protein supplementation Comments: Increase diet as tolerated, goal diet regular/soft foods REC Ensure clear lunch and dinner REC Ensure (strawberry) w/lunch and dinner when diet advanced past clear liquids Expected Outcomes/Goals: diet advancement Interpretation of weight loss: >10% in 6 months Malnutrition Findings: Food and Nutrition Intake (Sev: <50% est energy req 5days Weight Status: Appropriate ILDA BRITO MD Apr 21, 2019 15:26
[2019-04-21 18:34] VITALS: BP 85/52
[2019-04-21] MEDS: PSYLLIUM HUSK (SUGAR FREE) 1 PKT PACKET PO SCH (21:00)
[2019-04-21] MEDS: traZODone 100 MG TABLET. PO SCH (21:15)
[2019-04-21] MEDS: ATORVASTATIN CALCIUM 40 MG TABLET. PO SCH (21:15)
[2019-04-21 22:29] VITALS: BP 89/50
[2019-04-22 02:20] VITALS: BP 117/56
[2019-04-22] MEDS: LEVOTHYROXINE 50 MCG TABLET PO SCH (05:41)
[2019-04-22 07:00] VITALS: BP 139/63
[2019-04-22 07:19] LABS: CALCIUM 7.8 mg/dL (8.5-10.1); CREATININE 0.7 mg/dL (0.6-1.0); GFR 84.5; MAGNESIUM 2.1 mg/dL (1.8-2.4); POTASSIUM 3.6 mmol/L (3.5-5.1)
[2019-04-22] MEDS: BUDESONIDE 0.5 MG/2 ML NEBU. NEB SCH (08:20)
[2019-04-22] MEDS: ALBUTEROL SULFATE 2.5 MG/3 ML NEBU. NEB SCH ×2 (08:20→11:33)
--- NOTE | 2019-04-22 08:29 | PDOC ---
PROGRESS NOTES Subjective Subjective HPI - f/u of Marginal zone lymphoma ROS - no n/v Objective Objective Vital Signs Date Time Temp Pulse Resp B/P (MAP) Pulse Ox O2 Delivery O2 Flow Rate FiO2 04/22/19 08:20 98 Room Air 04/22/19 07:00 98.2 70 18 139/63 (88) 98.2 04/21/19 19:42 2.0 Intake and Output 04/22/19 07:00 Intake Total 970 ml Output Total 1000 ml Balance -30 ml Intake Oral 670 ml Tube Feeding 300 ml Output Urine Total 1000 ml # Voids 4 # Bowel Movements 3 Physical Exam Heart: Normal S1, Normal S2 General: Alert, Oriented X3 Lungs: Clear to auscultation Neuro: Normal speech Psych/Mental Status: Mental status NL Assessment Assessment Problems Medical Problems: (1) Abdominal pain Status: Acute (2) Asthma Status: Chronic (3) Coffee ground emesis Status: Acute (4) Colon wall thickening Status: Chronic (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 Marginal zone lymphoma diagnosed in 2012, status post splenectomy and rituximab treatments, which were all completed in 2015. No clinical evidence of recurrence. CT scan of the abdomen and pelvis performed on 04/17/2019 does not reveal any evidence of recurrent lymphoma. I would continue routine surveillance. 2. Nausea, vomiting, and coffee-ground emesis. Appreciate GI consultation and management. Improved 3. Crohns disease - management per Dr Valero. She feels better. Comment Review of Relevant I have reviewed the following items lottie (where applicable) has been applied. Labs Laboratory Tests Test 04/21/19 04:45 04/21/19 05:00 04/22/19 06:35 Sodium Level 145 mmol/L (136-145) 147 mmol/L (136-145) Potassium Level 3.1 mmol/L (3.5-5.1) 3.6 mmol/L (3.5-5.1) Chloride Level 111 mmol/L (98-107) 111 mmol/L (98-107) Carbon Dioxide Level 24 mmol/L (21-32) 28 mmol/L (21-32) Anion Gap 10 (6-14) 8 (6-14) Blood Urea Nitrogen 3 mg/dL (7-20) 4 mg/dL (7-20) Creatinine 0.6 mg/dL (0.6-1.0) 0.7 mg/dL (0.6-1.0) Estimated GFR (Cockcroft-Gault) 101.0 84.5 Glucose Level 79 mg/dL (70-99) 87 mg/dL (70-99) Calcium Level 7.8 mg/dL (8.5-10.1) 7.8 mg/dL (8.5-10.1) Magnesium Level 1.4 mg/dL (1.8-2.4) 2.1 mg/dL (1.8-2.4) Phosphorus Level 2.9 mg/dL (2.6-4.7) Laboratory Tests Test 04/22/19 06:35 Sodium Level 147 mmol/L (136-145) Potassium Level 3.6 mmol/L (3.5-5.1) Chloride Level 111 mmol/L (98-107) Carbon Dioxide Level 28 mmol/L (21-32) Anion Gap 8 (6-14) Blood Urea Nitrogen 4 mg/dL (7-20) Creatinine 0.7 mg/dL (0.6-1.0) Estimated GFR (Cockcroft-Gault) 84.5 Glucose Level 87 mg/dL (70-99) Calcium Level 7.8 mg/dL (8.5-10.1) Magnesium Level 2.1 mg/dL (1.8-2.4) Medications Current Medications Famotidine (Pepcid Vial) 20 mg 1X ONCE IVP Last administered on 04/17/19at 14:08; Start 04/17/19 at 13:45; Stop 04/17/19 at 13:46; Status DC Ondansetron HCl (Zofran) 4 mg 1X ONCE IVP Last administered on 04/17/19at 14:08; Start 04/17/19 at 13:45; Stop 04/17/19 at 13:46; Status DC Fentanyl Citrate (Fentanyl 2ml Vial) 50 mcg 1X ONCE IVP Last administered on 04/17/19at 14:09; Start 04/17/19 at 13:45; Stop 04/17/19 at 13:46; Status DC Potassium Citrate (Urocit-K) 40 meq 1X STAT PO ; Start 04/17/19 at 14:38; Stop 04/17/19 at 14:39; Status Cancel Potassium Chloride/Water 100 ml @ 100 mls/hr Q1H IV Last administered on 04/17/19at 16:07; Start 04/17/19 at 15:00; Stop 04/17/19 at 16:59; Status DC Potassium Chloride (Klor-Con) 40 meq 1X ONCE PO Last administered on 04/17/19at 15:00; Start 04/17/19 at 15:00; Stop 04/17/19 at 15:01; Status DC Ondansetron HCl (Zofran) 4 mg PRN Q8HRS PRN IV NAUSEA/VOMITING Last administered on 04/18/19at 09:13; Start 04/17/19 at 16:30; Stop 04/18/19 at 16:29; Status DC Morphine Sulfate (Morphine Sulfate) 4 mg PRN Q2HR PRN IV PAIN; Start 04/17/19 at 16:30; Stop 04/18/19 at 16:29; Status DC Pantoprazole Sodium (PROTONIX VIAL for IV PUSH) 40 mg DAILYAC IVP Last administered on 04/21/19at 08:38; Start 04/18/19 at 07:30 Sodium Chloride (Normal Saline Flush) 3 ml QSHIFT PRN IV AFTER MEDS AND BLOOD DRAWS; Start 04/17/19 at 20:30 Sodium Chloride 1,000 ml @ 100 mls/hr Q10H IV Last administered on 04/20/19at 07:53; Start 04/17/19 at 20:19; Stop 04/20/19 at 15:53; Status DC Ondansetron HCl (Zofran) 4 mg PRN Q4HRS PRN IV NAUSEA/VOMITING Last administered on 04/18/19at 21:00; Start 04/17/19 at 20:30 Acetaminophen (Tylenol) 650 mg PRN Q4HRS PRN PO TEMP OVER 100.4F OR MILD PAIN; Start 04/17/19 at 20:30 Al Hydroxide/Mg Hydroxide (Mylanta Plus Xs) 30 ml PRN DAILY PRN PO HEARTBURN / GAS; Start 04/17/19 at 20:30 Clonidine HCl (Catapres) 0.1 mg PRN Q6HRS PRN PO SBP>160 OR DBP>90; Start 04/17/19 at 20:30 Docusate Sodium (Colace) 100 mg PRN BID PRN PO CONSTIPATION Last administered on 04/20/19 13:54; Start 04/17/19 at 20:30 Albuterol Sulfate (Ventolin Neb Soln) 2.5 mg PRN Q4HRS PRN NEB SHORTNESS OF BREATH; Start 04/17/19 at 20:30 Guaifenesin (Robitussin) 200 mg PRN Q4HRS PRN PO COUGH; Start 04/17/19 at 20:30 Lorazepam (Ativan) 0.5 mg PRN Q4HRS PRN PO ANXIETY / AGITATION Last administered on 04/20/19 03:46; Start 04/17/19 at 20:30 Atorvastatin Calcium (Lipitor) 20 mg HS PO ; Start 04/17/19 at 21:00; Stop 04/17/19 at 21:17; Status DC Bupropion HCl (Wellbutrin Sr) 100 mg BID PO Last administered on 04/21/19 21:15; Start 04/17/19 at 21:00 Cyclobenzaprine HCl (Flexeril) 10 mg TID PO Last administered on 04/21/19 21:15; Start 04/17/19 at 21:00 Fluoxetine HCl (PROzac) 20 mg DAILY PO Last administered on 04/21/19 08:38; Start 04/18/19 at 09:00 Fluticasone Propionate (Flonase) 1 spray DAILY NS Last administered on 04/21/19 08:37; Start 04/18/19 at 09:00 Furosemide (Lasix) 40 mg DAILY PO ; Start 04/18/19 at 09:00; Stop 04/18/19 at 03:09; Status DC Acetaminophen/ Hydrocodone Bitart (Lortab 10/325) 1 tab PRN Q6HRS PRN PO MODERATE PAIN Last administered on 04/21/19 11:49; Start 04/17/19 at 21:00 Levothyroxine Sodium (Synthroid) 50 mcg DAILY06 PO Last administered on 04/22/19 05:41; Start 04/18/19 at 06:00 Lorazepam (Ativan) 0.5 mg TID PO Last administered on 04/21/19 21:15; Start 04/17/19 at 21:00 Metoprolol Tartrate (Lopressor) 25 mg BID PO ; Start 04/17/19 at 21:00; Stop 04/17/19 at 21:28; Status DC Nystatin (Nystop) 1 ludin BID TP Last administered on 04/21/19at 21:17; Start 04/17/19 at 21:00 Prochlorperazine Maleate (Compazine) 10 mg PRN Q4HRS PRN PO NAUSEA/VOMITING; Start 04/17/19 at 21:00 Trazodone HCl (Desyrel) 100 mg HS PO Last administered on 04/21/19 21:15; Start 04/17/19 at 21:00 Albuterol Sulfate (Ventolin Neb Soln) 2.5 mg Q4HRS NEB ; Start 04/17/19 at 21:30; Stop 04/18/19 at 05:32; Status DC Non-Formulary Medication (Albuterol Sulfate (Albuterol Sulfate Neb Soln)) 1 vial TID NEB ; Start 04/17/19 at 21:00; Stop 04/17/19 at 21:20; Status DC Dicyclomine HCl (Bentyl) 10 mg TID PO ; Start 04/17/19 at 21:30; Stop 04/17/19 at 21:19; Status DC Non-Formulary Medication (Fluticasone Propionate (Flonase Allergy Relief)) 1 sprays DAILY NS ; Start 04/18/19 at 09:00; Stop 04/17/19 at 21:20; Status DC Budesonide (Pulmicort) 0.5 mg RTBID NEB Last administered on 04/22/19at 08:20; Start 04/18/19 at 08:00 Atorvastatin Calcium (Lipitor) 40 mg QHS PO Last administered on 04/21/19 21:15; Start 04/17/19 at 21:30 Dicyclomine HCl (Bentyl) 20 mg TID PO Last administered on 04/21/19 21:15; Start 04/17/19 at 21:30 Metoprolol Tartrate (Lopressor) 12.5 mg BID PO Last administered on 04/21/19 21:17; Start 04/17/19 at 21:30 Influenza Virus Vaccine Quadrival (Afluria Quad 2019-20 (3yr Up) Syringe) 0.5 ml ONCE ONCE VAX IM Last administered on 04/18/19at 10:33; Start 04/18/19 at 09:00; Stop 04/18/19 at 09:01; Status DC Albuterol Sulfate (Ventolin Neb Soln) 2.5 mg RTQID NEB Last administered on 04/22/19at 08:20; Start 04/18/19 at 08:00 Potassium Chloride/Water 100 ml @ 100 mls/hr Q1H IV Last administered on 04/18/19at 12:01; Start 04/18/19 at 08:00; Stop 04/18/19 at 11:59; Status DC Potassium Chloride (Klor-Con) 20 meq 1X ONCE PO Last administered on 04/18/19at 09:14; Start 04/18/19 at 07:45; Stop 04/18/19 at 07:50; Status DC Magnesium Sulfate/ Dextrose 100 ml @ 100 mls/hr 1X ONCE IV Last administered on 04/18/19at 17:16; Start 04/18/19 at 14:45; Stop 04/18/19 at 15:44; Status DC Potassium Chloride/Water 100 ml @ 100 mls/hr Q1H IV Last administered on 04/19/19at 10:00; Start 04/19/19 at 09:00; Stop 04/19/19 at 10:59; Status DC Potassium Chloride (Klor-Con) 40 meq 1X ONCE PO Last administered on 04/19/19at 09:12; Start 04/19/19 at 09:00; Stop 04/19/19 at 09:01; Status DC Mesalamine (Delzicol) 400 mg [id number] PO Last administered on 04/19/19at 11:13; Start 04/19/19 at 11:00; Stop 04/19/19 at 12:01; Status DC Methylprednisolone Sodium Succinate (SOLU-Medrol 125MG VIAL) 125 mg 1X ONCE IV Last administered on 04/19/19at 11:13; Start 04/19/19 at 11:15; Stop 04/19/19 at 11:16; Status DC Mesalamine (Pentasa) 500 mg [id number] PO Last administered on 04/21/19at 21:15; Start 04/19/19 at 13:00 Potassium Chloride/Water 100 ml @ 100 mls/hr Q1H IV Last administered on 04/20at 14:34; Start 04/20/19 at 12:00; Stop 04/20/19 at 15:59; Status DC Psyllium Hydrophilic Mucilloid (Metamucil Fiber Packet) 1 pkt QHS PO Last administered on 04/20/19at 20:08; Start 04/20/19 at 21:00 Magnesium Sulfate 100 ml @ 25 mls/hr 1X ONCE IV Last administered on 04/21/19at 12:31; Start 04/21/19 at 11:00; Stop 04/21/19 at 14:59; Status DC Alteplase, Recombinant (Cathflo For Central Catheter Clearance) 1 mg 1X ONCE INT CAT Last administered on 04/21/19at 11:49; Start 04/21/19 at 11:00; Stop at 11:01; Status DC Potassium Chloride/Water 50 ml @ 50 mls/hr Q1H IV ; Start 04/21/19 at 13:00; Stop 04/21/19 at 14:59; Status UNV Potassium Chloride/Water 100 ml @ 100 mls/hr Q1H IV Last administered on 04/21/19at 16:35; Start 04/21/19 at 14:00; Stop 04/21/19 at 17:59; Status DC Active Scripts Active Reported Budesonide 0.5 Mg/2 Ml Ampul.neb 1 Vial NEB BID Albuterol Sulfate Neb Soln (Albuterol Sulfate) 1.25 Mg/3 Ml Vial.neb 1 Vial NEB PRN Q4HRS PRN Albuterol Sulfate Neb Soln (Albuterol Sulfate) 1.25 Mg/3 Ml Vial.neb 1 Vial NEB QID Prochlorperazine Maleate 10 Mg Tablet 10 Mg PO PRN Q4HRS PRN Flonase Allergy Relief (Fluticasone Propionate) 9.9 Ml [place].susp 1 Sprays NS DAILY Crestor (Rosuvastatin Calcium) 10 Mg Tablet 10 Mg PO HS Ativan (Lorazepam) 0.5 Mg Tablet 0.5 Mg PO TID Metoprolol Tartrate 25 Mg Tablet 25 Mg PO BID 1/2 tab bid Hydrocodone-Apap 10-325 (Hydrocodone Bit/Acetaminophen) 1 Tab Tablet 1 Tab PO PRN Q6HRS PRN Nystatin 15 Gm Powder 1 Ludin TP BID 7 Days apply to affected area(s) Cyclobenzaprine Hcl 10 Mg Tablet 10 Mg PO TID Trazodone Hcl 100 Mg Tablet 100 Mg PO HS trazodone 100mg 2tabs at bedtime Advair 500-50 Diskus (Fluticasone/Salmeterol) 1 Each Disk.w.dev 1 Inh IH BID Lipitor (Atorvastatin Calcium) 20 Mg Tablet 20 Mg PO HS Bupropion Hcl Sr (Bupropion Hcl) 100 Mg Tablet.er 100 Mg PO BID Fluoxetine Hcl 10 Mg Capsule 2 Cap PO DAILY Proair Hfa Inhaler (Albuterol Sulfate) 8.5 Gm Hfa.aer.ad 2 Puff IH PRN Q4-6HRS Dicyclomine Hcl 20 Mg Tablet 1 Tab PO TID Levothyroxine Sodium 50 Mcg Tablet 1 Tab PO DAILY Vitals/I & O Vital Sign - Last 24 Hours 04/21/19 04/21/19 04/21/19 04/21/19 08:38 10:16 14:23 18:34 Temp 98.5 98.1 98.8 98.5 98.1 98.8 Pulse 74 84 80 81 Resp 14 14 14 B/P (MAP) 113/53 112/55 (74) 88/61 (70) 85/52 (63) Pulse Ox 95 91 94 O2 Delivery Room Air Room Air Room Air 04/21/19 04/21/19 04/21/19 04/22/19 19:42 21:17 22:29 02:20 Temp 98.1 97.8 98.1 97.8 Pulse 76 77 Resp 14 14 B/P (MAP) 97/52 89/50 (63) 117/56 (76) Pulse Ox 93 97 O2 Delivery Nasal Cannula Room Air Room Air O2 Flow Rate 2.0 04/22/19 04/22/19 07:00 08:20 Temp 98.2 98.2 Pulse 70 Resp 18 B/P (MAP) 139/63 (88) Pulse Ox 96 98 O2 Delivery Room Air Room Air Intake and Output 04/21/19 04/21/19 04/22/19 15:00 23:00 07:00 Intake Total 500 ml 350 ml 120 ml Output Total 350 ml 650 ml Balance 150 ml -300 ml 120 ml Nutrition Consultation Dietary Evaluation: Recommendations by RD: Dietary education by RD, Increase Calorie Intake, Protein supplementation Comments: Increase diet as tolerated, goal diet regular/soft foods REC Ensure clear lunch and dinner REC Ensure (strawberry) w/lunch and dinner when diet advanced past clear liquids Expected Outcomes/Goals: diet advancement Interpretation of weight loss: >10% in 6 months Malnutrition Findings: Food and Nutrition Intake (Sev: <50% est energy req 5days Weight Status: Appropriate ILDA BRITO MD Apr 22, 2019 08:29
[2019-04-22] MEDS: FLUTICASONE 50MCG/NASAL SPRAY 16GM BOTTLE. NS SCH (08:35)
[2019-04-22] MEDS: LORazepam 0.5 MG TABLET PO SCH ×2 (08:35→13:28)
[2019-04-22] MEDS: buPROPion SR 100 MG TABLET.SA. PO SCH (08:35)
[2019-04-22] MEDS: CYCLOBENZAPRINE 10 MG TABLET. PO SCH ×2 (08:36→13:27)
[2019-04-22] MEDS: DICYCLOMINE HCL 10 MG CAPSULE PO SCH ×2 (08:36→13:27)
[2019-04-22] MEDS: NYSTATIN TOPICAL POWDER 15GM BOTTLE. TP SCH (08:36)
[2019-04-22] MEDS: FLUoxetine HCL 20 MG CAPSULE PO SCH (08:36)
[2019-04-22] MEDS: MESALAMINE ER 250 MG CAPSULE.ER PO SCH ×2 (08:36→13:27)
[2019-04-22] MEDS: METOPROLOL TART IMMED RELEASE 25 MG TABLET. PO SCH (08:36)
[2019-04-22] MEDS: HYDROcodone/APAP 10/325 1 TAB TABLET PO PRN (08:39)
--- NOTE | 2019-04-22 08:59 | PDOC ---
PROGRESS NOTES Chief Complaint Chief Complaint A/P: Colitis, may be infectious or inflammatory in etiology. Likely with gastroenteritis. 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 These are age indeterminant Intractable vomiting UGI BLEED, Gastritis vs PUD, ON FREQ NSAIDS SEVERE HYPOKALEMIA HTN HLD COPD hypothyroidism Follicular lymphoma (s/p chemotherapy, radiation therapies, splenectomy) Seizures Anxiety with depression Bipolar disorder GERD Plan: Clear liquid diet Consult GI Replace K, check mag 34 minutes time History of Present Illness History of Present Illness Ms Kahn is a 62yo F w/ PMHx depression with HTN, HLD, COPD, hypothyroidism, Follicular lymphoma (s/p chemotherapy, radiation therapies, splenectomy), Seizures, Anxiety with depression, bipolar disorder, GERD, hypothyroidism who presents to the ED complaining of vomiting coffee ground emesis for one week. Patient is also complaining of 10 out of 10 sharp intermittent generalized abdominal pain one week. Denies any diarrhea. She states she had a normal bowel movement yesterday. Denies any chest pain, shortness of breath. Denies being on any chemotherapy drugs CT abdomen shows concern for colitis of sigmoid colon and rectum and L5 and T12 vertebral height loss. K was 2.3, admitted for further treatment. 04/17: She is feeling better, but K still 2.8, mag level pending. She is tolerating clear liquid diet ok. 04/20: K is 3.3 today. Still having abdominal pain and jelly stools. Worried about having bowel surgery like her family members. She is feeling a bit stronger after starting treatment for crohns. 04/21: K is 3.1 today despite replacement. Mag low at 1.4. She is requesting port access as it has not been accessed or flushed in 8 months. Bowel movements still hard Feeling much better today, electrolytes normalizing. She is anxious for d/c. Very deconditioned, needs home health. Vitals Vitals Vital Signs Date Time Temp Pulse Resp B/P (MAP) Pulse Ox O2 Delivery O2 Flow Rate FiO2 04/22/19 08:39 98 Room Air 04/22/19 08:36 70 139/63 04/22/19 07:00 98.2 18 98.2 04/21/19 19:42 2.0 Physical Exam General: Alert, Oriented X3 Heart: Normal S1, Normal S2 Lungs: Clear, Other Abdomen: Normal bowel sounds, Soft Extremities: No clubbing, No cyanosis Skin: No rashes, No breakdown Labs LABS Laboratory Tests Test 04/22/19 06:35 Sodium Level 147 mmol/L (136-145) Potassium Level 3.6 mmol/L (3.5-5.1) Chloride Level 111 mmol/L (98-107) Carbon Dioxide Level 28 mmol/L (21-32) Anion Gap 8 (6-14) Blood Urea Nitrogen 4 mg/dL (7-20) Creatinine 0.7 mg/dL (0.6-1.0) Estimated GFR (Cockcroft-Gault) 84.5 Glucose Level 87 mg/dL (70-99) Calcium Level 7.8 mg/dL (8.5-10.1) Magnesium Level 2.1 mg/dL (1.8-2.4) Assessment and Plan Assessmemt and Plan Problems Medical Problems: (1) Abdominal pain Status: Acute (2) Asthma Status: Chronic (3) Coffee ground emesis Status: Acute (4) Colon wall thickening Status: Chronic (5) Compression deformity of vertebra Status: Chronic (6) Hypokalemia Status: Acute (7) UGI bleed Status: Chronic (8) Vomiting Status: Acute Comment Review of Relevant I have reviewed the following items lottie (where applicable) has been applied. Labs Laboratory Tests Test 04/21/19 04:45 04/21/19 05:00 04/22/19 06:35 Sodium Level 145 mmol/L (136-145) 147 mmol/L (136-145) Potassium Level 3.1 mmol/L (3.5-5.1) 3.6 mmol/L (3.5-5.1) Chloride Level 111 mmol/L (98-107) 111 mmol/L (98-107) Carbon Dioxide Level 24 mmol/L (21-32) 28 mmol/L (21-32) Anion Gap 10 (6-14) 8 (6-14) Blood Urea Nitrogen 3 mg/dL (7-20) 4 mg/dL (7-20) Creatinine 0.6 mg/dL (0.6-1.0) 0.7 mg/dL (0.6-1.0) Estimated GFR (Cockcroft-Gault) 101.0 84.5 Glucose Level 79 mg/dL (70-99) 87 mg/dL (70-99) Calcium Level 7.8 mg/dL (8.5-10.1) 7.8 mg/dL (8.5-10.1) Magnesium Level 1.4 mg/dL (1.8-2.4) 2.1 mg/dL (1.8-2.4) Phosphorus Level 2.9 mg/dL (2.6-4.7) Laboratory Tests Test 04/22/19 06:35 Sodium Level 147 mmol/L (136-145) Potassium Level 3.6 mmol/L (3.5-5.1) Chloride Level 111 mmol/L (98-107) Carbon Dioxide Level 28 mmol/L (21-32) Anion Gap 8 (6-14) Blood Urea Nitrogen 4 mg/dL (7-20) Creatinine 0.7 mg/dL (0.6-1.0) Estimated GFR (Cockcroft-Gault) 84.5 Glucose Level 87 mg/dL (70-99) Calcium Level 7.8 mg/dL (8.5-10.1) Magnesium Level 2.1 mg/dL (1.8-2.4) Medications Current Medications Famotidine (Pepcid Vial) 20 mg 1X ONCE IVP Last administered on 04/17/19at 14:08; Start 04/17/19 at 13:45; Stop 04/17/19 at 13:46; Status DC Ondansetron HCl (Zofran) 4 mg 1X ONCE IVP Last administered on 04/17/19at 14:08; Start 04/17/19 at 13:45; Stop 04/17/19 at 13:46; Status DC Fentanyl Citrate (Fentanyl 2ml Vial) 50 mcg 1X ONCE IVP Last administered on 04/17/19at 14:09; Start 04/17/19 at 13:45; Stop 04/17/19 at 13:46; Status DC Potassium Citrate (Urocit-K) 40 meq 1X STAT PO ; Start 04/17/19 at 14:38; Stop 04/17/19 at 14:39; Status Cancel Potassium Chloride/Water 100 ml @ 100 mls/hr Q1H IV Last administered on 1 at 16:07; Start 04/17/19 at 15:00; Stop 04/17/19 at 16:59; Status DC Potassium Chloride (Klor-Con) 40 meq 1X ONCE PO Last administered on 04/17/19at 15:00; Start 04/17/19 at 15:00; Stop 04/17/19 at 15:01; Status DC Ondansetron HCl (Zofran) 4 mg PRN Q8HRS PRN IV NAUSEA/VOMITING Last administered on 04/18/19at 09:13; Start 04/17/19 at 16:30; Stop 04/18/19 at 16:29; Status DC Morphine Sulfate (Morphine Sulfate) 4 mg PRN Q2HR PRN IV PAIN; Start 04/17/19 at 16:30; Stop 04/18/19 at 16:29; Status DC Pantoprazole Sodium (PROTONIX VIAL for IV PUSH) 40 mg DAILYAC IVP Last administered on 04/21/19at 08:38; Start 04/18/19 at 07:30 Sodium Chloride (Normal Saline Flush) 3 ml QSHIFT PRN IV AFTER MEDS AND BLOOD DRAWS; Start 04/17/19 at 20:30 Sodium Chloride 1,000 ml @ 100 mls/hr Q10H IV Last administered on 04/20/19at 07:53; Start 04/17/19 at 20:19; Stop 04/20/19 at 15:53; Status DC Ondansetron HCl (Zofran) 4 mg PRN Q4HRS PRN IV NAUSEA/VOMITING Last administered on 04/18/19at 21:00; Start 04/17/19 at 20:30 Acetaminophen (Tylenol) 650 mg PRN Q4HRS PRN PO TEMP OVER 100.4F OR MILD PAIN; Start 04/17/19 at 20:30 Al Hydroxide/Mg Hydroxide (Mylanta Plus Xs) 30 ml PRN DAILY PRN PO HEARTBURN / GAS; Start 04/17/19 at 20:30 Clonidine HCl (Catapres) 0.1 mg PRN Q6HRS PRN PO SBP>160 OR DBP>90; Start 04/17/19 at 20:30 Docusate Sodium (Colace) 100 mg PRN BID PRN PO CONSTIPATION Last administered on 04/20/19at 13:54; Start 04/17/19 at 20:30 Albuterol Sulfate (Ventolin Neb Soln) 2.5 mg PRN Q4HRS PRN NEB SHORTNESS OF BREATH; Start 04/17/19 at 20:30 Guaifenesin (Robitussin) 200 mg PRN Q4HRS PRN PO COUGH; Start 04/17/19 at 20:30 Lorazepam (Ativan) 0.5 mg PRN Q4HRS PRN PO ANXIETY / AGITATION Last administered on 04/20/19 03:46; Start 04/17/19 at 20:30 Atorvastatin Calcium (Lipitor) 20 mg HS PO ; Start 04/17/19 at 21:00; Stop 04/17/19 at 21:17; Status DC Bupropion HCl (Wellbutrin Sr) 100 mg BID PO Last administered on 04/22/19 08:35; Start 04/17/19 at 21:00 Cyclobenzaprine HCl (Flexeril) 10 mg TID PO Last administered on 04/22/19 08:36; Start 04/17/19 at 21:00 Fluoxetine HCl (PROzac) 20 mg DAILY PO Last administered on 04/22/19 08:36; Start 04/18/19 at 09:00 Fluticasone Propionate (Flonase) 1 spray DAILY NS Last administered on 04/22/19 08:35; Start 04/18/19 at 09:00 Furosemide (Lasix) 40 mg DAILY PO ; Start 04/18/19 at 09:00; Stop 04/18/19 at 03:09; Status DC Acetaminophen/ Hydrocodone Bitart (Lortab 10/325) 1 tab PRN Q6HRS PRN PO MODERATE PAIN Last administered on 04/22/19 08:39; Start 04/17/19 at 21:00 Levothyroxine Sodium (Synthroid) 50 mcg DAILY06 PO Last administered on 04/22/19 05:41; Start 04/18/19 at 06:00 Lorazepam (Ativan) 0.5 mg TID PO Last administered on 04/22/19 08:35; Start 04/17/19 at 21:00 Metoprolol Tartrate (Lopressor) 25 mg BID PO ; Start 04/17/19 at 21:00; Stop 04/17/19 at 21:28; Status DC Nystatin (Nystop) 1 ludin BID TP Last administered on 11/4/19at 08:36; Start 04/17/19 at 21:00 Prochlorperazine Maleate (Compazine) 10 mg PRN Q4HRS PRN PO NAUSEA/VOMITING; Start 04/17/19 at 21:00 Trazodone HCl (Desyrel) 100 mg HS PO Last administered on 04/21/19at 21:15; Start 04/17/19 at 21:00 Albuterol Sulfate (Ventolin Neb Soln) 2.5 mg Q4HRS NEB ; Start 04/17/19 at 21:30; Stop 04/18/19 at 05:32; Status DC Non-Formulary Medication (Albuterol Sulfate (Albuterol Sulfate Neb Soln)) 1 vial TID NEB ; Start 04/17/19 at 21:00; Stop 04/17/19 at 21:20; Status DC Dicyclomine HCl (Bentyl) 10 mg TID PO ; Start 04/17/19 at 21:30; Stop 04/17/19 at 21:19; Status DC Non-Formulary Medication (Fluticasone Propionate (Flonase Allergy Relief)) 1 sprays DAILY NS ; Start 04/18/19 at 09:00; Stop 04/17/19 at 21:20; Status DC Budesonide (Pulmicort) 0.5 mg RTBID NEB Last administered on 04/22/19at 08:20; Start 04/18/19 at 08:00 Atorvastatin Calcium (Lipitor) 40 mg QHS PO Last administered on 04/21/19at 21:15; Start 04/17/19 at 21:30 Dicyclomine HCl (Bentyl) 20 mg TID PO Last administered on 04/22/19at 08:36; Start 04/17/19 at 21:30 Metoprolol Tartrate (Lopressor) 12.5 mg BID PO Last administered on 04/22/19 08:36; Start 04/17/19 at 21:30 Influenza Virus Vaccine Quadrival (Afluria Quad 2019-20 (3yr Up) Syringe) 0.5 ml ONCE ONCE VAX IM Last administered on 04/18/19at 10:33; Start 04/18/19 at 09:00; Stop 04/18/19 at 09:01; Status DC Albuterol Sulfate (Ventolin Neb Soln) 2.5 mg RTQID NEB Last administered on 04/22/19at 08:20; Start 04/18/19 at 08:00 Potassium Chloride/Water 100 ml @ 100 mls/hr Q1H IV Last administered on 04/18/19at 12:01; Start 04/18/19 at 08:00; Stop 04/18/19 at 11:59; Status DC Potassium Chloride (Klor-Con) 20 meq 1X ONCE PO Last administered on 04/18/19at 09:14; Start 04/18/19 at 07:45; Stop 04/18/19 at 07:50; Status DC Magnesium Sulfate/ Dextrose 100 ml @ 100 mls/hr 1X ONCE IV Last administered on 04/18/19at 17:16; Start 04/18/19 at 14:45; Stop 04/18/19 at 15:44; Status DC Potassium Chloride/Water 100 ml @ 100 mls/hr Q1H IV Last administered on 04/19/19at 10:00; Start 04/19/19 at 09:00; Stop 04/19/19 at 10:59; Status DC Potassium Chloride (Klor-Con) 40 meq 1X ONCE PO Last administered on 04/19/19at 09:12; Start 04/19/19 at 09:00; Stop 04/19/19 at 09:01; Status DC Mesalamine (Delzicol) 400 mg [id number] PO Last administered on 04/19/19at 11:13; Start 04/19/19 at 11:00; Stop 04/19/19 at 12:01; Status DC Methylprednisolone Sodium Succinate (SOLU-Medrol 125MG VIAL) 125 mg 1X ONCE IV Last administered on 04/19/19at 11:13; Start 04/19/19 at 11:15; Stop 04/19/19 at 11:16; Status DC Mesalamine (Pentasa) 500 mg [id number] PO Last administered on 04/22/19at 08:36; Start 04/19/19 at 13:00 Potassium Chloride/Water 100 ml @ 100 mls/hr Q1H IV Last administered on 04/20/19at 14:34; Start 04/20/19 at 12:00; Stop 04/20/19 at 15:59; Status DC Psyllium Hydrophilic Mucilloid (Metamucil Fiber Packet) 1 pkt QHS PO Last administered on 04/20/19at 20:08; Start 04/20/19 at 21:00 Magnesium Sulfate 100 ml @ 25 mls/hr 1X ONCE IV Last administered on 04/21/19at 12:31; Start 04/21/19 at 11:00; Stop 04/21/19 at 14:59; Status DC Alteplase, Recombinant (Cathflo For Central Catheter Clearance) 1 mg 1X ONCE INT CAT Last administered on 04/21/19at 11:49; Start 04/21/19 at 11:00; Stop 04/21/19 at 11:01; Status DC Potassium Chloride/Water 50 ml @ 50 mls/hr Q1H IV ; Start 04/21/19 at 13:00; Stop 04/21/19 at 14:59; Status UNV Potassium Chloride/Water 100 ml @ 100 mls/hr Q1H IV Last administered on 04/21/19at 16:35; Start 04/21/19 at 14:00; Stop 04/21/19 at 17:59; Status DC Active Scripts Active Reported Budesonide 0.5 Mg/2 Ml Ampul.neb 1 Vial NEB BID Albuterol Sulfate Neb Soln (Albuterol Sulfate) 1.25 Mg/3 Ml Vial.neb 1 Vial NEB PRN Q4HRS PRN Albuterol Sulfate Neb Soln (Albuterol Sulfate) 1.25 Mg/3 Ml Vial.neb 1 Vial NEB QID Prochlorperazine Maleate 10 Mg Tablet 10 Mg PO PRN Q4HRS PRN Flonase Allergy Relief (Fluticasone Propionate) 9.9 Ml [place].susp 1 Sprays NS DAILY Crestor (Rosuvastatin Calcium) 10 Mg Tablet 10 Mg PO HS Ativan (Lorazepam) 0.5 Mg Tablet 0.5 Mg PO TID Metoprolol Tartrate 25 Mg Tablet 25 Mg PO BID 1/2 tab bid Hydrocodone-Apap 10-325 (Hydrocodone Bit/Acetaminophen) 1 Tab Tablet 1 Tab PO PRN Q6HRS PRN Nystatin 15 Gm Powder 1 Lud[place] TP BID 7 Days apply to affected area(s) Cyclobenzaprine Hcl 10 Mg Tablet 10 Mg PO TID Trazodone Hcl 100 Mg Tablet 100 Mg PO HS trazodone 100mg 2tabs at bedtime Advair 500-50 Diskus (Fluticasone/Salmeterol) 1 Each Disk.w.dev 1 Inh IH BID Lipitor (Atorvastatin Calcium) 20 Mg Tablet 20 Mg PO HS Bupropion Hcl Sr (Bupropion Hcl) 100 Mg Tablet.er 100 Mg PO BID Fluoxetine Hcl 10 Mg Capsule 2 Cap PO DAILY Proair Hfa Inhaler (Albuterol Sulfate) 8.5 Gm Hfa.aer.ad 2 Puff IH PRN Q4-6HRS Dicyclomine Hcl 20 Mg Tablet 1 Tab PO TID Levothyroxine Sodium 50 Mcg Tablet 1 Tab PO DAILY Vitals/I & O Vital Sign - Last 24 Hours 04/21/19 04/21/19 04/21/19 04/21/19 10:16 14:23 18:34 19:42 Temp 98.5 98.1 98.8 98.5 98.1 98.8 Pulse 84 80 81 Resp 14 14 14 B/P (MAP) 112/55 (74) 88/61 (70) 85/52 (63) Pulse Ox 95 91 94 O2 Delivery Room Air Room Air Room Air Nasal Cannula O2 Flow Rate 2.0 04/21/19 04/21/19 04/22/19 04/22/19 21:17 22:29 02:20 07:00 Temp 98.1 97.8 98.2 98.1 97.8 98.2 Pulse 76 77 70 Resp 14 14 18 B/P (MAP) 97/52 89/50 (63) 117/56 (76) 139/63 (88) Pulse Ox 93 97 96 O2 Delivery Room Air Room Air Room Air 04/22/19 04/22/19 04/22/19 08:20 08:36 08:39 Pulse 70 B/P (MAP) 139/63 Pulse Ox 98 98 O2 Delivery Room Air Room Air Intake and Output 04/21/19 04/21/19 04/22/19 15:00 23:00 07:00 Intake Total 500 ml 350 ml 120 ml Output Total 350 ml 650 ml Balance 150 ml -300 ml 120 ml Nutrition Consultation Dietary Evaluation: Recommendations by RD: Dietary education by RD, Increase Calorie Intake, Protein supplementation Comments: Increase diet as tolerated, goal diet regular/soft foods REC Ensure clear lunch and dinner REC Ensure (strawberry) w/lunch and dinner when diet advanced past clear liquids Expected Outcomes/Goals: diet advancement Interpretation of weight loss: >10% in 6 months Malnutrition Findings: Food and Nutrition Intake (Sev: <50% est energy req 5days Weight Status: Appropriate SANDRA ALLEN MD Apr 22, 2019 08:59
[2019-04-22] MEDS ORDERED: POTASSIUM CHLORIDE 20 MEQ TABLET.ER. PO SCH (09:00)
[2019-04-22] MEDS ORDERED: POTASSIUM CHL 20MEQ PREMIX 50 ML IV ONE (10:00)
[2019-04-22 11:00] VITALS: BP 109/58
[2019-04-22] MEDS ORDERED: NALO25TA2 PO (12:42)
[2019-04-22] MEDS ORDERED: MESA250C PO (12:42)
[2019-04-22] MEDS ORDERED: PANT40TA77 PO (12:42)
--- NOTE | 2019-04-22 12:45 | SNU/HH DC ---
DISCHARGE WITH HOME HEALTH DISCHARGE INFORMATION: Discharge Date: Apr 22, 2019 Final Diagnosis: Problems Medical Problems: (1) Abdominal pain Status: Acute (2) Asthma Status: Chronic (3) Coffee ground emesis Status: Acute (4) Colon wall thickening Status: Chronic (5) Compression deformity of vertebra Status: Chronic (6) Hypokalemia Status: Acute (7) UGI bleed Status: Chronic (8) Vomiting Status: Acute Condition on Discharge: Stable CODE STATUS: Code Status: Full HOME HEALTH: Face to Face: I certify this patient is under my care and that I, or a nurse practitioner or physician's medical assistant internal medicine working with me, had a face to face encounter that meets the physician face to face encounter requirements with this patient on 04/22/19. Medical Complications: DJD, Falls Snf For: Assess/Skilled Observatio, Medication Management RN For Eval/Treatment: Yes Physical Therapy For: Evalulation/Treatment Occupational Therapy For: Evaluation/Treatment Pt Meets Homebound Status: Extreme weakness w/ amb., Frequent falls w/ injury POST DISCHARGE ORDERS: Activity Instructions for Disc: Activity as tolerated Weight Bearing Status after Di: As tolerated Bathing Instructions: Shower-keep dressing dry DIET AFTER DISCHARGE: Cardiac Wound/Incision Care: Ice to area for comfort CHECKS AFTER DISCHARGE: Checks after discharge: Check blood press - daily TREATMENT/EQUIPMENT ORDERS: Adaptive Equipment Issued: Wheelchair CERTIFICATION STATEMENT: Certification Statement: Certification Statement: Based on the above finding, I certify that this patient is confined to the home and needs intermittent prison care, physical therapy and/or speech therapy, or continues to need occupational therapy.~ This patient is under my care, and I have initiated the establishment of the plan of care.~ This patient will be followed by myself or a community physician who will periodically review the plan of care. Home Meds Active Scripts Naloxegol Oxalate (Movantik) 25 Mg Tablet, 25 MG PO PRN DAILY PRN for CONSTIPATION for 30 Days, #30 TAB 2 Refills Prov:SANDRA ALLEN MD 04/22/19 Pantoprazole Sodium (PROTONIX ) 40 Mg Tablet.dr, 40 MG PO DAILYAC for GERD for 30 Days, #30 TAB Prov:SANDRA ALLEN MD 04/22/19 Mesalamine (PENTASA) 250 Mg Capsule.er, 500 MG PO [id number] for Crohns for 30 Days, #120 CAP.SR Prov:SANDRA ALLEN MD 04/22/19 Reported Medications Budesonide (BUDESONIDE) 0.5 Mg/2 Ml Ampul.neb, 1 VIAL NEB BID for sob, #120 ML 3 Refills 04/17/19 Albuterol Sulfate (ALBUTEROL SULFATE NEB SOLN) 1.25 Mg/3 Ml Vial.neb, 1 VIAL NEB PRN Q4HRS PRN for SHORTNESS OF BREATH, #150 ML 04/17/19 Albuterol Sulfate (ALBUTEROL SULFATE NEB SOLN) 1.25 Mg/3 Ml Vial.neb, 1 VIAL NEB QID for inhalation, #150 ML 04/17/19 Prochlorperazine Maleate (PROCHLORPERAZINE MALEATE) 10 Mg Tablet, 10 MG PO PRN Q4HRS PRN for NAUSEA/VOMITING, TAB 04/17/19 Fluticasone Propionate (Flonase Allergy Relief) 9.9 Ml [place].susp, 1 SPRAYS NS DAILY for allergy, BOTTLE 04/17/19 Rosuvastatin Calcium (CRESTOR) 10 Mg Tablet, 10 MG PO HS for FOR CHOLESTEROL, #30 TAB 0 Refills 04/17/19 Lorazepam (ATIVAN) 0.5 Mg Tablet, 0.5 MG PO TID for anxiety, TAB 04/17/19 Metoprolol Tartrate (METOPROLOL TARTRATE) 25 Mg Tablet, 25 MG PO BID for FOR HYPERTENSION, #60 TAB 0 Refills 1/2 tab bid 04/17/19 Hydrocodone Bit/Acetaminophen (HYDROCODONE-APAP 10-325 ) 1 Tab Tablet, 1 TAB PO PRN Q6HRS PRN for PAIN, TAB 0 Refills 04/17/19 Nystatin (NYSTATIN) 15 Gm Powder, 1 ROSA TP BID for topical infections for 7 Days, #1 BOTTLE 0 Refills apply to affected area(s) 04/17/19 Cyclobenzaprine Hcl (CYCLOBENZAPRINE HCL) 10 Mg Tablet, 10 MG PO TID for muscle relaxant, TAB 04/17/19 Trazodone Hcl (TRAZODONE HCL) 100 Mg Tablet, 100 MG PO HS for antidepressant, TAB trazodone 100mg 2tabs at bedtime 04/17/19 Fluticasone/Salmeterol (ADVAIR 500-50 DISKUS) 1 Each Disk.w.dev, 1 INH IH BID for inhaler, INHALER 04/17/19 Atorvastatin Calcium (LIPITOR) 20 Mg Tablet, 20 MG PO HS for FOR CHOLESTEROL, #30 TAB 0 Refills 04/17/19 Bupropion Hcl (BUPROPION HCL SR) 100 Mg Tablet.er, 100 MG PO BID, #28 06/14/16 Fluoxetine Hcl (FLUOXETINE HCL) 10 Mg Capsule, 2 CAP PO DAILY, #30 CAP 2 Refills 07/17/14 Albuterol Sulfate (PROAIR HFA INHALER) 8.5 Gm Hfa.aer.ad, 2 PUFF IH PRN Q4-6HRS, #1 INHALER 07/17/14 Dicyclomine Hcl (DICYCLOMINE HCL) 20 Mg Tablet, 1 TAB PO TID, #30 TAB 1 Refill 07/17/14 Levothyroxine Sodium (LEVOTHYROXINE SODIUM) 50 Mcg Tablet, 1 TAB PO DAILY, #30 TAB 5 Refills 07/17/14 Discontinued Reported Medications Furosemide (LASIX) 40 Mg Tablet, 40 MG PO DAILY for diuretic, TAB 04/17/19 Meloxicam (MELOXICAM) 15 Mg Tablet, 15 MG PO DAILY for nsaids, TAB 04/17/19 Nitrofurantoin Monohyd/M-Cryst (MACROBID 100 MG CAPSULE) 100 Mg Capsule, 100 MG PO BID for antibiotic, CAP 04/17/19 Metoprolol Succinate (METOPROLOL SUCCINATE ( XL )) 25 Mg Tab.er.24h, 1 TAB PO DAILY for HTN, #30 TAB 5 Refills 05/04/18 Buspirone Hcl (BUSPIRONE HCL) 10 Mg Tablet, 10 MG PO TID for UNKNOWN 05/04/18 Loratadine (LORATADINE) 10 Mg Tablet, 1 TAB PO PRN DAILY PRN for ALLERGIES, #30 TAB 5 Refills 06/20/17 Terbinafine Hcl (TERBINAFINE HCL) 250 Mg Tablet, 1 TAB PO DAILY, #14 TAB 06/20/17 Gabapentin (GABAPENTIN) 300 Mg Capsule, 300 MG PO TID, #90 06/14/16 Fluticasone Propionate (FLUTICASONE PROPIONATE NASAL SPRAY) 16 Gm [place].susp, 1 SPR NS DAILY, #16 06/14/16 SANDRA ALLEN MD Apr 22, 2019 12:45
--- NOTE | 2019-04-22 12:48 | PDOC3 ---
Discharge Summary Visit Information Date of Admission: Apr 17, 2019 Date of Discharge: Apr 22, 2019 Admitting Diagnosis: Abdominal pain Final Diagnosis Problems Medical Problems: (1) Abdominal pain Status: Acute (2) Asthma Status: Chronic (3) Coffee ground emesis Status: Acute (4) Colon wall thickening Status: Chronic (5) Compression deformity of vertebra Status: Chronic (6) Hypokalemia Status: Acute (7) UGI bleed Status: Chronic (8) Vomiting Status: Acute Brief Hospital Course Allergies Allergies Coded Allergies Type Severity Reaction Last Updated Verified Iodinated Contrast Media Allergy Severe Anaphylaxis 07/17/14 Yes coconut oil Allergy Severe Anaphylaxis 07/17/14 Yes iron Allergy Severe Anaphylaxis 07/17/14 Yes Vital Signs Vital Signs Date Time Temp Pulse Resp B/P (MAP) Pulse Ox O2 Delivery O2 Flow Rate FiO2 04/22/19 11:33 94 Room Air 04/22/19 11:00 98.1 84 18 109/58 (75) 98.1 04/21/19 19:42 2.0 Lab Results Laboratory Tests Test 04/21/19 04:45 04/21/19 05:00 04/22/19 06:35 Sodium Level 145 mmol/L (136-145) 147 mmol/L (136-145) Potassium Level 3.1 mmol/L (3.5-5.1) 3.6 mmol/L (3.5-5.1) Chloride Level 111 mmol/L (98-107) 111 mmol/L (98-107) Carbon Dioxide Level 24 mmol/L (21-32) 28 mmol/L (21-32) Anion Gap 10 (6-14) 8 (6-14) Blood Urea Nitrogen 3 mg/dL (7-20) 4 mg/dL (7-20) Creatinine 0.6 mg/dL (0.6-1.0) 0.7 mg/dL (0.6-1.0) Estimated GFR (Cockcroft-Gault) 101.0 84.5 Glucose Level 79 mg/dL (70-99) 87 mg/dL (70-99) Calcium Level 7.8 mg/dL (8.5-10.1) 7.8 mg/dL (8.5-10.1) Magnesium Level 1.4 mg/dL (1.8-2.4) 2.1 mg/dL (1.8-2.4) Phosphorus Level 2.9 mg/dL (2.6-4.7) Laboratory Tests Test 04/22/19 06:35 Sodium Level 147 mmol/L (136-145) Potassium Level 3.6 mmol/L (3.5-5.1) Chloride Level 111 mmol/L (98-107) Carbon Dioxide Level 28 mmol/L (21-32) Anion Gap 8 (6-14) Blood Urea Nitrogen 4 mg/dL (7-20) Creatinine 0.7 mg/dL (0.6-1.0) Estimated GFR (Cockcroft-Gault) 84.5 Glucose Level 87 mg/dL (70-99) Calcium Level 7.8 mg/dL (8.5-10.1) Magnesium Level 2.1 mg/dL (1.8-2.4) Brief Hospital Course Ms Kahn is a 62yo F w/ PMHx depression with HTN, HLD, COPD, hypothyroidism, Follicular lymphoma (s/p chemotherapy, radiation therapies, splenectomy), Seizures, Anxiety with depression, bipolar disorder, GERD, hypothyroidism who presents to the ED complaining of vomiting coffee ground emesis for one week. Patient is also complaining of 10 out of 10 sharp intermittent generalized abdominal pain one week. Denies any diarrhea. She states she had a normal bowel movement yesterday. Denies any chest pain, shortness of breath. Denies being on any chemotherapy drugs CT abdomen shows concern for colitis of sigmoid colon and rectum and L5 and T12 vertebral height loss. K was 2.3, admitted for further treatment. 04/17: She is feeling better, but K still 2.8, mag level pending. She is tolerating clear liquid diet ok. 04/20: K is 3.3 today. Still having abdominal pain and jelly stools. Worried about having bowel surgery like her family members. She is feeling a bit stronger after starting treatment for crohns. 04/21: K is 3.1 today despite replacement. Mag low at 1.4. She is requesting port access as it has not been accessed or flushed in 8 months. Bowel movements still hard Feeling much better today, electrolytes normalizing. She is anxious for d/c. Very deconditioned, needs home health. 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 Likely with gastroenteritis. 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 These are age indeterminant Intractable vomiting UGI BLEED, Gastritis vs PUD, ON FREQ NSAIDS SEVERE HYPOKALEMIA HTN HLD COPD hypothyroidism Follicular lymphoma (s/p chemotherapy, radiation therapies, splenectomy) Seizures Anxiety with depression Bipolar disorder GERD Greater than 30 minutes spent on d/c Discharge Information Condition at Discharge: Improved Follow Up: Weeks Disposition/Orders: D/C to Home w/ HH Scheduled Albuterol Sulfate (Proair Hfa Inhaler) 8.5 Gm Hfa.aer.ad, 2 PUFF IH PRN Q4-6HRS, #1 (Reported) Entered as Reported by: EVARISTO MURCIA on 07/17/144 Last Action: Reviewed on 04/17/192058 by MARYANA JACKSON Albuterol Sulfate (Albuterol Sulfate Neb Soln) 1.25 Mg/3 Ml Vial.neb, 1 VIAL NEB QID for inhalation, #150 (Reported) Entered as Reported by: MARYANA JACKSON on 04/17/192058 Last Action: Reviewed on 04/17/192116 by MARYANA JACKSON Atorvastatin Calcium (Lipitor) 20 Mg Tablet, 20 MG PO HS for FOR CHOLESTEROL, #30 Ref 0 (Reported) Entered as Reported by: MARYANA JACKSON on 04/17/192058 Last Action: Continued on 04/17/192103 by MARYANA JACKSON Budesonide (Budesonide) 0.5 Mg/2 Ml Ampul.neb, 1 VIAL NEB BID for sob, #120 Ref 3 (Reported) Entered as Reported by: MARYANA JACKSON on 04/17/192115 Last Action: New Order on 04/17/192115 by MARYANA JACKSON Bupropion Hcl (Bupropion Hcl Sr) 100 Mg Tablet.er, 100 MG PO BID, #28 (Reported) Entered as Reported by: LUZ SIERRA on 06/14/16228 Last Action: Continued on 04/17/192103 by MARYANA JACKSON Cyclobenzaprine Hcl (Cyclobenzaprine Hcl) 10 Mg Tablet, 10 MG PO TID for muscle relaxant, (Reported) Entered as Reported by: MARYANA JACKSON on 04/17/192058 Last Action: Continued on 04/17/192103 by MARYANA JACKSON Dicyclomine Hcl (Dicyclomine Hcl) 20 Mg Tablet, 1 TAB PO TID, #30 Ref 1 (Reported) Entered as Reported by: EVARISTO MURCIA on 07/17/14753 Last Action: Converted on 04/17/192103 by MARYANA JACKSON Fluoxetine Hcl (Fluoxetine Hcl) 10 Mg Capsule, 2 CAP PO DAILY, #30 Ref 2 (Reported) Entered as Reported by: EVARISTO MURCIA on 07/17/14753 Last Action: Continued on 04/17/192103 by MARYANA JACKSON Fluticasone Propionate (Flonase Allergy Relief) 9.9 Ml [place].susp, 1 SPRAYS NS DAILY for allergy, (Reported) Entered as Reported by: MARYANA JACKSON on 04/17/192058 Last Action: Converted on 04/17/192103 by MARYANA JACKSON Fluticasone/Salmeterol (Advair 500-50 Diskus) 1 Each Disk.w.dev, 1 INH IH BID for inhaler, (Reported) Entered as Reported by: MARYANA JACKSON on 04/17/192058 Last Action: Converted on 04/17/192103 by MARYANA JACKSON Levothyroxine Sodium (Levothyroxine Sodium) 50 Mcg Tablet, 1 TAB PO DAILY, #30 Ref 5 (Reported) Entered as Reported by: EVARISTO MURCIA on 07/17/14753 Last Action: Continued on 04/17/192103 by MARYANA JACKSON Lorazepam (Ativan) 0.5 Mg Tablet, 0.5 MG PO TID for anxiety, (Reported) Entered as Reported by: MARYANA JACKSON on 04/17/192058 Last Action: Continued on 04/17/192103 by MARYANA JACKSON Mesalamine (Pentasa) 250 Mg Capsule.er, 500 MG PO [id number] for Crohns for 30 Days, #120 Prescribed by: SANDRA ALLEN MD on 04/22/19 1242 Metoprolol Tartrate (Metoprolol Tartrate) 25 Mg Tablet, 25 MG PO BID for FOR HYP ERTENSION, #60 Ref 0 (Reported) 1/2 tab bid Entered as Reported by: MARYANA JACKSON on 04/17/192058 Last Action: Continued on 04/17/192103 by MARYANA JACKSON Nystatin (Nystatin) 15 Gm Powder, 1 ROSA TP BID for topical infections for 7 Days, #1 Ref 0 (Reported) apply to affected area(s) Entered as Reported by: MARYANA JACKSON on 04/17/192058 Last Action: Continued on 04/17/192103 by MARYANA JACKSON Pantoprazole Sodium (Protonix ) 40 Mg Tablet.dr, 40 MG PO DAILYAC for GERD for 30 Days, #30 Prescribed by: SANDRA ALLEN MD on 04/22/19 1242 Rosuvastatin Calcium (Crestor) 10 Mg Tablet, 10 MG PO HS for FOR CHOLESTEROL, #30 Ref 0 (Reported) Entered as Reported by: MARYANA JACKSON on 04/17/192058 Last Action: Converted on 04/17/192103 by MARYANA JACKSON Trazodone Hcl (Trazodone Hcl) 100 Mg Tablet, 100 MG PO HS for antidepressant, (Reported) trazodone 100mg 2tabs at bedtime Entered as Reported by: MARYANA JACKSON on 04/17/192058 Last Action: Continued on 04/17/192103 by MARYANA JACKSON Scheduled PRN Albuterol Sulfate (Albuterol Sulfate Neb Soln) 1.25 Mg/3 Ml Vial.neb, 1 VIAL NEB PRN Q4HRS PRN for SHORTNESS OF BREATH, #150 (Reported) Entered as Reported by: MARYANA JACKSON on 04/17/192058 Last Action: Reviewed on 04/17/192116 by MARYANA JACKSON Hydrocodone Bit/Acetaminophen (Hydrocodone-Apap 10-325 ) 1 Tab Tablet, 1 TAB PO PRN Q6HRS PRN for PAIN, Ref 0 (Reported) Entered as Reported by: MARYANA JACKSON on 04/17/192058 Last Action: Continued on 04/17/192103 by MARYANA JACKSON Naloxegol Oxalate (Movantik) 25 Mg Tablet, 25 MG PO PRN DAILY PRN for CONSTIPATION for 30 Days, #30 Ref 2 Prescribed by: SANDRA ALLEN MD on 04/22/19 1242 Prochlorperazine Maleate (Prochlorperazine Maleate) 10 Mg Tablet, 10 MG PO PRN Q4HRS PRN for NAUSEA/VOMITING, (Reported) Entered as Reported by: MARYANA JACKSON on 04/17/192058 Last Action: Continued on 04/17/192103 by MARYANA JACKSON Discontinued Medications Buspirone Hcl (Buspirone Hcl) 10 Mg Tablet, 10 MG PO TID for UNKNOWN, (Reported) Entered as Reported by: BARRY QURESHI on 05/04/18520 Last Action: Discontinued on 04/17/192058 by MARYANA JACKSON Fluticasone Propionate (Fluticasone Propionate Nasal [place]) 16 Gm [place].susp, 1 SPR NS DAILY, #16 (Reported) Entered as Reported by: LUZ SIERRA on 06/14/16228 Last Action: Discontinued on 04/17/192115 by MARYANA JACKSON Furosemide (Lasix) 40 Mg Tablet, 40 MG PO DAILY for diuretic, (Reported) Entered as Reported by: MARYANA JACKSON on 04/17/192058 Last Action: Discontinued on 04/17/192115 by MARYANA JACKSON Gabapentin (Gabapentin) 300 Mg Capsule, 300 MG PO TID, #90 (Reported) Entered as Reported by: LUZ SIERRA on 06/14/16228 Last Action: Discontinued on 04/17/192058 by MARYANA JACKSON Loratadine (Loratadine) 10 Mg Tablet, 1 TAB PO PRN DAILY PRN for ALLERGIES, #30 Ref 5 (Reported) Entered as Reported by: Richa Sanchez on 06/20/17 0634 Last Action: Discontinued on 04/17/192058 by MARYANA JACKSON Meloxicam (Meloxicam) 15 Mg Tablet, 15 MG PO DAILY for nsaids, (Reported) Entered as Reported by: MARYANA JACKSON on 04/17/192058 Last Action: Discontinued on 04/17/192103 by MARYANA JACKSON Metoprolol Succinate (Metoprolol Succinate ( Xl )) 25 Mg Tab.er.24h, 1 TAB PO DAILY for HTN, #30 Ref 5 (Reported) Entered as Reported by: BARRY QURESHI on 05/04/18520 Last Action: Discontinued on 04/17/192058 by MARYANA JACKSON Nitrofurantoin Monohyd/M-Cryst (Macrobid 100 Mg Capsule) 100 Mg Capsule, 100 MG PO BID for antibiotic, (Reported) Entered as Reported by: MARYANA JACKSON on 04/17/192058 Last Action: Discontinued on 04/17/192103 by MARYANA JACKSON Terbinafine Hcl (Terbinafine Hcl) 250 Mg Tablet, 1 TAB PO DAILY, #14 (Reported) Entered as Reported by: Richa Sanchez on 06/20/17 0634 Last Action: Discontinued on 04/17/192058 by SANDRA ODELL MD Apr 22, 2019 12:47
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
--- NOTE | 2019-04-22 13:26 | PDOC ---
G I PROGRESS NOTE Reason for Follow-up Diarrhea/abd pain/Crohns Subjective Feeling better with pentasa Physical Exam Lungs clear CV S1 S2 ABd +BS, soft, mild tenderness Review of Relevant I have reviewed the following items lottie (where applicable) has been applied. Labs Laboratory Tests Test 04/21/19 04:45 04/21/19 05:00 04/22/19 06:35 Sodium Level 145 mmol/L (136-145) 147 mmol/L (136-145) Potassium Level 3.1 mmol/L (3.5-5.1) 3.6 mmol/L (3.5-5.1) Chloride Level 111 mmol/L (98-107) 111 mmol/L (98-107) Carbon Dioxide Level 24 mmol/L (21-32) 28 mmol/L (21-32) Anion Gap 10 (6-14) 8 (6-14) Blood Urea Nitrogen 3 mg/dL (7-20) 4 mg/dL (7-20) Creatinine 0.6 mg/dL (0.6-1.0) 0.7 mg/dL (0.6-1.0) Estimated GFR (Cockcroft-Gault) 101.0 84.5 Glucose Level 79 mg/dL (70-99) 87 mg/dL (70-99) Calcium Level 7.8 mg/dL (8.5-10.1) 7.8 mg/dL (8.5-10.1) Magnesium Level 1.4 mg/dL (1.8-2.4) 2.1 mg/dL (1.8-2.4) Phosphorus Level 2.9 mg/dL (2.6-4.7) Laboratory Tests Test 04/22/19 06:35 Sodium Level 147 mmol/L (136-145) Potassium Level 3.6 mmol/L (3.5-5.1) Chloride Level 111 mmol/L (98-107) Carbon Dioxide Level 28 mmol/L (21-32) Anion Gap 8 (6-14) Blood Urea Nitrogen 4 mg/dL (7-20) Creatinine 0.7 mg/dL (0.6-1.0) Estimated GFR (Cockcroft-Gault) 84.5 Glucose Level 87 mg/dL (70-99) Calcium Level 7.8 mg/dL (8.5-10.1) Magnesium Level 2.1 mg/dL (1.8-2.4) Medications Current Medications Famotidine (Pepcid Vial) 20 mg 1X ONCE IVP Last administered on 04/17/19at 14:08; Start 04/17/19 at 13:45; Stop 04/17/19 at 13:46; Status DC Ondansetron HCl (Zofran) 4 mg 1X ONCE IVP Last administered on 04/17/19at 14:08; Start 04/17/19 at 13:45; Stop 04/17/19 at 13:46; Status DC Fentanyl Citrate (Fentanyl 2ml Vial) 50 mcg 1X ONCE IVP Last administered on 04/17/19at 14:09; Start 04/17/19 at 13:45; Stop 04/17/19 at 13:46; Status DC Potassium Citrate (Urocit-K) 40 meq 1X STAT PO ; Start 04/17/19 at 14:38; Stop 04/17/19 at 14:39; Status Cancel Potassium Chloride/Water 100 ml @ 100 mls/hr Q1H IV Last administered on 04/17/19at 16:07; Start 04/17/19 at 15:00; Stop 04/17/19 at 16:59; Status DC Potassium Chloride (Klor-Con) 40 meq 1X ONCE PO Last administered on at 15:00; Start 04/17/19 at 15:00; Stop 04/17/19 at 15:01; Status DC Ondansetron HCl (Zofran) 4 mg PRN Q8HRS PRN IV NAUSEA/VOMITING Last administered on 04/18/19at 09:13; Start 04/17/19 at 16:30; Stop 04/18/19 at 16:29; Status DC Morphine Sulfate (Morphine Sulfate) 4 mg PRN Q2HR PRN IV PAIN; Start 04/17/19 at 16:30; Stop 04/18/19 at 16:29; Status DC Pantoprazole Sodium (PROTONIX VIAL for IV PUSH) 40 mg DAILYAC IVP Last administered on 04/21/19at 08:38; Start 04/18/19 at 07:30 Sodium Chloride (Normal Saline Flush) 3 ml QSHIFT PRN IV AFTER MEDS AND BLOOD DRAWS; Start 04/17/19 at 20:30 Sodium Chloride 1,000 ml @ 100 mls/hr Q10H IV Last administered on 04/20/19 07:53; Start 04/17/19 at 20:19; Stop 04/20/19 at 15:53; Status DC Ondansetron HCl (Zofran) 4 mg PRN Q4HRS PRN IV NAUSEA/VOMITING Last administered on 04/18/19at 21:00; Start 04/17/19 at 20:30 Acetaminophen (Tylenol) 650 mg PRN Q4HRS PRN PO TEMP OVER 100.4F OR MILD PAIN; Start 04/17/19 at 20:30 Al Hydroxide/Mg Hydroxide (Mylanta Plus Xs) 30 ml PRN DAILY PRN PO HEARTBURN / GAS; Start 04/17/19 at 20:30 Clonidine HCl (Catapres) 0.1 mg PRN Q6HRS PRN PO SBP>160 OR DBP>90; Start 04/17/19 at 20:30 Docusate Sodium (Colace) 100 mg PRN BID PRN PO CONSTIPATION Last administered on 04/20/19at 13:54; Start 04/17/19 at 20:30 Albuterol Sulfate (Ventolin Neb Soln) 2.5 mg PRN Q4HRS PRN NEB SHORTNESS OF BREATH; Start 04/17/19 at 20:30 Guaifenesin (Robitussin) 200 mg PRN Q4HRS PRN PO COUGH; Start 04/17/19 at 20:30 Lorazepam (Ativan) 0.5 mg PRN Q4HRS PRN PO ANXIETY / AGITATION Last administered on 04/20/19at 03:46; Start 04/17/19 at 20:30 Atorvastatin Calcium (Lipitor) 20 mg HS PO ; Start 04/17/19 at 21:00; Stop 04/17/19 at 21:17; Status DC Bupropion HCl (Wellbutrin Sr) 100 mg BID PO Last administered on 04/22/19 08:35; Start 04/17/19 at 21:00 Cyclobenzaprine HCl (Flexeril) 10 mg TID PO Last administered on 04/22/19 08:36; Start 04/17/19 at 21:00 Fluoxetine HCl (PROzac) 20 mg DAILY PO Last administered on 04/22/19at 08:36; Start 04/18/19 at 09:00 Fluticasone Propionate (Flonase) 1 spray DAILY NS Last administered on 04/22/19 08:35; Start 04/18/19 at 09:00 Furosemide (Lasix) 40 mg DAILY PO ; Start 04/18/19 at 09:00; Stop 04/18/19 at 03:09; Status DC Acetaminophen/ Hydrocodone Bitart (Lortab 10/325) 1 tab PRN Q6HRS PRN PO MODERATE PAIN Last administered on 04/22/19 08:39; Start 04/17/19 at 21:00 Levothyroxine Sodium (Synthroid) 50 mcg DAILY06 PO Last administered on 04/22/19 05:41; Start 04/18/19 at 06:00 Lorazepam (Ativan) 0.5 mg TID PO Last administered on 04/22/19 08:35; Start 04/17/19 at 21:00 Metoprolol Tartrate (Lopressor) 25 mg BID PO ; Start 04/17/19 at 21:00; Stop 04/17/19 at 21:28; Status DC Nystatin (Nystop) 1 ludin BID TP Last administered on 04/22/19at 08:36; Start 04/17/19 at 21:00 Prochlorperazine Maleate (Compazine) 10 mg PRN Q4HRS PRN PO NAUSEA/VOMITING; Start 04/17/19 at 21:00 Trazodone HCl (Desyrel) 100 mg HS PO Last administered on 04/21/19at 21:15; Start 04/17/19 at 21:00 Albuterol Sulfate (Ventolin Neb Soln) 2.5 mg Q4HRS NEB ; Start 04/17/19 at 21:30; Stop 04/18/19 at 05:32; Status DC Non-Formulary Medication (Albuterol Sulfate (Albuterol Sulfate Neb Soln)) 1 vial TID NEB ; Start 04/17/19 at 21:00; Stop 04/17/19 at 21:20; Status DC Dicyclomine HCl (Bentyl) 10 mg TID PO ; Start 04/17/19 at 21:30; Stop 04/17/19 at 21:19; Status DC Non-Formulary Medication (Fluticasone Propionate (Flonase Allergy Relief)) 1 sprays DAILY NS ; Start 04/18/19 at 09:00; Stop 04/17/19 at 21:20; Status DC Budesonide (Pulmicort) 0.5 mg RTBID NEB Last administered on 04/22/19at 08:20; Start 04/18/19 at 08:00 Atorvastatin Calcium (Lipitor) 40 mg QHS PO Last administered on 04/21/19at 21:15; Start 04/17/19 at 21:30 Dicyclomine HCl (Bentyl) 20 mg TID PO Last administered on 04/22/19 08:36; Start 04/17/19 at 21:30 Metoprolol Tartrate (Lopressor) 12.5 mg BID PO Last administered on 04/22/19 08:36; Start 04/17/19 at 21:30 Influenza Virus Vaccine Quadrival (Afluria Quad 2019-20 (3yr Up) Syringe) 0.5 ml ONCE ONCE VAX IM Last administered on 04/18/19at 10:33; Start 04/18/19 at 09:00; Stop 04/18/19 at 09:01; Status DC Albuterol Sulfate (Ventolin Neb Soln) 2.5 mg RTQID NEB Last administered on 04/22/19at 11:33; Start 04/18/19 at 08:00 Potassium Chloride/Water 100 ml @ 100 mls/hr Q1H IV Last administered on 04/18/19at 12:01; Start 04/18/19 at 08:00; Stop 04/18/19 at 11:59; Status DC Potassium Chloride (Klor-Con) 20 meq 1X ONCE PO Last administered on 04/18/19at 09:14; Start 04/18/19 at 07:45; Stop 04/18/19 at 07:50; Status DC Magnesium Sulfate/ Dextrose 100 ml @ 100 mls/hr 1X ONCE IV Last administered on 04/18/19at 17:16; Start 04/18/19 at 14:45; Stop 04/18/19 at 15:44; Status DC Potassium Chloride/Water 100 ml @ 100 mls/hr Q1H IV Last administered on 04/19/19at 10:00; Start 04/19/19 at 09:00; Stop 04/19/19 at 10:59; Status DC Potassium Chloride (Klor-Con) 40 meq 1X ONCE PO Last administered on 11/1/19at 09:12; Start 04/19/19 at 09:00; Stop 04/19/19 at 09:01; Status DC Mesalamine (Delzicol) 400 mg [id number] PO Last administered on 04/19/19at 11:13; Start 04/19/19 at 11:00; Stop 04/19/19 at 12:01; Status DC Methylprednisolone Sodium Succinate (SOLU-Medrol 125MG VIAL) 125 mg 1X ONCE IV Last administered on 04/19/19at 11:13; Start 04/19/19 at 11:15; Stop 04/19/19 at 11:16; Status DC Mesalamine (Pentasa) 500 mg [id number] PO Last administered on 04/22/19at 08:36; Start 04/19/19 at 13:00 Potassium Chloride/Water 100 ml @ 100 mls/hr Q1H IV Last administered on 04/20/19at 14:34; Start 04/20/19 at 12:00; Stop 04/20/19 at 15:59; Status DC Psyllium Hydrophilic Mucilloid (Metamucil Fiber Packet) 1 pkt QHS PO Last administered on 04/20/19at 20:08; Start 04/20/19 at 21:00 Magnesium Sulfate 100 ml @ 25 mls/hr 1X ONCE IV Last administered on 04/21/19at 12:31; Start 04/21/19 at 11:00; Stop 04/21/19 at 14:59; Status DC Alteplase, Recombinant (Cathflo For Central Catheter Clearance) 1 mg 1X ONCE INT CAT Last administered on 04/21/19at 11:49; Start 04/21/19 at 11:00; Stop 04/21/19 at 11:01; Status DC Potassium Chloride/Water 50 ml @ 50 mls/hr Q1H IV ; Start 04/21/19 at 13:00; Stop 04/21/19 at 14:59; Status UNV Potassium Chloride/Water 100 ml @ 100 mls/hr Q1H IV Last administered on 04/21/19at 16:35; Start 04/21/19 at 14:00; Stop 04/21/19 at 17:59; Status DC Potassium Chloride/Water 50 ml @ 50 mls/hr 1X ONCE IV Last administered on 04/22/19at 11:17; Start 04/22/19 at 10:00; Stop 04/22/19 at 10:59; Status DC Potassium Chloride (Klor-Con) 20 meq [id number] PO Last administered on 04/22/19at 11:17; Start 04/22/19 at 09:00 Active Scripts Active Movantik (Naloxegol Oxalate) 25 Mg Tablet 25 Mg PO PRN DAILY PRN 30 Days Protonix (Pantoprazole Sodium) 40 Mg Tablet.dr 40 Mg PO DAILYAC 30 Days Pentasa (Mesalamine) 250 Mg Capsule.er 500 Mg PO [id number] 30 Days Reported Budesonide 0.5 Mg/2 Ml Ampul.neb 1 Vial NEB BID Albuterol Sulfate Neb Soln (Albuterol Sulfate) 1.25 Mg/3 Ml Vial.neb 1 Vial NEB PRN Q4HRS PRN Albuterol Sulfate Neb Soln (Albuterol Sulfate) 1.25 Mg/3 Ml Vial.neb 1 Vial NEB QID Prochlorperazine Maleate 10 Mg Tablet 10 Mg PO PRN Q4HRS PRN Flonase Allergy Relief (Fluticasone Propionate) 9.9 Ml [place].susp 1 Sprays NS DAILY Crestor (Rosuvastatin Calcium) 10 Mg Tablet 10 Mg PO HS Ativan (Lorazepam) 0.5 Mg Tablet 0.5 Mg PO TID Metoprolol Tartrate 25 Mg Tablet 25 Mg PO BID 1/2 tab bid Hydrocodone-Apap 10-325 (Hydrocodone Bit/Acetaminophen) 1 Tab Tablet 1 Tab PO PRN Q6HRS PRN Nystatin 15 Gm Powder 1 Ludin TP BID 7 Days apply to affected area(s) Cyclobenzaprine Hcl 10 Mg Tablet 10 Mg PO TID Trazodone Hcl 100 Mg Tablet 100 Mg PO HS trazodone 100mg 2tabs at bedtime Advair 500-50 Diskus (Fluticasone/Salmeterol) 1 Each Disk.w.dev 1 Inh IH BID Lipitor (Atorvastatin Calcium) 20 Mg Tablet 20 Mg PO HS Bupropion Hcl Sr (Bupropion Hcl) 100 Mg Tablet.er 100 Mg PO BID Fluoxetine Hcl 10 Mg Capsule 2 Cap PO DAILY Proair Hfa Inhaler (Albuterol Sulfate) 8.5 Gm Hfa.aer.ad 2 Puff IH PRN Q4-6HRS Dicyclomine Hcl 20 Mg Tablet 1 Tab PO TID Levothyroxine Sodium 50 Mcg Tablet 1 Tab PO DAILY Vitals/I & O Vital Sign - Last 24 Hours 04/21/19 04/21/19 04/21/19 04/21/19 14:23 18:34 19:42 21:17 Temp 98.1 98.8 98.1 98.8 Pulse 80 81 Resp 14 14 B/P (MAP) 88/61 (70) 85/52 (63) 97/52 Pulse Ox 91 94 O2 Delivery Room Air Room Air Nasal Cannula O2 Flow Rate 2.0 04/21/19 04/22/19 04/22/19 04/22/19 22:29 02:20 07:00 08:00 Temp 98.1 97.8 98.2 98.1 97.8 98.2 Pulse 76 77 70 Resp 14 14 18 B/P (MAP) 89/50 (63) 117/56 (76) 139/63 (88) Pulse Ox 93 97 96 O2 Delivery Room Air Room Air Room Air Room Air 04/22/19 04/22/19 04/22/19 04/22/19 08:20 08:36 08:39 09:39 Pulse 70 B/P (MAP) 139/63 Pulse Ox 98 98 93 O2 Delivery Room Air Room Air Room Air 04/22/19 04/22/19 11:00 11:33 Temp 98.1 98.1 Pulse 84 Resp 18 B/P (MAP) 109/58 (75) Pulse Ox 93 94 O2 Delivery Room Air Room Air Intake and Output 04/21/19 04/21/19 04/22/19 15:00 23:00 07:00 Intake Total 500 ml 350 ml 120 ml Output Total 350 ml 650 ml Balance 150 ml -300 ml 120 ml Problem List Problems Medical Problems: (1) Abdominal pain Status: Acute (2) Asthma Status: Chronic (3) Coffee ground emesis Status: Acute (4) Colon wall thickening Status: Chronic (5) Compression deformity of vertebra Status: Chronic (6) Hypokalemia Status: Acute (7) UGI bleed Status: Chronic (8) Vomiting Status: Acute Assessment Diarrhea- with Crohns disease, contineu with [employer] retirement, diet as tolerated JAELYN WALTER MD Apr 22, 2019 13:26
--- NOTE | 2019-04-22 14:01 | NUR ---
SS following up with discharge planning. Pt requesting need for transport to home. Pt stated that she needs transport to take her into apartment. SS contacted [facility], , and arranged transport for 1500 today. Pt's RN notified.
[2019-04-22] MEDS ORDERED: HEPARIN PF 500 UNIT/5 ML DISP.SYRIN. IVP ONE (14:30)
--- NOTE | 2019-04-22 16:41 | NUR ---
Discharge Note: JASWINDER NAVAS Discharge instructions and discharge home medications reviewed with Patient and a copy given. All questions have been answered and understanding verbalized. The following instructions and handouts were given: malnutrition, Soft GI, and Crohn's. Discontinued iv lines and catheter intact. Patient discharged to home with home healthcare via [facility]
== END 2019-04-22 16:50 | disposition home health service (06) | DRG 378 ==
LOC: ER 13:10 → 2 NORTH 15:17 → UNDOADMIN 15:17 → 6 SOUTH 15:17
PROVIDERS: ADMIT Family Medicine; ATTEND Family Medicine
DX: K92.2 Gastrointestinal hemorrhage, unspecified (principal); K50.90 Crohn's disease, unspecified, without complications; C82.90 Follicular lymphoma, unspecified, unspecified site; D64.9 Anemia, unspecified; E03.9 Hypothyroidism, unspecified; E78.5 Hyperlipidemia, unspecified; E87.6 Hypokalemia; F31.9 Bipolar disorder, unspecified; F41.8 Other specified anxiety disorders; G89.29 Other chronic pain; I10 Essential (primary) hypertension; J44.9 Chronic obstructive pulmonary disease, unspecified; K21.9 Gastro-esophageal reflux disease without esophagitis; Z96.649 Presence of unspecified artificial hip joint; K64.9 Unspecified hemorrhoids; M79.7 Fibromyalgia; M19.90 Unspecified osteoarthritis, unspecified site; R56.9 Unspecified convulsions; Z80.0 Family history of malignant neoplasm of digestive organs; Z82.3 Family history of stroke; Z82.49 Family history of ischemic heart disease and other diseases of the circulatory system; Z83.3 Family history of diabetes mellitus; Z87.891 Personal history of nicotine dependence; Z90.81 Acquired absence of spleen; Z92.21 Personal history of antineoplastic chemotherapy; Z92.3 Personal history of irradiation
CPT/HCPCS: 36415; 71045; 74176; 80048; 80053; 83690; 83735; 84100; 85025; 90471; 90686; 93005; 94640; 94760; 96365; 96375; C9113; G0480; J2405; J2930; J3010; J3475; J3480; J3490; J7030; J7613; J7626; 99285-25; G0378

== ENCOUNTER 2019-11-25 09:21 | Inpatient (IN) | payer OTHER, MEDICAID ==
[~2019-11-25] VITALS: Ht 170.2 cm; Wt 54.5 kg
[~2019-11-25 09:21] MED LIST changes: +ACET325T9 PO; +ALBU1.25 NEB; +AMOX1TAB10 PO; +ASCO500T4 PO; +ATOR20TA PO; +BUDE0.5A NEB; +DOCU-153 PO; +FLUO10CA14 PO; -FLUO10CA7 PO; +FLUT9.9S NS; +FURO-68 PO; +LACT1CAP19 PO; +LORA0.5T96 PO; +MESA250C PO; +METO25TA4 PO; +MULT1TAB90 PO; +NALO25TA2 PO; +NITR100C62 PO; +NYST15PO9 TP; +PANT40TA77 PO; +PROC10TA57 PO; +PROC5TAB14 PO; -TERB250T11 PO; +TERB250T84 PO; +TRAZ-123 PO; -TRAZ-86 PO
[2019-11-25] MEDS ORDERED: IV NORMAL SALINE 1000ML BAG 1,000 ML IV ONE (10:00)
[2019-11-25] MEDS ORDERED: cefTRIAXone IV Push 1 GM VIAL. IVP ONE (10:00)
--- NOTE | 2019-11-25 10:00 | PHYS DOC ---
Past Medical History Past Medical History: Anxiety, Cancer, COPD, Depression, Hypertension, Hy pothyroid, UTI Additional Past Medical Histor: follicular lymphoma w chemo and radiation, Crohn, ENCEPHOLOPATHY Past Surgical History: Splenectomy Additional Past Surgical Histo: port o cath r ant chest,r hip Smoking Status: Former Smoker Alcohol Use: None Drug Use: Opiates General Adult EDM: Chief Complaint: ALTERED MENTAL STATUS HPI: HPI: 64-year-old female past medical history significant for Crohn's, mild cognitive impairment, hypertension, hypothyroidism, lymphoma (s/p chemo/rads/splenectomy), presents to the ED after her sister called 911 with concern for confusion and altered mental status. EMS reports pt just completed antibiotics for UTI-pt does not know the name of them but thinks it is Macrobid when given names of medications. ROS: Unobtainable due to confusion. Allergies: Allergies: Allergies Coded Allergies Type Severity Reaction Last Updated Verified Iodinated Contrast Media Allergy Severe Anaphylaxis 07/17/14 Yes coconut oil Allergy Severe Anaphylaxis 07/17/14 Yes iron Allergy Severe Anaphylaxis 07/17/14 Yes Physical Exam: PE: Constitutional: Well developed, well nourished, no acute distress, non-toxic appearance. [] HENT: Normocephalic, atraumatic, bilateral external ears normal, oropharynx dry no oral exudates, nose normal. [] Eyes: EOMI, conjunctiva normal, no discharge. [] Neck: Normal range of motion, no tenderness, supple, no stridor. [] Cardiovascular:Heart rate regular rhythm, no murmur [] Lungs & Thorax: Bilateral breath sounds clear to auscultation [] Abdomen: Bowel sounds normal, soft, no tenderness, no masses, no pulsatile mas ses. [] Skin: Warm, dry, no erythema, no rash. [] Back: No tenderness, no CVA tenderness. [] Extremities: No tenderness, no cyanosis, no clubbing, ROM intact, no edema. [] Neurologic: Alert but not oriented-cannot answer name//place/situation/home address, has some lucid intervals than some inappropriate responses, normal motor function, normal sensory function, no focal deficits noted. [] Psychologic: Affect normal, judgement normal, mood normal. [] EKG: EKG: [] Radiology/Procedures: Radiology/Procedures: IMAGING REPORT Signed PATIENT: JASWINDER NAVAS ACCOUNT: [id number] : 1955 LOCATION: ER AGE: 64 SEX: F EXAM STATUS: REG ER ORD. PHYSICIAN: JANET REED DO REASON: altered mental status PROCEDURE: PORTABLE CHEST 1V EXAM: PORTABLE CHEST 1V INDICATION: Reason: altered mental status / Spl. Instructions: / History: . TECHNIQUE: Single view COMPARISON: 09/24/2019 chest x-ray FINDINGS: Redemonstrated is a right jugular approach tunneled chest port, tip near the cavoatrial junction. The heart size is normal. The great vessels appear unremarkable. There is no hilar or mediastinal mass. The lungs are clear. There is no pleural effusion or pneumothorax. There are no significant osseous abnormalities. IMPRESSION: No active cardiopulmonary disease. Electronically signed by: Emily Garcia MD (11/25/2019 10:22 AM) [id number] DICTATED and SIGNED BY: EMILY GARCIA MD DATE: 11/25/19 1022 IMAGING REPORT Signed PATIENT: JASWINDER NAVAS ACCOUNT: [id number] : 1955 LOCATION: ER AGE: 64 SEX: F EXAM STATUS: REG ER ORD. PHYSICIAN: JANET REED DO REASON: ams PROCEDURE: CT HEAD WO CONTRAST EXAM: CT Head without IV contrast INDICATION: Altered mental status TECHNIQUE: Multi-detector row CT images were obtained of the head without the use of IV contrast. All CT scans performed at this facility utilize dose optimization techniques as appropriate to the exam, including the following: Automated exposure control and adjustment of the mA and/or KV according to patient size (this includes techniques or standardized protocols for targeted exams where dose is indication/reason for exam). COMPARISON: 09/24/[address] FINDINGS: BRAIN PARENCHYMA: No evidence of acute intraparenchymal hemorrhage or infarct. No abnormal parenchymal density or mass.. Similar mild generalized parenchymal volume loss and white matter low density. VENTRICLES & EXTRA-AXIAL SPACES: Ventricles are within normal limits. Basilar cisterns are patent. No pathologic extra-axial fluid collection or mass. ORBITS: Orbital contents are unremarkable. SINUSES: Visualized paranasal sinuses and mastoid air cells are clear. OSSEOUS & SOFT TISSUES: Calvarium and skull base are intact. IMPRESSION: No acute intracranial pathology. Electronically signed by: Emily Garcia MD (11/25/2019 10:30 AM) [id number] DICTATED and SIGNED BY: EMILY GARCIA MD DATE: 11/25/19 1030 Impression: EMR was reviewed and patient was admitted in the past 2 months for acute encephalopathy-has known history of mild cognitive impairment but at baseline has medical decision-making capacity and lives independently. Today patient does not know the date, month, year or her home address. Is not responding appropriately. Suspect UTI and a nontoxic female. Was started on antibiotics, does not meet sirs criteria. Will admit from further medical management. Accepted by Dr. Anton Course & Med Decision Making: Course & Med Decision Making Pertinent Labs and Imaging studies reviewed. (See chart for details) [] Selvin Disclaimer: Selvin Disclaimer: This electronic medical record was generated, in whole or in part, using a voice recognition dictation system. Departure Departure Impression: Primary Impression: Acute encephalopathy Additional Impressions: UTI (urinary tract infection) Hypokalemia Disposition: ADMITTED INPATIENT Admitting Physician: REYNOLD Condition: STABLE Referrals: MILAN MCCRAY (PCP) Justicifation of Admission Dx: Justifications for Admission: Justification of Admission Dx: Yes Altered Mental Status: Altered Mental Status JANET REED DO Nov 25, 2019 10:00
--- NOTE | 2019-11-25 10:25 | RAD ---
EXAM: PORTABLE CHEST 1V INDICATION: Reason: altered mental status / Spl. Instructions: / History: . TECHNIQUE: Single view COMPARISON: 09/24/2019 chest x-ray FINDINGS: Redemonstrated is a right jugular approach tunneled chest port, tip near the cavoatrial junction. The heart size is normal. The great vessels appear unremarkable. There is no hilar or mediastinal mass. The lungs are clear. There is no pleural effusion or pneumothorax. There are no significant osseous abnormalities. IMPRESSION: No active cardiopulmonary disease. Electronically signed by: Leonidas Garcia MD (11/25/2019 10:22 AM) [id number]
--- NOTE | 2019-11-25 10:32 | RAD ---
EXAM: CT Head without IV contrast INDICATION: Altered mental status TECHNIQUE: Multi-detector row CT images were obtained of the head without the use of IV contrast. All CT scans performed at this facility utilize dose optimization techniques as appropriate to the exam, including the following: Automated exposure control and adjustment of the mA and/or KV according to patient size (this includes techniques or standardized protocols for targeted exams where dose is indication/reason for exam). COMPARISON: 09/24/[address] FINDINGS: BRAIN PARENCHYMA: No evidence of acute intraparenchymal hemorrhage or infarct. No abnormal parenchymal density or mass.. Similar mild generalized parenchymal volume loss and white matter low density. VENTRICLES & EXTRA-AXIAL SPACES: Ventricles are within normal limits. Basilar cisterns are patent. No pathologic extra-axial fluid collection or mass. ORBITS: Orbital contents are unremarkable. SINUSES: Visualized paranasal sinuses and mastoid air cells are clear. OSSEOUS & SOFT TISSUES: Calvarium and skull base are intact. IMPRESSION: No acute intracranial pathology. Electronically signed by: Leonidas Garcia MD (11/25/2019 10:30 AM) [id number]
[2019-11-25 11:22] LABS: BASO # 0.1 x10^3/uL (0.0-0.2); BASO % 1 % (0-3); EOS # 0.3 x10^3/uL (0.0-0.7); EOS % 3 % (0-3); HEMOGLOBIN 15.7 g/dL (12.0-15.5); LYMPH # 2.8 x10^3/uL (1.0-4.8); LYMPH % 27 % (24-48); MEAN CORPUSCULAR HEMOGLOBIN 33 pg (25-35); MEAN CORPUSCULAR HGB CONC 33 g/dL (31-37); MEAN CORPUSCULAR VOLUME 100 fL (79-100); MONO % 10 % (0-9); NEUT # 6.3 x10^3/uL (1.8-7.7); NEUT % 60 % (31-73); PLATELET COUNT 337 x10^3/uL (140-400); WHITE BLOOD COUNT 10.4 x10^3/uL (4.0-11.0)
[2019-11-25 11:23] LABS: CALCIUM 9.2 mg/dL (8.5-10.1); CREATININE 0.9 mg/dL (0.6-1.0); POTASSIUM 3.2 mmol/L (3.5-5.1)
[2019-11-25 11:30] LABS: ALBUMIN 3.8 g/dL (3.4-5.0); TOTAL BILIRUBIN 0.2 mg/dL (0.2-1.0); TOTAL PROTEIN 7.7 g/dL (6.4-8.2)
[2019-11-25 11:30] LABS: BILIRUBIN,URINE NEGATIVE (NEG); CLARITY,URINE CLEAR; COLOR,URINE YELLOW; NITRITE,URINE NEGATIVE (NEG); PH,URINE 7.5 (<5.0-8.0); PROTEIN,URINE NEGATIVE (NEG-TRACE); UROBILINOGEN,URINE 0.2 mg/dL (0.2 mg/dL)
[2019-11-25 11:49] LABS: AMORPHOUS SEDIMENT,UR PRESENT /HPF; BACTERIA,URINE FEW /HPF (0-FEW); RBC,URINE RARE /HPF (0-2); SQUAMOUS EPITHELIAL CELL,UR MOD /LPF
[2019-11-25 12:06] LABS: PLT ESTIMATE ADEQUATE (ADEQUATE)
[2019-11-25 12:07] LABS: ACANTHOCYTES OCC; ANISOCYTOSIS SLIGHT; OVALOCYTES OCC; TEAR DROP CELLS OCC
[2019-11-25 13:05] LABS: BARBITURATES NEG (NEG); BENZODIAZEPINES NEG (NEG); CANNABINOIDS NEG (NEG); COCAINE NEG (NEG); METHADONE NEG (NEG); OPIATES NEG (NEG); PHENCYCLIDINE NEG (NEG)
[2019-11-25 13:08] LABS: AMPHETAMINE/METHAMPHETAMINE NEG (NEG)
[2019-11-25 13:08] LABS: ACETAMIN < 2 mcg/ml (10-30); SALIC < 2.8 mg/dL (2.8-20.0)
[2019-11-25] MEDS ORDERED: DOCUSATE SODIUM 100 MG CAPSULE. PO PRN (15:45)
[2019-11-25] MEDS ORDERED: POTASSIUM CHLORIDE 20 MEQ TABLET.ER. PO ONE (15:45)
--- NOTE | 2019-11-25 16:48 | PDOC1 ---
History and Physical Date of Admission Date of Admission DATE: 11/25/19 TIME: 16:44 Source Source: Chart review, Patient History of Present Illness History of Present Illness Ms. Kahn is a 64-year-old female admit form the ED after her sister called 911 with concern for confusion and altered mental status. some baseline decline, but markedly confused today EMS reports pt just completed antibiotics for UTI - poss resistant organism she reports feeling better after abx and IV fluid given. Past Medical History Cardiovascular: HTN, Hyperlipidemia Pulmonary: Asthma, COPD CENTRAL NERVOUS SYSTEM: Seizure GI: GERD, Irritable bowel disease, Other Heme/Onc: Anemia NOS, Cancer Hepatobiliary: No pertinent hx Psych: Anxiety, Bipolar, Depression Rheumatologic: Fibromyalgia Infectious disease: No pertinent hx Renal/: Urinary Incontinence, Other Endocrine: Hypothyroidism Past Surgical History Past Surgical History: Total hip replacement, Other Family History Family History: Coronary Artery Disease, Hypertension Social History Smoke: No ALCOHOL: none Drugs: None Current Problem List Problem List Problems Medical Problems: (1) Acute encephalopathy Status: Acute Current Medications Current Medications Current Medications Sodium Chloride 1,000 ml @ 1,000 mls/hr 1X ONCE IV Last administered on 11/25/19at 12:27; Start 11/25/19 at 10:00; Stop 11/25/19 at 10:59; Status DC Ceftriaxone Sodium (Rocephin) 1 gm 1X ONCE IVP Last administered on 11/25/19at 12:24; Start 11/25/19 at 10:00; Stop 11/25/19 at 10:01; Status DC Potassium Chloride (Klor-Con) 40 meq 1X ONCE PO Last administered on 11/25/19at 16:08; Start 11/25/19 at 15:45; Stop 11/25/19 at 15:46; Status DC Acetaminophen (Tylenol) 650 mg PRN Q4HRS PRN PO TEMP OVER 100.4F OR MILD PAIN; Start 11/25/19 at 15:45 Atorvastatin Calcium (Lipitor) 20 mg HS PO ; Start 11/25/19 at 21:00; Status UNV Bupropion HCl (Wellbutrin Sr) 100 mg BID PO ; Start 11/25/19 at 21:00; Status UNV Docusate Sodium (Colace) 100 mg PRN BID PRN PO CONSTIPATION; Start 11/25/19 at 15:45 Fluoxetine HCl (PROzac) 20 mg DAILY PO ; Start 11/26/19 at 09:00; Status UNV Levothyroxine Sodium (Synthroid) 50 mcg DAILY PO ; Start 11/26/19 at 09:00; Status UNV Lorazepam (Ativan) 0.5 mg PRN TID PRN PO ANXIETY / AGITATION; Start 11/25/19 at 15:45 Metoprolol Tartrate (Lopressor) 25 mg BID PO ; Start 11/25/19 at 21:00; Status UNV Trazodone HCl (Desyrel) 100 mg HS PO ; Start 11/25/19 at 21:00; Status UNV Active Scripts Active Thera-M Tablet (Multivits,Ca,Minerals/Iron/Fa) 1 Each Tablet 1 Tab PO DAILY 30 Days Vitamin C (Ascorbic Acid) 500 Mg Tablet 500 Mg PO DAILY 30 Days Dok (Docusate Sodium) 100 Mg Capsule 100 Mg PO PRN BID PRN 14 Days Tylenol (Acetaminophen) 325 Mg Tablet 650 Mg PO PRN Q4HRS PRN 30 Days Amox Tr-K Clv 500-125 Mg Tab (Amoxicillin/Potassium Clav) 1 Each Tablet 1 Tab PO BID 7 Days Ativan (Lorazepam) 0.5 Mg Tablet 0.5 Mg PO PRN TID PRN 6 Days Dicyclomine Hcl 20 Mg Tablet 1 Tab PO PRN TID PRN 30 Days Reported Compazine (Prochlorperazine Maleate) 10 Mg Tablet 10 Mg PO Q4HRS Albuterol Sulfate Neb Soln (Albuterol Sulfate) 1.25 Mg/3 Ml Vial.neb 1 Vial NEB QID Flonase Allergy Relief (Fluticasone Propionate) 9.9 Ml [place].susp 1 Sprays NS DAILY Metoprolol Tartrate 25 Mg Tablet 25 Mg PO BID 1/2 tab bid Nystatin 15 Gm Powder 1 [place] TP BID 7 Days apply to affected area(s) Trazodone Hcl 100 Mg Tablet 100 Mg PO HS trazodone 100mg 2tabs at bedtime Advair 500-50 Diskus (Fluticasone/Salmeterol) 1 Each Disk.w.dev 1 Inh IH BID Lipitor (Atorvastatin Calcium) 20 Mg Tablet 20 Mg PO HS Bupropion Hcl Sr (Bupropion Hcl) 100 Mg Tablet.er 100 Mg PO BID Fluoxetine Hcl 10 Mg Capsule 2 Cap PO DAILY Levothyroxine Sodium 50 Mcg Tablet 1 Tab PO DAILY Allergies Allergies: Coded Allergies: Iodinated Contrast Media (Verified Allergy, Severe, Anaphylaxis, 07/17/14) coconut oil (Verified Allergy, Severe, Anaphylaxis, 07/17/14) coconuts iron (Verified Allergy, Severe, Anaphylaxis, 07/17/14) ROS General: No: Chills, Night Sweats, Fatigue, Malaise, Appetite, Other PSYCHOLOGICAL ROS: No: Anxiety, Behavioral Disorder, Concentration difficultie, Decreased libido, Depression, Disorientation, Hallucinations, Hostility, Irritablity, Memory difficulties, Mood Swings, Obsessive thoughts, Physical abuse, Sexual abuse, Sleep disturbances, Suicidal ideation, Other Eyes: No Blurry vision, No Decreased vision, No Double vision, No Dry eyes, No Excessive tearing, No Eye Pain, No Itchy Eyes, No Loss of vision, No Photophobia, No Scotomata, No Uses contacts, No Uses glasses, No Other HEENT: No: Heacaches, Visual Changes, Hearing change, Nasal congestion, Nasal discharge, Oral lesions, Sinus pain, Sore Throat, Epistaxis, Sneezing, Snoring, Tinnitus, Vertigo, Vocal changes, Other Respiratory: No: Cough, Hemoptysis, Orthopnea, Pleuritic Pain, Shortness of breath, SOB with excertion, Sputum Changes, Stridor, Tachypnea, Wheezing, Other Cardiovascular: No Chest Pain, No Palpitations, No Orthopnea, No Paroxysmal No c. Dyspnea, No Edema, No Lt Headedness, No Other Gastrointestinal: No Nausea, No Vomiting, No Abdominal Pain, No Diarrhea, No Constipation, No Melena, No Hematochezia, No Other Genitourinary: No Dysuria, No Frequency, No Incontinence, No Hematuria, No Retention, No Discharge, No Urgency, No Pain, No Flank Pain, No Other, No , No , No , No , No , No , No Musculoskeletal: No Gait Disturbance, No Joint Pain, No Joint Stiffness, No Joint Swelling, No Muscle Pain, No Muscular Weakness, No Pain In:, No Swelling In:, No Other Neurological: No Behavorial Changes, No Bowel/Bladder ControlChng, No Confusion, No Dizziness, No Gait Disturbance, No Headaches, No Impaired Coord/balance, No Memory Loss, No Numbness/Tingling, No Seizures, No Speech Problems, No Tremors, No Visual Changes, No Weakness, No Other Skin: Yes Dry Skin; No Eczema, No Hair Changes, No Lumps, No Mole Changes, No Mottling, No Nail Changes, No Pruritus, No Rash, No Skin Lesion Changes, No Other, No Acne Physical Exam General: Alert, Oriented X3 HEENT: Atraumatic, PERRLA Lungs: Clear to auscultation Heart: RRR Extremities: No clubbing, Normal pulses Skin: No significant lesion Neuro: Normal speech, Sensation intact, Cranial nerves 3-12 NL Psych/Mental Status: Mood NL Vitals Vitals Vital Signs Date Time Temp Pulse Resp B/P (MAP) Pulse Ox O2 Delivery O2 Flow Rate FiO2 11/25/19 13:30 80 16 95 11/25/19 09:21 98.2 115/55 (75) Room Air 98.2 Labs Labs Laboratory Tests Test 11/25/19 10:55 11/25/19 11:15 White Blood Count 10.4 x10^3/uL (4.0-11.0) Red Blood Count 4.70 x10^6/uL (3.50-5.40) Hemoglobin 15.7 g/dL (12.0-15.5) Hematocrit 47.0 % (36.0-47.0) Mean Corpuscular Volume 100 fL (79-100) Mean Corpuscular Hemoglobin 33 pg (25-35) Mean Corpuscular Hemoglobin Concent 33 g/dL (31-37) Red Cell Distribution Width 14.0 % (11.5-14.5) Platelet Count 337 x10^3/uL (140-400) Neutrophils (%) (Auto) 60 % (31-73) Lymphocytes (%) (Auto) 27 % (24-48) Monocytes (%) (Auto) 10 % (0-9) Eosinophils (%) (Auto) 3 % (0-3) Basophils (%) (Auto) 1 % (0-3) Neutrophils # (Auto) 6.3 x10^3/uL (1.8-7.7) Lymphocytes # (Auto) 2.8 x10^3/uL (1.0-4.8) Monocytes # (Auto) 1.0 x10^3/uL (0.0-1.1) Eosinophils # (Auto) 0.3 x10^3/uL (0.0-0.7) Basophils # (Auto) 0.1 x10^3/uL (0.0-0.2) Platelet Estimate Adequate (ADEQUATE) Large Platelets Few Anisocytosis Slight Tear Drop Cells Occ Ovalocytes Occ Acanthocytes Occ Sodium Level 140 mmol/L (136-145) Potassium Level 3.2 mmol/L (3.5-5.1) Chloride Level 99 mmol/L (98-107) Carbon Dioxide Level 33 mmol/L (21-32) Anion Gap 8 (6-14) Blood Urea Nitrogen 14 mg/dL (7-20) Creatinine 0.9 mg/dL (0.6-1.0) Estimated GFR (Cockcroft-Gault) 63.0 BUN/Creatinine Ratio 16 (6-20) Glucose Level 113 mg/dL (70-99) Lactic Acid Level 1.2 mmol/L (0.4-2.0) Calcium Level 9.2 mg/dL (8.5-10.1) Magnesium Level 2.0 mg/dL (1.8-2.4) Total Bilirubin 0.2 mg/dL (0.2-1.0) Aspartate Amino Transf (AST/SGOT) 21 U/L (15-37) Alanine Aminotransferase (ALT/SGPT) 31 U/L (14-59) Alkaline Phosphatase 122 U/L (46-116) Total Protein 7.7 g/dL (6.4-8.2) Albumin 3.8 g/dL (3.4-5.0) Albumin/Globulin Ratio 1.0 (1.0-1.7) Salicylates Level < 2.8 mg/dL (2.8-20.0) Salicylate Last Dose Date Unknown Salicylate Last Dose Time Unknown Acetaminophen Level < 2 mcg/ml (10-30) Acetaminophen Last Dose Date Unknown Acetaminophen Last Dose Time Unknown Urine Collection Type Void Urine Color Yellow Urine Clarity Clear Urine pH 7.5 (<5.0-8.0) Urine Specific [place] 1.010 (1.000-1.030) Urine Protein Negative mg/dL (NEG-TRACE) Urine Glucose (UA) Negative mg/dL (NEG) Urine Ketones (Stick) Negative mg/dL (NEG) Urine Blood Negative (NEG) Urine Nitrite Negative (NEG) Urine Bilirubin Negative (NEG) Urine Urobilinogen Dipstick 0.2 mg/dL (0.2 mg/dL) Urine Leukocyte Esterase Small (NEG) Urine RBC Rare /HPF (0-2) Urine WBC 11-20 /HPF (0-4) Urine Squamous Epithelial Cells Mod /LPF Urine Amorphous Sediment Present /HPF Urine Bacteria Few /HPF (0-FEW) Urine Opiates Screen Neg (NEG) Urine Methadone Screen Neg (NEG) Urine Barbiturates Neg (NEG) Urine Phencyclidine Screen Neg (NEG) Urine Amphetamine/Methamphetamine Neg (NEG) Urine Benzodiazepines Screen Neg (NEG) Urine Cocaine Screen Neg (NEG) Urine Cannabinoids Screen Neg (NEG) Urine Ethyl Alcohol Neg (NEG) Laboratory Tests Test 11/25/19 10:55 11/25/19 11:15 White Blood Count 10.4 x10^3/uL (4.0-11.0) Red Blood Count 4.70 x10^6/uL (3.50-5.40) Hemoglobin 15.7 g/dL (12.0-15.5) Hematocrit 47.0 % (36.0-47.0) Mean Corpuscular Volume 100 fL (79-100) Mean Corpuscular Hemoglobin 33 pg (25-35) Mean Corpuscular Hemoglobin Concent 33 g/dL (31-37) Red Cell Distribution Width 14.0 % (11.5-14.5) Platelet Count 337 x10^3/uL (140-400) Neutrophils (%) (Auto) 60 % (31-73) Lymphocytes (%) (Auto) 27 % (24-48) Monocytes (%) (Auto) 10 % (0-9) Eosinophils (%) (Auto) 3 % (0-3) Basophils (%) (Auto) 1 % (0-3) Neutrophils # (Auto) 6.3 x10^3/uL (1.8-7.7) Lymphocytes # (Auto) 2.8 x10^3/uL (1.0-4.8) Monocytes # (Auto) 1.0 x10^3/uL (0.0-1.1) Eosinophils # (Auto) 0.3 x10^3/uL (0.0-0.7) Basophils # (Auto) 0.1 x10^3/uL (0.0-0.2) Platelet Estimate Adequate (ADEQUATE) Large Platelets Few Anisocytosis Slight Tear Drop Cells Occ Ovalocytes Occ Acanthocytes Occ Sodium Level 140 mmol/L (136-145) Potassium Level 3.2 mmol/L (3.5-5.1) Chloride Level 99 mmol/L (98-107) Carbon Dioxide Level 33 mmol/L (21-32) Anion Gap 8 (6-14) Blood Urea Nitrogen 14 mg/dL (7-20) Creatinine 0.9 mg/dL (0.6-1.0) Estimated GFR (Cockcroft-Gault) 63.0 BUN/Creatinine Ratio 16 (6-20) Glucose Level 113 mg/dL (70-99) Lactic Acid Level 1.2 mmol/L (0.4-2.0) Calcium Level 9.2 mg/dL (8.5-10.1) Magnesium Level 2.0 mg/dL (1.8-2.4) Total Bilirubin 0.2 mg/dL (0.2-1.0) Aspartate Amino Transf (AST/SGOT) 21 U/L (15-37) Alanine Aminotransferase (ALT/SGPT) 31 U/L (14-59) Alkaline Phosphatase 122 U/L (46-116) Total Protein 7.7 g/dL (6.4-8.2) Albumin 3.8 g/dL (3.4-5.0) Albumin/Globulin Ratio 1.0 (1.0-1.7) Salicylates Level < 2.8 mg/dL (2.8-20.0) Salicylate Last Dose Date Unknown Salicylate Last Dose Time Unknown Acetaminophen Level < 2 mcg/ml (10-30) Acetaminophen Last Dose Date Unknown Acetaminophen Last Dose Time Unknown Urine Collection Type Void Urine Color Yellow Urine Clarity Clear Urine pH 7.5 (<5.0-8.0) Urine Specific [place] 1.010 (1.000-1.030) Urine Protein Negative mg/dL (NEG-TRACE) Urine Glucose (UA) Negative mg/dL (NEG) Urine Ketones (Stick) Negative mg/dL (NEG) Urine Blood Negative (NEG) Urine Nitrite Negative (NEG) Urine Bilirubin Negative (NEG) Urine Urobilinogen Dipstick 0.2 mg/dL (0.2 mg/dL) Urine Leukocyte Esterase Small (NEG) Urine RBC Rare /HPF (0-2) Urine WBC 11-20 /HPF (0-4) Urine Squamous Epithelial Cells Mod /LPF Urine Amorphous Sediment Present /HPF Urine Bacteria Few /HPF (0-FEW) Urine Opiates Screen Neg (NEG) Urine Methadone Screen Neg (NEG) Urine Barbiturates Neg (NEG) Urine Phencyclidine Screen Neg (NEG) Urine Amphetamine/Methamphetamine Neg (NEG) Urine Benzodiazepines Screen Neg (NEG) Urine Cocaine Screen Neg (NEG) Urine Cannabinoids Screen Neg (NEG) Urine Ethyl Alcohol Neg (NEG) VTE Prophylaxis Ordered VTE Prophylaxis Devices: No VTE Pharmacological Prophylaxi: Yes Assessment/Plan Assessment/Plan acute metabolic encephalopathy on chronic mild cognitive decline chrons weakness and debility, PT and OT intermittent encephalopathy, i have concern for not takingher thyroid or depression meds depression and anxiety hypokalemia Justicifation of Admission Dx: Justifications for Admission: Justification of Admission Dx: Yes Sepsis: Altered Mental Status (UTI) THANH LEROY MD Nov 25, 2019 16:48
[2019-11-25 17:15] VITALS: BP 118/71
[2019-11-25 19:00] VITALS: BP 113/64
[2019-11-25] MEDS: ATORVASTATIN CALCIUM 20 MG TABLET PO SCH (20:23)
[2019-11-25] MEDS: METOPROLOL TART IMMED RELEASE 25 MG TABLET. PO SCH (20:23)
[2019-11-25] MEDS: buPROPion SR 100 MG TABLET.SA. PO SCH (20:23)
[2019-11-25] MEDS: traZODone 100 MG TABLET. PO SCH (20:23)
[2019-11-25] MEDS: LORazepam 0.5 MG TABLET PO PRN (20:46)
[2019-11-25 23:00] VITALS: BP 131/54
[2019-11-26 03:00] VITALS: BP 123/69
[2019-11-26 04:32] LABS: BASO # 0.2 x10^3/uL (0.0-0.2); BASO % 1 % (0-3); EOS # 0.3 x10^3/uL (0.0-0.7); EOS % 2 % (0-3); HEMATOCRIT 40.6 % (36.0-47.0); HEMOGLOBIN 13.7 g/dL (12.0-15.5); LYMPH % 23 % (24-48); MEAN CORPUSCULAR HEMOGLOBIN 34 pg (25-35); MEAN CORPUSCULAR HGB CONC 34 g/dL (31-37); MEAN CORPUSCULAR VOLUME 99 fL (79-100); MONO # 1.1 x10^3/uL (0.0-1.1); MONO % 8 % (0-9); NEUT # 8.4 x10^3/uL (1.8-7.7); NEUT % 65 % (31-73); PLATELET COUNT 278 x10^3/uL (140-400); RED BLOOD COUNT 4.09 x10^6/uL (3.50-5.40); RED CELL DISTRIBUTION WIDTH 14.1 % (11.5-14.5); WHITE BLOOD COUNT 12.9 x10^3/uL (4.0-11.0)
[2019-11-26 05:04] LABS: ALBUMIN 3.4 g/dL (3.4-5.0); ALBUMIN/GLOBULIN RATIO 1.1 (1.0-1.7); CALCIUM 8.9 mg/dL (8.5-10.1); CREATININE 0.8 mg/dL (0.6-1.0); GFR 72.2; POTASSIUM 3.5 mmol/L (3.5-5.1); TOTAL BILIRUBIN 0.2 mg/dL (0.2-1.0); TOTAL PROTEIN 6.5 g/dL (6.4-8.2)
[2019-11-26 07:23] VITALS: BP 127/64
[2019-11-26] MEDS: LEVOTHYROXINE 50 MCG TABLET PO SCH (08:22)
[2019-11-26] MEDS: METOPROLOL TART IMMED RELEASE 25 MG TABLET. PO SCH ×2 (08:22→20:47)
[2019-11-26] MEDS: buPROPion SR 100 MG TABLET.SA. PO SCH ×2 (08:23→20:48)
[2019-11-26] MEDS: FLUoxetine HCL 10 MG CAPSULE PO SCH (08:23)
[2019-11-26 10:34] VITALS: BP 118/77
--- NOTE | 2019-11-26 13:05 | PDOC ---
PROGRESS NOTES Chief Complaint Chief Complaint acute metabolic encephalopathy on chronic mild cognitive decline chrons disease, weakness and debility, PT and OT intermittent encephalopathy, i have concern for not takingher thyroid or depression meds depression and anxiety hypokalemia History of Present Illness History of Present Illness still odd behavior, confusion eating better start PT and OT, may need placment Vitals Vitals Vital Signs Date Time Temp Pulse Resp B/P (MAP) Pulse Ox O2 Delivery O2 Flow Rate FiO2 11/26/19 10:34 98.1 88 18 118/77 (91) 95 Room Air 98.1 Physical Exam General: Alert, Oriented X3 Lungs: Clear, Other Extremities: No clubbing, Normal pulses Skin: No significant lesion Labs LABS Laboratory Tests Test 11/26/19 04:00 White Blood Count 12.9 x10^3/uL (4.0-11.0) Red Blood Count 4.09 x10^6/uL (3.50-5.40) Hemoglobin 13.7 g/dL (12.0-15.5) Hematocrit 40.6 % (36.0-47.0) Mean Corpuscular Volume 99 fL (79-100) Mean Corpuscular Hemoglobin 34 pg (25-35) Mean Corpuscular Hemoglobin Concent 34 g/dL (31-37) Red Cell Distribution Width 14.1 % (11.5-14.5) Platelet Count 278 x10^3/uL (140-400) Neutrophils (%) (Auto) 65 % (31-73) Lymphocytes (%) (Auto) 23 % (24-48) Monocytes (%) (Auto) 8 % (0-9) Eosinophils (%) (Auto) 2 % (0-3) Basophils (%) (Auto) 1 % (0-3) Neutrophils # (Auto) 8.4 x10^3/uL (1.8-7.7) Lymphocytes # (Auto) 3.0 x10^3/uL (1.0-4.8) Monocytes # (Auto) 1.1 x10^3/uL (0.0-1.1) Eosinophils # (Auto) 0.3 x10^3/uL (0.0-0.7) Basophils # (Auto) 0.2 x10^3/uL (0.0-0.2) Sodium Level 141 mmol/L (136-145) Potassium Level 3.5 mmol/L (3.5-5.1) Chloride Level 103 mmol/L (98-107) Carbon Dioxide Level 27 mmol/L (21-32) Anion Gap 11 (6-14) Blood Urea Nitrogen 12 mg/dL (7-20) Creatinine 0.8 mg/dL (0.6-1.0) Estimated GFR (Cockcroft-Gault) 72.2 BUN/Creatinine Ratio 15 (6-20) Glucose Level 100 mg/dL (70-99) Calcium Level 8.9 mg/dL (8.5-10.1) Total Bilirubin 0.2 mg/dL (0.2-1.0) Aspartate Amino Transf (AST/SGOT) 20 U/L (15-37) Alanine Aminotransferase (ALT/SGPT) 23 U/L (14-59) Alkaline Phosphatase 106 U/L (46-116) Total Protein 6.5 g/dL (6.4-8.2) Albumin 3.4 g/dL (3.4-5.0) Albumin/Globulin Ratio 1.1 (1.0-1.7) Thyroid Stimulating Hormone (TSH) 1.137 uIU/mL (0.358-3.74) Assessment and Plan Assessmemt and Plan Problems Medical Problems: (1) Acute encephalopathy Status: Acute Comment Review of Relevant I have reviewed the following items lottie (where applicable) has been applied. Labs Laboratory Tests Test 11/25/19 10:55 11/25/19 11:15 11/26/19 04:00 White Blood Count 10.4 x10^3/uL (4.0-11.0) 12.9 x10^3/uL (4.0-11.0) Red Blood Count 4.70 x10^6/uL (3.50-5.40) 4.09 x10^6/uL (3.50-5.40) Hemoglobin 15.7 g/dL (12.0-15.5) 13.7 g/dL (12.0-15.5) Hematocrit 47.0 % (36.0-47.0) 40.6 % (36.0-47.0) Mean Corpuscular Volume 100 fL (79-100) 99 fL (79-100) Mean Corpuscular Hemoglobin 33 pg (25-35) 34 pg (25-35) Mean Corpuscular Hemoglobin Concent 33 g/dL (31-37) 34 g/dL (31-37) Red Cell Distribution Width 14.0 % (11.5-14.5) 14.1 % (11.5-14.5) Platelet Count 337 x10^3/uL (140-400) 278 x10^3/uL (140-400) Neutrophils (%) (Auto) 60 % (31-73) 65 % (31-73) Lymphocytes (%) (Auto) 27 % (24-48) 23 % (24-48) Monocytes (%) (Auto) 10 % (0-9) 8 % (0-9) Eosinophils (%) (Auto) 3 % (0-3) 2 % (0-3) Basophils (%) (Auto) 1 % (0-3) 1 % (0-3) Neutrophils # (Auto) 6.3 x10^3/uL (1.8-7.7) 8.4 x10^3/uL (1.8-7.7) Lymphocytes # (Auto) 2.8 x10^3/uL (1.0-4.8) 3.0 x10^3/uL (1.0-4.8) Monocytes # (Auto) 1.0 x10^3/uL (0.0-1.1) 1.1 x10^3/uL (0.0-1.1) Eosinophils # (Auto) 0.3 x10^3/uL (0.0-0.7) 0.3 x10^3/uL (0.0-0.7) Basophils # (Auto) 0.1 x10^3/uL (0.0-0.2) 0.2 x10^3/uL (0.0-0.2) Platelet Estimate Adequate (ADEQUATE) Large Platelets Few Anisocytosis Slight Tear Drop Cells Occ Ovalocytes Occ Acanthocytes Occ Sodium Level 140 mmol/L (136-145) 141 mmol/L (136-145) Potassium Level 3.2 mmol/L (3.5-5.1) 3.5 mmol/L (3.5-5.1) Chloride Level 99 mmol/L (98-107) 103 mmol/L (98-107) Carbon Dioxide Level 33 mmol/L (21-32) 27 mmol/L (21-32) Anion Gap 8 (6-14) 11 (6-14) Blood Urea Nitrogen 14 mg/dL (7-20) 12 mg/dL (7-20) Creatinine 0.9 mg/dL (0.6-1.0) 0.8 mg/dL (0.6-1.0) Estimated GFR (Cockcroft-Gault) 63.0 72.2 BUN/Creatinine Ratio 16 (6-20) 15 (6-20) Glucose Level 113 mg/dL (70-99) 100 mg/dL (70-99) Lactic Acid Level 1.2 mmol/L (0.4-2.0) Calcium Level 9.2 mg/dL (8.5-10.1) 8.9 mg/dL (8.5-10.1) Magnesium Level 2.0 mg/dL (1.8-2.4) Total Bilirubin 0.2 mg/dL (0.2-1.0) 0.2 mg/dL (0.2-1.0) Aspartate Amino Transf (AST/SGOT) 21 U/L (15-37) 20 U/L (15-37) Alanine Aminotransferase (ALT/SGPT) 31 U/L (14-59) 23 U/L (14-59) Alkaline Phosphatase 122 U/L (46-116) 106 U/L (46-116) Total Protein 7.7 g/dL (6.4-8.2) 6.5 g/dL (6.4-8.2) Albumin 3.8 g/dL (3.4-5.0) 3.4 g/dL (3.4-5.0) Albumin/Globulin Ratio 1.0 (1.0-1.7) 1.1 (1.0-1.7) Salicylates Level < 2.8 mg/dL (2.8-20.0) Salicylate Last Dose Date Unknown Salicylate Last Dose Time Unknown Acetaminophen Level < 2 mcg/ml (10-30) Acetaminophen Last Dose Date Unknown Acetaminophen Last Dose Time Unknown Urine Collection Type Void Urine Color Yellow Urine Clarity Clear Urine pH 7.5 (<5.0-8.0) Urine Specific [place] 1.010 (1.000-1.030) Urine Protein Negative mg/dL (NEG-TRACE) Urine Glucose (UA) Negative mg/dL (NEG) Urine Ketones (Stick) Negative mg/dL (NEG) Urine Blood Negative (NEG) Urine Nitrite Negative (NEG) Urine Bilirubin Negative (NEG) Urine Urobilinogen Dipstick 0.2 mg/dL (0.2 mg/dL) Urine Leukocyte Esterase Small (NEG) Urine RBC Rare /HPF (0-2) Urine WBC 11-20 /HPF (0-4) Urine Squamous Epithelial Cells Mod /LPF Urine Amorphous Sediment Present /HPF Urine Bacteria Few /HPF (0-FEW) Urine Opiates Screen Neg (NEG) Urine Methadone Screen Neg (NEG) Urine Barbiturates Neg (NEG) Urine Phencyclidine Screen Neg (NEG) Urine Amphetamine/Methamphetamine Neg (NEG) Urine Benzodiazepines Screen Neg (NEG) Urine Cocaine Screen Neg (NEG) Urine Cannabinoids Screen Neg (NEG) Urine Ethyl Alcohol Neg (NEG) Thyroid Stimulating Hormone (TSH) 1.137 uIU/mL (0.358-3.74) Laboratory Tests Test 11/26/19 04:00 White Blood Count 12.9 x10^3/uL (4.0-11.0) Red Blood Count 4.09 x10^6/uL (3.50-5.40) Hemoglobin 13.7 g/dL (12.0-15.5) Hematocrit 40.6 % (36.0-47.0) Mean Corpuscular Volume 99 fL (79-100) Mean Corpuscular Hemoglobin 34 pg (25-35) Mean Corpuscular Hemoglobin Concent 34 g/dL (31-37) Red Cell Distribution Width 14.1 % (11.5-14.5) Platelet Count 278 x10^3/uL (140-400) Neutrophils (%) (Auto) 65 % (31-73) Lymphocytes (%) (Auto) 23 % (24-48) Monocytes (%) (Auto) 8 % (0-9) Eosinophils (%) (Auto) 2 % (0-3) Basophils (%) (Auto) 1 % (0-3) Neutrophils # (Auto) 8.4 x10^3/uL (1.8-7.7) Lymphocytes # (Auto) 3.0 x10^3/uL (1.0-4.8) Monocytes # (Auto) 1.1 x10^3/uL (0.0-1.1) Eosinophils # (Auto) 0.3 x10^3/uL (0.0-0.7) Basophils # (Auto) 0.2 x10^3/uL (0.0-0.2) Sodium Level 141 mmol/L (136-145) Potassium Level 3.5 mmol/L (3.5-5.1) Chloride Level 103 mmol/L (98-107) Carbon Dioxide Level 27 mmol/L (21-32) Anion Gap 11 (6-14) Blood Urea Nitrogen 12 mg/dL (7-20) Creatinine 0.8 mg/dL (0.6-1.0) Estimated GFR (Cockcroft-Gault) 72.2 BUN/Creatinine Ratio 15 (6-20) Glucose Level 100 mg/dL (70-99) Calcium Level 8.9 mg/dL (8.5-10.1) Total Bilirubin 0.2 mg/dL (0.2-1.0) Aspartate Amino Transf (AST/SGOT) 20 U/L (15-37) Alanine Aminotransferase (ALT/SGPT) 23 U/L (14-59) Alkaline Phosphatase 106 U/L (46-116) Total Protein 6.5 g/dL (6.4-8.2) Albumin 3.4 g/dL (3.4-5.0) Albumin/Globulin Ratio 1.1 (1.0-1.7) Thyroid Stimulating Hormone (TSH) 1.137 uIU/mL (0.358-3.74) Microbiology 11/25/19 Urine Culture - Preliminary, Resulted 11/25/19 Blood Culture - Preliminary, Resulted NO GROWTH AFTER 1 DAY Medications Current Medications Sodium Chloride 1,000 ml @ 1,000 mls/hr 1X ONCE IV Last administered on 11/25/19at 12:27; Start 11/25/19 at 10:00; Stop 11/25/19 at 10:59; Status DC Ceftriaxone Sodium (Rocephin) 1 gm 1X ONCE IVP Last administered on 11/25/19at 12:24; Start 11/25/19 at 10:00; Stop 11/25/19 at 10:01; Status DC Potassium Chloride (Klor-Con) 40 meq 1X ONCE PO Last administered on 11/25/19at 16:08; Start 11/25/19 at 15:45; Stop 11/25/19 at 15:46; Status DC Acetaminophen (Tylenol) 650 mg PRN Q4HRS PRN PO TEMP OVER 100.4F OR MILD PAIN; Start 11/25/19 at 15:45 Atorvastatin Calcium (Lipitor) 20 mg HS PO Last administered on 11/25/19at 20:23; Start 11/25/19 at 21:00 Bupropion HCl (Wellbutrin Sr) 100 mg BID PO Last administered on 11/26/19at 08:23; Start 11/25/19 at 21:00 Docusate Sodium (Colace) 100 mg PRN BID PRN PO CONSTIPATION; Start 11/25/19 at 15:45 Fluoxetine HCl (PROzac) 20 mg DAILY PO Last administered on 11/26/19at 08:23; Start 11/26/19 at 09:00 Levothyroxine Sodium (Synthroid) 50 mcg DAILY PO Last administered on 11/26/19at 08:22; Start 11/26/19 at 09:00 Lorazepam (Ativan) 0.5 mg PRN TID PRN PO ANXIETY / AGITATION Last administered on 11/25/19at 20:46; Start 11/25/19 at 15:45 Metoprolol Tartrate (Lopressor) 25 mg BID PO Last administered on 11/26/19 08:22; Start 11/25/19 at 21:00 Trazodone HCl (Desyrel) 100 mg HS PO Last administered on 11/25/19at 20:23; Start 11/25/19 at 21:00 Active Scripts Active Thera-M Tablet (Multivits,Ca,Minerals/Iron/Fa) 1 Each Tablet 1 Tab PO DAILY 30 Days Vitamin C (Ascorbic Acid) 500 Mg Tablet 500 Mg PO DAILY 30 Days Dok (Docusate Sodium) 100 Mg Capsule 100 Mg PO PRN BID PRN 14 Days Tylenol (Acetaminophen) 325 Mg Tablet 650 Mg PO PRN Q4HRS PRN 30 Days Amox Tr-K Clv 500-125 Mg Tab (Amoxicillin/Potassium Clav) 1 Each Tablet 1 Tab PO BID 7 Days Ativan (Lorazepam) 0.5 Mg Tablet 0.5 Mg PO PRN TID PRN 6 Days Dicyclomine Hcl 20 Mg Tablet 1 Tab PO PRN TID PRN 30 Days Reported Compazine (Prochlorperazine Maleate) 10 Mg Tablet 10 Mg PO Q4HRS Albuterol Sulfate Neb Soln (Albuterol Sulfate) 1.25 Mg/3 Ml Vial.neb 1 Vial NEB QID Flonase Allergy Relief (Fluticasone Propionate) 9.9 Ml [place].susp 1 Sprays NS DAILY Metoprolol Tartrate 25 Mg Tablet 25 Mg PO BID 1/2 tab bid Nystatin 15 Gm Powder 1 [place] TP BID 7 Days apply to affected area(s) Trazodone Hcl 100 Mg Tablet 100 Mg PO HS trazodone 100mg 2tabs at bedtime Advair 500-50 Diskus (Fluticasone/Salmeterol) 1 Each Disk.w.dev 1 Inh IH BID Lipitor (Atorvastatin Calcium) 20 Mg Tablet 20 Mg PO HS Bupropion Hcl Sr (Bupropion Hcl) 100 Mg Tablet.er 100 Mg PO BID Fluoxetine Hcl 10 Mg Capsule 2 Cap PO DAILY Levothyroxine Sodium 50 Mcg Tablet 1 Tab PO DAILY Vitals/I & O Vital Sign - Last 24 Hours 11/25/19 11/25/19 11/25/19 11/25/19 13:30 14:00 14:30 15:00 Pulse 80 80 81 84 Resp 16 16 16 16 Pulse Ox 95 92 96 92 11/25/19 11/25/19 11/25/19 11/25/19 16:00 17:15 19:00 19:12 Temp 98.0 97.7 98.0 97.7 Pulse 84 82 88 Resp 16 18 18 B/P (MAP) 118/71 (87) 113/64 (80) Pulse Ox 92 97 91 O2 Delivery Room Air Room Air Room Air 11/25/19 11/25/19 11/25/19 11/26/19 20:00 20:23 23:00 03:00 Temp 97.9 97.8 97.9 97.8 Pulse 84 84 87 Resp 18 18 B/P (MAP) 111/61 131/54 (79) 123/69 (87) Pulse Ox 98 94 O2 Delivery Room Air Room Air Room Air 11/26/19 11/26/19 11/26/19 11/26/19 07:23 08:00 08:22 10:34 Temp 98.2 98.1 98.2 98.1 Pulse 93 93 88 Resp 18 18 B/P (MAP) 127/64 (85) 127/64 118/77 (91) Pulse Ox 92 95 O2 Delivery Room Air Room Air Room Air Intake and Output 11/25/19 11/25/19 11/26/19 15:00 23:00 07:00 Intake Total 1000 ml 260 ml 250 ml Balance 1000 ml 260 ml 250 ml THANH LEROY MD Nov 26, 2019 13:05
[2019-11-26] MEDS: LORazepam 0.5 MG TABLET PO PRN ×2 (13:07→20:48)
--- NOTE | 2019-11-26 14:28 | RAD ---
KUB History: Reason: acute abd pain / Spl. Instructions: / History: Technique: Supine view the abdomen. Comparison: CT March 21, 2019 Findings: Nondilated air-filled loops of small bowel. Air and stool scattered throughout the imaged colon. Large amount of stool throughout the colon and rectum. Mild distention of the rectum. Right hip arthroplasty. Multilevel lumbar spondylosis. Impression: 1. Nonobstructed bowel gas pattern. 2. Large amount of colonic and rectal stool. Electronically signed by: Jesus Mccabe DO (11/26/2019 2:25 PM) [id number]
[2019-11-26 14:43] VITALS: BP 120/60
[2019-11-26 19:00] VITALS: BP 133/76
[2019-11-26] MEDS: ACETAMINOPHEN 325 MG TABLET. PO PRN (20:48)
[2019-11-26] MEDS: traZODone 100 MG TABLET. PO SCH (20:48)
[2019-11-26] MEDS: ATORVASTATIN CALCIUM 20 MG TABLET PO SCH (20:48)
[2019-11-26 23:00] VITALS: BP 129/66
[2019-11-27 03:00] VITALS: BP 95/53
[2019-11-27 07:30] VITALS: BP 95/53
[2019-11-27] MEDS: FLUoxetine HCL 10 MG CAPSULE PO SCH (08:28)
[2019-11-27] MEDS: LEVOTHYROXINE 50 MCG TABLET PO SCH (08:28)
[2019-11-27] MEDS: buPROPion SR 100 MG TABLET.SA. PO SCH ×2 (08:28→20:25)
[2019-11-27] MEDS ORDERED: ZINC SULFATE 220 MG CAPSULE. PO SCH (09:00)
[2019-11-27] MEDS ORDERED: ASCORBIC ACID 500 MG TABLET PO SCH (09:00)
[2019-11-27] MEDS ORDERED: VITAMIN B COMPLEX TABLET. PO SCH (09:00)
[2019-11-27 11:00] VITALS: BP 140/59
[2019-11-27] MEDS: METOPROLOL TART IMMED RELEASE 25 MG TABLET. PO SCH ×2 (11:17→20:25)
--- NOTE | 2019-11-27 11:29 | PDOC ---
PROGRESS NOTES Chief Complaint Chief Complaint acute metabolic encephalopathy on chronic mild cognitive decline chrons disease, weakness and debility, PT and OT intermittent encephalopathy, i have concern for not takingher thyroid or depression meds depression and anxiety hypokalemia History of Present Illness History of Present Illness rash to chest and arms and back, started 3 vitamins yesterday still odd behavior, confusion eating better start PT and OT, may need placment Vitals Vitals Vital Signs Date Time Temp Pulse Resp B/P (MAP) Pulse Ox O2 Delivery O2 Flow Rate FiO2 11/27/19 11:17 91 140/59 11/27/19 11:00 97.9 16 94 Room Air 97.9 11/26/19 19:00 2.0 Physical Exam General: Alert, Oriented X3 Heart: Regular rate, No murmurs Lungs: Clear, Other Extremities: No clubbing, Normal pulses Skin: No significant lesion Assessment and Plan Assessmemt and Plan Problems Medical Problems: (1) Acute encephalopathy Status: Acute Comment Review of Relevant I have reviewed the following items lottie (where applicable) has been applied. Labs Laboratory Tests Test 11/26/19 04:00 White Blood Count 12.9 x10^3/uL (4.0-11.0) Red Blood Count 4.09 x10^6/uL (3.50-5.40) Hemoglobin 13.7 g/dL (12.0-15.5) Hematocrit 40.6 % (36.0-47.0) Mean Corpuscular Volume 99 fL (79-100) Mean Corpuscular Hemoglobin 34 pg (25-35) Mean Corpuscular Hemoglobin Concent 34 g/dL (31-37) Red Cell Distribution Width 14.1 % (11.5-14.5) Platelet Count 278 x10^3/uL (140-400) Neutrophils (%) (Auto) 65 % (31-73) Lymphocytes (%) (Auto) 23 % (24-48) Monocytes (%) (Auto) 8 % (0-9) Eosinophils (%) (Auto) 2 % (0-3) Basophils (%) (Auto) 1 % (0-3) Neutrophils # (Auto) 8.4 x10^3/uL (1.8-7.7) Lymphocytes # (Auto) 3.0 x10^3/uL (1.0-4.8) Monocytes # (Auto) 1.1 x10^3/uL (0.0-1.1) Eosinophils # (Auto) 0.3 x10^3/uL (0.0-0.7) Basophils # (Auto) 0.2 x10^3/uL (0.0-0.2) Sodium Level 141 mmol/L (136-145) Potassium Level 3.5 mmol/L (3.5-5.1) Chloride Level 103 mmol/L (98-107) Carbon Dioxide Level 27 mmol/L (21-32) Anion Gap 11 (6-14) Blood Urea Nitrogen 12 mg/dL (7-20) Creatinine 0.8 mg/dL (0.6-1.0) Estimated GFR (Cockcroft-Gault) 72.2 BUN/Creatinine Ratio 15 (6-20) Glucose Level 100 mg/dL (70-99) Calcium Level 8.9 mg/dL (8.5-10.1) Total Bilirubin 0.2 mg/dL (0.2-1.0) Aspartate Amino Transf (AST/SGOT) 20 U/L (15-37) Alanine Aminotransferase (ALT/SGPT) 23 U/L (14-59) Alkaline Phosphatase 106 U/L (46-116) Total Protein 6.5 g/dL (6.4-8.2) Albumin 3.4 g/dL (3.4-5.0) Albumin/Globulin Ratio 1.1 (1.0-1.7) Thyroid Stimulating Hormone (TSH) 1.137 uIU/mL (0.358-3.74) Microbiology 11/25/19 Urine Culture - Final, Complete 11/25/19 Antimicrobic Susceptibility - Final, Complete 11/25/19 Blood Culture - Preliminary, Resulted NO GROWTH AFTER 2 DAYS Medications Current Medications Sodium Chloride 1,000 ml @ 1,000 mls/hr 1X ONCE IV Last administered on 11/24at 12:27; Start 11/25/19 at 10:00; Stop 11/25/19 at 10:59; Status DC Ceftriaxone Sodium (Rocephin) 1 gm 1X ONCE IVP Last administered on 11/25/19at 12:24; Start 11/25/19 at 10:00; Stop 11/25/19 at 10:01; Status DC Potassium Chloride (Klor-Con) 40 meq 1X ONCE PO Last administered on 11/25/19 16:08; Start 11/25/19 at 15:45; Stop 11/25/19 at 15:46; Status DC Acetaminophen (Tylenol) 650 mg PRN Q4HRS PRN PO TEMP OVER 100.4F OR MILD PAIN Last administered on 11/26/19 20:48; Start 11/25/19 at 15:45 Atorvastatin Calcium (Lipitor) 20 mg HS PO Last administered on 11/26/19 20:48; Start 11/25/19 at 21:00 Bupropion HCl (Wellbutrin Sr) 100 mg BID PO Last administered on 11/27/19 08:28; Start 11/25/19 at 21:00 Docusate Sodium (Colace) 100 mg PRN BID PRN PO CONSTIPATION; Start 11/25/19 at 15:45 Fluoxetine HCl (PROzac) 20 mg DAILY PO Last administered on 11/27/19 08:28; Start 11/26/19 at 09:00 Levothyroxine Sodium (Synthroid) 50 mcg DAILY PO Last administered on 11/27/19 08:28; Start 11/26/19 at 09:00 Lorazepam (Ativan) 0.5 mg PRN TID PRN PO ANXIETY / AGITATION Last administered on 11/26/19 20:48; Start 11/25/19 at 15:45 Metoprolol Tartrate (Lopressor) 25 mg BID PO Last administered on 11/27/19 11:17; Start 11/25/19 at 21:00 Trazodone HCl (Desyrel) 100 mg HS PO Last administered on 11/26/19 20:48; Start 11/25/19 at 21:00 Ascorbic Acid (Vitamin C) 500 mg DAILY PO Last administered on 11/27/19 08:28; Start 11/27/19 at 09:00 Zinc Sulfate (Orazinc) 220 mg DAILY PO Last administered on 11/27/19 08:28; Start 11/27/19 at 09:00 Vitamin B Complex (Sean B) 1 tab DAILY PO Last administered on 11/27/19 08:28; Start 11/27/19 at 09:00 Active Scripts Active Thera-M Tablet (Multivits,Ca,Minerals/Iron/Fa) 1 Each Tablet 1 Tab PO DAILY 30 Days Vitamin C (Ascorbic Acid) 500 Mg Tablet 500 Mg PO DAILY 30 Days Dok (Docusate Sodium) 100 Mg Capsule 100 Mg PO PRN BID PRN 14 Days Tylenol (Acetaminophen) 325 Mg Tablet 650 Mg PO PRN Q4HRS PRN 30 Days Amox Tr-K Clv 500-125 Mg Tab (Amoxicillin/Potassium Clav) 1 Each Tablet 1 Tab PO BID 7 Days Ativan (Lorazepam) 0.5 Mg Tablet 0.5 Mg PO PRN TID PRN 6 Days Dicyclomine Hcl 20 Mg Tablet 1 Tab PO PRN TID PRN 30 Days Reported Compazine (Prochlorperazine Maleate) 10 Mg Tablet 10 Mg PO Q4HRS Albuterol Sulfate Neb Soln (Albuterol Sulfate) 1.25 Mg/3 Ml Vial.neb 1 Vial NEB QID Flonase Allergy Relief (Fluticasone Propionate) 9.9 Ml [place].susp 1 Sprays NS DAILY Metoprolol Tartrate 25 Mg Tablet 25 Mg PO BID 1/2 tab bid Nystatin 15 Gm Powder 1 [place] TP BID 7 Days apply to affected area(s) Trazodone Hcl 100 Mg Tablet 100 Mg PO HS trazodone 100mg 2tabs at bedtime Advair 500-50 Diskus (Fluticasone/Salmeterol) 1 Each Disk.w.dev 1 Inh IH BID Lipitor (Atorvastatin Calcium) 20 Mg Tablet 20 Mg PO HS Bupropion Hcl Sr (Bupropion Hcl) 100 Mg Tablet.er 100 Mg PO BID Fluoxetine Hcl 10 Mg Capsule 2 Cap PO DAILY Levothyroxine Sodium 50 Mcg Tablet 1 Tab PO DAILY Vitals/I & O Vital Sign - Last 24 Hours 11/26/19 11/26/19 11/26/19 11/26/19 14:43 19:00 20:00 20:47 Temp 98.5 98.2 98.5 98.2 Pulse 92 97 97 Resp 18 20 B/P (MAP) 120/60 (80) 133/76 (95) 133/76 Pulse Ox 94 92 O2 Delivery Room Air Nasal Cannula Room Air O2 Flow Rate 2.0 11/26/19 11/27/19 11/27/19 11/27/19 23:00 03:00 07:30 08:00 Temp 98.0 98.4 98.0 98.0 98.4 98.0 Pulse 80 80 81 Resp 18 18 12 B/P (MAP) 129/66 (87) 95/53 (67) 95/53 (67) Pulse Ox 95 93 91 O2 Delivery Room Air Room Air Room Air Room Air 11/27/19 11/27/19 11:00 11:17 Temp 97.9 97.9 Pulse 91 91 Resp 16 B/P (MAP) 140/59 (86) 140/59 Pulse Ox 94 O2 Delivery Room Air Intake and Output 11/26/19 11/26/19 11/27/19 15:00 23:00 07:00 Intake Total 100 ml 300 ml 200 ml Balance 100 ml 300 ml 200 ml Nutrition Consultation Dietary Evaluation: Recommendations by RD: Dietary education by RD, Increase Calorie Intake, Protein supplementation Comments: cardiac diet with vanilla ensure tid, vit b complex, vit c Expected Outcomes/Goals: to meet >75% est nutr needs Malnutrition Findings: Body Fat Depletion (Non Severe: Mild Depletion Weight Status: Underweight THANH LEROY MD Nov 27, 2019 11:29
[2019-11-27] MEDS ORDERED: DIPHENHYDRAMINE/ZINC ACETATE 2%/0.1% TOPICAL CREAM 28GM TUBE. TP PRN (11:30)
[2019-11-27] MEDS ORDERED: diphenhydrAMINE HCL 25 MG CAPSULE PO ONE (11:30)
[2019-11-27 15:00] VITALS: BP 110/53
[2019-11-27 19:23] VITALS: BP 116/52
[2019-11-27] MEDS: LORazepam 0.5 MG TABLET PO PRN (20:25)
[2019-11-27] MEDS: ACETAMINOPHEN 325 MG TABLET. PO PRN (20:26)
[2019-11-27] MEDS: traZODone 100 MG TABLET. PO SCH (20:26)
[2019-11-27] MEDS: ATORVASTATIN CALCIUM 20 MG TABLET PO SCH (20:26)
[2019-11-27 23:23] VITALS: BP 98/55
[2019-11-28 03:02] VITALS: BP 98/44
[2019-11-28 07:48] VITALS: BP 105/50
[2019-11-28] MEDS: ACETAMINOPHEN 325 MG TABLET. PO PRN (08:16)
[2019-11-28] MEDS: LEVOTHYROXINE 50 MCG TABLET PO SCH (08:16)
[2019-11-28] MEDS: METOPROLOL TART IMMED RELEASE 25 MG TABLET. PO SCH (10:20)
[2019-11-28] MEDS: FLUoxetine HCL 10 MG CAPSULE PO SCH (10:20)
[2019-11-28] MEDS: buPROPion SR 100 MG TABLET.SA. PO SCH (10:20)
[2019-11-28 11:00] VITALS: BP 105/56
--- NOTE | 2019-11-28 11:42 | SNU/HH DC ---
DISCHARGE ORDERS DISCHARGE INFORMATION: DISCHARGE DATE: Nov 28, 2019 FINAL DIAGNOSIS acute enephalopathy chronic dementia htn Problems Medical Problems: (1) Acute encephalopathy Status: Acute CONDITION ON DISCHARGE: Stable CODE STATUS: Code Status: Full POST DISCHARGE ORDERS: ACTIVITY ORDERS: Activity as tolerated WEIGHT BEARING STATUS: As tolerated BATHING ORDERS: Shower-keep dressing dry DIET AFTER DISCHARGE: Cardiac WOUND/INCISION CARE: Ice to area for comfort CHECKS AFTER DISCHARGE: CHECKS AFTER DISCHARGE: Check blood press - daily, Check your Temp as needed TREATMENT/EQUIPMENT ORDERS: ADAPTIVE EQUIPMENT NEEDED: None Physical Therapy For: Evalulation/Treatment Occupational Therapy For: Evaluation/Treatment Speech Language Pathology For: Evaluation/Treatment DISCHARGE MEDICATIONS: Home Meds Active Scripts Multivits,Ca,Minerals/Iron/Fa (THERA-M TABLET) 1 Each Tablet, 1 TAB PO DAILY for SUPPLEMENT for 30 Days, #30 TAB Prov:APARNA ALDRICH MD 09/28/19 Ascorbic Acid (VITAMIN C) 500 Mg Tablet, 500 MG PO DAILY for SUPPLEMENT for 30 Days, #30 TAB Prov:APARNA ALDRICH MD 09/28/19 Docusate Sodium (DOK) 100 Mg Capsule, 100 MG PO PRN BID PRN for CONSTIPATION for 14 Days, #30 CAP Prov:APARNA ALDRICH MD 09/28/19 Acetaminophen (TYLENOL) 325 Mg Tablet, 650 MG PO PRN Q4HRS PRN for TEMP OVER 100.4F OR MILD PAIN for 30 Days, #60 TAB Prov:APARNA ALDRICH MD 09/28/19 Lorazepam (ATIVAN) 0.5 Mg Tablet, 0.5 MG PO PRN TID PRN for ANXIETY / AGITATION for 6 Days, #18 TAB Prov:SANDRA ALLEN MD 09/03/19 Dicyclomine Hcl (DICYCLOMINE HCL) 20 Mg Tablet, 1 TAB PO PRN TID PRN for GI SYMPTOMS for 30 Days, TAB 1 Refill Prov:SANDRA ALLEN MD 09/03/19 Reported Medications Prochlorperazine Maleate (Compazine) 10 Mg Tablet, 10 MG PO Q4HRS for nausea and vomiting, TAB 08/28/19 Albuterol Sulfate (ALBUTEROL SULFATE NEB SOLN) 1.25 Mg/3 Ml Vial.neb, 1 VIAL NEB QID for inhalation, #150 ML 04/17/19 Fluticasone Propionate (Flonase Allergy Relief) 9.9 Ml [place].susp, 1 SPRAYS NS DAILY for allergy, BOTTLE 04/17/19 Metoprolol Tartrate (METOPROLOL TARTRATE) 25 Mg Tablet, 25 MG PO BID for FOR HYPERTENSION, #60 TAB 0 Refills 1/2 tab bid 04/17/19 Nystatin (NYSTATIN) 15 Gm Powder, 1 ROS[place] TP BID for topical infections for 7 Days, #1 BOTTLE 0 Refills apply to affected area(s) 04/17/19 Trazodone Hcl (TRAZODONE HCL) 100 Mg Tablet, 100 MG PO HS for antidepressant, TAB trazodone 100mg 2tabs at bedtime 04/17/19 Fluticasone/Salmeterol (ADVAIR 500-50 DISKUS) 1 Each Disk.w.dev, 1 INH IH BID for inhaler, INHALER 04/17/19 Atorvastatin Calcium (LIPITOR) 20 Mg Tablet, 20 MG PO HS for FOR CHOLESTEROL, #30 TAB 0 Refills 04/17/19 Bupropion Hcl (BUPROPION HCL SR) 100 Mg Tablet.er, 100 MG PO BID, #28 06/14/16 Fluoxetine Hcl (FLUOXETINE HCL) 10 Mg Capsule, 2 CAP PO DAILY, #30 CAP 2 Refills 07/17/14 Levothyroxine Sodium (LEVOTHYROXINE SODIUM) 50 Mcg Tablet, 1 TAB PO DAILY, #30 TAB 5 Refills 07/17/14 Discontinued Scripts Amoxicillin/Potassium Clav (AMOX TR-K CLV 500-125 MG TAB) 1 Each Tablet, 1 TAB PO BID for UTI for 7 Days, #14 TAB Prov:APARNA ALDRICH MD 09/28/19 THANH LEROY MD Nov 28, 2019 11:42
--- NOTE | 2019-11-28 14:41 | PDOC3 ---
Discharge Summary Visit Information Date of Admission: Nov 25, 2019 Date of Discharge: Nov 28, 2019 Final Diagnosis acute metabolic encephalopathy on chronic mild cognitive decline chrons disease, weakness and debility, PT and OT intermittent encephalopathy, i have concern for not takingher thyroid or depression meds depression and anxiety hypokalemia Problems Medical Problems: (1) Acute encephalopathy Status: Acute Brief Hospital Course Allergies Allergies Coded Allergies Type Severity Reaction Last Updated Verified Iodinated Contrast Media Allergy Severe Anaphylaxis 07/17/14 Yes coconut oil Allergy Severe Anaphylaxis 07/17/14 Yes iron Allergy Severe Anaphylaxis 07/17/14 Yes Vital Signs Vital Signs Date Time Temp Pulse Resp B/P (MAP) Pulse Ox O2 Delivery O2 Flow Rate FiO2 11/28/19 11:00 97.6 78 17 105/56 (72) 94 97.6 11/28/19 08:30 Room Air Brief Hospital Course Ms. Kahn is a 64 yr old female, admit for agiation and confusion weakness, mostly supportive care, needs SNU still odd behavior, confusion Discharge Information Condition at Discharge: Improved Follow Up: Weeks Disposition/Orders: D/C to Another Facility Scheduled Albuterol Sulfate (Albuterol Sulfate Neb Soln) 1.25 Mg/3 Ml Vial.neb, 1 VIAL NEB QID for inhalation, #150 (Reported) Entered as Reported by: MARYANA JACKSON on 04/17/192058 Ascorbic Acid (Vitamin C) 500 Mg Tablet, 500 MG PO DAILY for SUPPLEMENT for 30 Days, #30 Prescribed by: APARNA ALDRICH MD on 09/28/19 1341 Last Action: HELD on 11/25/191532 by THANH LEROY Atorvastatin Calcium (Lipitor) 20 Mg Tablet, 20 MG PO HS for FOR CHOLESTEROL, #30 Ref 0 (Reported) Entered as Reported by: MARYANA JACKSON on 04/17/192058 Last Action: Continued on 11/25/191532 by THANH LEROY Bupropion Hcl (Bupropion Hcl Sr) 100 Mg Tablet.er, 100 MG PO BID, #28 (Reported) Entered as Reported by: LUZ SIERRA on 06/14/16 0229 Last Action: Continued on 11/25/191532 by THANH LEROY Fluoxetine Hcl (Fluoxetine Hcl) 10 Mg Capsule, 2 CAP PO DAILY, #30 Ref 2 (Reported) Entered as Reported by: EVARISTO MURCIA on 1/29/15 0754 Last Action: Continued on 11/25/191532 by THANH LEROY Fluticasone Propionate (Flonase Allergy Relief) 9.9 Ml [place].susp, 1 SPRAYS NS DAILY for allergy, (Reported) Entered as Reported by: MARYANA JACKSON on 04/17/192058 Fluticasone/Salmeterol (Advair 500-50 Diskus) 1 Each Disk.w.dev, 1 INH IH BID for inhaler, (Reported) Entered as Reported by: MARYANA JACKSON on 04/17/192058 Levothyroxine Sodium (Levothyroxine Sodium) 50 Mcg Tablet, 1 TAB PO DAILY, #30 Ref 5 (Reported) Entered as Reported by: EVARISTO MURCIA on 07/17/14753 Last Action: Continued on 11/25/191532 by THANH LEROY Metoprolol Tartrate (Metoprolol Tartrate) 25 Mg Tablet, 25 MG PO BID for FOR HYPERTENSION, #60 Ref 0 (Reported) 1/2 tab bid Entered as Reported by: MARYANA JACKSON on 04/17/192058 Last Action: Continued on 11/25/191532 by THANH LEROY Multivits,Ca,Minerals/Iron/Fa (Thera-M Tablet) 1 Each Tablet, 1 TAB PO DAILY for SUPPLEMENT for 30 Days, #30 Prescribed by: APARNA ALDRICH MD on 09/28/19 1341 Last Action: HELD on 11/25/191532 by THANH LEROY Nystatin (Nystatin) 15 Gm Powder, 1 ROSA TP BID for topical infections for 7 Days, #1 Ref 0 (Reported) apply to affected area(s) Entered as Reported by: MARYANA JACKSON on 04/17/192058 Last Action: HELD on 11/25/191532 by HTANH LEROY Prochlorperazine Maleate (Compazine) 10 Mg Tablet, 10 MG PO Q4HRS for nausea and vomiting, (Reported) Entered as Reported by: MARIE EDUARDO RN on 08/28/19 0112 Trazodone Hcl (Trazodone Hcl) 100 Mg Tablet, 100 MG PO HS for antidepressant, (Reported) trazodone 100mg 2tabs at bedtime Entered as Reported by: MARYANA JACKSON on 04/17/192058 Last Action: Continued on 11/25/191532 by THANH LEROY Scheduled PRN Acetaminophen (Tylenol) 325 Mg Tablet, 650 MG PO PRN Q4HRS PRN for TEMP OVER 100.4F OR MILD PAIN for 30 Days, #60 Prescribed by: APARNA ALDRICH MD on 09/28/191340 Last Action: Continued on 11/25/191532 by THANH LEROY Dicyclomine Hcl (Dicyclomine Hcl) 20 Mg Tablet, 1 TAB PO PRN TID PRN for GI SYMPTOMS for 30 Days, Ref 1 Prescribed by: SANDRA ALLEN MD on 09/03/195 Docusate Sodium (Dok) 100 Mg Capsule, 100 MG PO PRN BID PRN for CONSTIPATION for 14 Days, #30 Prescribed by: APARNA ALDRICH MD on 09/28/191340 Last Action: Continued on 11/25/191532 by THANH LEROY Lorazepam (Ativan) 0.5 Mg Tablet, 0.5 MG PO PRN TID PRN for ANXIETY / AGITATION for 6 Days, #18 Prescribed by: SANDRA ALLEN MD on 09/03/191533 Last Action: Continued on 11/25/191532 by THANH LEROY Discontinued Medications Amoxicillin/Potassium Clav (Amox Tr-K Clv 500-125 Mg Tab) 1 Each Tablet, 1 TAB PO BID for UTI for 7 Days, #14 Prescribed by: APARNA ALDRICH MD on 09/28/191340 Last Action: HELD on 11/25/191532 by THANH LEROY Patient Instructions Patient Instructions > 30 mn face to face Justicifation of Admission Dx: Justifications for Admission: Justification of Admission Dx: Yes Sepsis: Altered Mental Status (UTI) THANH LEROY MD Nov 28, 2019 14:40
[2019-11-28 15:05] VITALS: BP 118/62
== END 2019-11-28 16:30 | DRG 71 ==
LOC: ER 09:21 → ED HOLD 14:13 → 4 NORTH 16:47
PROVIDERS: ADMIT Internal Medicine; ATTEND Internal Medicine
DX: G93.41 Metabolic encephalopathy (principal); N39.0 Urinary tract infection, site not specified; K50.90 Crohn's disease, unspecified, without complications; E87.6 Hypokalemia; F41.9 Anxiety disorder, unspecified; K21.9 Gastro-esophageal reflux disease without esophagitis; I10 Essential (primary) hypertension; J44.9 Chronic obstructive pulmonary disease, unspecified; E78.5 Hyperlipidemia, unspecified; M79.7 Fibromyalgia; R53.81 Other malaise; F31.9 Bipolar disorder, unspecified; E03.9 Hypothyroidism, unspecified; Z20.828 Contact with and (suspected) exposure to other viral communicable diseases; Z96.649 Presence of unspecified artificial hip joint; Z91.048 Other nonmedicinal substance allergy status; Z87.891 Personal history of nicotine dependence; Z87.440 Personal history of urinary (tract) infections; Z92.21 Personal history of antineoplastic chemotherapy; Z85.72 Personal history of non-Hodgkin lymphomas; Z92.3 Personal history of irradiation; Z90.81 Acquired absence of spleen; Z88.8 Allergy status to other drugs, medicaments and biological substances; Z82.49 Family history of ischemic heart disease and other diseases of the circulatory system
CPT/HCPCS: 36415; 70450; 71045; 74018; 80053; 80307; 80329; 81001; 83605; 83735; 84443; 85025; 87040; 87086; 96374; J0696; J7030; 97110-GP; 97530-GO; 97530-GP; 99285-25; G0378; G0480; Q0163; U0003-CS

== ENCOUNTER 2020-08-14 22:26 | Emergency (ER) | payer OTHER, MEDICAID ==
[~2020-08-14] VITALS: Ht 175.3 cm; Wt 65.9 kg
[~2020-08-14 22:26] MED LIST changes: -FLUO10CA14 PO; +FLUO10CA15 PO; -NALO25TA2 PO; +NALO25TA4 PO
[2020-08-14 23:03] LABS: BILIRUBIN,URINE NEGATIVE (NEG); CLARITY,URINE CLEAR; COLOR,URINE YELLOW; NITRITE,URINE NEGATIVE (NEG); PROTEIN,URINE NEGATIVE (NEG-TRACE)
--- NOTE | 2020-08-14 23:09 | ED.ADGEN ---
Past Medical History Past Medical History: Anxiety, Cancer, COPD, Depression, Hypertension, Hypothyroid, UTI Additional Past Medical Histor: follicular lymphoma w chemo and radiation, Crohn, ENCEPHOLOPATHY Past Surgical History: Splenectomy, Other Additional Past Surgical Histo: port o cath r ant chest,r hip, mx bilat knee surgeries Smoking Status: Never Smoker Alcohol Use: None Drug Use: Opiates General Adult EDM: Chief Complaint: ABDOMINAL PAIN HPI: HPI: Patient is a 65 year old female, brought to the emergency department by EMS with complaints of lower abdominal pain after waking up with stacks of blankets and weights on top of her. Patient reports that 2 people came into her apartment but she is unsure why they were there. Patient reports when she woke up she found the weights and blankets stacked on top of her. She denies any head injury, headache, neck, or back pain. Patient states that her lower abdomen hurts from all of the weights being on top of her. Patient denies any nausea, vomiting, diarrhea, constipation, shortness of breath, chest pain, or palpitations. She states that she has had some pain with urination this evening but denies any increased frequency or hematuria. She currently rates the pain in her abdomen a 9 out of 10 on the pain scale and she states that the pain is sharp in nature. She denies any alleviating factors, the pain is worse with palpation. Review of Systems: Review of Systems: Complete ROS is negative unless otherwise noted in HPI. Current Medications: Current Medications Medications (Trade) Dose Ordered Sig/[facility] Start Time Stop Time Status Last Admin Dose Admin Morphine Sulfate (Morphine Sulfate) 4 mg 1X ONCE 08/15/20 00:15 08/15/20 00:16 DC 08/15/20 00:01 4 MG Allergies: Allergies: Allergies Coded Allergies Type Severity Reaction Last Updated Verified Iodinated Contrast Media Allergy Severe Anaphylaxis 07/17/14 Yes coconut oil Allergy Severe Anaphylaxis 07/17/14 Yes iron Allergy Severe Anaphylaxis 07/17/14 Yes Physical Exam: PE: Constitutional: Well developed, well nourished, no acute distress, non-toxic appearance. [] HENT: Normocephalic, atraumatic, bilateral external ears normal, nose normal. [] Eyes: PERRLA, EOMI, conjunctiva normal, no discharge. [] Neck: Normal range of motion, no stridor. [] Cardiovascular:Heart rate regular rhythm Lungs & Thorax: Respirations even and unlabored, no retractions, no respiratory distress Abdomen: soft, bilateral lower abdominal tenderness to palpation, no rebound tenderness, no guarding, no palpable mass, no pulsatile mass : Candidal infection of the skin of the genital region present. Skin: Warm, dry, flaky, no erythema, no rash, no bruising. [] Extremities: No cyanosis, ROM intact, no edema. [] Neurologic: Alert and oriented X 3, no focal deficits noted. [] Psychologic: Affect normal, judgement normal, mood normal. [] Current Patient Data: Labs: Laboratory Tests Test 08/14/20 22:55 08/14/20 23:15 Urine Collection Type U cath Urine Color Yellow Urine Clarity Clear Urine pH 7.0 (<5.0-8.0) Urine Specific [place] 1.025 (1.000-1.030) Urine Protein Negative mg/dL (NEG-TRACE) Urine Glucose (UA) Negative mg/dL (NEG) Urine Ketones (Stick) Negative mg/dL (NEG) Urine Blood Negative (NEG) Urine Nitrite Negative (NEG) Urine Bilirubin Negative (NEG) Urine Urobilinogen Dipstick 1.0 mg/dL (0.2 mg/dL) Urine Leukocyte Esterase Moderate (NEG) Urine RBC Occ /HPF (0-2) Urine WBC 5-10 /HPF (0-4) Urine Squamous Epithelial Cells Many /LPF Urine Bacteria Few /HPF (0-FEW) Urine Mucus Slight /LPF White Blood Count 12.6 x10^3/uL (4.0-11.0) H Red Blood Count 4.46 x10^6/uL (3.50-5.40) Hemoglobin 13.8 g/dL (12.0-15.5) Hematocrit 42.2 % (36.0-47.0) Mean Corpuscular Volume 95 fL (79-100) Mean Corpuscular Hemoglobin 31 pg (25-35) Mean Corpuscular Hemoglobin Concent 33 g/dL (31-37) Red Cell Distribution Width 13.9 % (11.5-14.5) Platelet Count 295 x10^3/uL (140-400) Neutrophils (%) (Auto) 67 % (31-73) Lymphocytes (%) (Auto) 21 % (24-48) L Monocytes (%) (Auto) 9 % (0-9) Eosinophils (%) (Auto) 3 % (0-3) Basophils (%) (Auto) 1 % (0-3) Neutrophils # (Auto) 8.4 x10^3/uL (1.8-7.7) H Lymphocytes # (Auto) 2.6 x10^3/uL (1.0-4.8) Monocytes # (Auto) 1.1 x10^3/uL (0.0-1.1) Eosinophils # (Auto) 0.4 x10^3/uL (0.0-0.7) Basophils # (Auto) 0.1 x10^3/uL (0.0-0.2) Sodium Level 139 mmol/L (136-145) Potassium Level 4.2 mmol/L (3.5-5.1) Chloride Level 103 mmol/L (98-107) Carbon Dioxide Level 28 mmol/L (21-32) Anion Gap 8 (6-14) Blood Urea Nitrogen 22 mg/dL (7-20) H Creatinine 0.7 mg/dL (0.6-1.0) Estimated GFR (Cockcroft-Gault) 84.0 BUN/Creatinine Ratio 31 (6-20) H Glucose Level 105 mg/dL (70-99) H Calcium Level 8.7 mg/dL (8.5-10.1) Magnesium Level 2.1 mg/dL (1.8-2.4) Total Bilirubin 0.2 mg/dL (0.2-1.0) Aspartate Amino Transferase (AST) 17 U/L (15-37) Alanine Aminotransferase (ALT) 27 U/L (14-59) Alkaline Phosphatase 104 U/L (46-116) Total Protein 6.7 g/dL (6.4-8.2) Albumin 3.4 g/dL (3.4-5.0) Albumin/Globulin Ratio 1.0 (1.0-1.7) Lipase 78 U/L (73-393) Laboratory Tests 08/14/20 23:15 Laboratory Tests 08/14/20 23:15 Vital Signs: Vital Signs Date Time Temp Pulse Resp B/P (MAP) Pulse Ox O2 Delivery O2 Flow Rate FiO2 08/15/20 00:01 20 96 08/14/20 22:40 98.3 76 130/64 (86) Room Air 98.3 EKG: EKG: [] Heart Score: Risk Factors: Risk Factors: DM, Current or recent (<one month) smoker, HTN, HLP, family history of CAD, obesity. Risk Scores: Score 0 - 3: 2.5% MACE over next 6 weeks - Discharge Home Score 4 - 6: 20.3% MACE over next 6 weeks - Admit for Clinical Observation Score 7 - 10: 72.7% MACE over next 6 weeks - Early Invasive Strategies Radiology/Procedures: Radiology/Procedures: [] Impression: Impression: 1. Moderate degree of constipation with rectal distention with well-formed stool. Only mild presacral edema which is less pronounced from the 2019 comparison and there is resolution of previously seen rectal wall thickening. Stercoral colitis is felt unlikely. No additional relevant abnormality throughout the abdomen or pelvis to explain the patient's symptoms. 2. Progression in superior endplate height loss at L3 and L4 but appearing ch ronic. Several additional chronic compression deformities. Course & Med Decision Making: Course & Med Decision Making Pertinent Labs and Imaging studies reviewed. (See chart for details) 65-year-old female who presented to the emergency department with complaints of lower abdominal pain after having weights stacked on top of her by strangers this evening. Work-up includes labs, urinalysis, and CT abdomen. Dr. Garcia will follow up on these results and make final disposition on patient. [] Selvin Disclaimer: Selvin Disclaimer: This electronic medical record was generated, in whole or in part, using a voice recognition dictation system. Departure Departure Impression: Primary Impression: Candidiasis of genitalia in female Additional Impression: Constipation Disposition: 01 DC HOME SELF CARE/HOMELESS Condition: STABLE Referrals: MILAN MCCRAY (PCP) Patient Instructions: Constipation, Adult, Yeast Infection of the Skin, [employer]ev[employer] Magnesium Citrate (MAGNESIUM CITRATE) 296 Ml Solution 296 ML PO ONCE, #296 ML Prov: GIOVANNA GARCIA DO 08/15/20 Fluconazole (DIFLUCAN) 150 Mg Tablet 1 TAB PO ONCE, #1 TAB 1 Refill Prov: GIOVANNA GARCIA DO 08/15/20 Problem Qualifiers DANYELL VILLALOBOS APRN Aug 14, 2020 23:09 GIOVANNA AGRCIA DO Aug 15, 2020 01:02
[2020-08-14 23:13] LABS: BACTERIA,URINE FEW /HPF (0-FEW); RBC,URINE OCC /HPF (0-2)
[2020-08-14 23:37] LABS: BASO # 0.1 x10^3/uL (0.0-0.2); BASO % 1 % (0-3); EOS # 0.4 x10^3/uL (0.0-0.7); EOS % 3 % (0-3); HEMATOCRIT 42.2 % (36.0-47.0); HEMOGLOBIN 13.8 g/dL (12.0-15.5); LYMPH # 2.6 x10^3/uL (1.0-4.8); LYMPH % 21 % (24-48); MEAN CORPUSCULAR HEMOGLOBIN 31 pg (25-35); MEAN CORPUSCULAR HGB CONC 33 g/dL (31-37); MEAN CORPUSCULAR VOLUME 95 fL (79-100); MONO # 1.1 x10^3/uL (0.0-1.1); MONO % 9 % (0-9); NEUT # 8.4 x10^3/uL (1.8-7.7); NEUT % 67 % (31-73); PLATELET COUNT 295 x10^3/uL (140-400); RED BLOOD COUNT 4.46 x10^6/uL (3.50-5.40); RED CELL DISTRIBUTION WIDTH 13.9 % (11.5-14.5); WHITE BLOOD COUNT 12.6 x10^3/uL (4.0-11.0)
[2020-08-14 23:49] LABS: CALCIUM 8.7 mg/dL (8.5-10.1); CREATININE 0.7 mg/dL (0.6-1.0); POTASSIUM 4.2 mmol/L (3.5-5.1)
[2020-08-14 23:57] LABS: ALBUMIN 3.4 g/dL (3.4-5.0); MAGNESIUM 2.1 mg/dL (1.8-2.4); TOTAL BILIRUBIN 0.2 mg/dL (0.2-1.0); TOTAL PROTEIN 6.7 g/dL (6.4-8.2)
[2020-08-15] MEDS ORDERED: MORPHINE SULFATE 4 MG/ML VIAL. IV ONE (00:15)
--- NOTE | 2020-08-15 00:57 | RAD ---
Study: CT abdomen/pelvis without intravenous contrast Indication: Abdominal pain. Comparison: 04/17/2019 Technique: Helical CT imaging performed of the abdomen and pelvis without the use of intravenous cont rast. Sagittal and coronal reformats were obtained. One or more of the following individualized dose reduction techniques were utilized for this examinat ion: 1. Automated exposure control 2. Adjustment of the mA and/or kV according to patient size 3. Use of iterative reconstruction technique. Findings: Inherently limited evaluation without intravenous contrast. Mild basilar volume loss on the left. No localized airspace infiltrate. Unchanged visualized mediasti nal contents. Hepatic steatosis. No CT manifestations of acute cholecystitis. Unremarkable biliary tree. No peripan creatic inflammation. Absent spleen. Unchanged adrenal gland morphology. Minimal perinephric fat stranding on the right, image 28 series 2, however there is no periureteral i nflammation or pericystic fatty stranding. No stone or collecting system dilatation. Within normal li mits urinary bladder. Unremarkable uterus and adnexa. Moderate rectal distention with well-formed stool. Mild fatty stranding at the presacral region which is less pronounced from the comparison. Moderate volume well-formed stool within the more proximal c olon. The appendix is difficult to delineate. Nondilated small bowel. Poorly assessed stomach on acco unt of underdistention. Scattered calcific atherosclerosis. Nonaneurysmal aorta. Retroaortic left renal vein. No lymphadenopa thy. No free fluid or pneumoperitoneum. Osteopenia. Right total hip arthroplasty. Chronic obturator ring deformities. More pronounced superio r endplate height loss at L3 and L4 from the comparison but without presacral edema/hemorrhage to sug gest acuity. Compression deformities at several additional levels has not appreciably changed. Impression: 1. Moderate degree of constipation with rectal distention with well-formed stool. Only mild presacra l edema which is less pronounced from the 2019 comparison and there is resolution of previously seen rectal wall thickening. Stercoral colitis is felt unlikely. No additional relevant abnormality throug hout the abdomen or pelvis to explain the patient's symptoms. 2. Progression in superior endplate height loss at L3 and L4 but appearing chronic. Several addition al chronic compression deformities. Electronically signed by: PATTI FOLEY MD (08/15/2020 12:54 AM) [facility]
[2020-08-15] MEDS ORDERED: FLUC150T PO (01:14)
[2020-08-15] MEDS ORDERED: MAGN296S68 PO (01:14)
[2020-08-15 02:13] VITALS: BP 115/55
== END 2020-08-15 02:47 | disposition home or self-care (01) ==
LOC: ER 22:26
DX: B37.89 Other sites of candidiasis (principal); K59.00 Constipation, unspecified; J44.9 Chronic obstructive pulmonary disease, unspecified; I10 Essential (primary) hypertension; E03.9 Hypothyroidism, unspecified; Z87.440 Personal history of urinary (tract) infections; Z90.81 Acquired absence of spleen; Z91.041 Radiographic dye allergy status; Z88.8 Allergy status to other drugs, medicaments and biological substances; Z91.018 Allergy to other foods
CPT/HCPCS: 36415; 74176; 80053; 81001; 83690; 83735; 85025; 87086; 96374; 99284; J2270

== ENCOUNTER 2020-10-15 22:13 | Inpatient (IN) | payer OTHER, MEDICAID ==
[~2020-10-15] VITALS: Ht 175.3 cm; Wt 72.4 kg
[~2020-10-15 22:13] MED LIST changes: +FLUC150T PO; +MAGN296S68 PO; -MULT1TAB90 PO; +MULT1TAB92 PO
[2020-10-15] MEDS ORDERED: IV NORMAL SALINE 1000ML BAG 1,000 ML IV ONE (22:45)
[2020-10-15] MEDS ORDERED: ONDANSETRON PF 4 MG/2 ML VIAL. IVP ONE (22:45)
[2020-10-15 22:51] LABS: BASO # 0.2 x10^3/uL (0.0-0.2); BASO % 2 % (0-3); EOS # 0.4 x10^3/uL (0.0-0.7); EOS % 4 % (0-3); HEMATOCRIT 40.3 % (36.0-47.0); HEMOGLOBIN 13.4 g/dL (12.0-15.5); LYMPH # 3.8 x10^3/uL (1.0-4.8); LYMPH % 35 % (24-48); MEAN CORPUSCULAR HEMOGLOBIN 32 pg (25-35); MEAN CORPUSCULAR HGB CONC 33 g/dL (31-37); MEAN CORPUSCULAR VOLUME 95 fL (79-100); MONO # 0.8 x10^3/uL (0.0-1.1); MONO % 8 % (0-9); NEUT # 5.6 x10^3/uL (1.8-7.7); NEUT % 51 % (31-73); PLATELET COUNT 332 x10^3/uL (140-400); RED BLOOD COUNT 4.25 x10^6/uL (3.50-5.40); RED CELL DISTRIBUTION WIDTH 14.9 % (11.5-14.5); WHITE BLOOD COUNT 10.9 x10^3/uL (4.0-11.0)
[2020-10-15 23:39] LABS: ALBUMIN 2.1 g/dL (3.4-5.0); ALBUMIN/GLOBULIN RATIO 1.1 (1.0-1.7); CALCIUM 6.4 mg/dL (8.5-10.1); CREATININE 0.4 mg/dL (0.6-1.0); GFR 160.2; TOTAL BILIRUBIN 0.2 mg/dL (0.2-1.0); TOTAL PROTEIN 4.1 g/dL (6.4-8.2)
[2020-10-15 23:42] LABS: POTASSIUM 2.6 mmol/L (3.5-5.1)
[2020-10-15] MEDS ORDERED: BARIUM SULFATE 2.1% 450 ML SUSP PO ONE (23:45)
[2020-10-16] VITALS (10 sets, daily range): BP systolic 76–127; BP diastolic 42–68
[2020-10-16] MEDS ORDERED: IV NORMAL SALINE 1000ML BAG 1,000 ML IV ONE ×2 (00:30→17:00)
--- NOTE | 2020-10-16 00:54 | RAD ---
CT abdomen pelvis with contrast dated 10/16/2020. Comparison made to 08/15/2020. CLINICAL INDICATION: Abdominal pain. TECHNIQUE: Contiguous axial imaging the abdomen pelvis performed after the administration of oral contrast only. One or more of the following individualized dose reduction techniques were utilized for this examinat ion: 1. Automated exposure control 2. Adjustment of the mA and/or kV according to patient size 3. Use of iterative reconstruction technique. FINDINGS: Limited images of lung bases show patchy bibasilar dependent opacity with bilateral pleural thickenin g. Heart size is within normal limits. No pleural or pericardial effusion. Solid abdominal viscera not well evaluated in the absence of contrast material. No apparent attenuati on abnormality of the liver. Gallbladder unremarkable. The spleen is not identified and may be surgic ally absent. Pancreas is somewhat atrophic. Adrenal glands and kidneys are unremarkable. No stone or hydronephrosis. Partially opacified GI tract normal in caliber and contour. No focal bowel wall thickening. No inflam matory stranding in the mesentery. Appendix normal in caliber. No ascites or lymphadenopathy. Abdomin al aorta normal in caliber. Images of pelvis show nondistended urinary bladder. Uterus and adnexa are unremarkable. Evaluation of the pelvis is somewhat limited due to beam Dick artifact from right hip prosthesis. Moderate to l arge amount of stool at the distal colon. Bone windows show old healed fractures of the bilateral superior and inferior pubic rami. There is ge neralized bony demineralization. Multilevel wedge compression deformities of the thoracic and lumbar spine, unchanged from prior study. Multilevel spondylosis. IMPRESSION ABDOMEN: 1. No acute abnormality of abdomen or pelvis. 2. Moderate to large amount stool throughout the colon. 3. Multilevel thoracic and lumbar wedge compression fractures, age indeterminate but stable from the 08/15/2020 exam. 4. Mild patchy bibasilar opacity, likely atelectasis. There is mild bilateral pleural thickening. Electronically signed by: Dominic Steel MD (10/16/2020 12:51 AM) [facility]
[2020-10-16] MEDS: POTASSIUM CHLORIDE 10MEQ 100 ML IV SCH ×4 (00:55→04:58)
--- NOTE | 2020-10-16 02:07 | ED.ADGEN ---
Past Medical History Past Medical History: Anxiety, Cancer, COPD, Depression, Hypertension, Hypothyroid, UTI Additional Past Medical Histor: follicular lymphoma w chemo and radiation, Crohn, ENCEPHOLOPATHY Past Surgical History: Splenectomy, Other Additional Past Surgical Histo: port o cath r ant chest,r hip, mx bilat knee surgeries Smoking Status: Former Smoker Alcohol Use: None Drug Use: Opiates General Adult EDM: Chief Complaint: ABDOMINAL PAIN HPI: HPI: Patient is a 65-year-old female past medical history of Crohn's who presents to the emergency room complaining of abdominal pain, diarrhea, nausea and vomiting. Patient states that she has been having intermittent lower abdominal pain for the last month. She thought that this was due to her Crohn's. 2 days ago she started having a great deal of diarrhea. This evening she has not been able to eat or drink anything without vomiting. This is abnormal for her. She denies any increased shortness of breath. She does not have any chest pain. She denies any URI symptoms. She denies any blood in her vomit or stools. She has never had significant complications from her Crohn's. Review of Systems: Review of Systems: Complete ROS is negative unless otherwise documented in HPI Current Medications: Current Medications Medications (Trade) Dose Ordered Sig/[facility] Start Time Stop Time Status Last Admin Dose Admin Barium Sulfate (Readi-Cat 2) 450 ml 1X ONCE 10/15/20 23:45 10/15/20 23:49 DC 10/15/20 00:22 900 ML Ondansetron HCl (Zofran) 4 mg 1X ONCE 10/15/20 22:45 10/15/20 22:46 DC 10/15/20 23:38 4 MG Potassium Chloride/Water 100 ml @ 100 mls/hr Q1H 10/16/20 00:30 10/16/20 04:29 10/16/20 03:23 100 MLS/HR Sodium Chloride 1,000 ml @ 1,000 mls/hr 1X ONCE 10/16/20 00:30 10/16/20 01:29 DC 10/16/20 00:54 1,000 MLS/HR Allergies: Allergies: Allergies Coded Allergies Type Severity Reaction Last Updated Verified Iodinated Contrast Media Allergy Severe Anaphylaxis 07/17/14 Yes coconut oil Allergy Severe Anaphylaxis 07/17/14 Yes iron Allergy Severe Anaphylaxis 1/29/15 Yes Physical Exam: PE: General: Awake, alert, NAD. Well Nourished, well hydrated. Cooperative HEENT: Atraumatic, EOMI, PERRL, airway patent, moist oral mucosa Neck: Supple, trachea midline Respiratory: CTA bilaterally, normal effort, no wheezing/crackles CV: RRR, no murmur, cap refill <2 GI: Soft, nondistended, lower abdominal tenderness, no masses MSK: No obvious deformities Skin: Warm, dry, intact Neuro: A&O x3, speech NL, sensory and motor grossly intact, no focal deficits Psych: Normal affect, normal mood, not suicidal or homicidal Current Patient Data: Labs: Laboratory Tests Test 10/15/20 22:39 10/15/20 23:15 10/16/20 02:11 White Blood Count 10.9 x10^3/uL (4.0-11.0) Red Blood Count 4.25 x10^6/uL (3.50-5.40) Hemoglobin 13.4 g/dL (12.0-15.5) Hematocrit 40.3 % (36.0-47.0) Mean Corpuscular Volume 95 fL (79-100) Mean Corpuscular Hemoglobin 32 pg (25-35) Mean Corpuscular Hemoglobin Concent 33 g/dL (31-37) Red Cell Distribution Width 14.9 % (11.5-14.5) H Platelet Count 332 x10^3/uL (140-400) Neutrophils (%) (Auto) 51 % (31-73) Lymphocytes (%) (Auto) 35 % (24-48) Monocytes (%) (Auto) 8 % (0-9) Eosinophils (%) (Auto) 4 % (0-3) H Basophils (%) (Auto) 2 % (0-3) Neutrophils # (Auto) 5.6 x10^3/uL (1.8-7.7) Lymphocytes # (Auto) 3.8 x10^3/uL (1.0-4.8) Monocytes # (Auto) 0.8 x10^3/uL (0.0-1.1) Eosinophils # (Auto) 0.4 x10^3/uL (0.0-0.7) Basophils # (Auto) 0.2 x10^3/uL (0.0-0.2) Sodium Level 150 mmol/L (136-145) H Potassium Level 2.6 mmol/L (3.5-5.1) *L Chloride Level 116 mmol/L (98-107) H Carbon Dioxide Level 27 mmol/L (21-32) Anion Gap 7 (6-14) Blood Urea Nitrogen 12 mg/dL (7-20) Creatinine 0.4 mg/dL (0.6-1.0) L Estimated GFR (Cockcroft-Gault) 160.2 BUN/Creatinine Ratio 30 (6-20) H Glucose Level 92 mg/dL (70-99) Calcium Level 6.4 mg/dL (8.5-10.1) L Total Bilirubin 0.2 mg/dL (0.2-1.0) Aspartate Amino Transferase (AST) 10 U/L (15-37) L Alanine Aminotransferase (ALT) 9 U/L (14-59) L Alkaline Phosphatase 58 U/L (46-116) Total Protein 4.1 g/dL (6.4-8.2) L Albumin 2.1 g/dL (3.4-5.0) L Albumin/Globulin Ratio 1.1 (1.0-1.7) Lipase 47 U/L (73-393) L Urine Collection Type U cath Urine Color Yellow Urine Clarity Clear Urine pH 6.0 (<5.0-8.0) Urine Specific [place] <=1.005 (1.000-1.030) Urine Protein Negative mg/dL (NEG-TRACE) Urine Glucose (UA) Negative mg/dL (NEG) Urine Ketones (Stick) Negative mg/dL (NEG) Urine Blood Negative (NEG) Urine Nitrite Negative (NEG) Urine Bilirubin Negative (NEG) Urine Urobilinogen Dipstick 0.2 mg/dL (0.2 mg/dL) Urine Leukocyte Esterase Large (NEG) Urine RBC 0 /HPF (0-2) Urine WBC >40 /HPF (0-4) Urine Squamous Epithelial Cells Few /LPF Urine Bacteria Many /HPF (0-FEW) Urine Mucus Slight /LPF Laboratory Tests 10/15/20 22:39 Laboratory Tests 10/15/20 23:15 Vital Signs: Vital Signs Date Time Temp Pulse Resp B/P (MAP) Pulse Ox O2 Delivery O2 Flow Rate FiO2 10/16/20 01:53 78 15 136/61 (86) 94 Room Air 10/15/20 22:18 98.1 98.1 EKG: EKG: [] Heart Score: C/O Chest Pain: N/A Risk Factors: Risk Factors: DM, Current or recent (<one month) smoker, HTN, HLP, family history of CAD, obesity. Risk Scores: Score 0 - 3: 2.5% MACE over next 6 weeks - Discharge Home Score 4 - 6: 20.3% MACE over next 6 weeks - Admit for Clinical Observation Score 7 - 10: 72.7% MACE over next 6 weeks - Early Invasive Strategies Radiology/Procedures: Radiology/Procedures: [] Course & Med Decision Making: Course & Med Decision Making Pertinent Labs and Imaging studies reviewed. (See chart for details) Patient is a 65 year-old female with a history of Crohn's who presents to the Emergency Room complaining of abdominal pain, diarrhea, vomiting. On exam, patient has lower abdominal tenderness. Due to patients history, age, and exam work up will need to be done to evaluate for intra-abdominal pathology. Work up ordered includes CBC, CMP, lipase, UA, CT abdomen and pelvis. Patient's pain is not epigastric and a cardiac evaluation is not needed for atypical pain. Ddx includes gastroenteritis, colitis, diverticulitis, pyelonephritis. Work up was reviewed and CT appears to be normal. Patient does have several electrolyte abnormalities including hypokalemia. Potassium was replaced here in the emergency room. Patient also has some hyponatremia. UA shows UTI. Patient was given Rocephin. She will be admitted to the hospital for abnormal electrolytes. Dragon Disclaimer: Selvin Disclaimer: This electronic medical record was generated, in whole or in part, using a voice recognition dictation system. Departure Departure Impression: Primary Impression: Diarrhea Additional Impressions: Dehydration Hypokalemia Hypernatremia UTI (urinary tract infection) Disposition: ADMITTED INPATIENT Condition: STABLE Referrals: MILAN MCCRAY (PCP) Problem Qualifiers ANISHA MARTÍNEZ MD Oct 16, 2020 02:06
[2020-10-16 02:19] LABS: BILIRUBIN,URINE NEGATIVE (NEG); CLARITY,URINE CLEAR; COLOR,URINE YELLOW; NITRITE,URINE NEGATIVE (NEG); PROTEIN,URINE NEGATIVE (NEG-TRACE); UROBILINOGEN,URINE 0.2 mg/dL (0.2 mg/dL)
[2020-10-16 02:31] LABS: BACTERIA,URINE MANY /HPF (0-FEW); RBC,URINE 0 /HPF (0-2); WBC,URINE >40 /HPF (0-4)
[2020-10-16] MEDS ORDERED: cefTRIAXone IV Push 1 GM VIAL. IVP ONE (04:00)
[2020-10-16] MEDS ORDERED: DICY20TA3 PO (04:31)
[2020-10-16] MEDS ORDERED: LORA2TAB89 PO (04:39)
[2020-10-16] MEDS ORDERED: FURO40TA4 PO (05:19)
[2020-10-16] MEDS ORDERED: LORA10CA PO (05:19)
[2020-10-16] MEDS ORDERED: MESA0.372 PO (05:19)
[2020-10-16] MEDS ORDERED: CRESTOR5 MG PO (05:19)
[2020-10-16] MEDS ORDERED: ONDA4TAB12 PO (05:19)
[2020-10-16] MEDS ORDERED: TERB250T84 PO (05:19)
[2020-10-16] MEDS ORDERED: MELO15TA23 PO (05:19)
[2020-10-16] MEDS ORDERED: NEOM10SO7 EACH EAR (05:19)
[2020-10-16] MEDS ORDERED: LEVA1.2527 NEB (05:19)
[2020-10-16] MEDS ORDERED: GABA300C18 PO (05:19)
[2020-10-16] MEDS ORDERED: PROAIR RESPICL90 MCG IH (05:19)
[2020-10-16] MEDS ORDERED: PANT40TA77 PO (05:19)
[2020-10-16] MEDS ORDERED: NALO25TA4 PO (05:19)
[2020-10-16] MEDS ORDERED: ONDANSETRON PF 4 MG/2 ML VIAL. IVP PRN (07:45)
--- NOTE | 2020-10-16 07:48 | PDOC1 ---
History and Physical Date of Admission Date of Admission DATE: 10/16/20 TIME: 07:42 Identification/Chief Complaint Chief Complaint Nausea, vomiting Source Source: Patient History of Present Illness History of Present Illness Ms Kahn is a 65 yo F w/ PMHx HTN, HLD, asthma with COPD, seizure, GERD, anemia, Bipolar disorder, anxiety, fibromyalgia, Follicular lymphoma (s/p chemotherapy, radiation therapies, splenectomy), ?crohns, and hypothyroidism who presents to the emergency room complaining of abdominal pain, diarrhea, nausea and vomiting. Patient states that she has been having intermittent lower abdominal pain for the last 1 month. 2 days ago she started having a great deal of diarrhea, but describes it as "mucous", no actual liquid stools. She has not had any recent sick contacts, does note that she has not gotten out of bed for 4 months due to what she says is plantar fasciitis, but lives in a high-rise apartment with 24/7 care provided by [facility]. On examination she says she cannot sit up straight to eat and is unable to transition without assistance. She denies any increased shortness of breath. She does not have any chest pain. She denies any URI symptoms. She denies any blood in her vomit or stools. She has never had significant complications from her Crohn's and it is not clear how she has follow up, was previously on pentasa. CT abdomen pelvis no acute abnormality but very large stool burden noted. Additionally Multilevel thoracic and lumbar wedge compression fractures stable since 2020 imaging. Labs with WBC 10.9, Hb 13.4, platelets 332, NA 150, K3.6, BUN 12, creatinine 0.4, glucose 92, albumin 2.1, urine positive large leukocyte esterase. CRP 2.5. Admitted for further care Past Medical History Cardiovascular: HTN, Hyperlipidemia Pulmonary: Asthma, COPD CENTRAL NERVOUS SYSTEM: Seizure GI: GERD, Irritable bowel disease, Other Heme/Onc: Anemia NOS, Cancer Hepatobiliary: No pertinent hx Psych: Anxiety, Bipolar, Depression Rheumatologic: Fibromyalgia Infectious disease: No pertinent hx Renal/: Urinary Incontinence, Other Endocrine: Hypothyroidism Past Surgical History Past Surgical History: Total hip replacement, Other Family History Family History: Coronary Artery Disease, Hypertension Social History Smoke: No ALCOHOL: none Drugs: None Current Problem List Problem List Problems Medical Problems: (1) Dehydration Status: Acute (2) Diarrhea Status: Acute (3) Hypernatremia Status: Acute Current Medications Current Medications Current Medications Sodium Chloride 1,000 ml @ 1,000 mls/hr 1X ONCE IV Last administered on 10/15/20at 23:38; Start 10/15/20 at 22:45; Stop 10/15/20 at 23:44; Status DC Ondansetron HCl (Zofran) 4 mg 1X ONCE IVP Last administered on 10/15/20at 23:38; Start 10/15/20 at 22:45; Stop 10/15/20 at 22:46; Status DC Barium Sulfate (Readi-Cat 2) 450 ml 1X ONCE PO Last administered on 10/15/20at 00:22; Start 10/15/20 at 23:45; Stop 10/15/20 at 23:49; Status DC Sodium Chloride 1,000 ml @ 1,000 mls/hr 1X ONCE IV Last administered on 10/16/20at 00:54; Start 10/16/20 at 00:30; Stop 10/16/20 at 01:29; Status DC Potassium Chloride/Water 100 ml @ 100 mls/hr Q1H IV Last administered on 10/16/20at 04:58; Start 10/16/20 at 00:30; Stop 10/16/20 at 04:29; Status DC Ceftriaxone Sodium (Rocephin) 1 gm 1X ONCE IVP Last administered on 10/16/20at 05:50; Start 10/16/20 at 04:00; Stop 10/16/20 at 04:01; Status DC Active Scripts Active Thera-M Tablet (Multivits,Ca,Minerals/Iron/Fa) 1 Each Tablet 1 Tab PO DAILY 30 Days Dok (Docusate Sodium) 100 Mg Capsule 100 Mg PO PRN BID PRN 14 Days Tylenol (Acetaminophen) 325 Mg Tablet 650 Mg PO PRN Q4HRS PRN 30 Days Reported Znopnkgd-Cynyynfyi-Ai Ear Soln (Neomycin/Polymyxin B Sulf/Hc) 10 Ml Solution 4 Drop EACH EAR TID Xopenex (Levalbuterol HCl) 1.25 Mg/3 Ml Vial.neb 1 Vial NEB Q8HRS 20 Days Terbinafine Hcl 250 Mg Tablet 1 Tab PO DAILY 30 Days Crestor (Rosuvastatin Calcium) 5 Mg Tablet 10 Mg PO DAILY Protonix (Pantoprazole Sodium) 40 Mg Tablet.dr 40 Mg PO DAILYAC Ondansetron Odt (Ondansetron) 4 Mg Tab.rapdis 1 Tab PO PRN Q6-8HRS Movantik (Naloxegol Oxalate) 25 Mg Tablet 25 Mg PO UNKNOWN Meloxicam 15 Mg Tablet 1 Tab PO DAILY 30 Days Gabapentin (Gabapentin) 300 Mg Capsule 2 Cap PO TID Furosemide 40 Mg Tablet 1 Tab PO DAILY Claritin (Loratadine) 10 Mg Capsule 1 Cap PO DAILY 30 Days Apriso (Mesalamine) 0.375 Gm Cap.er.24h 0.375 Gm PO UD Proair Respiclick (Albuterol Sulfate) 90 Mcg Aer.pow.ba 2 Puff IH PRN Q4-6HRS PRN Ativan (Lorazepam) 2 Mg Tablet 2 Mg PO TID PRN Dicyclomine Hcl 20 Mg Tablet 1 Tab PO TID Compazine (Prochlorperazine Maleate) 10 Mg Tablet 10 Mg PO Q4HRS PRN Albuterol Sulfate Neb Soln (Albuterol Sulfate) 1.25 Mg/3 Ml Vial.neb 2 Vial NEB TID Flonase Allergy Relief (Fluticasone Propionate) 9.9 Ml Herscher.susp 1 Sprays NS DAILY Metoprolol Tartrate 25 Mg Tablet 0.5 Tab PO BID 1/2 tab bid Nystatin 15 Gm Powder 1 Ludin TP BID 7 Days apply to affected area(s) Trazodone Hcl 100 Mg Tablet 2 Tab PO HS trazodone 100mg 2tabs at bedtime Advair 500-50 Diskus (Fluticasone/Salmeterol) 1 Each Disk.w.dev 1 Inh IH BID Lipitor (Atorvastatin Calcium) 20 Mg Tablet 20 Mg PO HS Bupropion Hcl Sr (Bupropion Hcl) 100 Mg Tablet.er 100 Mg PO BID Fluoxetine Hcl 10 Mg Capsule 2 Cap PO DAILY Levothyroxine Sodium 50 Mcg Tablet 1 Tab PO DAILY Allergies Allergies: Coded Allergies: Iodinated Contrast Media (Verified Allergy, Severe, Anaphylaxis, 07/17/14) coconut oil (Verified Allergy, Severe, Anaphylaxis, 07/17/14) coconuts iron (Verified Allergy, Severe, Anaphylaxis, 07/17/14) ROS General: YES: Fatigue, Malaise, Appetite; No: Chills, Night Sweats, Other PSYCHOLOGICAL ROS: YES: Anxiety, Concentration difficultie, Hostility, Irritablity, Mood Swings, Obsessive thoughts; No: Behavioral Disorder, Decreased libido, Depression, Disorientation, Hallucinations, Memory difficulties, Physical abuse, Sexual abuse, Sleep disturbances, Suicidal ideation, Other Eyes: No Blurry vision, No Decreased vision, No Double vision, No Dry eyes, No Excessive tearing, No Eye Pain, No Itchy Eyes, No Loss of vision, No Photophobia, No Scotomata, No Uses contacts, No Uses glasses, No Other HEENT: No: Heacaches, Visual Changes, Hearing change, Nasal congestion, Nasal discharge, Oral lesions, Sinus pain, Sore Throat, Epistaxis, Sneezing, Snoring, Tinnitus, Vertigo, Vocal changes, Other ALLERGY AND IMMUNOLOGY: No: Hives, Insect Bite Sensitivity, Itchy/Watery Eyes, Nasal Congestion, Post Nasal Drip, Seasonal Allergies, Other Hematological and Lymphatic: No: Bleeding Problems, Blood Clots, Blood Transfusions, Brusing, Night Sweats, Pallor, Swollen Lymph Nodes, Other ENDOCRINE: No: Breast Changes, Galactorrhea, Hair Pattern Changes, Hot Flashes, Malaise/lethargy, Mood Swings, Palpitations, Polydipsia/polyuria, Skin Changes, Temperature Intolerance, Unexpected Weight Changes, Other Breast: No New/Changing Breast Lumps, No Nipple changes, No Nipple discharge, No Other Respiratory: No: Cough, Hemoptysis, Orthopnea, Pleuritic Pain, Shortness of breath, SOB with excertion, Sputum Changes, Stridor, Tachypnea, Wheezing, Other Cardiovascular: No Chest Pain, No Palpitations, No Orthopnea, No Paroxysmal Noc. Dyspnea, No Edema, No Lt Headedness, No Other Gastrointestinal: Yes Nausea, Yes Vomiting, Yes Abdominal Pain, Yes Diarrhea, Yes Constipation; No Melena, No Hematochezia, No Other Genitourinary: No Dysuria, No Frequency, No Incontinence, No Hematuria, No Retention, No Discharge, No Urgency, No Pain, No Flank Pain, No Other, No , No , No , No , No , No , No Musculoskeletal: Yes Gait Disturbance, Yes Joint Stiffness, Yes Muscle Pain, Yes Muscular Weakness; No Joint Pain, No Joint Swelling, No Pain In:, No Swelling In:, No Other Neurological: No Behavorial Changes, No Bowel/Bladder ControlChng, No Confusion, No Dizziness, No Gait Disturbance, No Headaches, No Impaired Coord/balance, No Memory Loss, No Numbness/Tingling, No Seizures, No Speech Problems, No Tremors, No Visual Changes, No Weakness, No Other Skin: No Dry Skin, No Eczema, No Hair Changes, No Lumps, No Mole Changes, No Mottling, No Nail Changes, No Pruritus, No Rash, No Skin Lesion Changes, No Other, No Acne Physical Exam General: Alert, Oriented X3, Cooperative, moderate distress HEENT: Atraumatic, PERRLA, EOMI, Mucous membr. moist/pink Lungs: Clear to auscultation, Normal air movement Heart: S1S2, RRR, no thrills, no rubs, no gallops, no murmurs Abdomen: Normal bowel sounds, Soft, No hepatosplenomegaly, No masses, Other (Diffusely tender) Rectal Exam: not examined Extremities: No clubbing, No cyanosis, No edema, Normal pulses, No tenderness/ swelling Skin: No significant lesion, Other (gluteal breakdown) Neuro: Normal speech, Strength at 5/5 X4 ext, Normal tone, Sensation intact, Cranial nerves 3-12 NL, Reflexes 2+ Psych/Mental Status: Other (Confused) Vitals Vitals Vital Signs Date Time Temp Pulse Resp B/P (MAP) Pulse Ox O2 Delivery O2 Flow Rate FiO2 10/16/20 04:01 Room Air 10/16/20 04:00 97.5 81 17 117/57 (77) 94 97.5 Labs Labs Laboratory Tests Test 10/15/20 22:39 10/15/20 23:15 10/16/20 02:11 White Blood Count 10.9 x10^3/uL (4.0-11.0) Red Blood Count 4.25 x10^6/uL (3.50-5.40) Hemoglobin 13.4 g/dL (12.0-15.5) Hematocrit 40.3 % (36.0-47.0) Mean Corpuscular Volume 95 fL (79-100) Mean Corpuscular Hemoglobin 32 pg (25-35) Mean Corpuscular Hemoglobin Concent 33 g/dL (31-37) Red Cell Distribution Width 14.9 % (11.5-14.5) Platelet Count 332 x10^3/uL (140-400) Neutrophils (%) (Auto) 51 % (31-73) Lymphocytes (%) (Auto) 35 % (24-48) Monocytes (%) (Auto) 8 % (0-9) Eosinophils (%) (Auto) 4 % (0-3) Basophils (%) (Auto) 2 % (0-3) Neutrophils # (Auto) 5.6 x10^3/uL (1.8-7.7) Lymphocytes # (Auto) 3.8 x10^3/uL (1.0-4.8) Monocytes # (Auto) 0.8 x10^3/uL (0.0-1.1) Eosinophils # (Auto) 0.4 x10^3/uL (0.0-0.7) Basophils # (Auto) 0.2 x10^3/uL (0.0-0.2) Sodium Level 150 mmol/L (136-145) Potassium Level 2.6 mmol/L (3.5-5.1) Chloride Level 116 mmol/L (98-107) Carbon Dioxide Level 27 mmol/L (21-32) Anion Gap 7 (6-14) Blood Urea Nitrogen 12 mg/dL (7-20) Creatinine 0.4 mg/dL (0.6-1.0) Estimated GFR (Cockcroft-Gault) 160.2 BUN/Creatinine Ratio 30 (6-20) Glucose Level 92 mg/dL (70-99) Calcium Level 6.4 mg/dL (8.5-10.1) Total Bilirubin 0.2 mg/dL (0.2-1.0) Aspartate Amino Transf (AST/SGOT) 10 U/L (15-37) Alanine Aminotransferase (ALT/SGPT) 9 U/L (14-59) Alkaline Phosphatase 58 U/L (46-116) Total Protein 4.1 g/dL (6.4-8.2) Albumin 2.1 g/dL (3.4-5.0) Albumin/Globulin Ratio 1.1 (1.0-1.7) Lipase 47 U/L (73-393) Urine Collection Type U cath Urine Color Yellow Urine Clarity Clear Urine pH 6.0 (<5.0-8.0) Urine Specific Odin <=1.005 (1.000-1.030) Urine Protein Negative mg/dL (NEG-TRACE) Urine Glucose (UA) Negative mg/dL (NEG) Urine Ketones (Stick) Negative mg/dL (NEG) Urine Blood Negative (NEG) Urine Nitrite Negative (NEG) Urine Bilirubin Negative (NEG) Urine Urobilinogen Dipstick 0.2 mg/dL (0.2 mg/dL) Urine Leukocyte Esterase Large (NEG) Urine RBC 0 /HPF (0-2) Urine WBC >40 /HPF (0-4) Urine Squamous Epithelial Cells Few /LPF Urine Bacteria Many /HPF (0-FEW) Urine Mucus Slight /LPF Laboratory Tests Test 10/15/20 22:39 10/15/20 23:15 10/16/20 02:11 White Blood Count 10.9 x10^3/uL (4.0-11.0) Red Blood Count 4.25 x10^6/uL (3.50-5.40) Hemoglobin 13.4 g/dL (12.0-15.5) Hematocrit 40.3 % (36.0-47.0) Mean Corpuscular Volume 95 fL (79-100) Mean Corpuscular Hemoglobin 32 pg (25-35) Mean Corpuscular Hemoglobin Concent 33 g/dL (31-37) Red Cell Distribution Width 14.9 % (11.5-14.5) Platelet Count 332 x10^3/uL (140-400) Neutrophils (%) (Auto) 51 % (31-73) Lymphocytes (%) (Auto) 35 % (24-48) Monocytes (%) (Auto) 8 % (0-9) Eosinophils (%) (Auto) 4 % (0-3) Basophils (%) (Auto) 2 % (0-3) Neutrophils # (Auto) 5.6 x10^3/uL (1.8-7.7) Lymphocytes # (Auto) 3.8 x10^3/uL (1.0-4.8) Monocytes # (Auto) 0.8 x10^3/uL (0.0-1.1) Eosinophils # (Auto) 0.4 x10^3/uL (0.0-0.7) Basophils # (Auto) 0.2 x10^3/uL (0.0-0.2) Sodium Level 150 mmol/L (136-145) Potassium Level 2.6 mmol/L (3.5-5.1) Chloride Level 116 mmol/L (98-107) Carbon Dioxide Level 27 mmol/L (21-32) Anion Gap 7 (6-14) Blood Urea Nitrogen 12 mg/dL (7-20) Creatinine 0.4 mg/dL (0.6-1.0) Estimated GFR (Cockcroft-Gault) 160.2 BUN/Creatinine Ratio 30 (6-20) Glucose Level 92 mg/dL (70-99) Calcium Level 6.4 mg/dL (8.5-10.1) Total Bilirubin 0.2 mg/dL (0.2-1.0) Aspartate Amino Transf (AST/SGOT) 10 U/L (15-37) Alanine Aminotransferase (ALT/SGPT) 9 U/L (14-59) Alkaline Phosphatase 58 U/L (46-116) Total Protein 4.1 g/dL (6.4-8.2) Albumin 2.1 g/dL (3.4-5.0) Albumin/Globulin Ratio 1.1 (1.0-1.7) Lipase 47 U/L (73-393) Urine Collection Type U cath Urine Color Yellow Urine Clarity Clear Urine pH 6.0 (<5.0-8.0) Urine Specific Odin <=1.005 (1.000-1.030) Urine Protein Negative mg/dL (NEG-TRACE) Urine Glucose (UA) Negative mg/dL (NEG) Urine Ketones (Stick) Negative mg/dL (NEG) Urine Blood Negative (NEG) Urine Nitrite Negative (NEG) Urine Bilirubin Negative (NEG) Urine Urobilinogen Dipstick 0.2 mg/dL (0.2 mg/dL) Urine Leukocyte Esterase Large (NEG) Urine RBC 0 /HPF (0-2) Urine WBC >40 /HPF (0-4) Urine Squamous Epithelial Cells Few /LPF Urine Bacteria Many /HPF (0-FEW) Urine Mucus Slight /LPF Images Images CT abdomen/pelvis: Limited images of lung bases show patchy bibasilar dependent opacity with bilateral pleural thickening. Heart size is within normal limits. No pleural or pericardial effusion. Solid abdominal viscera not well evaluated in the absence of contrast material. No apparent attenuation abnormality of the liver. Gallbladder unremarkable. The spleen is not identified and may be surgically absent. Pancreas is somewhat atrophic. Adrenal glands and kidneys are unremarkable. No stone or hydronephrosis. Partially opacified GI tract normal in caliber and contour. No focal bowel wall thickening. No inflammatory stranding in the mesentery. Appendix normal in caliber. No ascites or lymphadenopathy. Abdominal aorta normal in caliber. Images of pelvis show nondistended urinary bladder. Uterus and adnexa are unrem arkable. Evaluation of the pelvis is somewhat limited due to beam Dick artifact from right hip prosthesis. Moderate to large amount of stool at the distal colon. Bone windows show old healed fractures of the bilateral superior and inferior pubic rami. There is generalized bony demineralization. Multilevel wedge compression deformities of the thoracic and lumbar spine, unchanged from prior study. Multilevel spondylosis. IMPRESSION ABDOMEN: 1. No acute abnormality of abdomen or pelvis. 2. Moderate to large amount stool throughout the colon. 3. Multilevel thoracic and lumbar wedge compression fractures, age indeterminate but stable from the 08/15/2020 exam. 4. Mild patchy bibasilar opacity, likely atelectasis. There is mild bilateral pleural thickening. VTE Prophylaxis Ordered VTE Prophylaxis Devices: No VTE Pharmacological Prophylaxi: Yes Assessment/Plan Assessment/Plan A/P: Intractable abdominal pain - likely due to constipation. with CRP low less likely crohns flare. Will get on bowel regimen once nausea better controlled Nausea and vomiting - possibly from poor GI motility, gastroparesis, will give IV antiemetics Multilevel thoracic and lumbar wedge compression fractures - no new fractures Abnormal CXR - likely from chronic bedbound status Weakness - likely from electolyte derangement, will replace Mild cognitive impairment COPD, chronic combined respiratory failure, stable Debility, in a wheelchair at home - will have PT for gait training and OT for ADLs Fibromyalgia, SEVERE HYPOKALEMIA - replace IV. Telemetry ordered Dysuria - given rocephin for likely UTI HTN - cont meds HLD - cont meds hypothyroidism - cont meds Follicular lymphoma (s/p chemotherapy, radiation therapies, splenectomy) - in remission Seizures - none recently Anxiety with depression - more anxious now, may need med adjustment Bipolar disorder - as above GERD - on PPI Crohns - on pentasa outpatient, will continue Severe protein calorie malnutrition - will have spout positioner to see. Self care is seriously in question FEN - NPO, ADAT as nausea improves PPX - lovenox FULL CODE Dispo - inpatient for above. She appears to need 24/7 care Advance care planning total time spent [id number] with patient greater than 15 minutes in discussion with goals of care, comfort care, end-of-life care, pain management, CODE STATUS. Justifications for Admission Other Justification SANDRA ALLEN MD Oct 16, 2020 07:48
[2020-10-16] MEDS ORDERED: METOCLOPRAMIDE HCL 10 MG/2 ML VIAL. IVP PRN (08:00)
[2020-10-16] MEDS ORDERED: DOCUSATE SODIUM 100 MG CAPSULE. PO PRN (09:00)
[2020-10-16] MEDS ORDERED: POLYETHYLENE GLYCOL 3350 17 GM PACKET. PO PRN (09:00)
[2020-10-16] MEDS ORDERED: METOPROLOL TART IMMED RELEASE 25 MG TABLET. PO SCH (10:00)
[2020-10-16] MEDS: NYSTATIN TOPICAL POWDER 15GM BOTTLE. TP SCH ×2 (10:00→21:00)
[2020-10-16 10:04] LABS: BASO # 0.1 x10^3/uL (0.0-0.2); BASO % 1 % (0-3); EOS # 0.5 x10^3/uL (0.0-0.7); EOS % 4 % (0-3); HEMATOCRIT 36.7 % (36.0-47.0); HEMOGLOBIN 12.1 g/dL (12.0-15.5); LYMPH # 2.7 x10^3/uL (1.0-4.8); LYMPH % 24 % (24-48); MEAN CORPUSCULAR HEMOGLOBIN 32 pg (25-35); MEAN CORPUSCULAR HGB CONC 33 g/dL (31-37); MEAN CORPUSCULAR VOLUME 96 fL (79-100); MONO # 0.9 x10^3/uL (0.0-1.1); MONO % 8 % (0-9); NEUT % 63 % (31-73); PLATELET COUNT 315 x10^3/uL (140-400); RED BLOOD COUNT 3.83 x10^6/uL (3.50-5.40); RED CELL DISTRIBUTION WIDTH 14.8 % (11.5-14.5); WHITE BLOOD COUNT 11.1 x10^3/uL (4.0-11.0)
[2020-10-16 10:28] LABS: ALBUMIN 2.6 g/dL (3.4-5.0); CALCIUM 7.6 mg/dL (8.5-10.1); CREATININE 0.5 mg/dL (0.6-1.0); GFR 123.8; POTASSIUM 3.9 mmol/L (3.5-5.1); TOTAL BILIRUBIN 0.2 mg/dL (0.2-1.0); TOTAL PROTEIN 5.2 g/dL (6.4-8.2)
[2020-10-16] MEDS: buPROPion SR 100 MG TABLET.SA. PO SCH ×2 (10:59→20:13)
[2020-10-16] MEDS: MESALAMINE ER 250 MG CAPSULE.ER PO SCH ×4 (10:59→20:13)
[2020-10-16] MEDS: MULTIVITAMIN with MINERAL TABLET. PO SCH (10:59)
[2020-10-16] MEDS: PANTOPRAZOLE 40 MG TABLET.DR. PO SCH (11:00)
[2020-10-16] MEDS: GABAPENTIN 300 MG CAPSULE. PO SCH ×2 (11:00→14:00)
[2020-10-16] MEDS: LEVOTHYROXINE 50 MCG TABLET PO SCH (11:00)
[2020-10-16] MEDS: PSYLLIUM HUSK (SUGAR FREE) 1 PKT PACKET PO SCH (11:00)
[2020-10-16] MEDS: FLUoxetine HCL 20 MG CAPSULE PO SCH (11:00)
[2020-10-16 11:13] LABS: MAGNESIUM 1.9 mg/dL (1.8-2.4); PHOSPHORUS 3.2 mg/dL (2.6-4.7)
[2020-10-16] MEDS ORDERED: MAGNESIUM CITRATE 296 ML SOLUTION. PO ONE (11:30)
--- NOTE | 2020-10-16 12:58 | NUR ---
SW following. Discussed with RN, pt from home alone, room air, clear liquid diet. PT/OT and COVID ordered. Pt was discharged from [facility] in March 2020. Pt has caregivers through [facility]. Awaiting therapy recommendations. SW will continue to follow.
[2020-10-16] MEDS ORDERED: fentaNYL PF VIAL 100 MCG/2 ML VIAL IVP PRN (13:00)
[2020-10-16] MEDS: traMADol 50 MG TABLET PO PRN (13:07)
[2020-10-16] MEDS: ENOXAPARIN 40 MG/0.4 ML SYRINGE. SQ SCH (13:08)
--- NOTE | 2020-10-16 13:27 | NUR ---
Nurse's note: At 1155, this nurse was informed that the patient was on the floor. She was working with physical therapy at the edge of the bed. Upon assessment, she was sitting on the floor near the bed with both legs outstretched. The patient was wearing a gait belt and yellow socks. PT said that it was a controlled fall. The patient was on the standing position when her legs buckled up and she was then lowered to the floor. inspector glass or mirror and a COPYRIGHT EXPERT came to the room. A lift was used to transfer the patient to the bed. She complained of generalized pain 9/10 and no localized tenderness noted. She was given prn pain medicine. Dr. Leong notified of the incident.
--- NOTE | 2020-10-16 17:06 | NUR ---
Nurse's note: The patient's BP was noted in the 80's systolic, on reassessment BP was 77/48 HR 86, sinus rhythm on the monitor. She's awake, alert, oriented x 3, complains of pain on both lower legs. Paged Dr Leong at [phone], new orders acknowledged. We'll continue to monitor the patient.
--- NOTE | 2020-10-16 18:45 | NUR ---
Nurse's note: Called the patient's son, Patel ([phone]) to give updates however there was no response. Will pass in the nurse's report.
[2020-10-16] MEDS ORDERED: ALBUMIN HUMAN 5% 500 ML IV ONE (19:00)
[2020-10-16] MEDS: ATORVASTATIN CALCIUM 40 MG TABLET. PO SCH (20:13)
[2020-10-16] MEDS: traZODone 100 MG TABLET. PO SCH (20:13)
[2020-10-16] MEDS ORDERED: GABAPENTIN 300 MG CAPSULE. PO SCH (21:00)
[2020-10-16] MEDS ORDERED: ATORVASTATIN CALCIUM 20 MG TABLET PO SCH (21:00)
[2020-10-16] MEDS ORDERED: PSYLLIUM HUSK (SUGAR FREE) 1 PKT PACKET PO SCH (21:00)
[2020-10-16] MEDS: GABAPENTIN 100 MG CAPSULE. PO SCH (21:43)
[2020-10-17 03:06] VITALS: BP 111/51
[2020-10-17 04:01] LABS: BASO # 0.1 x10^3/uL (0.0-0.2); BASO % 0 % (0-3); EOS # 0.3 x10^3/uL (0.0-0.7); EOS % 2 % (0-3); HEMATOCRIT 32.7 % (36.0-47.0); HEMOGLOBIN 10.7 g/dL (12.0-15.5); LYMPH # 1.6 x10^3/uL (1.0-4.8); LYMPH % 10 % (24-48); MEAN CORPUSCULAR HEMOGLOBIN 32 pg (25-35); MEAN CORPUSCULAR HGB CONC 33 g/dL (31-37); MEAN CORPUSCULAR VOLUME 97 fL (79-100); MONO # 0.8 x10^3/uL (0.0-1.1); MONO % 5 % (0-9); NEUT # 13.7 x10^3/uL (1.8-7.7); NEUT % 83 % (31-73); PLATELET COUNT 214 x10^3/uL (140-400); RED BLOOD COUNT 3.37 x10^6/uL (3.50-5.40); RED CELL DISTRIBUTION WIDTH 15.1 % (11.5-14.5); WHITE BLOOD COUNT 16.5 x10^3/uL (4.0-11.0)
[2020-10-17 04:26] LABS: ALBUMIN 3.3 g/dL (3.4-5.0); ALBUMIN/GLOBULIN RATIO 1.6 (1.0-1.7); CALCIUM 7.8 mg/dL (8.5-10.1); CREATININE 0.6 mg/dL (0.6-1.0); GFR 100.3; POTASSIUM 4.2 mmol/L (3.5-5.1); TOTAL BILIRUBIN 0.4 mg/dL (0.2-1.0); TOTAL PROTEIN 5.4 g/dL (6.4-8.2)
[2020-10-17 05:13] LABS: % BANDS 6 % (0-9); % EOS 2 % (0-5); % LYMPHS 10 % (24-48); % MONOS 2 % (0-10); % SEGS 80 % (35-66); HYPOCHROMIA SLIGHT; PLT ESTIMATE ADEQUATE (ADEQUATE); POIKILOCYTOSIS SLIGHT
[2020-10-17] MEDS: LEVOTHYROXINE 50 MCG TABLET PO SCH (06:37)
[2020-10-17 07:21] VITALS: BP 100/53
[2020-10-17] MEDS: ACETAMINOPHEN 325 MG TABLET. PO PRN ×2 (07:50→16:32)
[2020-10-17] MEDS: traMADol 50 MG TABLET PO PRN ×2 (07:50→16:31)
[2020-10-17] MEDS: NYSTATIN TOPICAL POWDER 15GM BOTTLE. TP SCH ×2 (09:00→21:44)
[2020-10-17] MEDS: PSYLLIUM HUSK (SUGAR FREE) 1 PKT PACKET PO SCH ×2 (10:20→21:14)
[2020-10-17] MEDS: MESALAMINE ER 250 MG CAPSULE.ER PO SCH ×4 (10:21→21:14)
[2020-10-17] MEDS: ENOXAPARIN 40 MG/0.4 ML SYRINGE. SQ SCH (10:21)
[2020-10-17] MEDS: MULTIVITAMIN with MINERAL TABLET. PO SCH (10:21)
[2020-10-17] MEDS: PANTOPRAZOLE 40 MG TABLET.DR. PO SCH (10:21)
[2020-10-17] MEDS: buPROPion SR 100 MG TABLET.SA. PO SCH ×2 (10:21→21:14)
[2020-10-17] MEDS: FLUoxetine HCL 20 MG CAPSULE PO SCH (10:21)
[2020-10-17] MEDS: GABAPENTIN 100 MG CAPSULE. PO SCH ×3 (10:21→21:14)
[2020-10-17 11:00] VITALS: BP 81/52
--- NOTE | 2020-10-17 13:51 | PDOC ---
[employer] PROGRESS NOTE Date of Service DOS: DATE: 10/17/20 TIME: 13:46 Chief Complaint Chief Complaint A/P: Intractable abdominal pain - likely due to constipation. with CRP low less likely crohns flare. Will get on bowel regimen once nausea better controlled Nausea and vomiting - possibly from poor GI motility, gastroparesis, will give IV antiemetics Multilevel thoracic and lumbar wedge compression fractures - no new fractures Abnormal CXR - likely from chronic bedbound status Weakness - likely from electolyte derangement, will replace Mild cognitive impairment COPD, chronic combined respiratory failure, stable Debility, in a wheelchair at home - will have PT for gait training and OT for ADLs Fibromyalgia, SEVERE HYPOKALEMIA - replace IV. Telemetry ordered Dysuria - given rocephin for likely UTI HTN - cont meds HLD - cont meds hypothyroidism - cont meds Follicular lymphoma (s/p chemotherapy, radiation therapies, splenectomy) - in remission Seizures - none recently Anxiety with depression - more anxious now, may need med adjustment Bipolar disorder - as above GERD - on PPI Crohns - on pentasa outpatient, will continue Severe protein calorie malnutrition - will have arboriculturist to see. Self care is seriously in question Leukocytosis - increasing. Has not been on antibiotics given no clear infectious source, will obtain blood cultures FEN - ADAT PPX - lovenox FULL CODE Dispo - inpatient for above. She appears to need 24/7 care History of Present Illness History of Present Illness Ms Kahn is a 65 yo F w/ PMHx HTN, HLD, asthma with COPD, seizure, GERD, anemia, Bipolar disorder, anxiety, fibromyalgia, Follicular lymphoma (s/p chemotherapy, radiation therapies, splenectomy), ?crohns, and hypothyroidism who presents to the emergency room complaining of abdominal pain, diarrhea, nausea and vomiting. Patient states that she has been having intermittent lower abdominal pain for the last 1 month. 2 days ago she started having a great deal of diarrhea, but describes it as "mucous", no actual liquid stools. She has not had any recent s ick contacts, does note that she has not gotten out of bed for 4 months due to what she says is plantar fasciitis, but lives in a high-rise apartment with 24/7 care provided by [facility]. On examination she says she cannot sit up straight to eat and is unable to transition without assistance. She denies any increased shortness of breath. She does not have any chest pain. She denies any URI symptoms. She denies any blood in her vomit or stools. She has never had significant complications from her Crohn's and it is not clear how she has follow up, was previously on pentasa. CT abdomen pelvis no acute abnormality but very large stool burden noted. Additionally Multilevel thoracic and lumbar wedge compression fractures stable since 2020 imaging. Labs with WBC 10.9, Hb 13.4, platelets 332, NA 150, K3.6, BUN 12, creatinine 0.4, glucose 92, albumin 2.1, urine positive large leukocyte esterase. CRP 2.5. Afebrile. WBC 16.5, K4.2 now. She is very confused this morning and O2 sats have dropped into the 80s. Plan: CXR, ABG, possibly will need BIPAP GI supportive care Vitals/I&O Vitals/I&O: Vital Signs Date Time Temp Pulse Resp B/P (MAP) Pulse Ox O2 Delivery O2 Flow Rate FiO2 10/17/20 11:00 98.4 57 18 81/52 (62) 96 Nasal Cannula 2.0 98.4 I & O 10/16/20 10/16/20 10/17/20 15:00 23:00 07:00 Intake Total 480 ml 300 ml 100 ml Output Total 0 ml Balance 480 ml 300 ml 100 ml Physical Exam General: Alert, Oriented X3, Cooperative, moderate distress Lungs: Clear, Other Abdomen: Normal bowel sounds, Soft, No hepatosplenomegaly, No masses, Other (Diffusely tender) Extremities: No clubbing, No cyanosis, No edema, Normal pulses, No tenderness/swelling Skin: No significant lesion, Other (gluteal breakdown) Labs Labs: Laboratory Tests Test 10/16/20 16:45 10/17/20 03:00 SARS-CoV-2 RNA (MILLIE) Negative (Negative) White Blood Count 16.5 x10^3/uL (4.0-11.0) Red Blood Count 3.37 x10^6/uL (3.50-5.40) Hemoglobin 10.7 g/dL (12.0-15.5) Hematocrit 32.7 % (36.0-47.0) Mean Corpuscular Volume 97 fL (79-100) Mean Corpuscular Hemoglobin 32 pg (25-35) Mean Corpuscular Hemoglobin Concent 33 g/dL (31-37) Red Cell Distribution Width 15.1 % (11.5-14.5) Platelet Count 214 x10^3/uL (140-400) Neutrophils (%) (Auto) 83 % (31-73) Lymphocytes (%) (Auto) 10 % (24-48) Monocytes (%) (Auto) 5 % (0-9) Eosinophils (%) (Auto) 2 % (0-3) Basophils (%) (Auto) 0 % (0-3) Neutrophils # (Auto) 13.7 x10^3/uL (1.8-7.7) Lymphocytes # (Auto) 1.6 x10^3/uL (1.0-4.8) Monocytes # (Auto) 0.8 x10^3/uL (0.0-1.1) Eosinophils # (Auto) 0.3 x10^3/uL (0.0-0.7) Basophils # (Auto) 0.1 x10^3/uL (0.0-0.2) Segmented Neutrophils % 80 % (35-66) Band Neutrophils % 6 % (0-9) Lymphocytes % 10 % (24-48) Monocytes % 2 % (0-10) Eosinophils % 2 % (0-5) Platelet Estimate Adequate (ADEQUATE) Hypochromasia Slight Poikilocytosis Slight Crenated Cell Present Sodium Level 143 mmol/L (136-145) Potassium Level 4.2 mmol/L (3.5-5.1) Chloride Level 111 mmol/L (98-107) Carbon Dioxide Level 28 mmol/L (21-32) Anion Gap 4 (6-14) Blood Urea Nitrogen 10 mg/dL (7-20) Creatinine 0.6 mg/dL (0.6-1.0) Estimated GFR (Cockcroft-Gault) 100.3 BUN/Creatinine Ratio 17 (6-20) Glucose Level 117 mg/dL (70-99) Calcium Level 7.8 mg/dL (8.5-10.1) Total Bilirubin 0.4 mg/dL (0.2-1.0) Aspartate Amino Transf (AST/SGOT) 15 U/L (15-37) Alanine Aminotransferase (ALT/SGPT) 16 U/L (14-59) Alkaline Phosphatase 71 U/L (46-116) Total Protein 5.4 g/dL (6.4-8.2) Albumin 3.3 g/dL (3.4-5.0) Albumin/Globulin Ratio 1.6 (1.0-1.7) Assessment and Plan Assessmemt and Plan Problems Medical Problems: (1) Dehydration Status: Acute (2) Diarrhea Status: Acute (3) Hypernatremia Status: Acute Comment Review of Relevant I have reviewed the following items lottie (where applicable) has been applied. Medications: Current Medications Medications (Trade) Dose Ordered Sig/Aysha Route PRN Reason Start Time Stop Time Status Last Admin Dose Admin Psyllium Hydrophilic Mucilloid (Metamucil Fiber Packet) 1 pkt QHS PO 10/16/20 21:00 10/16/20 20:14 Trazodone HCl (Desyrel) 200 mg HS PO 10/16/20 21:00 10/16/20 20:13 Atorvastatin Calcium (Lipitor) 40 mg QHS PO 10/16/20 21:00 10/16/20 20:13 Sodium Chloride 1,000 ml @ 1,000 mls/hr 1X ONCE IV 10/16/20 17:00 10/16/20 17:59 DC 10/16/20 17:04 Albumin Human 500 ml @ 125 mls/hr 1X ONCE IV 10/16/20 19:00 10/16/20 22:59 DC 10/16/20 20:12 Gabapentin (Neurontin) 100 mg TID PO 10/16/20 21:00 10/17/20 10:21 Justifications for Admission Other Justification SANDRA ALLEN MD October 17, 2020 13:51
[2020-10-17 13:57] LABS: BASE EXCESS ABG -2 mmol/L (-3-3); HCO3 ABG 25 mmol/L (21-28); PCO2 ABG 51 mmHg (35-46); SAT O2 ABG 84 % (92-99)
[2020-10-17 14:00] LABS: FIO2 ABG 5L NC; PO2 ABG 48 mmHg (65-108)
--- NOTE | 2020-10-17 14:25 | RAD ---
XR CHEST 1V Clinical History: Reason: Hypoxia 656 / Spl. Instructions: / History: Technique: AP view of the chest was obtained at 10/17/2020 1:46 PM. Comparison: November 25, 2019. Findings: The heart and pulmonary vessels appear normal. There is patchy reticular opacities of the lungs. The pleural margins are clear. The right-sided Port-A-Cath is again seen. Impression: Vague bilateral interstitial infiltrates suggesting CHF or atypical pneumonia. Electronically signed by: Murali Reardon III, MD (10/17/2020 2:23 PM) [facility]
[2020-10-17] MEDS ORDERED: FUROSEMIDE 40 MG/4 ML VIAL. IVP ONE (15:00)
[2020-10-17 15:16] VITALS: BP 103/36
[2020-10-17 19:00] VITALS: BP 113/73
[2020-10-17] MEDS: traZODone 100 MG TABLET. PO SCH (21:14)
[2020-10-17] MEDS: ATORVASTATIN CALCIUM 40 MG TABLET. PO SCH (21:15)
[2020-10-17 23:04] VITALS: BP 94/55
[2020-10-18 03:00] VITALS: BP 113/68
[2020-10-18] MEDS: ACETAMINOPHEN 325 MG TABLET. PO PRN ×2 (03:03→12:15)
[2020-10-18] MEDS: traMADol 50 MG TABLET PO PRN ×4 (03:03→21:31)
[2020-10-18] MEDS: LEVOTHYROXINE 50 MCG TABLET PO SCH (06:32)
[2020-10-18] MEDS: PANTOPRAZOLE 40 MG TABLET.DR. PO SCH (06:32)
[2020-10-18 07:33] VITALS: BP 106/49
[2020-10-18] MEDS: FLUoxetine HCL 20 MG CAPSULE PO SCH (08:40)
[2020-10-18] MEDS: GABAPENTIN 100 MG CAPSULE. PO SCH ×3 (08:40→21:27)
[2020-10-18] MEDS: MESALAMINE ER 250 MG CAPSULE.ER PO SCH ×4 (08:41→21:27)
[2020-10-18] MEDS: buPROPion SR 100 MG TABLET.SA. PO SCH ×2 (08:41→21:27)
[2020-10-18] MEDS: MULTIVITAMIN with MINERAL TABLET. PO SCH (08:41)
[2020-10-18] MEDS: NYSTATIN TOPICAL POWDER 15GM BOTTLE. TP SCH ×2 (08:41→21:00)
[2020-10-18] MEDS: PSYLLIUM HUSK (SUGAR FREE) 1 PKT PACKET PO SCH ×2 (08:41→21:28)
[2020-10-18 11:11] VITALS: BP 109/55
[2020-10-18] MEDS: ENOXAPARIN 40 MG/0.4 ML SYRINGE. SQ SCH (12:15)
--- NOTE | 2020-10-18 12:28 | PDOC ---
[employer] PROGRESS NOTE Date of Service DOS: DATE: 10/18/20 TIME: 12:28 Chief Complaint Chief Complaint A/P: Intractable abdominal pain - likely due to constipation. with CRP low less likely crohns flare. Will get on bowel regimen once nausea better controlled Nausea and vomiting - possibly from poor GI motility, gastroparesis, will give IV antiemetics Multilevel thoracic and lumbar wedge compression fractures - no new fractures Abnormal CXR - likely from chronic bedbound status. Levaquin started given her elevated WBC, likely gram negative pneumonia Weakness - likely from electolyte derangement, will replace Mild cognitive impairment COPD, chronic combined respiratory failure, stable Debility, in a wheelchair at home - will have PT for gait training and OT for ADLs Fibromyalgia, SEVERE HYPOKALEMIA - replace IV. Telemetry ordered Dysuria - given rocephin for likely UTI HTN - cont meds HLD - cont meds hypothyroidism - cont meds Follicular lymphoma (s/p chemotherapy, radiation therapies, splenectomy) - in remission Seizures - none recently Anxiety with depression - more anxious now, may need med adjustment Bipolar disorder - as above GERD - on PPI Crohns - on pentasa outpatient, will continue Severe protein calorie malnutrition - will have slip cover seamstress to see. Self care is seriously in question Leukocytosis - increasing. Has not been on antibiotics given no clear infectious source, will obtain blood cultures FEN - ADAT PPX - lovenox FULL CODE Dispo - inpatient for above. She appears to need 24/7 care History of Present Illness History of Present Illness Ms Kahn is a 65 yo F w/ PMHx HTN, HLD, asthma with COPD, seizure, GERD, anemia, Bipolar disorder, anxiety, fibromyalgia, Follicular lymphoma (s/p chemotherapy, radiation therapies, splenectomy), ?crohns, and hypothyroidism who presents to the emergency room complaining of abdominal pain, diarrhea, nausea and vomiting. Patient states that she has been having intermittent lower abdominal pain for the last 1 month. 2 days ago she started having a great deal of diarrhea, but describes it as "mucous", no actual liquid stools. She has not had any recent sick contacts, does note that she has not gotten out of bed for 4 months due to what she says is plantar fasciitis, but lives in a high-rise apartment with 24/7 care provided by [facility]. On examination she says she cannot sit up straight to eat and is unable to transition without assistance. She denies any increased shortness of breath. She does not have any chest pain. She denies any URI symptoms. She denies any blood in her vomit or stools. She has never had significant complications from her Crohn's and it is not clear how she has follow up, was previously on pentasa. CT abdomen pelvis no acute abnormality but very large stool burden noted. Additionally Multilevel thoracic and lumbar wedge compression fractures stable since 2020 imaging. Labs with WBC 10.9, Hb 13.4, platelets 332, NA 150, K3.6, BUN 12, creatinine 0.4, glucose 92, albumin 2.1, urine positive large leukocyte esterase. CRP 2.5. 10/17: Afebrile. WBC 16.5, K4.2 now. She is very confused this morning and O2 sats have dropped into the 80s. Improved with lasix and BIPAP. Low-grade temp. WBC up. Still with abdominal fullness still short of breath. Started on Levaquin. She is constipated. Less confused Plan: Antibiotics, bowel regimen. Needs mobility and likely placement in SNF Vitals/I&O Vitals/I&O: Vital Signs Date Time Temp Pulse Resp B/P (MAP) Pulse Ox O2 Delivery O2 Flow Rate FiO2 10/18/20 11:11 98.6 109 20 109/55 (73) 98 Nasal Cannula 2.0 98.6 I & O 10/17/20 10/17/20 10/18/20 15:00 23:00 07:00 Intake Total 50 ml 200 ml 450 ml Output Total 1 ml 400 ml Balance 50 ml 199 ml 50 ml Physical Exam General: Alert, Oriented X3, Cooperative, moderate distress Lungs: Clear, Other Abdomen: Normal bowel sounds, Soft, No hepatosplenomegaly, No masses, Other (Diffusely tender) Extremities: No clubbing, No cyanosis, No edema, Normal pulses, No tenderness/swelling Skin: No significant lesion, Other (gluteal breakdown) Labs Labs: Laboratory Tests Test 10/17/20 13:40 O2 Saturation 84 % (92-99) Arterial Blood pH 7.30 (7.35-7.45) Arterial Blood pCO2 at Patient Temp 51 mmHg (35-46) Arterial Blood pO2 at Patient Temp 48 mmHg (65-108) Arterial Blood HCO3 25 mmol/L (21-28) Arterial Blood Base Excess -2 mmol/L (-3-3) FiO2 5l nc Assessment and Plan Assessmemt and Plan Problems Medical Problems: (1) Dehydration Status: Acute (2) Diarrhea Status: Acute (3) Hypernatremia Status: Acute Comment Review of Relevant I have reviewed the following items lottie (where applicable) has been applied. Medications: Current Medications Medications (Trade) Dose Ordered Sig/Aysha Route PRN Reason Start Time Stop Time Status Last Admin Dose Admin Psyllium Hydrophilic Mucilloid (Metamucil Fiber Packet) 1 pkt BID PO 10/17/20 21:00 10/18/20 08:41 Furosemide (Lasix) 40 mg 1X ONCE IVP 10/17/20 15:00 10/17/20 15:01 DC 10/17/20 16:31 Justifications for Admission Other Justification SANDRA ALLEN MD October 18, 2020 12:28
[2020-10-18 13:26] LABS: BASO # 0.1 x10^3/uL (0.0-0.2); BASO % 1 % (0-3); EOS # 0.4 x10^3/uL (0.0-0.7); EOS % 3 % (0-3); HEMATOCRIT 31.8 % (36.0-47.0); HEMOGLOBIN 10.2 g/dL (12.0-15.5); LYMPH # 1.8 x10^3/uL (1.0-4.8); LYMPH % 10 % (24-48); MEAN CORPUSCULAR HEMOGLOBIN 31 pg (25-35); MEAN CORPUSCULAR HGB CONC 32 g/dL (31-37); MEAN CORPUSCULAR VOLUME 97 fL (79-100); MONO # 0.9 x10^3/uL (0.0-1.1); MONO % 5 % (0-9); NEUT # 14.6 x10^3/uL (1.8-7.7); NEUT % 82 % (31-73); PLATELET COUNT 139 x10^3/uL (140-400); RED BLOOD COUNT 3.27 x10^6/uL (3.50-5.40); RED CELL DISTRIBUTION WIDTH 15.2 % (11.5-14.5); WHITE BLOOD COUNT 17.8 x10^3/uL (4.0-11.0)
[2020-10-18 15:05] VITALS: BP 125/62
[2020-10-18] MEDS ORDERED: MAGNESIUM CITRATE 296 ML SOLUTION. PO ONE (15:15)
[2020-10-18 19:00] VITALS: BP 108/58
[2020-10-18] MEDS: traZODone 100 MG TABLET. PO SCH (21:27)
[2020-10-18] MEDS: ATORVASTATIN CALCIUM 40 MG TABLET. PO SCH (21:31)
--- NOTE | 2020-10-18 21:40 | NUR ---
Pt resting in bed - sats upper 80's - low 90'. O2 increased to 3L per NC. Sats improved to mid 90's. Will continue to monitor
[2020-10-18 22:56] VITALS: BP 141/66
[2020-10-19 02:55] VITALS: BP 148/70
[2020-10-19] MEDS: LEVOTHYROXINE 50 MCG TABLET PO SCH (06:22)
[2020-10-19 07:00] VITALS: BP 125/58
[2020-10-19 07:57] LABS: BASO # 0.1 x10^3/uL (0.0-0.2); BASO % 0 % (0-3); EOS # 0.2 x10^3/uL (0.0-0.7); EOS % 1 % (0-3); HEMATOCRIT 29.7 % (36.0-47.0); HEMOGLOBIN 9.7 g/dL (12.0-15.5); LYMPH # 1.8 x10^3/uL (1.0-4.8); LYMPH % 11 % (24-48); MEAN CORPUSCULAR HEMOGLOBIN 31 pg (25-35); MEAN CORPUSCULAR HGB CONC 33 g/dL (31-37); MEAN CORPUSCULAR VOLUME 95 fL (79-100); MONO # 0.9 x10^3/uL (0.0-1.1); MONO % 6 % (0-9); NEUT # 13.4 x10^3/uL (1.8-7.7); NEUT % 82 % (31-73); PLATELET COUNT 112 x10^3/uL (140-400); RED BLOOD COUNT 3.13 x10^6/uL (3.50-5.40); WHITE BLOOD COUNT 16.4 x10^3/uL (4.0-11.0)
[2020-10-19] MEDS: PANTOPRAZOLE 40 MG TABLET.DR. PO SCH (09:07)
[2020-10-19] MEDS: MESALAMINE ER 250 MG CAPSULE.ER PO SCH ×4 (09:07→21:17)
[2020-10-19] MEDS: FLUoxetine HCL 20 MG CAPSULE PO SCH (09:07)
[2020-10-19] MEDS: ACETAMINOPHEN 325 MG TABLET. PO PRN (09:07)
[2020-10-19] MEDS: buPROPion SR 100 MG TABLET.SA. PO SCH ×2 (09:07→21:17)
[2020-10-19] MEDS: GABAPENTIN 100 MG CAPSULE. PO SCH ×3 (09:07→21:17)
[2020-10-19] MEDS: PSYLLIUM HUSK (SUGAR FREE) 1 PKT PACKET PO SCH ×2 (09:08→21:00)
[2020-10-19] MEDS: MULTIVITAMIN with MINERAL TABLET. PO SCH (09:08)
[2020-10-19] MEDS: NYSTATIN TOPICAL POWDER 15GM BOTTLE. TP SCH ×2 (09:08→21:17)
[2020-10-19 09:57] LABS: CALCIUM 7.8 mg/dL (8.5-10.1); CREATININE 0.6 mg/dL (0.6-1.0); GFR 100.3; POTASSIUM 3.8 mmol/L (3.5-5.1)
[2020-10-19 11:00] VITALS: BP 112/61
--- NOTE | 2020-10-19 11:27 | PDOC ---
[employer] PROGRESS NOTE Date of Service DOS: DATE: 10/19/20 TIME: 11:24 Chief Complaint Chief Complaint Intractable abdominal pain - likely due to constipation. with CRP low less likely crohns flare. Will get on bowel regimen once nausea better controlled Nausea and vomiting - possibly from poor GI motility, gastroparesis, will give IV antiemetics Multilevel thoracic and lumbar wedge compression fractures - no new fractures Abnormal CXR - likely from chronic bedbound status. Levaquin started given her elevated WBC, likely gram negative pneumonia Weakness - likely from electolyte derangement, will replace Mild cognitive impairment COPD, chronic combined respiratory failure, stable Debility, in a wheelchair at home - will have PT for gait training and OT for ADLs Fibromyalgia, SEVERE HYPOKALEMIA - replace IV. Telemetry ordered Dysuria - given rocephin for likely UTI HTN - cont meds HLD - cont meds hypothyroidism - cont meds Follicular lymphoma (s/p chemotherapy, radiation therapies, splenectomy) - in remission Seizures - none recently Anxiety with depression - more anxious now, may need med adjustment Bipolar disorder - as above GERD - on PPI Crohns - on pentasa outpatient, will continue Severe protein calorie malnutrition - will have superannuation funds manager to see. Self care is seriously in question Leukocytosis - increasing. Has not been on antibiotics given no clear infectious source, will obtain blood cultures History of Present Illness History of Present Illness 10/19/2020 Pt seen and examined DW RN DW Case mgmt Chart reviewed Ms Kahn is a 65 yo F w/ PMHx HTN, HLD, asthma with COPD, seizure, GERD, anemia, Bipolar disorder, anxiety, fibromyalgia, Follicular lymphoma (s/p chemotherapy, radiation therapies, splenectomy), ?crohns, and hypothyroidism who presents to the emergency room complaining of abdominal pain, diarrhea, nausea and vomiting. Patient states that she has been having intermittent lower abdominal pain for the last 1 month. 2 days ago she started having a great deal of diarrhea, but describes it as "mucous", no actual liquid stools. She has not had any recent sick contacts, does note that she has not gotten out of bed for 4 months due to what she says is plantar fasciitis, but lives in a high-rise apartment with 24/7 care provided by [facility]. On examination she says she cannot sit up straight to eat and is unable to transition without assistance. She denies any increased shortness of breath. She does not have any chest pain. She denies any URI symptoms. She denies any blood in her vomit or stools. She has never had significant complications from her Crohn's and it is not clear how she has follow up, was previously on pentasa. CT abdomen pelvis no acute abnormality but very large stool burden noted. Additionally Multilevel thoracic and lumbar wedge compression fractures stable since 2020 imaging. Labs with WBC 10.9, Hb 13.4, platelets 332, NA 150, K3.6, BUN 12, creatinine 0.4, glucose 92, albumin 2.1, urine positive large leukocyte esterase. CRP 2.5. 10/17: Afebrile. WBC 16.5, K4.2 now. She is very confused this morning and O2 sats have dropped into the 80s. Improved with lasix and BIPAP. Low-grade temp. WBC up. Still with abdominal fullness still short of breath. Started on Levaquin. She is constipated. Less confused Plan: Antibiotics, bowel regimen. Needs mobility and likely placement in SNF Vitals/I&O Vitals/I&O: Vital Signs Date Time Temp Pulse Resp B/P (MAP) Pulse Ox O2 Delivery O2 Flow Rate FiO2 10/19/20 07:00 100.0 125 18 125/58 (80) 96 Nasal Cannula 2.0 100.0 I & O 10/18/20 10/18/20 10/19/20 15:00 23:00 07:00 Intake Total 50 ml 550 ml Balance 50 ml 550 ml Physical Exam General: Alert, Oriented X3, Cooperative, moderate distress Lungs: Clear, Other Abdomen: Normal bowel sounds, Soft, No hepatosplenomegaly, No masses, Other (Diffusely tender) Extremities: No clubbing, No cyanosis, No edema, Normal pulses, No tenderness/swelling Skin: No significant lesion, Other (gluteal breakdown) Labs Labs: Laboratory Tests Test 10/18/20 13:00 10/19/20 06:55 White Blood Count 17.8 x10^3/uL (4.0-11.0) 16.4 x10^3/uL (4.0-11.0) Red Blood Count 3.27 x10^6/uL (3.50-5.40) 3.13 x10^6/uL (3.50-5.40) Hemoglobin 10.2 g/dL (12.0-15.5) 9.7 g/dL (12.0-15.5) Hematocrit 31.8 % (36.0-47.0) 29.7 % (36.0-47.0) Mean Corpuscular Volume 97 fL (79-100) 95 fL (79-100) Mean Corpuscular Hemoglobin 31 pg (25-35) 31 pg (25-35) Mean Corpuscular Hemoglobin Concent 32 g/dL (31-37) 33 g/dL (31-37) Red Cell Distribution Width 15.2 % (11.5-14.5) 15.0 % (11.5-14.5) Platelet Count 139 x10^3/uL (140-400) 112 x10^3/uL (140-400) Neutrophils (%) (Auto) 82 % (31-73) 82 % (31-73) Lymphocytes (%) (Auto) 10 % (24-48) 11 % (24-48) Monocytes (%) (Auto) 5 % (0-9) 6 % (0-9) Eosinophils (%) (Auto) 3 % (0-3) 1 % (0-3) Basophils (%) (Auto) 1 % (0-3) 0 % (0-3) Neutrophils # (Auto) 14.6 x10^3/uL (1.8-7.7) 13.4 x10^3/uL (1.8-7.7) Lymphocytes # (Auto) 1.8 x10^3/uL (1.0-4.8) 1.8 x10^3/uL (1.0-4.8) Monocytes # (Auto) 0.9 x10^3/uL (0.0-1.1) 0.9 x10^3/uL (0.0-1.1) Eosinophils # (Auto) 0.4 x10^3/uL (0.0-0.7) 0.2 x10^3/uL (0.0-0.7) Basophils # (Auto) 0.1 x10^3/uL (0.0-0.2) 0.1 x10^3/uL (0.0-0.2) Sodium Level 145 mmol/L (136-145) Potassium Level 3.8 mmol/L (3.5-5.1) Chloride Level 106 mmol/L (98-107) Carbon Dioxide Level 27 mmol/L (21-32) Anion Gap 12 (6-14) Blood Urea Nitrogen 15 mg/dL (7-20) Creatinine 0.6 mg/dL (0.6-1.0) Estimated GFR (Cockcroft-Gault) 100.3 Glucose Level 90 mg/dL (70-99) Calcium Level 7.8 mg/dL (8.5-10.1) Assessment and Plan Assessmemt and Plan Problems Medical Problems: (1) Dehydration Status: Acute (2) Diarrhea Status: Acute (3) Hypernatremia Status: Acute Intractable abdominal pain - likely due to constipation. with CRP low less likely crohns flare. Will get on bowel regimen once nausea better controlled Nausea and vomiting - possibly from poor GI motility, gastroparesis, will give IV antiemetics Multilevel thoracic and lumbar wedge compression fractures - no new fractures Abnormal CXR - likely from chronic bedbound status. Levaquin started given her elevated WBC, likely gram negative pneumonia Weakness - likely from electolyte derangement, will replace Mild cognitive impairment COPD, chronic combined respiratory failure, stable Debility, in a wheelchair at home - will have PT for gait training and OT for ADLs Fibromyalgia, SEVERE HYPOKALEMIA - replace IV. Telemetry ordered Dysuria - given rocephin for likely UTI HTN - cont meds HLD - cont meds hypothyroidism - cont meds Follicular lymphoma (s/p chemotherapy, radiation therapies, splenectomy) - in remission Seizures - none recently Anxiety with depression - more anxious now, may need med adjustment Bipolar disorder - as above GERD - on PPI Crohns - on pentasa outpatient, will continue Severe protein calorie malnutrition - will have superannuation funds manager to see. Self care is seriously in question Leukocytosis - increasing. Has not been on antibiotics given no clear infectious source, will obtain blood cultures Plan BiPAP at HS CLD PT/OT Home meds DVT proph Trend labs DC disposition pending Comment Review of Relevant I have reviewed the following items lottie (where applicable) has been applied. Medications: Current Medications Medications (Trade) Dose Ordered Sig/Aysha Route PRN Reason Start Time Stop Time Status Last Admin Dose Admin Levofloxacin/ Dextrose 100 ml @ 100 mls/hr Q24H IV 10/18/20 16:00 10/18/20 16:08 Magnesium Citrate (Citroma) 296 ml 1X ONCE PO 10/18/20 15:15 10/18/20 15:16 DC 10/18/20 16:08 Justifications for Admission Other Justification NATHAN ROLON III DO October 19, 2020 11:27
[2020-10-19] MEDS: ENOXAPARIN 40 MG/0.4 ML SYRINGE. SQ SCH (12:51)
[2020-10-19] MEDS ORDERED: FUROSEMIDE 40 MG/4 ML VIAL. IVP ONE (14:00)
[2020-10-19] MEDS: traMADol 50 MG TABLET PO PRN ×2 (14:37→19:54)
[2020-10-19 15:00] VITALS: BP 117/65
--- NOTE | 2020-10-19 15:06 | NUR ---
SW following. Discussed with RN, pt from home alone, 3L (uses 2L PRN at home), clear liquid diet, COVID-19 negative. PT/OT recommending home with 24 hour care. Pt has caregivers through [facility], and has had [facility] in the past. Pt has had a fever, not ready for discharge. SW will discuss with pt about possible home health upon discharge. SW will continue to follow.
--- NOTE | 2020-10-19 16:12 | NUR ---
Nurse's note: Spoke with the patient's son, Qamar Kahn ([phone]) and was updated of the patient's status. He stated that he's in [place] and has not seen his mom recently.
--- NOTE | 2020-10-19 16:31 | RAD ---
XR CHEST 1V INDICATION: cough, SOA, bilateral rales / Spl. Instructions: / History: . COMPARISON STUDY: 10/17/2020. FINDINGS: Right Port-A-Cath. Lungs: Normal lung volume. Improving interstitial opacities. Pleura: Stable small bilateral pleural effusions. Heart and Mediastinum: Stable cardiomediastinal silhouette and great vessels. IMPRESSION: 1. Improving interstitial opacities. 2. Stable small bilateral pleural effusions. Electronically signed by: Rico Dunn MD (10/19/2020 4:28 PM) [facility]
[2020-10-19 19:00] VITALS: BP 101/64
[2020-10-19] MEDS: ATORVASTATIN CALCIUM 40 MG TABLET. PO SCH (21:17)
[2020-10-19] MEDS: traZODone 100 MG TABLET. PO SCH (21:17)
[2020-10-19 23:00] VITALS: BP 126/69
[2020-10-20 03:00] VITALS: BP 110/56
[2020-10-20 07:00] VITALS: BP 124/68
[2020-10-20] MEDS: MESALAMINE ER 250 MG CAPSULE.ER PO SCH ×4 (08:30→21:21)
[2020-10-20] MEDS: LEVOTHYROXINE 50 MCG TABLET PO SCH (08:30)
[2020-10-20] MEDS: FLUoxetine HCL 20 MG CAPSULE PO SCH (08:30)
[2020-10-20] MEDS: MULTIVITAMIN with MINERAL TABLET. PO SCH (08:30)
[2020-10-20] MEDS: buPROPion SR 100 MG TABLET.SA. PO SCH ×2 (08:30→21:21)
[2020-10-20] MEDS: GABAPENTIN 100 MG CAPSULE. PO SCH ×3 (08:30→21:22)
[2020-10-20] MEDS: PANTOPRAZOLE 40 MG TABLET.DR. PO SCH (08:30)
[2020-10-20] MEDS: PSYLLIUM HUSK (SUGAR FREE) 1 PKT PACKET PO SCH ×2 (08:34→21:00)
[2020-10-20 09:58] LABS: CREATININE 0.6 mg/dL (0.6-1.0); GFR 100.3
[2020-10-20 10:39] LABS: POTASSIUM 2.8 mmol/L (3.5-5.1)
[2020-10-20] MEDS ORDERED: POTASSIUM CHLORIDE 20 MEQ TABLET.ER. PO ONE ×2 (10:45→16:00)
[2020-10-20 11:00] VITALS: BP 120/63
[2020-10-20] MEDS: NYSTATIN TOPICAL POWDER 15GM BOTTLE. TP SCH ×2 (11:22→21:24)
[2020-10-20] MEDS: METOPROLOL TART IMMED RELEASE 50 MG TABLET. PO SCH ×3 (11:23→21:22)
[2020-10-20] MEDS: ENOXAPARIN 40 MG/0.4 ML SYRINGE. SQ SCH (11:27)
--- NOTE | 2020-10-20 11:52 | PDOC ---
[employer] PROGRESS NOTE Date of Service DOS: DATE: 10/20/20 TIME: 11:50 Chief Complaint Chief Complaint Intractable abdominal pain - likely due to constipation. with CRP low less likely crohns flare. Will get on bowel regimen once nausea better controlled Nausea and vomiting - possibly from poor GI motility, gastroparesis, will give IV antiemetics Multilevel thoracic and lumbar wedge compression fractures - no new fractures Abnormal CXR - likely from chronic bedbound status. Levaquin started given her elevated WBC, likely gram negative pneumonia Weakness - likely from electolyte derangement, will replace Mild cognitive impairment COPD, chronic combined respiratory failure, stable Debility, in a wheelchair at home - will have PT for gait training and OT for ADLs Fibromyalgia, SEVERE HYPOKALEMIA - replace IV. Telemetry ordered Dysuria - given rocephin for likely UTI HTN - cont meds HLD - cont meds hypothyroidism - cont meds Follicular lymphoma (s/p chemotherapy, radiation therapies, splenectomy) - in remission Seizures - none recently Anxiety with depression - more anxious now, may need med adjustment Bipolar disorder - as above GERD - on PPI Crohns - on pentasa outpatient, will continue Severe protein calorie malnutrition - will have cotton factor to see. Self care is seriously in question Leukocytosis - increasing. Has not been on antibiotics given no clear infectious source, will obtain blood cultures History of Present Illness History of Present Illness 10/20/2020 Patient seen and examined She is a little tachycardic today but sinus rhythm Discussed with RN Discussed with case management Chart reviewed I am adding scheduled metoprolol 10/19/2020 Pt seen and examined PEPITO BEYER Case mgmt Chart reviewed Ms Kahn is a 65 yo F w/ PMHx HTN, HLD, asthma with COPD, seizure, GERD, anemia, Bipolar disorder, anxiety, fibromyalgia, Follicular lymphoma (s/p chemotherapy, radiation therapies, splenectomy), ?crohns, and hypothyroidism who presents to the emergency room complaining of abdominal pain, diarrhea, nausea and vomiting. Patient states that she has been having intermittent lower abdominal pain for the last 1 month. 2 days ago she started having a great deal of diarrhea, but describes it as "mucous", no actual liquid stools. She has not had any recent sick contacts, does note that she has not gotten out of bed for 4 months due to what she says is plantar fasciitis, but lives in a high-rise apartment with 24/ care provided by [facility]. On examination she says she cannot sit up straight to eat and is unable to transition without assistance. She denies any increased shortness of breath. She does not have any chest pain. She denies any URI symptoms. She denies any blood in her vomit or stools. She has never had significant complications from her Crohn's and it is not clear how she has follow up, was previously on pentasa. CT abdomen pelvis no acute abnormality but very large stool burden noted. Additionally Multilevel thoracic and lumbar wedge compression fractures stable since 2020 imaging. Labs with WBC 10.9, Hb 13.4, platelets 332, NA 150, K3.6, BUN 12, creatinine 0.4, glucose 92, albumin 2.1, urine positive large leukocyte esterase. CRP 2.5. 10/17: Afebrile. WBC 16.5, K4.2 now. She is very confused this morning and O2 sats have dropped into the 80s. Improved with lasix and BIPAP. Low-grade temp. WBC up. Still with abdominal fullness still short of breath. Started on Levaquin. She is constipated. Less confused Plan: Antibiotics, bowel regimen. Needs mobility and likely placement in SNF Vitals/I&O Vitals/I&O: Vital Signs Date Time Temp Pulse Resp B/P (MAP) Pulse Ox O2 Delivery O2 Flow Rate FiO2 10/20/20 11:28 125 120/63 10/20/20 11:00 97.9 20 90 Nasal Cannula 3.0 97.9 I & O 10/19/20 10/19/20 10/20/20 15:00 23:00 07:00 Intake Total 450 ml 300 ml Output Total 700 ml 100 ml Balance -250 ml 200 ml Physical Exam General: Alert, Oriented X3, Cooperative, moderate distress Lungs: Clear, Other Abdomen: Normal bowel sounds, Soft, No hepatosplenomegaly, No masses, Other ( Diffusely tender) Extremities: No clubbing, No cyanosis, No edema, Normal pulses, No tenderness/swelling Skin: No significant lesion, Other (gluteal breakdown) Labs Labs: Laboratory Tests Test 10/20/20 09:30 Sodium Level 142 mmol/L (136-145) Potassium Level 2.8 mmol/L (3.5-5.1) Chloride Level 102 mmol/L (98-107) Carbon Dioxide Level 26 mmol/L (21-32) Anion Gap 14 (6-14) Blood Urea Nitrogen 13 mg/dL (7-20) Creatinine 0.6 mg/dL (0.6-1.0) Estimated GFR (Cockcroft-Gault) 100.3 Glucose Level 135 mg/dL (70-99) Calcium Level 8.0 mg/dL (8.5-10.1) Assessment and Plan Assessmemt and Plan Problems Medical Problems: (1) Dehydration Status: Acute (2) Diarrhea Status: Acute (3) Hypernatremia Status: Acute Intractable abdominal pain - likely due to constipation. with CRP low less likely crohns flare. Will get on bowel regimen once nausea better controlled Nausea and vomiting - possibly from poor GI motility, gastroparesis, will give IV antiemetics Multilevel thoracic and lumbar wedge compression fractures - no new fractures Abnormal CXR - likely from chronic bedbound status. Levaquin started given her e levated WBC, likely gram negative pneumonia Weakness - likely from electolyte derangement, will replace Mild cognitive impairment COPD, chronic combined respiratory failure, stable Debility, in a wheelchair at home - will have PT for gait training and OT for ADLs Fibromyalgia, SEVERE HYPOKALEMIA - replace IV. Telemetry ordered Dysuria - given rocephin for likely UTI HTN - cont meds HLD - cont meds hypothyroidism - cont meds Follicular lymphoma (s/p chemotherapy, radiation therapies, splenectomy) - in remission Seizures - none recently Anxiety with depression - more anxious now, may need med adjustment Bipolar disorder - as above GERD - on PPI Crohns - on pentasa outpatient, will continue Severe protein calorie malnutrition - will have cotton factor to see. Self care is seriously in question Leukocytosis - increasing. Has not been on antibiotics given no clear infectious source, will obtain blood cultures Plan Add metoprolol 50 p.o. twice daily Cardiac monitoring BiPAP at HS CLD PT/OT Home meds DVT proph Trend labs DC disposition pending Probable discharge tomorrow morning if she is stable (she apparently has a 24- hour caregiver) Advance Care Planning: Total time spent [id number] with patient greater than 16 minutes in discussion with goals of care, comfort care, end-of-life care, pain management, code status Comment Review of Relevant I have reviewed the following items lottie (where applicable) has been applied. Medications: Current Medications Medications (Trade) Dose Ordered Sig/Aysha Route PRN Reason Start Time Stop Time Status Last Admin Dose Admin Furosemide (Lasix) 40 mg 1X ONCE IVP 10/19/20 14:00 10/19/20 14:01 DC 10/19/20 14:28 Metoprolol Tartrate (Lopressor) 50 mg BID PO 10/20/20 09:00 10/20/20 11:28 Potassium Chloride (Klor-Con) 40 meq 1X ONCE PO 10/20/20 10:45 10/20/20 10:57 DC 10/20/20 11:23 Justifications for Admission Other Justification NATHAN ROLON III DO October 20, 2020 11:52
[2020-10-20 15:00] VITALS: BP 106/69
[2020-10-20] MEDS: traMADol 50 MG TABLET PO PRN ×2 (15:49→23:40)
[2020-10-20 19:47] VITALS: BP 104/60
[2020-10-20] MEDS: traZODone 100 MG TABLET. PO SCH (21:21)
[2020-10-20] MEDS: ATORVASTATIN CALCIUM 40 MG TABLET. PO SCH (21:22)
[2020-10-20 23:39] VITALS: BP 97/65
[2020-10-21 03:22] VITALS: BP 102/56
[2020-10-21] MEDS: LEVOTHYROXINE 50 MCG TABLET PO SCH (05:53)
[2020-10-21] MEDS: traMADol 50 MG TABLET PO PRN (05:53)
[2020-10-21 07:00] VITALS: BP 114/70
[2020-10-21 08:12] LABS: BASO % 0 % (0-3); EOS # 0.2 x10^3/uL (0.0-0.7); EOS % 1 % (0-3); HEMATOCRIT 25.3 % (36.0-47.0); HEMOGLOBIN 8.3 g/dL (12.0-15.5); LYMPH % 13 % (24-48); MEAN CORPUSCULAR HEMOGLOBIN 31 pg (25-35); MEAN CORPUSCULAR HGB CONC 33 g/dL (31-37); MEAN CORPUSCULAR VOLUME 95 fL (79-100); MONO % 7 % (0-9); NEUT # 11.8 x10^3/uL (1.8-7.7); NEUT % 79 % (31-73); PLATELET COUNT 141 x10^3/uL (140-400); RED BLOOD COUNT 2.68 x10^6/uL (3.50-5.40); RED CELL DISTRIBUTION WIDTH 15.1 % (11.5-14.5); WHITE BLOOD COUNT 14.9 x10^3/uL (4.0-11.0)
[2020-10-21 08:27] LABS: CALCIUM 8.1 mg/dL (8.5-10.1); CREATININE 0.6 mg/dL (0.6-1.0); GFR 100.3; POTASSIUM 3.6 mmol/L (3.5-5.1)
[2020-10-21] MEDS ORDERED: METO50TA6 PO (08:48)
[2020-10-21] MEDS: PSYLLIUM HUSK (SUGAR FREE) 1 PKT PACKET PO SCH (09:00)
--- NOTE | 2020-10-21 09:32 | DS ---
ADMITTING DIAGNOSES: Diarrhea, hypokalemia, UTI, debility. DISCHARGE DIAGNOSES: Resolving hypokalemia, resolving diarrhea, chronic debility, polypharmacy asthma, depression, anxiety, allergic rhinitis, neuropathy, muscle spasms, hyperlipidemia, and hypothyroidism. CONSULTS: None. PROCEDURES: None. HOSPITAL COURSE: The patient is a pleasant elderly female who presented with some loose stools and hypokalemia, was noted to have some intractable abdominal pain and intractable nausea and vomiting as well. She was admitted. We corrected her electrolytes, gave her IV fluids, resumed physical therapy and occupational therapy. Resumed her home meds. Over the past few days, she has returned to her baseline. This morning, I saw and examined her, she is doing well. I plan to discharge. I left a prescription for p.r.n. Ultram and Levaquin 500 mg p.o. every day for 5 more days. DISCHARGE DISPOSITION: Home. ACTIVITY: As tolerated. DIET: Low sodium. DISCHARGE MEDICATIONS: Please see the MRAD. 1. Ultram 50 mg q.6 hours p.r.n. 2. Levaquin 500 mg p.o. daily for five more days. 3. Metoprolol 50 mg b.i.d. 4. P.r.n. Tylenol. 5. Albuterol. 6. Atorvastatin 20 mg a day. 7. Bupropion 100 mg b.i.d. 8. Dicyclomine 20 mg t.i.d. 9. Docusate. 10. Fluoxetine 10 mg a day. 11. Flonase. 12. Advair. 13. Lasix 40 mg a day. 14. Gabapentin 300 mg t.i.d. 15. Xopenex. 16. Synthroid 50 mcg per day. 17. Claritin 10 mg a day. 18. Ativan 2 mg t.i.d. p.r.n. 19. Meloxicam. 20. Vitamins. 21. Movantik 25 mg every day p.r.n. 22. Nystatin powder. 23. P.r.n. Neosporin. 24. Ondansetron 4 mg q.6 hours p.r.n. 25. Protonix 40 mg a day. 26. Compazine 10 mg q.4 hours p.r.n. 27. Crestor 10 mg a day. 28. Terbinafine 250 mg a day. 29. Trazodone 100 mg at bedtime. TOTAL TIME: 34 minutes. FAM/ASHLI DR: Erin TID: [id number]
[2020-10-21] MEDS: buPROPion SR 100 MG TABLET.SA. PO SCH (09:38)
[2020-10-21] MEDS: MULTIVITAMIN with MINERAL TABLET. PO SCH (09:38)
[2020-10-21] MEDS: PANTOPRAZOLE 40 MG TABLET.DR. PO SCH (09:38)
[2020-10-21] MEDS: FLUoxetine HCL 20 MG CAPSULE PO SCH (09:38)
[2020-10-21] MEDS: GABAPENTIN 100 MG CAPSULE. PO SCH (09:38)
[2020-10-21] MEDS: NYSTATIN TOPICAL POWDER 15GM BOTTLE. TP SCH (09:39)
[2020-10-21] MEDS: METOPROLOL TART IMMED RELEASE 50 MG TABLET. PO SCH (09:39)
[2020-10-21] MEDS: MESALAMINE ER 250 MG CAPSULE.ER PO SCH ×2 (09:46→12:20)
[2020-10-21 11:00] VITALS: BP 125/69
[2020-10-21] MEDS: ENOXAPARIN 40 MG/0.4 ML SYRINGE. SQ SCH (12:20)
--- NOTE | 2020-10-21 13:10 | NUR ---
SW following. Discussed with RN, pt from home with [facility] caregivers. Discharge order for home. SW arranged [facility] stretcher transportation home for 1400. RN notified. OLIVERIO will continue to follow.
--- NOTE | 2020-10-21 17:03 | NUR ---
Discharge Note: JASWINDER NAVAS K6 [facility] Discharge instructions and discharge home medications reviewed with patient and a copy given. All questions have been answered and understanding verbalized. The following instructions and handouts were given: Home meds as directed Oxygen at 4 lpm per nasal cannula Spoke to Mari, the coordinator of [facility], discussed new prescriptions, written prescription included in the packet. Patient on BRIEN hose upon discharge. Discontinued lines and drains: peripheral IV intact, patient tolerated removal, no complications noted. Patient discharged to home via stretcher on 4liters oxygen per nasal cannula by [facility] personnel at 1540.
== END 2020-10-21 15:40 | disposition home or self-care (01) | DRG 177 ==
LOC: ER 22:13 → 6 SOUTH 10-16 03:11 → OBSVTOIN 10-16 08:50
PROVIDERS: ADMIT Internal Medicine; ATTEND Internal Medicine
DX: J15.6 Pneumonia due to other Gram-negative bacteria (principal); E43 Unspecified severe protein-calorie malnutrition; K50.90 Crohn's disease, unspecified, without complications; J44.0 Chronic obstructive pulmonary disease with (acute) lower respiratory infection; E87.0 Hyperosmolality and hypernatremia; E87.6 Hypokalemia; K21.9 Gastro-esophageal reflux disease without esophagitis; E03.9 Hypothyroidism, unspecified; E78.5 Hyperlipidemia, unspecified; F31.9 Bipolar disorder, unspecified; F41.8 Other specified anxiety disorders; G31.84 Mild cognitive impairment of uncertain or unknown etiology; G62.9 Polyneuropathy, unspecified; I10 Essential (primary) hypertension; Z74.01 Bed confinement status; Z82.49 Family history of ischemic heart disease and other diseases of the circulatory system; Z87.891 Personal history of nicotine dependence; Z90.81 Acquired absence of spleen; E86.0 Dehydration; Z92.21 Personal history of antineoplastic chemotherapy; Z92.3 Personal history of irradiation; Z96.649 Presence of unspecified artificial hip joint; Z87.440 Personal history of urinary (tract) infections; Z88.8 Allergy status to other drugs, medicaments and biological substances; Z91.041 Radiographic dye allergy status; M79.7 Fibromyalgia; D72.829 Elevated white blood cell count, unspecified; Z68.26 Body mass index [BMI] 26.0-26.9, adult; Z20.822 Contact with and (suspected) exposure to COVID-19
CPT/HCPCS: 36415; 36600; 71045; 74176; 80048; 80053; 81001; 82805; 83690; 83735; 84100; 85007; 85025; 86140; 87040; 94660; 96361; 96374; G0378; G0379; J0696; J1650; J1940; J1956; J2405; J3480; J7030; P9045; U0003; U0005; 97530-GP; 99285-25